=== PATIENT | female | born 1945 | race Caucasian/White ===

== ENCOUNTER → 2023-05-06 | Outpatient (CLI) | payer MEDICARE, OTHER, SELFPAY ==
--- NOTE | 2023-05-06 16:07 | MRI_ITS ---
STUDY: MRI BRAIN WITH AND WITHOUT CONTRAST REASON FOR EXAM: Female, 77 years old. HEARING LOSS, LT SIDE WORSE, IAC TECHNIQUE: Standardized multiplanar fat and water weighted pulse sequences were obtained. IV 13ML CLARISCAN was administered for the contrast portion of the examination. COMPARISON: None. FINDINGS: Normal size of the ventricles and extra-axial spaces for the patient''s age. Periventricular white matter ischemic changes without mass effect or restricted diffusion.. Normal bilateral basal ganglia. Normal thalami. There is no extra-axial fluid accumulation. Normal flow voids within the major intracranial circulation suggesting patency by spin echo criteria. Normal venous enhancement. There is no enhancing intra-axial or extra-axial abnormality. Partial empty sella deformity of uncertain significance. Normal, infundibular stalk, optic chiasm and hypothalamus. Normal tectal plate and pineal gland. Normal midbrain, richard and medulla. Normal cerebellum. Normal basal cisterns. Normal bilateral temporal bones. Normal bilateral internal auditory canals. No demonstrated orbital abnormality, within the constraints of a routine brain study. Normal visualized paranasal sinuses. Normal calvarium and skull base. Normal visualized soft tissue structures. Normal visualized upper cervical spine. MRI/Brain W/WO Contrast IMPRESSION: Mild periventricular white matter ischemic change without evidence for acute infarct.. No evidence for acoustic or vestibular schwannoma Electronically Signed: Christopher Teixeira MD at 18:16 EST ,
[2023-05-06 16:20] LABS: CREATININE FINGERSTICK < 1.0 mg/dL (0.55-1.02); EGFR FINGERSTICK > 60.0000 mL/min (>60)
== END | disposition home or self-care (01) ==
PROVIDERS: PCP Family Medicine; Referring Provider Otolaryngology; Visit Provider Otolaryngology
DX: H90.3 Sensorineural hearing loss, bilateral (principal)
CPT/HCPCS: 70553; A9575

== ENCOUNTER → 2023-05-20 | Outpatient (CLI) | payer MEDICARE, OTHER, SELFPAY ==
--- OUTSIDE RECORDS SUMMARY | 2023-05-20 13:36 | XMS RPT_ITS | CCD ---
Author Name Unknown Address [address] [place] [address] Organization [facility] Care Team Providers Care Biotechnician Name Role Phone LIZA, LORETTA Primary Care Unavailable ALKA PRUETT Admitting Unavailable ALKA PRUETT Attending Unavailable STANFORD LINO Unavailable MILES IRAHETA Unavailable SAMIRA PORTER Referring Unavailabl e LIZA, LORETTA Primary Care Unavailable ALKA PRUETT Referring Unavailable LIZA, LORETTA Primary Care Unavailable PRATT, TAMAR M Referring Unavailable LIZA, LORETTA Primary Care Unavailable PRATT, ATMAR M Referring Unavailable LIZA, LORETTA Primary Care Unavailable LULY YOUSSEF Attending Unavailab le LIZA, LORETTA Primary Care Unavailable PRATT, TAMAR M Attending Unavailable LIZA, LORETTA Primary Care Unavailable PRATT, TAMAR M Referring Unavailable LIZA, LORETTA Primary Care Unavailable PRATT, TAMAR M Referring Unavailable LIZA, LORETTA Primary Care Unavailable LULY YOUSSEF Attending Unavailab le LIZA, LORETTA Primary Care Unavailable LULY YOUSSEF Referring Unavailab le LIZA, LORETTA Primary Care Unavailable PATCHA, HIMALAYA Attending Unavailable LIZA, LORETTA Primary Care Unavailable PATCHA, HIMALAYA Referring Unavailable PATCHA, HIMALAYA Attending Unavailable LIZA, LORETTA Primary Care Unavailable PATCHA, HIMALAYA Referring Unavailable LIZA, LORETTA Primary Care Unavailable YI MOLINA Attending Unavailable LIZA, LORETTA Attending Unavailable SELF, REFERRAL Referring Unavailable LIZA, LORETTA Primary Care Unavailable PATCHA, HIMALAYA Attending Unavailable PATCHA, HIMALAYA Referring Unavailable LIZA, LORETTA Primary Care Unavailable LIZA, LORETTA Primary Care Unavailable ROBERTA COBOS Admitting Unavailable ROMULO GUEVARA Attending Unavailable PATCHA, HIMALAYA Attending Unavailable LIZA, LORETTA Primary Care Unavailable PATCHA, HIMALAYA Referring Unavailable PATCHA, HIMALAYA Attending Unavailable LIZA, LORETTA Primary Care Unavailable LIZA, LORETTA Attending Unavailable SELF, REFERRAL Referring Unavailable LIZA, LORETTA Primary Care Unavailable LIZA, LORETTA Attending Unavailable LIZA, LORETTA Primary Care Unavailable LIZA, LORETTA Primary Care Unavailable LIZA, LORETTA Attending Unavailable LIZA, LORETTA Referring Unavailable LIZA, LORETTA Primary Care Unavailable Problems Active Problems Problem Classification Problem Date Documented Date Episodic/Chronic Complications of surgical procedures or medical care (1 source) Postprocedural hypothyroidism; Translations: [Postprocedural hypothyroidism] Onset: 04-18-2022 Chronic Diabetes mellitus without complication (1 source) Type 2 diabetes mellitus without complications; Translations: [Type 2 diabetes mellitus without complications ([facility])] Onset: 02-09-2023 Chronic Disorders of lipid metabolism (2 sources) Hyperlipidemia, unspecified; Translations: [Other hyperlipidemia] Onset: 10-15-2021 Chronic E Codes: Fall (2 sources) Unspecified fall, sequela; Translations: [Unspecified fall, initial encounter] Onset: 11-04-2022 Episodic E Codes: Fall (1 source) Fall Onset: 11-03-2022 Essential hypertension (1 source) Essential (primary) hypertension; Translations: [Essential (primary) hypertension] Onset: 11-04-2022 Chronic Other aftercare (1 source) Encounter for follow-up examination after completed treatment for conditions other than malignant neoplasm; Translations: [Encounter for follow-up examination after completed treatment for conditions other than malignant neoplasm] Onset: 03-04-2023 Episodic Other aftercare (1 source) [facility] (current) use of insulin; Translations: [[facility] (current) use of insulin ([facility])] Onset: 02-09-2023 Episodic Other nervous system disorders (1 source) Other chronic pain; Translations: [Other chronic pain] Onset: 02-06-2023 Chronic Residual codes; unclassified (1 source) Altered mental status Onset: 02-06-2023 Episodic Residual codes; unclassified (1 source) Altered mental status, unspecified; Translations: [Altered mental status, unspecified] Onset: 02-06-2023 Episodic Superficial injury; contusion (1 source) Contusion of unspecified hip, initial encounter; Translations: [Contusion of unspecified hip, initial encounter] Onset: 01-10-2023 Episodic Thyroid disorders (2 sources) Hypothyroidism, unspecified; Translations: [Other specified hypothyroidism] Onset: 10-15-2021 Chronic Urinary tract infections (2 sources) Urinary tract infection, site not specified; Translations: [Acute cystitis without hematuria] Onset: 02-06-2023 Episodic Past or Other Problems Problem Classification Problem Date Documented Date Episodic/Chronic Deficiency and other anemia (1 source) Anemia, unspecified; Translations: [Anemia, unspecified] Onset: 11-13-2022 Episodic Fracture of neck of femur (hip) (3 sources) Displaced intertrochanteric fracture of left femur, initial encounter for closed fracture; Translations: [Fracture of unspecified part of neck of left femur, initial encounter for closed fracture] Onset: 11-03-2022 Episodic Fracture of neck of femur (hip) (2 sources) Fracture of unspecified part of neck of right femur, initial encounter for closed fracture; Translations: [Displaced intertrochanteric fracture of right femur, initial encounter for closed fracture] Onset: 11-03-2022 Episodic Results Test Name Value Interpretation Reference Range Facil ity Encounters Encounter Date Encounter Type Care Provider Facility Start: 03-25-2023 ambulatory [facility] Start: 03-04-2023 End: 03-04-2023 ambulatory [facility] Start: 02-20-2023 End: 02-20-2023 [facility] Start: 02-19-2023 ambulatory [facility] Start: 02-12-2023 ambulatory [facility] Start: 02-06-2023 End: 02-10-2023 Evaluation and management of inpatient [facility] Start: 02-05-2023 [facility] Start: 01-13-2023 End: 01-13-2023 ambulatory [facility] Start: 01-10-2023 End: 01-10-[facility] Start: 12-31-2022 End: 01-01-2023 ambulatory [facility] Start: 11-19-2022 End: 11-20-2022 ambulatory [facility] Start: 11-13-2022 ambulatory [facility] Start: 11-09-2022 ambulatory [facility] Start: 11-04-2022 End: 11-05-2022 Evaluation and management of inpatient ALKA Hinton [facility] Start: 11-03-2022 End: 11-06-2022 Evaluation and management of inpatient [facility] Start: 11-03-2022 Emergency department patient visit [facility] Start: 04-18-2022 End: 04-18-2022 ambulatory [facility] Start: 04-08-2022 End: 04-08-2022 ambulatory [facility] Start: 04-08-2022 Encounter for other specified special examinations [facility] Procedures Date Procedure Procedure Detail Performing Clinician Start: 11-03-2022 Antibody screen LORETTA Hinton COREY Payers Date Payer Category Payer Medicare [id number] Unknown [id number] Summary Purpose Family History No Family History Records FoundNo Family History Records FoundNo Family History Records Found Advance Directives No Advanced Directives Records FoundNo Advanced Directives Records FoundNo Advanced Directives Records Found Additional Source Comments INFORMATION SOURCE (unrecogn ized section and content) DATE CREATED AUTHOR AUTHOR'S ORGANIZ ATION 03/14/2023 [facility] W DATE CREATED AUTHOR AUTHOR'S ORGANIZ ATION 03/27/2023 [facility] FOR RECORDS PERTAINING TO PATIENTS WHO ARE OR HAVE BEEN ENROLLED IN A CHEMICAL DEPENDENCY/SUBSTANCEABUSE PROGRAM, SOME INFORMATION MAY BE OMITTED. This clinical summary was aggregated from multiple sources. Caution should be exercised in using it in the provision of clinical care. This summary normalizes information from multiple sources, and as a consequence, information in this document may materially change the coding, format and clinical context of patient data. In addition, data may be omitted in some cases. CLINICAL DECISIONS SHOULD BE BASED ON THE PRIMARY CLINICAL RECORDS. [facility] [employer] [facility]. provides no warranty or guarantee of the accuracy or completeness of information in this document.
[2023-05-20 15:07] LABS: Absolute Lymphocyte Count 2.26 X10^3/uL (0.83-4.51); Absolute Neutrophil Count 4.2 X10^3/uL (2.0-7.7); Basophil# 0.05 X10^3/uL; Basophil% 0.7 % (0-1); Eosinophil# 0.11 X10^3/uL; Eosinophils% 1.5 % (0-5); Hematocrit 43.4 % (37-47); Hemoglobin 13.4 g/dL (12.0-15.0); Lymphocyte # 2.26 X10^3/ul (0.83-4.51); Lymphocyte % 31.5 % (19-41); Mean Corp Hgb Conc 30.9 g/dL (32-36); Mean Corpuscular Hgb 29.3 pg (27.0-32.0); Mean Corpuscular Volume 94.8 fL (81-99); Mean Platelet Vol. 10.7 fl (6.2-12.0); Monocyte# 0.52 X10^3/uL; Monocyte% 7.3 % (0-10); NRBC Flagged by Analyzer 0 % (0-5); Neutrophil # 4.22 X10^3/uL (2.7-7.7); Neutrophil % 58.9 % (47-70); Platelet Count 236 K/mm3 (150-450); RBC Distribution Width CV 12.4 % (11.6-14.6); RBC Distribution Width SD 42.7 fl (35.1-43.9); Red Blood Count 4.58 M/mm3 (4.2-5.4); White Blood Count 7.2 K/mm3 (4.4-11.0)
[2023-05-20 15:57] LABS: Vitamin B12 348 pg/mL (211-911)
[2023-05-20 16:15] LABS: ALB/GLOB Ratio 0.9 RATIO (0.9-2.4); AST(SGOT) 10 U/L (15-37); Alanine Aminotransfer ALT/SGPT 17 U/L (13-56); Albumin, Serum 3.5 g/dL (3.2-5.0); Alkaline Phosphatase 90 U/L (45-117); Anion Gap 3 (5-15); BUN 15 mg/dL (7-18); BUN/Creat Ratio 21.8 RATIO (10-20); Calcium,Total 9.6 mg/dL (8.5-10.1); Chloride 108 mmol/L (98-107); Cholesterol 133 mg/dL (200); Creatinine, Serum 0.69 mg/dL (0.55-1.02); EST Glomerular Filtration Rate 88 mL/min (>60); Est Glom Filt Rate - Afr Amer 107 mL/min (>60); Ferritin 158 ng/mL (8-252); Globulin 4.1 g/dL (2.2-4.2); Glucose 129 mg/dL (74-106); High Density Lipoprotein 48 mg/dL; Iron 93 ug/dL (50-170); Iron Binding Capacity,Total 255 ug/dL (250-450); PERCENT IRON SATURATION 36.5 % (15.0-55.0); Protein, Total 7.6 g/dL (6.4-8.2); Sodium Level 139 mmol/L (136-145); Thyroid Stim Hormone (TSH) 0.01 uIU/mL (0.358-3.74); Triglycerides 98 mg/dL; Very Low Density Lipoprotein 20 mg/dL (5-40)
== END | disposition home or self-care (01) ==
LOC: BFHLAB 13:12
PROVIDERS: PCP Family Medicine; Visit Provider Family Medicine
DX: I10 Essential (primary) hypertension (principal); E11.9 Type 2 diabetes mellitus without complications; E03.9 Hypothyroidism, unspecified
CPT/HCPCS: 36415; 80053; 80061; 82607; 82728; 82746; 83540; 83550; 84443; 85025

== ENCOUNTER → 2023-07-03 | Outpatient (CLI) | payer MEDICARE, OTHER, SELFPAY ==
--- NOTE | 2023-07-03 15:19 | BI_ITS ---
MAMMOGRAPHY - UNILATERAL SCREENING: RIGHT BREAST REASON FOR EXAM: Female, 78 years old. Routine annual screening examination (unilateral). PERTINENT HISTORY: Personal history of breast cancer. Prior left mastectomy with chemotherapy. TECHNIQUE: Digital unilateral breast benson (3D mammographic acquisition) in the CC and MLO projections. 2-D mediolateral oblique (MLO) and craniocaudad (CC) views of both breasts were obtained. CAD: Full Field Digital Mammography with Computer Added Detection was performed. COMPARISON: Comparison is made with prior outside examination dated September 29, 2018. FINDINGS: Breast Composition: The breasts are heterogeneously dense, which may obscure small masses. There are no dominant masses or suspicious calcifications. No other significant abnormalities are identified. There has been no significant change since the prior study. BI/SCREEN MAMM (CAD) W/BENSON UNI R IMPRESSION: Stable unilateral screening mammogram. Yearly follow-up mammogram recommended. (A) ASSESSMENT CATEGORY: BIRADS Category 1: Negative. A letter regarding these results will be sent to the patient by the facility within 30 days. Approximately 10% of breast cancers are not detected by mammography. A normal mammogram should not delay biopsy of a clinically suspicious abnormality. [id number] Electronically Signed: Seng Bowen MD at 9:10 EDT ,
--- NOTE | 2023-07-03 15:19 | BD_ITS ---
STUDY: DUAL ENERGY X-RAY ABSORPTIOMETRY / DXA REASON FOR EXAM: Female, 78 years old. S72.009A TECHNIQUE: Bone Mineral Density (BMD) measurements of lumbar spine and left forearm were obtained. COMPARISON: None. FINDINGS: Lumbar Spine (L1-L4): g/cm2 (0.914) / T-score (-0.6) / Z-score (1.8) Findings are suggestive of normal bone density with a low fracture risk. Left Forearm: g/cm2 (0.473) / T-score (-2.0) / Z-score (0.7) BD/Dexa Bone Density Study IMPRESSION: The patient is considered osteopenic as outlined below according to World Rome Organization (WHO) criteria with a moderate fracture risk. Reference Information: The T-score is the number of standard deviations above or below the standard which is normal for young adults at their peak bone mineral density. The World Health Organization (WHO) interprets the T-scores as follows: Above -1 Normal bone density Between -1 and -2.5 Osteopenia Equal to / or below -2.5 Osteoporosis As a practical clinical guideline, osteopenia may be graded as follows: Mild -1 through -1.5 Moderate -1.6 through -2.0 Severe -2.1 through -2.4 The Z-score is the number of standard deviations above or below age-matched controls. A Z-score of less than -1.5 would be considered abnormal. References: 1. NIH Osteoporosis and Related Bone Diseases www osteo.org 2. International Society for Clinical Densitometry www iscd.org 3. National Osteoporosis Foundation www nof.org Electronically Signed: Seng Bowen MD at 11:14 EDT ,
--- OUTSIDE RECORDS SUMMARY | 2023-07-03 21:51 | XMS RPT_ITS | CCD ---
Author Name Unknown Address [address] [place] [address] Organization [facility] Care Team Providers Care Validation Intern Name Role Phone LIZA, LORETTA Primary Care [...] Translations: [Type 2 diabetes mellitus without complications ([facility])] Onset: 02-09-2023 Chronic Disorders of lipid metabolism [...] Onset: 03-04-2023 Episodic Other aftercare (1 source) remote computer terminal operator (current) use of insulin; Translations: [remote computer terminal operator (current) use of insulin ([facility])] Onset: 02-09-2023 Episodic Other nervous system disorders [...] Type Care Provider Facility Start: 03-25-2023 ambulatory [facility] Start: 03-04-2023 End: 03-04-2023 ambulatory [facility] Start: 02-20-2023 End: 02-20-2023 [facility] Start: 02-19-2023 ambulatory [facility] Start: 02-12-2023 ambulatory [facility] Start: 02-06-2023 End: 02-10-2023 Evaluation and management of inpatient [facility] Start: 02-05-2023 [facility] Start: 01-13-2023 End: 01-13-2023 ambulatory [facility] Start: 01-10-2023 End: 01-10-[facility]23 [facility] Start: 12-31-[facility]22 End: 01-01-2023 ambulatory [facility] Start: 11-19-2022 End: 11-20-2022 ambulatory [facility] Start: 11-13-2022 ambulatory [facility] Start: 11-09-2022 ambulatory [facility] Start: 11-04-2022 End: 11-05-2022 Evaluation and management of inpatient ALKA Hinton [facility] W Start: 11-03-2022 End: 11-06-2022 Evaluation and management of inpatient [facility] Start: 11-03-2022 Emergency department patient visit [facility] Start: 04-18-2022 End: 04-18-2022 ambulatory [facility] Start: 04-08-2022 End: 04-08-2022 ambulatory [facility] Start: 04-08-2022 Encounter for other specified special examinations [facility] Procedures Date Procedure Procedure Detail Performing Clinician Start: 11-03-2022 Antibody screen LORETTA Hinton CORE[facility] Payers Date Payer Category Payer Medicare [id number] Unknown [id number] Summary Purpose Family History No Family History Records FoundNo Family History Records FoundNo Family History Records Found Advance Directives No Advanced Directives Records FoundNo Advanced Directives Records FoundNo Advanced Directives Records Found Additional Source Comments INFORMATION SOURCE (unrecogn ized section and content) DATE CREATED AUTHOR AUTHOR'S ORGANIZ ATION 03/14/2023 [facility] W DATE CREATED AUTHOR AUTHOR'S ORGANIZ ATION 03/27/2023 [facility] FOR RECORDS PERTAINING TO PATIENTS WHO [...] BE BASED ON THE PRIMARY CLINICAL RECORDS. [facility] [email or web address] [facility]. provides no warranty or guarantee of the accuracy or completeness of information in this document.
== END | disposition home or self-care (01) ==
LOC: OPBD 15:18
PROVIDERS: PCP Family Medicine; Referring Provider Family Medicine; Visit Provider Family Medicine
DX: S72.001A Fracture of unspecified part of neck of right femur, initial encounter for closed fracture (principal); S72.002A Fracture of unspecified part of neck of left femur, initial encounter for closed fracture; X58.XXXA Exposure to other specified factors, initial encounter; Z78.0 Asymptomatic menopausal state; Z12.31 Encounter for screening mammogram for malignant neoplasm of breast; Z90.12 Acquired absence of left breast and nipple; Z85.3 Personal history of malignant neoplasm of breast
CPT/HCPCS: 77063; 77067; 77080

== ENCOUNTER → 2023-07-08 | Outpatient (CLI) | payer MEDICARE, OTHER, SELFPAY ==
[2023-07-08 16:17] LABS: Vitamin B12 563 pg/mL (211-911)
[2023-07-08 16:29] LABS: Thyroid Stim Hormone (TSH) 1.54 uIU/mL (0.358-3.74)
== END | disposition home or self-care (01) ==
LOC: MTLAB 14:14
PROVIDERS: PCP Family Medicine; Referring Provider Family Medicine; Visit Provider Family Medicine
DX: E53.8 Deficiency of other specified B group vitamins (principal); E03.9 Hypothyroidism, unspecified
CPT/HCPCS: 36415; 82607; 84443

== ENCOUNTER → 2023-08-21 | Outpatient (CLI) | payer MEDICARE, OTHER, SELFPAY ==
--- NOTE | 2023-08-21 16:37 | US_ITS ---
HISTORY: UTI. TECHNIQUE: Ball scale and color doppler images were obtained of the kidneys. 96 images. COMPARISON: None. FINDINGS: RIGHT KIDNEY: 10.1 cm in length with a cortical thickness of 1.5 cm. Contour and echogenicity unremarkable. No hydronephrosis. No gross renal mass demonstrated. LEFT KIDNEY: 10.4 cm in length with a cortical thickness of 1.6 cm. Echogenicity unremarkable. No hydronephrosis. Multiple echogenic foci measuring up to 9 mm. URINARY BLADDER: Unremarkable at 88 cc with a 3 mm wall thickness. 49 cc post void residual. US/Kidney and Bladder IMPRESSION: Nonobstructing left renal calcifications. Mild postvoid residual in the bladder. Electronically Signed: Brittany Arcos MD at 8:42 EDT ,
== END | disposition home or self-care (01) ==
LOC: US 16:35
PROVIDERS: PCP Family Medicine; Referring Provider Urology; Visit Provider Urology
DX: N39.0 Urinary tract infection, site not specified (principal)
CPT/HCPCS: 76770

== ENCOUNTER → 2023-09-05 | Outpatient (CLI) | payer MEDICARE, OTHER, SELFPAY ==
--- NOTE | 2023-09-05 13:41 | CT_ITS ---
STUDY: CT ABDOMEN AND PELVIS WITHOUT CONTRAST REASON FOR EXAM: Female, 78 years old. Calculus of kidney. Hematuria. Renal infection. RADIATION DOSAGE (If Supplied By Facility): CTDIvol = ( 6.92 ) mGy, DLP = ( 344.17 ) mGycm TECHNIQUE: Transaxial images were obtained from the dome of the diaphragm to the symphysis pubis without oral contrast, and without intravenous contrast. Sagittal and coronal images were reconstructed. Individualized dose optimization techniques were used for this CT. COMPARISON: Comparison is made with prior sonogram of the kidneys dated August 21, 2023. FINDINGS: The visualized lung bases are unremarkable. A left breast prosthesis is seen. Coronary artery calcification. Normal liver. There are multiple gallstones. A gallstone is seen in the neck of the gallbladder. Normal spleen. There is diffuse atrophy of the pancreas. Normal bilateral adrenal glands. There are small nonobstructive bilateral intrarenal calculi. There is a 2.5 mm calculus in the midportion of the right ureter. Normal visualized stomach. A duodenal diverticulum is seen along the second portion of the duodenum. Normal small intestine. There are multiple colonic diverticula consistent with diverticulosis. There is non-visualization of the appendix. There is diffuse atherosclerotic calcification of the abdominal aorta, without a demonstrated aneurysm. Normal inferior vena cava. Normal retroperitoneum. Normal urinary bladder. There is absence of the uterus consistent with a prior hysterectomy. Normal abdominal wall. There are diffuse degenerative changes of the visualized lumbar spine. There is loss of the normal lumbar lordosis. There is a 50% loss of height of the superior endplate of the L4 vertebrae. Prior right hip pinning. CT/Abdomen/Pelvis without Cont IMPRESSION: Multiple gallstones. A stone is seen in the neck of the gallbladder. Nonobstructed bilateral intrarenal calculi. 2.5 mm calculus in the midportion of the right ureter. Pancreatic atrophy. Electronically Signed: Seng Bowen MD at 14:39 EDT ,
== END | disposition home or self-care (01) ==
LOC: CT 13:36
PROVIDERS: PCP Family Medicine; Referring Provider Urology; Visit Provider Urology
DX: N20.0 Calculus of kidney (principal)
CPT/HCPCS: 74176

== ENCOUNTER → 2024-06-04 | Outpatient (CLI) | payer MEDICARE, SELFPAY ==
[2024-06-04 12:39] LABS: Absolute Lymphocyte Count 2.11 X10^3/uL (0.83-4.51); Absolute Neutrophil Count 4.4 X10^3/uL (2.0-7.7); Basophil# 0.07 X10^3/uL; Basophil% 0.9 % (0-1); Eosinophil# 0.17 X10^3/uL; Eosinophils% 2.3 % (0-5); Hematocrit 42.8 % (37-47); Lymphocyte # 2.11 X10^3/ul (0.83-4.51); Lymphocyte % 28.6 % (19-41); Mean Corp Hgb Conc 32.7 g/dL (32-36); Mean Corpuscular Hgb 30.6 pg (27.0-32.0); Mean Corpuscular Volume 93.4 fL (81-99); Monocyte# 0.57 X10^3/uL; Monocyte% 7.7 % (0-10); NRBC Flagged by Analyzer 0 % (0-5); Neutrophil # 4.44 X10^3/uL (2.7-7.7); Neutrophil % 60.2 % (47-70); Platelet Count 198 K/mm3 (150-450); RBC Distribution Width CV 12.5 % (11.6-14.6); RBC Distribution Width SD 42.7 fl (35.1-43.9); Red Blood Count 4.58 M/mm3 (4.2-5.4); White Blood Count 7.4 K/mm3 (4.4-11.0)
[2024-06-04 13:17] LABS: Vitamin B12 1109 pg/mL (211-911)
[2024-06-04 13:31] LABS: ALB/GLOB Ratio 0.9 RATIO (0.9-2.4); AST(SGOT) 16 U/L (15-37); Alanine Aminotransfer ALT/SGPT 18 U/L (13-56); Albumin, Serum 3.4 g/dL (3.2-5.0); Alkaline Phosphatase 71 U/L (45-117); Anion Gap 6 (5-15); BUN 15 mg/dL (7-18); BUN/Creat Ratio 20.1 RATIO (10-20); Calcium,Total 9.5 mg/dL (8.5-10.1); Chloride 107 mmol/L (98-107); Cholesterol 108 mg/dL (200); Creatinine, Serum 0.75 mg/dL (0.55-1.02); EST Glomerular Filtration Rate 80 mL/min (>60); Est Glom Filt Rate - Afr Amer 96 mL/min (>60); Globulin 3.8 g/dL (2.2-4.2); Glucose 132 mg/dL (74-106); High Density Lipoprotein 42 mg/dL; Protein, Total 7.2 g/dL (6.4-8.2); Sodium Level 143 mmol/L (136-145); Thyroid Stim Hormone (TSH) 0.043 uIU/mL (0.358-3.740); Triglycerides 98 mg/dL; Very Low Density Lipoprotein 20 mg/dL (5-40)
== END | disposition home or self-care (01) ==
LOC: BFHLAB 09:16
PROVIDERS: PCP Family Medicine; Referring Provider Family Medicine; Visit Provider Family Medicine
DX: E11.9 Type 2 diabetes mellitus without complications (principal); I10 Essential (primary) hypertension; E03.9 Hypothyroidism, unspecified
CPT/HCPCS: 36415; 80053; 80061; 82607; 84443; 85025

== ENCOUNTER → 2024-07-05 | Outpatient (CLI) | payer MEDICARE, OTHER, SELFPAY ==
--- NOTE | 2024-07-05 09:19 | BI_ITS ---
PROCEDURE: SCREEN MAMM (CAD) W/BENSON UNI R REASON FOR EXAM: F, Age 79 y/o , SCREENING. History of personal breast cancer with remote left mastectomy. COMPARISON: Prior exam(s) dating back to . TECHNIQUE: Unilateral diagnostic digital breast tomosynthesis with 2D and 3D images. Computer aided detection. FINDINGS: There are scattered areas of fibroglandular density. Stable examination. No suspicious mass or cluster of microcalcifications seen. Mild degree of secretory calcification. BI/SCREEN MAMM (CAD) W/BENSON UNI R IMPRESSION: Stable examination. No acute abnormality is seen. BI-RADS 2: BENIGN RECOMMEND ANNUAL MAMMOGRAPHIC SCREENING. Reading Location: [place] [id number]
== END | disposition home or self-care (01) ==
PROVIDERS: PCP Family Medicine; Referring Provider Family Medicine; Visit Provider Family Medicine
DX: Z12.31 Encounter for screening mammogram for malignant neoplasm of breast (principal)
CPT/HCPCS: 77063; 77067

== ENCOUNTER → 2024-11-12 | Outpatient (CLI) | payer MEDICARE, OTHER, SELFPAY | END | disposition home or self-care (01) | LOC: BFHLAB 10:58 | PROVIDERS: PCP Family Medicine; Visit Provider Family Medicine | DX: E03.9 Hypothyroidism, unspecified (principal) | CPT/HCPCS: 36415; 84439; 84443 ==

== ENCOUNTER 2025-01-21 19:44 | Inpatient (IN) | payer MEDICARE, OTHER, SELFPAY ==
[2025-01-21 19:45] VITALS: BP 150/80; PULSE 113; RESP 18; TEMP 36.4; O2SAT 98
--- NOTE | 2025-01-21 20:10 | RAD_ITS ---
PROCEDURE: WRIST MIN 3 VIEWS 01/21/2025 REASON FOR EXAM: PAIN TECHNIQUE: Procedure Code: RADWR Modality: DX Procedure: WRIST MIN 3 VIEWS Laterality: Left COMPARISON: None FINDINGS: The bones are diffusely demineralized. No acute fracture or suspicious osseous lesion. However, wrist fractures in patients of this age can be subtle, if there is strong clinical suspicion of a fracture, recommend further evaluation with CT Degenerative narrowing at all visualized joint spaces most notably at the base of the thumb. No subchondral changes. Chondrocalcinosis noted in the TFCC RAD/Wrist min 3 Views IMPRESSION: Diffuse osteopenia without a fracture or suspicious osseous lesion. Please see discussion above Degenerative arthrosis, most pronounced at the base of the thumb Chondrocalcinosis Reading Location: [id number]
--- NOTE | 2025-01-21 20:10 | RAD_ITS ---
PROCEDURE: HIP, UNI W/ PELVIS 2-3 VIEWS 01/21/2025 REASON FOR EXAM: PAIN TECHNIQUE: Procedure Code: [facility] Modality: DX Procedure: HIP, UNI W/ PELVIS 2-3 VIEWS Laterality: Left COMPARISON: None FINDINGS: Bones: The bones are diffusely demineralized. There has been previous open reduction internal fixation to both femurs. The hardware is intact and free of complication. No plain film evidence of acute fracture to either femur. Joints: Age consistent hip and SI joint arthrosis, no subchondral changes. Soft tissues: Hyperdensities over the right sacrum I suspect represent ingested medication. Retained stool noted throughout the colon Other: RAD/HIP, UNI W/ Pelvis 2-3 Views IMPRESSION: Diffuse osteopenia with age consistent hip and SI joint arthrosis. Surgical brown rdware in both femurs free of complication. No acute abnormalities. However, hip and pelvic fractures in patients of this age can be subtle, if there is strong clinical suspicion of a fracture, recommend further evaluation with CT Reading Location: [id number]
[2025-01-21 21:44] VITALS: BP 145/72; PULSE 76; RESP 15; O2SAT 100
--- OUTSIDE RECORDS SUMMARY | 2025-01-21 21:55 | XMS RPT_ITS | CCD ---
Author Organization [facility] CliniSyil Care Team Providers Care Media Services Coordinator Name Role Phone LIZA, LORETTA Primary Care Unavailable PRUETT ALKA M Admitting Unavailable PRUETT, ALKA Mary Jane Attending Unavailable STANFORD LINO Consulting Unavailable MILES IRAHETA Consulting Unavailable SAMIRA PORTER Referring Unavailabl e LIZA, LORETTA Primary Care Unavailable PRUETT ALKA M Referring Unavailable LIZA, LORETTA Primary Care [...] Unavailab le LIZA, LORETTA Primary Care Unavailable LIZA, LORETTA Attending Unavailable LIZA, LORETTA Primary Care Unavailable Dr. Joann Maya MD Primary Care Provider [phone] Dr. Joann Maya MD Attending Provider [phone] Dr. Joann Maya MD Referring Provider Dr. Joann Maya MD Primary Care Provider [phone] Dr. Veronika Hodges MD Attending Provider Dr. Joann Maya MD Attending Provider [phone] Joann Maya Attending Unavailable Joann Maya Primary Care Unavailable Joann Maya Primary Care Unavailable Joann Maya Referring Unavailable Joann Maya Attending Unavailable Joann Maya Primary Care Unavailable Joann Maya Referring Unavailable Joann Maya Attending Unavailable Problems Active Problems Problem Classification Problem Date Documented Da te Episodic/Chronic Diabetes mellitus without complication (1 source) Type 2 diabetes mellitus without complications; Translations: [Type 2 diabetes mellitus without complications] Onset: 06-17-2024 Chronic E Codes: Fall (1 source) Fall Onset: 11-03-2022 Thyroid disorders (1 source) Hypothyroidism, unspecified; Translations: [Hypothyroidism, unspecified] Onset: 11-17-2024 Chronic Past or Other Problems Problem Classification Problem Date Documented Date Episodic/Chronic Fracture of neck of femur (hip) (3 [...] encounter for closed fracture] Onset: 11-03-2022 Episodic Other screening for suspected conditions (not mental disorders or infectious disease) (1 source) Encounter for screening mammogram for malignant neoplasm of breast; Translations: [Encounter for screening mammogram for malignant neoplasm of breast] Onset: 07-14-2024 Episodic Urinary tract infections (1 source) Urinary tract infection, site not specified; Translations: [Urinary tract infection, site not specified] Onset: 03-25-2023 Episodic Results Test Name Value Interpretation Reference Range Facility T4 Free Directon 11-12-2024 T4 FREE DIRECT 1.70 ng/dL High 0.76-1.46 [facility] Comment on above: Performed By: #### L 501.9520, L506.0400 #### [facility] Laboratory [address] [place], [address] T4 freeOrdered By: Joann sheldon on 11-12-2024 Free T4 [Mass/Vol] 1.70 ng/dL High 0.76-1.46 [facility] TSH DL <= 0.005 mIU/L QnOrde red By: Joann Maya on 11-12-2024 TSH Qn 0.046 uIU/mL Low 0.300-4.200 [facility] Thyroid Stim Hormone (TSH)on 11-12-2024 TSH 0.046 uIU/mL Low 0.300-4.200 [facility] Comment on above: Performed By: #### L 501.9520, L506.0400 #### [facility] [address] [facility] [place], [place], [address] Breast imaging reportOrdered By: Seng Bowen on 07-05-2024 Study report [facility] Imaging Services [address] [place], [place] [address] SCREEN MAMM (CAD) W/BENSON UNI R MR#: [id number] Acct: [id number] Name: BARBARA WALTER Rep #: [id number] : 1945 F 79 From: Mo Bowen MD PCP: Dr. Joann Maya MD Status: REG CLI Study:SCREEN MAMM (CAD) W/BENSON UNI R Date of Exam: 07/05/24 Exam# [id number] Ordering Dr: Yanira Maya MD PROCEDURE: SCREEN MAMM (CAD) W/BENSON UNI R REASON FOR EXAM: F, Age 79 y/o , SCREENING. History of personal breast cancer with remote left mastectomy. COMPARISON: Prior exam(s) dating back to . TECHNIQUE: Unilateral diagnostic digital breast tomosynthesis with 2D and 3D images. Computer aided detection. FINDINGS: There are scattered areas of fibroglandular density. Stable examination. No suspicious mass or cluster of microcalcifications seen. Mild degree of secretory calcification. BI/SCREEN MAMM (CAD) W/BENSON UNI R IMPRESSION: Stable examination. No acute abnormality is seen. BI-RADS 2: BENIGN RECOMMEND ANNUAL MAMMOGRAPHIC SCREENING. Reading Location: [place] [address] CC: Dr. Joann Maya MD ~ Distribution Center Manager: Signed [facility] SCREEN MAMM (CAD) W/BENSON UNI Mejia 07-05-2024 SCREEN MAMM (CAD) W/BENSON UNI R [facility] Imaging Services [address] [place] [address] SCREEN MAMM (CAD) W/BENSON UNI R MR#: [id number] Acct: [id number] Name: BARBARA WALTER Rep #: [id number] : 1945 F 79 From: Seng duron MD PCP: Dr. Joann Maya MD Status: REG CLI Study: SCREEN MAMM (CAD) W/BENSON UNI R Date of Exam: 0 07/05/24 Exam# [id number] Ordering Dr: Joann Maya MD PROCEDURE: SCREEN MAMM (CAD) W/BENSON UNI R REASON FOR EXAM: F, Age 79 y/o , SCREENING. History of personal breast cancer with remote left mastectomy. COMPARISON: Prior exam(s) dating back to . TECHNIQUE: Unilateral diagnostic digital breast tomosynthesis with 2D and 3D images. Computer aided detection. FINDINGS: There are scattered areas of fibroglandular density. Stable examination. No suspicious mass or cluster of microcalcifications seen. Mild degree of secretory calcification. BI/SCREEN MAMM (CAD) W/BENSON UNI R IMPRESSION: Stable examination. No acute abnormality is seen. BI-RADS 2: BENIGN RECOMMEND ANNUAL MAMMOGRAPHIC SCREENING. Reading Location: [place] [address] CC: Dr. Joann Maya MD Distribution Center Manager: Signed Normal [facility] Absolute neutrophil countOrd ered By: Joann Maya on 06-04-2024 Neutrophils (Bld) [#/Vol] 4.4 10*3/uL 2.0-7.7 [facility] Albumin to globulin ratioOrd ered By: Joann Maya on 06-04-2024 Albumin/Globulin [Mass ratio] 0.9 {ratio} 0.9-2.4 [facility] Basophil percentageOrdered B y: Joann Maya on 06-04-2024 Basophils/100 WBC (Bld) 0.9 % 0-1 [facility] Bilirubin, totalOrdered By: Joann Maya on 06-04-2024 Bilirubin [Mass/Vol] 0.40 mg/dL 0.20-1.00 [facility] Comment on above: For patients on eltr ombopag therapy, use of Dimension [place] TBIL is not recommended. Blood urea nitrogen (BUN)/cr eatinine ratioOrdered By: Joann Maya on 06-04-2024 Urea nitrogen/Creatinine [Mass ratio] 20.1 mg/mg High 10-20 [facility] CBC W/Diff, Automatedon 05-22 Absolute Lymph 2.11 X10 3/uL Normal 0.83-4.51 [facility] Comment on above: Performed By: #### L 100.0100, L503.0105, L500.4050, L500.4100, L501.9520 #### [facility] [address] [place], [address] Absolute Neut 4.4 X10 3/uL Normal 2.0-7.7 [facility] Comment on above: Performed By: #### L 100.0100, L503.0105, L500.4050, L500.4100, L501.9520 #### [facility] [address] [place], [address] Basophils/100 WBC (Bld) 0.9 % Normal 0-1 [facility] Comment on above: Performed By: #### L 100.0100, L503.0105, L500.4050, L500.4100, L501.9520 #### [facility] [address] [place], [address] Eosinophils/100 WBC (Bld) 2.3 % Normal 0-5 [facility] Comment on above: Performed By: #### L 100.0100, L503.0105, L500.4050, L500.4100, L501.9520 #### [facility] [address] [place], [address] Erythrocyte distribution width (RBC) [Ratio] 12.5 % Normal 11.6-14.6 [facility] Comment on above: Performed By: #### L 100.0100, L503.0105, L500.4050, L500.4100, L501.9520 #### [facility] [address] [place], [address] Hematocrit (Bld) [Volume fraction] 42.8 % Normal 37-47 [facility] Comment on above: Performed By: #### L 100.0100, L503.0105, L500.4050, L500.4100, L501.9520 #### [facility] [address] [place], [address] Hemoglobin (Bld) [Mass/Vol] 14.0 g/dL Normal 12.0-15.0 [facility] Comment on above: Performed By: #### L 100.0100, L503.0105, L500.4050, L500.4100, L501.9520 #### [facility] [address] [place], [address] IG% 0.300 Normal 0.0-0.9 [facility] Comment on above: Result Comment: IG% - Immature Granulocytes (promyelocytes, myelocytes and metamyelocytes) > 1% indicates that a LEFT SHIFT is Present. Performed By: #### L 100.0100, L503.0105, L500.4050, L500.4100, L501.9520 #### [facility] [address] [place], [address] Lymphocytes/100 WBC (Bld) 28.6 % Normal 19-41 [facility] Comment on above: Performed By: #### L 100.0100, L503.0105, L500.4050, L500.4100, L501.9520 #### [facility] [address] [place], [address] MCH (RBC) [Entitic mass] 30.6 pg Normal 27.0-32.0 [facility] Comment on above: Performed By: #### L 100.0100, L503.0105, L500.4050, L500.4100, L501.9520 #### [facility] [address] [place], [address] MCHC (RBC) [Mass/Vol] 32.7 g/dL Normal 32-36 [facility] Comment on above: Performed By: #### L 100.0100, L503.0105, L500.4050, L500.4100, L501.9520 #### [facility] [address] [place], [address] MCV (RBC) [Entitic vol] 93.4 fL Normal 81-99 [facility] Comment on above: Performed By: #### L 100.0100, L503.0105, L500.4050, L500.4100, L501.9520 #### [facility] [address] [place], [address] Monocytes/100 WBC (Bld) 7.7 % Normal 0-10 [facility] Comment on above: Performed By: #### L 100.0100, L503.0105, L500.4050, L500.4100, L501.9520 #### [facility] [address] [place], [address] Neutrophils/100 WBC (Bld) 60.2 % Normal 47-70 [facility] Comment on above: Performed By: #### L 100.0100, L503.0105, L500.4050, L500.4100, L501.9520 #### [facility] [address] [place], [address] Nucleated RBC (Bld) [#/Vol] 0 10*3/uL Normal 0-5 [facility] Comment on above: Performed By: #### L 100.0100, L503.0105, L500.4050, L500.4100, L501.9520 #### [facility] [address] [place], [address] Platelet mean volume (Bld) [Entitic vol] 11.0 fL Normal 6.2-12.0 [facility] Comment on above: Performed By: #### L 100.0100, L503.0105, L500.4050, L500.4100, L501.9520 #### [facility] [address] [place], [address] Platelets (Bld) [#/Vol] 198 10*3/uL Normal 150-450 [facility] Comment on above: Performed By: #### L 100.0100, L503.0105, L500.4050, L500.4100, L501.9520 #### [facility] [address] [place], [address] RBC (Bld) [#/Vol] 4.58 10*6/uL Normal 4.2-5.4 [facility] Comment on above: Performed By: #### L 100.0100, L503.0105, L500.4050, L500.4100, L501.9520 #### [facility] [address] [place], [address] RDW SD 42.7 fl Normal 35.1-43.9 [facility] Comment on above: Performed By: #### L 100.0100, L503.0105, L500.4050, L500.4100, L501.9520 #### [facility] [address] [place], [address] WBC (Bld) [#/Vol] 7.4 10*3/uL Normal 4.4-11.0 [facility] Comment on above: Performed By: #### L 100.0100, L503.0105, L500.4050, L500.4100, L501.9520 #### [facility] [address] [place], [address] Carbon dioxide measurementOr dered By: Joann Maya on 06-04-2024 CO2 [Moles/Vol] 30.0 mmol/L 21.0-32.0 [facility] Chloride measurementOrdered By: Joann Maya on 06-04-2024 Chloride [Moles/Vol] 107 mmol/L 98-107 [facility] Comprehensive Metabolic Prof ilon 06-04-2024 Albumin [Mass/Vol] 3.4 g/dL Normal 3.2-5.0 [facility] Comment on above: Performed By: #### L 100.0100, L503.0105, L500.4050, L500.4100, L501.9520 #### [facility] [address] [place], [address] Albumin/Globulin [Mass ratio] 0.9 {ratio} Normal 0.9-2.4 [facility] Comment on above: Performed By: #### L 100.0100, L503.0105, L500.4050, L500.4100, L501.9520 #### [facility] [address] [place], [address] ALK P 71 U/L Normal 45-117 [facility] Comment on above: Performed By: #### L 100.0100, L503.0105, L500.4050, L500.4100, L501.9520 #### [facility] [address] [place], [address] ALT [Catalytic activity/Vol] 18 U/L Normal 13-56 [facility] Comment on above: Performed By: #### L 100.0100, L503.0105, L500.4050, L500.4100, L501.9520 #### [facility] [address] [place], [address] AST [Catalytic activity/Vol] 16 U/L Normal 15-37 [facility] Comment on above: Performed By: #### L 100.0100, L503.0105, L500.4050, L500.4100, L501.9520 #### [facility] [address] [place], [address] Bilirubin [Mass/Vol] 0.40 mg/dL Normal 0.20-1.00 [facility] Comment on above: Result Comment: For patients on eltrombopag therapy, use of Dimension [place] TBIL is not recommended. Performed By: #### L 100.0100, L503.0105, L500.4050, L500.4100, L501.9520 #### [facility] [address] [place], [address] BUN/CRE 20.1 RATIO High 10-20 [facility] Comment on above: Performed By: #### L 100.0100, L503.0105, L500.4050, L500.4100, L501.9520 #### [facility] [address] [place], [address] CA,Total 9.5 mg/dL Normal 8.5-10.1 [facility] Comment on above: Performed By: #### L 100.0100, L503.0105, L500.4050, L500.4100, L501.9520 #### [facility] [address] [place], [address] Chloride [Moles/Vol] 107 mmol/L Normal 98-107 [facility] Comment on above: Performed By: #### L 100.0100, L503.0105, L500.4050, L500.4100, L501.9520 #### [facility] [address] [place], [address] CO2 [Moles/Vol] 30.0 mmol/L Normal 21.0-32.0 [facility] Comment on above: Performed By: #### L 100.0100, L503.0105, L500.4050, L500.4100, L501.9520 #### [facility] [address] [place], [address] Creatinine [Mass/Vol] 0.75 mg/dL Normal 0.55-1.02 [facility] Comment on above: Result Comment: The validity of the calculated GFR GFRAA in patients over 70 years has not been determined. Clinical correlation is essential. Performed By: #### L 100.0100, L503.0105, L500.4050, L500.4100, L501.9520 #### [facility] [address] [place], [address] EST GFR - AA 96 mL/min Normal >60 [facility] Comment on above: Result Comment: Afri can Czech GFR Calc Performed By: #### L 100.0100, L503.0105, L500.4050, L500.4100, L501.9520 #### [facility] [address] [place], [address] GAP 6 Normal 5-15 [facility] Comment on above: Performed By: #### L 100.0100, L503.0105, L500.4050, L500.4100, L501.9520 #### [facility] [address] [place], [address] GFR/1.73 sq M.predicted among non-blacks MDRD (S/P/Bld) [Vol rate/Area] 80 mL/min/{1.73_m2} Normal >60 [facility] Comment on above: Result Comment: Non- GFR Calc Performed By: #### L 100.0100, L503.0105, L500.4050, L500.4100, L501.9520 #### [facility] [address] [place], [address] Globulin (S) [Mass/Vol] 3.8 g/dL Normal 2.2-4.2 [facility] Comment on above: Performed By: #### L 100.0100, L503.0105, L500.4050, L500.4100, L501.9520 #### [facility] [address] [place], [address] Glucose [Mass/Vol] 132 mg/dL High 74-106 [facility] Comment on above: Result Comment: Fast ing Glucose result greater than or equal to 126 mg/dL suggests DIABETES MELLITUS per A.D.A. criteria. Performed By: #### L 100.0100, L503.0105, L500.4050, L500.4100, L501.9520 #### [facility] [address] [place], [address] Potassium [Moles/Vol] 4.0 mmol/L Normal 3.5-5.1 [facility] Comment on above: Performed By: #### L 100.0100, L503.0105, L500.4050, L500.4100, L501.9520 #### [facility] [address] [place], [address] Sodium [Moles/Vol] 143 mmol/L Normal 136-145 [facility] Comment on above: Performed By: #### L 100.0100, L503.0105, L500.4050, L500.4100, L501.9520 #### [facility] [address] [place], [address] T PROT 7.2 g/dL Normal 6.4-8.2 [facility] Comment on above: Performed By: #### L 100.0100, L503.0105, L500.4050, L500.4100, L501.9520 #### [facility] [address] [place], [address] Urea nitrogen [Mass/Vol] 15 mg/dL Normal 7-18 [facility] Comment on above: Performed By: #### L 100.0100, L503.0105, L500.4050, L500.4100, L501.9520 #### [facility] [address] [place], [address] Eosinophil percentageOrdered By: Joann Maya on 06-04-2024 Eosinophils/100 WBC (Bld) 2.3 % 0-5 [facility] Erythrocyte distribution wid th ratioOrdered By: Joann Maya on 06-04-2024 Erythrocyte distribution width (RBC) [Ratio] 12.5 % 11.6-14.6 [facility] Erythrocyte distribution wid th standard deviationOrdered By: Joann Maya on 06-04-2024 Erythrocyte distribution width (RBC) [Entitic vol] 42.7 fL 35.1-43.9 [facility] Estimated glomerular filtrat ion rate (GFR) AmericanOrdered By: Joann Maya on 06-04-2024 Estimated GFR (MDRD) Amer 96 mL/min >60 [facility] Comment on above: GFR Calc Glomerular filtration rate ( GFR) estimationOrdered By: Joann Maya on 06-04-2024 Estimated GFR (MDRD) Non-Af Amer 80 mL/min >60 [facility] Comment on above: Non- GFR Calc Glucose measurementOrdered B y: Joann Maya on 06-04-2024 Glucose [Mass/Vol] 132 mg/dL High 74-106 [facility] Comment on above: Fasting Glucose resu lt greater than or equal to 126 mg/dL suggests DIABETES MELLITUS per A.D.A. criteria. Hematocrit Auto (Bld) [Volum e fraction]Ordered By: Joann Maya on 06-04-2024 Hematocrit (Bld) [Volume fraction] 42.8 % 37-47 [facility] Hemoglobin measurementOrdere d By: Joann Maya on 06-04-2024 Hemoglobin (Bld) [Mass/Vol] 14.0 g/dL 12.0-15.0 [facility] High density lipoprotein (HD L) measurementOrdered By: Joann Maya on 06-04-2024 Cholesterol in HDL [Mass/Vol] 42 mg/dL >40 [facility] Comment on above: The drugs N-Acetylcy steine and Metamizole may falsely depress this assay. Reference Range HDL <40 mg/dL Low HDL Cholesterol HDL >or= 60 mg/dL High HDL Cholesterol Immature granulocytes/100 WB C Auto (Bld)Ordered By: Joann Maya on 06-04-2024 Immature granulocytes/100 WBC (Bld) 0.300 % 0.0-0.9 [facility] Comment on above: IG% - Immature Granu locytes (promyelocytes, myelocytes and metamyelocytes) > 1% indicates that a LEFT SHIFT is Present. Laboratory - Chemistry and C hemistry - challengeOrdered By: Joann Maya on 06-04-2024 AST [Catalytic activity/Vol] 16 U/L 15-37 [facility] Lipid Profileon 06-04-2024 Cholesterol [Mass/Vol] 108 mg/dL Normal 200 [facility] Comment on above: Result Comment: <200 mg/dL Desirable 200-240 mg/dL Borderline >240 mg/dL High Risk Performed By: #### L 100.0100, L503.0105, L500.4050, L500.4100, L501.9520 #### [facility] [address] [place], [address] Cholesterol in HDL [Mass/Vol] 42 mg/dL Normal [facility] Comment on above: Result Comment: The drugs N-Acetylcysteine and Metamizole may falsely depress this assay. Reference Range HDL <40 mg/dL Low HDL Cholesterol HDL >or= 60 mg/dL High HDL Cholesterol Performed By: #### L 100.0100, L503.0105, L500.4050, L500.4100, L501.9520 #### [facility] [address] [place], [address] Cholesterol in LDL [Mass/Vol] 46 mg/dL Normal 0-130 [facility] Comment on above: Performed By: #### L 100.0100, L503.0105, L500.4050, L500.4100, L501.9520 #### [facility] [address] [place], [address] Cholesterol in VLDL [Mass/Vol] 20 mg/dL Normal 5-40 [facility] Comment on above: Performed By: #### L 100.0100, L503.0105, L500.4050, L500.4100, L501.9520 #### [facility] [address] [place], [address] Triglyceride [Mass/Vol] 98 mg/dL Normal [facility] Comment on above: Result Comment: The drugs N-Acetylcysteine and Metamizole may falsely depress this assay. Serum Triglycerides Reference Interval Normal <150 mg/dL Borderline high 150 - 199 mg/dL High 200 - 499 mg/dL Very High > or = 500 mg/dL Performed By: #### L 100.0100, L503.0105, L500.4050, L500.4100, L501.9520 #### [facility] [address] [place], [address] Low density lipoprotein (LDL ) cholesterol measurementOrdered By: Joann Maya on 06-04-2024 Cholesterol in LDL [Mass/Vol] 46 mg/dL 0-130 [facility] Lymphocytes Auto (Unsp spec) [#/Vol]Ordered By: Joann Maya on 06-04-2024 Lymphocytes (Bld) [#/Vol] 2.11 10*3/uL 0.83-4.51 [facility] Lymphocytes/100 WBC Auto (Un sp spec)Ordered By: Joann Maya on 06-04-2024 Lymphocytes/100 WBC (Bld) 28.6 % 19-41 [facility] MCV (mean corpuscular volume ) determinationOrdered By: Joann Maya on 06-04-2024 MCV (RBC) [Entitic vol] 93.4 fL 81-99 [facility] Mean corpuscular hemoglobin (MCH) determinationOrdered By: Joann Maya on 06-04-2024 MCH (RBC) [Entitic mass] 30.6 pg 27.0-32.0 [facility] Mean corpuscular hemoglobin concentration (MCHC) determinationOrdered By: Joann Maya on 06-04-2024 MCHC (RBC) [Mass/Vol] 32.7 g/dL 32-36 [facility] Mean platelet volume determi nationOrdered By: Joann Maya on 06-04-2024 Platelet mean volume (Bld) [Entitic vol] 11.0 fL 6.2-12.0 [facility] Monocyte percentageOrdered B y: Joann Maya on 06-04-2024 Monocytes/100 WBC (Bld) 7.7 % 0-10 [facility] Neutrophil percentageOrdered By: Joann Maya on 06-04-2024 Neutrophils/100 WBC (Bld) 60.2 % 47-70 [facility] Nucleated red blood cell per centageOrdered By: Joann Maya on 06-04-2024 Nucleated RBC/100 WBC (Bld) [Ratio] 0 % 0-5 [facility] Platelet countOrdered By: Brad Maya on 06-04-2024 Platelets (Bld) [#/Vol] 198 10*3/uL 150-450 [facility] Potassium measurementOrdered By: Joann Maya on 06-04-2024 Potassium [Moles/Vol] 4.0 mmol/L 3.5-5.1 [facility] RBC Auto (Bld) [#/Vol]Ordere d By: Joann Maya on 06-04-2024 RBC (Bld) [#/Vol] 4.58 10*6/uL 4.2-5.4 [facility] Serum anion gap measurementO rdered By: Joann Maya on 06-04-2024 Anion gap [Moles/Vol] 6 mmol/L 5-15 [facility] Serum globulin measurementOr dered By: Joann Maya on 06-04-2024 Globulin (S) [Mass/Vol] 3.8 g/dL 2.2-4.2 [facility] Serum or plasma alanine hightower otransferase (ALT) measurementOrdered By: Joann Maya on 06-04-2024 ALT [Catalytic activity/Vol] 18 U/L 13-56 [facility] Serum or plasma albumin luis urement (mass/volume)Ordered By: Joann Maya on 06-04-2024 Albumin [Mass/Vol] 3.4 g/dL 3.2-5.0 [facility] Serum or plasma alkaline peña sphatase measurementOrdered By: Joann Maya on 06-04-2024 ALP [Catalytic activity/Vol] 71 U/L 45-117 [facility] Serum or plasma calcium luis urement (mass/volume)Ordered By: Joann Maya on 06-04-2024 Calcium [Mass/Vol] 9.5 mg/dL 8.5-10.1 [facility] Serum or plasma cholesterol measurement (mass/volume)Ordered By: Joann Maya on 06-04-2024 Cholesterol [Mass/Vol] 108 mg/dL <200 [facility] Comment on above: <200 mg/dL Desirable 200-240 mg/dL Borderline >240 mg/dL High Risk Serum or plasma creatinine m easurement (mass/volume)Ordered By: Joann Maya on 06-04-2024 Creatinine [Mass/Vol] 0.75 mg/dL 0.55-1.02 [facility] Comment on above: The validity of the calculated GFR & GFRAA in patients over 70 years has not been determined. Clinical correlation is essential. Serum or plasma urea nitroge n measurement (mass/volume)Ordered By: Joann aMya on 06-04-2024 Urea nitrogen [Mass/Vol] 15 mg/dL 7-18 [facility] Sodium levelOrdered By: Terry Maya on 06-04-2024 Sodium [Moles/Vol] 143 mmol/L 136-145 [facility] TSH QnOrdered By: Joann moran on 06-04-2024 Thyroid Stimulating Hormone (TSH) 0.043 uIU/mL Low 0.358-3.740 [facility] Thyroid Stim Hormone (TSH)on 06-04-2024 TSH 0.043 uIU/mL Low 0.358-3.740 [facility] Comment on above: Performed By: #### L 100.0100, L503.0105, L500.4050, L500.4100, L501.9520 #### [facility] [address] [place], [place], [id number] Total proteinOrdered By: Adis Maya on 06-04-2024 Protein [Mass/Vol] 7.2 g/dL 6.4-8.2 [facility] Triglycerides measurementOrd ered By: Joann Maya on 06-04-2024 Triglyceride [Mass/Vol] 98 mg/dL <199 [facility] Comment on above: The drugs N-Acetylcy steine and Metamizole may falsely depress this assay.Serum Triglycerides Reference Interval Normal <150 mg/dL Borderline high 150 - 199 mg/dL High 200 - 499 mg/dL Very High > or = 500 mg/dL Very low density lipoprotein (VLDL) cholesterol measurementOrdered By: Joann Maya on 06-04-2024 VLDL Cholesterol 20 mg/dL 5-40 [facility] Vitamin B12on 06-04-2024 Cobalamin (Vitamin B12) [Mass/Vol] 1109 pg/mL High 211-911 [facility] Comment on above: Performed By: #### L 100.0100, L503.0105, L500.4050, L500.4100, L501.9520 #### [facility] [address] [place], [place], [id number] Vitamin B12 measurementOrder ed By: Joann Maya on 06-04-2024 Cobalamin (Vitamin B12) [Mass/Vol] 1109 pg/mL High 211-911 [facility] White blood cell (WBC) count Ordered By: Joann Maya on 06-04-2024 WBC (Bld) [#/Vol] 7.4 10*3/uL 4.4-11.0 [facility] - Chemistry and C hemistry - challengeOrdered By: Joann Maya on 07-08-2023 Cobalamin (Vitamin B12) [Mass/Vol] 563 pg/mL 211-911 [facility] Serum or plasma thyroid stim ulating hormone (TSH) measurement (units/volume)Ordered By: Joannyanira Maya on 07-08-2023 TSH Qn 1.54 uIU/mL 0.358-3.74 [facility] Absolute lymphocyte countOrd ered By: Joann Maya on 05-20-2023 Lymphocytes Auto (Unsp spec) [#/Vol] 2.26 10*3/uL 0.83-4.51 [facility] Automated lymphocyte count a s percentage of total leukocytesOrdered By: Joann Maay on 05-20-2023 Lymphocytes/100 WBC Auto (Unsp spec) 31.5 % 19-41 [facility] Basophil percentageOrdered B y: Joann Maya on 05-20-2023 Basophils/100 WBC (Bld) 0.7 % 0-1 [facility] Bilirubin [Mass/Vol] 0.40 mg/dL 0.20-1.00 [facility] Comment on above: For patients on eltr ombopag therapy, use of Dimension [place] TBIL is not recommended. Chloride [Moles/Vol] 108 mmol/L 98-107 [facility] Cholesterol [Mass/Vol] 133 mg/dL <200 [facility] Comment on above: <200 mg/dL Desirable 200-240 mg/dL Borderline >240 mg/dL High Risk Eosinophils/100 WBC (Bld) 1.5 % 0-5 [facility] Glucose [Mass/Vol] 129 mg/dL 74-106 [facility] Comment on above: Fasting Glucose resu lt greater than or equal to 126 mg/dL suggests DIABETES MELLITUS per A.D.A. criteria. Hemoglobin (Bld) [Mass/Vol] 13.4 g/dL 12.0-15.0 [facility] Monocytes/100 WBC (Bld) 7.3 % 0-10 [facility] Neutrophils (Bld) [#/Vol] 4.2 10*3/uL 2.0-7.7 [facility] Neutrophils/100 WBC (Bld) 58.9 % 47-70 [facility] Potassium [Moles/Vol] 4.0 mmol/L 3.5-5.1 [facility] Protein [Mass/Vol] 7.6 g/dL 6.4-8.2 [facility] Sodium [Moles/Vol] 139 mmol/L 136-145 [facility] Triglyceride [Mass/Vol] 98 mg/dL <199 [facility] Comment on above: The drugs N-Acetylcy steine and Metamizole may falsely depress this assay.Serum Triglycerides Reference Interval Normal <150 mg/dL Borderline high 150 - 199 mg/dL High 200 - 499 mg/dL Very High > or = 500 mg/dL WBC (Bld) [#/Vol] 7.2 10*3/uL 4.4-11.0 [facility] Determination of erythrocyte mean corpuscular volume (MCV)Ordered By: Joann Maya on 05-20-2023 MCV (RBC) [Entitic vol] 94.8 fL 81-99 [facility] Erythrocyte distribution wid th ratioOrdered By: Joann Maya on 05-20-2023 Erythrocyte distribution width (RBC) [Ratio] 12.4 % 11.6-14.6 [facility] Erythrocyte distribution wid th standard deviationOrdered By: Joann Maya on 05-20-2023 Erythrocyte distribution width (RBC) [Entitic vol] 42.7 fL 35.1-43.9 [facility] Hematocrit Auto (Bld) [Volum e fraction]Ordered By: Joann Maya on 05-20-2023 Hematocrit (Bld) [Volume fraction] 43.4 % 37-47 [facility] High density lipoprotein (HD L) measurementOrdered By: Joann Maya on 05-20-2023 Cholesterol in HDL (Body fld) [Mass/Vol] 48 mg/dL >40 [facility] Comment on above: The drugs N-Acetylcy steine and Metamizole may falsely depress this assay. Reference Range HDL <40 mg/dL Low HDL Cholesterol HDL >or= 60 mg/dL High HDL Cholesterol Immature granulocytes/100 WB C Auto (Bld)Ordered By: Joann Maya on 05-20-2023 Immature granulocytes/100 WBC (Bld) 0.100 % 0.0-0.9 [facility] Comment on above: IG% - Immature Granu locytes (promyelocytes, myelocytes and metamyelocytes) > 1% indicates that a LEFT SHIFT is Present. Iron measurement (mass/mass) Ordered By: Joann Maya on 05-20-2023 Iron (Unsp spec) [Mass/Mass] 93 ug/dL 50-170 [facility] Laboratory - Chemistry and C hemistry - challengeOrdered By: Joann Maya on 05-20-2023 Albumin/Globulin [Mass ratio] 0.9 {ratio} 0.9-2.4 [facility] ALP [Catalytic activity/Vol] 90 U/L 45-117 [facility] ALT [Catalytic activity/Vol] 17 U/L 13-56 [facility] CO2 [Moles/Vol] 28.0 mmol/L 21.0-32.0 [facility] Cobalamin (Vitamin B12) [Mass/Vol] 348 pg/mL 211-911 [facility] Ferritin [Mass/Vol] 158 ng/mL 8-252 [facility] Globulin (S) [Mass/Vol] 4.1 g/dL 2.2-4.2 [facility] Urea nitrogen/Creatinine [Mass ratio] 21.8 mg/mg 10-20 [facility] Laboratory - Hematology and Cell countsOrdered By: Joann Maya on 05-20-2023 MCH (RBC) [Entitic mass] 29.3 pg 27.0-32.0 [facility] MCHC (RBC) [Mass/Vol] 30.9 g/dL 32-36 [facility] Nucleated RBC/100 WBC (Bld) [Ratio] 0 % 0-5 [facility] Platelets (Bld) [#/Vol] 236 10*3/uL 150-450 [facility] Low density lipoprotein (LDL ) cholesterol measurementOrdered By: Joann Maya on 05-20-2023 Cholesterol in LDL (Body fld) [Moles/Vol] 65 mg/dL 0-130 [facility] No Panel InformationOrdered By: Joann Maya on 05-20-2023 Estimated GFR (MDRD) Amer 107 mL/min >60 [facility] Comment on above: GFR Calc Estimated GFR (MDRD) Non-Af Amer 88 mL/min >60 [facility] Comment on above: Non- GFR Calc Folate 17.30 ng/mL 3.1-55.4 [facility] Total Iron Binding Capacity 255 ug/dL 250-450 [facility] Platelet mean volume Kumar-Ec ker (Bld) [Entitic vol]Ordered By: Joann Maya on 05-20-2023 Platelet mean volume (Bld) [Entitic vol] 10.7 fL 6.2-12.0 [facility] RBC Auto (Bld) [#/Vol]Ordere d By: Joann Maya on 05-20-2023 RBC (Bld) [#/Vol] 4.58 10*6/uL 4.2-5.4 [facility] Serum or plasma calcium luis urement (mass/volume)Ordered By: Joann Maya on 05-20-2023 Calcium [Mass/Vol] 9.6 mg/dL 8.5-10.1 [facility] Serum or plasma creatinine m easurement (mass/volume)Ordered By: Joann Maya on 05-20-2023 Creatinine [Mass/Vol] 0.69 mg/dL 0.55-1.02 [facility] Comment on above: The validity of the calculated GFR & GFRAA in patients over 70 years has not been determined. Clinical correlation is essential. Serum or plasma iron saturat ion measurement (mass fraction)Ordered By: Joann Maya on 05-20-2023 Iron saturation [Mass fraction] 36.5 % 15.0-55.0 [facility] Serum or plasma thyroid stim ulating hormone (TSH) measurement (units/volume)Ordered By: Joann Maya on 05-20-2023 TSH Qn 0.01 uIU/mL 0.358-3.74 [facility] Serum or plasma urea nitroge n measurement (mass/volume)Ordered By: Joann Maya on 05-20-2023 Urea nitrogen [Mass/Vol] 15 mg/dL 7-18 [facility] Thin prep Papanicolaou smear with manual screeningOrdered By: Joann Maya on 05-20-2023 Thin prep Papanicolaou smear with manual screening 3.5 g/dL 3.2-5.0 [facility] Thin prep Papanicolaou smear with manual screening 10 U/L 15-37 [facility] Thin prep Papanicolaou smear with manual screening 3 5-15 [facility] Very low density lipoprotein (VLDL) cholesterol measurementOrdered By: Joann Maya on 05-20-2023 Cholesterol in VLDL Calc [Moles/Vol] 20 mg/dL 5-40 [facility] Basophil percentageOrdered B y: Alfonso Ramírezur on 05-06-2023 Basophil percentage < 1.0 mg/dL 0.55-1.02 [facility] No Panel InformationOrdered By: Alfonso Ramírezur on 05-06-2023 Bedside Estimated GFR (eGFR) > 60.0000 mL/min >60 [facility] POC BLOOD GLUCOSE (RESULTS)o n 11-06-2022 Glucose [Mass/Vol] 168 mg/dL High 74-106 [facility] Comment on above: Performed By: #### L [id number] #### [facility] [address] [place] [address] [place] Narrative [address] [place] [address], [place] [address] Abnormal [facility] Comment on above: Performed By: #### L [id number] #### [facility] [address] [place] [address] [place] Glucose [Mass/Vol] 105 mg/dL Normal 74-106 [facility] Comment on above: Performed By: #### L [id number] #### [facility] [address] [place] [address] [place] Narrative [address] [place] [address], [place] [address] Normal [facility] Comment on above: Performed By: #### L [id number] #### [facility] [address] [place] [address] [place] BASIC METABOLIC PANELon 10-19 Anion gap [Moles/Vol] 9 mmol/L Normal 5-19 [facility] Comment on above: Performed By: #### L [id number] #### [facility] [address] [place] [address] [place] Calcium [Mass/Vol] 8.2 mg/dL Low 8.4-10.2 [facility] Comment on above: Performed By: #### L [id number] #### [facility] [address] [place] [address] [place] Chloride [Moles/Vol] 101 mmol/L Normal 98-107 [facility] Comment on above: Performed By: #### L [id number] #### [facility] [address] [place] [address] [place] CO2 [Moles/Vol] 25 mmol/L Normal 22-30 [facility] Comment on above: Performed By: #### L [id number] #### [facility] [address] [place] [address] [place] Creatinine [Mass/Vol] 0.71 mg/dL Normal 0.52-1.00 [facility] Comment on above: Performed By: #### L [id number] #### [facility] [address] [place] [address] [place] GFR/1.73 sq M.predicted MDRD (S/P/Bld) [Vol rate/Area] mL/min/{1.73_m2} Normal >60 [facility] Comment on above: Performed By: #### L [id number] #### [facility] [address] [place] [address] [place] Glucose [Mass/Vol] 184 mg/dL High 74-106 [facility] Comment on above: Performed By: #### L [id number] #### [facility] [address] [place] [address] [place] Narrative Estimated Glomerular Filtration Rate (eGFR) is calculated using the CKD-EPI (2020) equation, intended for patients 18 years of age and older. If gender is not documented or unknown, there will be no eGFR calculation. Abnormal [facility] Comment on above: Performed By: #### L [id number] #### [facility] [address] [place] [address] [place] Potassium [Moles/Vol] 4.4 mmol/L Normal 3.5-5.1 [facility] Comment on above: Performed By: #### L [id number] #### [facility] [address] [place] [address] [place] Sodium [Moles/Vol] 135 mmol/L Low 137-145 [facility] Comment on above: Performed By: #### L [id number] #### [facility] [address] [place] [address] [place] Urea nitrogen [Mass/Vol] 17 mg/dL Normal 7-17 [facility] Comment on above: Performed By: #### L [id number] #### [facility] [address] [place] [address] [place] Urea nitrogen/Creatinine [Mass ratio] 24 mg/mg High 6-20 [facility] Comment on above: Performed By: #### L [id number] #### [facility] [address] [place] [address] [place] CBC WITH DIFFon 11-05-2022 BASOPHIL # 0.00 x10???3/uL Normal 0.00-0.20 [facility] Comment on above: Performed By: #### L [id number] #### [facility] [address] [place] [address] [place] Basophils/100 WBC (Bld) 0 % Normal 0-2 [facility] Comment on above: Performed By: #### L [id number] #### [facility] [address] [place] [address] [place] EOSINOPHIL # 0.00 x10???3/uL Normal 0.00-0.60 [facility] Comment on above: Performed By: #### L [id number] #### [facility] [address] [place] [address] [place] Eosinophils/100 WBC (Bld) 0 % Normal 0-5 [facility] Comment on above: Performed By: #### L [id number] #### [facility] [address] [place] [address] [place] Erythrocyte distribution width (RBC) [Ratio] 14.2 % High 11.5-14.0 [facility] Comment on above: Performed By: #### L [id number] #### [facility] [address] [place] [address] [place] Hematocrit (Bld) [Volume fraction] 28.0 % Low 36.0-48.0 [facility] Comment on above: Performed By: #### L [id number] #### [facility] [address] [place] [address] [place] Hemoglobin (Bld) [Mass/Vol] 9.3 g/dL Low 11.6-14.8 [facility] Comment on above: Performed By: #### L [id number] #### [facility] [address] [place] [address] [place] LYMPHOCYTE # 1.70 x10???3/uL Normal 1.10-3.80 [facility] Comment on above: Performed By: #### L [id number] #### [facility] [address] [place] [address] [place] Lymphocytes/100 WBC (Bld) 15 % Low 19-46 [facility] Comment on above: Performed By: #### L [id number] #### [facility] [address] [place] [address] [place] MCH (RBC) [Entitic mass] 33.8 pg Normal 24.4-34.0 [facility] Comment on above: Performed By: #### L [id number] #### [facility] [address] [place] [address] [place] MCHC (RBC) [Mass/Vol] 33.2 g/dL Normal 30.0-37.0 [facility] Comment on above: Performed By: #### L [id number] #### [facility] [address] [place] [address] [place] MCV (RBC) [Entitic vol] 101.7 fL High 79.0-88.0 [facility] Comment on above: Performed By: #### L [id number] #### [facility] [address] [place] [address] [place] MONOCYTE # 1.40 x10???3/uL High 0.10-0.80 [facility] Comment on above: Performed By: #### L [id number] #### [facility] [address] [place] [address] [place] Monocytes/100 WBC (Bld) 12 % Normal 4-12 [facility] Comment on above: Performed By: #### L [id number] #### [facility] [address] [place] [address] [place] NEUTROPHIL # 8.30 x10???3/uL High 1.80-7.50 [facility] Comment on above: Performed By: #### L [id number] #### [facility] [address] [place] [address] [place] Neutrophils/100 WBC (Bld) 72 % High 41-69 [facility] Comment on above: Performed By: #### L [id number] #### [facility] [address] [place] [address] [place] Platelet mean volume (Bld) [Entitic vol] 7.6 fL Normal 7.5-11.5 [facility] Comment on above: Performed By: #### L [id number] #### [facility] [address] [place] [address] [place] PLATELETS AUTOMATED 173 x10???3/uL Normal 130-400 [facility] Comment on above: Performed By: #### L [id number] #### [facility] [address] [place] [address] [place] RBC AUTOMATED 2.76 x10???6/uL Low 3.50-5.50 [facility] Comment on above: Performed By: #### L [id number] #### [facility] [address] [place] [address] [place] WBC AUTOMATED CORRECTED 11.5 x10???3/uL Normal 4.5-11. 5 [facility] Comment on above: Performed By: #### L [id number] #### [facility] [address] [place] [address] [place] POC BLOOD GLUCOSE (RESULTS)o n 11-05-2022 Glucose [Mass/Vol] 131 mg/dL High 74-106 [facility] Comment on above: Performed By: #### L [id number] #### [facility] [address] [facility] [place] [address] [place] Narrative [address], [place] [address] [facility] Comment on above: Performed By: #### L [id number] #### [facility] [address] [place] [address] [place] Glucose [Mass/Vol] 130 mg/dL High 74-106 [facility] Comment on above: Performed By: #### L [id number] #### [facility] [address] [place] [address] [place] Narrative [address] [place] [address] [facility] Comment on above: Performed By: #### L [id number] #### [facility] [address] [place] [address] [place] Glucose [Mass/Vol] 149 mg/dL High 74-106 [facility] Comment on above: Performed By: #### L [id number] #### [facility] [address] [place] [address] [place] Narrative [address], [place] [address] [facility] Comment on above: Performed By: #### L [id number] #### [facility] [address] [place] [address] [place] Glucose [Mass/Vol] 172 mg/dL High 74-106 [facility] Comment on above: Performed By: #### L [id number] #### [facility] [address] [place] [address] [place] Narrative [address] [place] [address] Abnormal [facility] Comment on above: Performed By: #### L [id number] #### [facility] [address] [place] [address] [place] CBCon 11-04-2022 Erythrocyte distribution width (RBC) [Ratio] 14.3 % High 11.5-14.0 [facility] Comment on above: Performed By: #### L [id number] #### [facility] [address] [place] [address] [place] Hematocrit (Bld) [Volume fraction] 34.1 % Low 36.0-48.0 [facility] Comment on above: Performed By: #### L [id number] #### [facility] [address] [place] [address] [place] Hemoglobin (Bld) [Mass/Vol] 11.2 g/dL Low 11.6-14.8 [facility] Comment on above: Performed By: #### L [id number] #### [facility] [address] [place] [address] US MCH (RBC) [Entitic mass] 33.7 pg Normal 24.4-34.0 [facility] Comment on above: Performed By: #### L [id number] #### [facility] [address] [place] [address] [place] MCHC (RBC) [Mass/Vol] 32.9 g/dL Normal 30.0-37.0 [facility] Comment on above: Performed By: #### L [id number] #### [facility] [address] [place] [address] [place] MCV (RBC) [Entitic vol] 102.4 fL High 79.0-88.0 [facility] Comment on above: Performed By: #### L [id number] #### [facility] [address] [place] [address] [place] Platelet mean volume (Bld) [Entitic vol] 8.2 fL Normal 7.5-11.5 [facility] Comment on above: Performed By: #### L [id number] #### [facility] [address] [place] [address] [place] PLATELETS AUTOMATED 146 x10???3/uL Normal 130-400 [facility] Children Comment on above: Performed By: #### L [id number] #### [facility] [address] [place] [address] [place] RBC AUTOMATED 3.33 x10???6/uL Low 3.50-5.50 [facility] Comment on above: Performed By: #### L [id number] #### [facility] [address] [place] [address] US WBC AUTOMATED CORRECTED 20.3 x10???3/uL High 4.5-11. 5 [facility] Comment on above: Performed By: #### L [id number] #### [facility] [address] [place] [address] US FOLATEon 11-04-2022 FOLATE 10.1 ng/mL Normal >2.8 [facility] Comment on above: Performed By: #### L [id number] #### [facility] [address] [place] [address] US POC BLOOD GLUCOSE (RESULTS)o n 11-04-2022 Glucose [Mass/Vol] 223 mg/dL High 74-106 [facility] Comment on above: Performed By: #### L [id number] #### [facility] [address] [place] [address] [place] Narrative [address] [place] [address] [facility] Comment on above: Performed By: #### L [id number] #### [facility] [address] [place] [address] [place] Glucose [Mass/Vol] 197 mg/dL High 74-106 [facility] Comment on above: Performed By: #### P [id number] #### [facility] [address] [place] [address] [place] Narrative [address] [place] [address] Abnormal [facility] Comment on above: Performed By: #### P [id number] #### [facility] [address] [facility] [address] US URINALYSIS, MACRO/MICROon Amorphous sediment LM Ql (Urine sed) Many Abnormal None, Few, Mod [facility] Comment on above: Performed By: #### L [id number] #### [facility] [address] [place] [address] [place] Appearance (U) Turbid Abnormal Clear, Hazy, Cloudy, Slightly Cloudy [facility] Comment on above: Performed By: #### L [id number] #### [facility] [place] [address] [place] BACTERIA URINE Few Normal None, Few [facility] Comment on above: Performed By: #### L [id number] #### [facility] [address] [place] [address] US BILIRUBIN URINE Negative Normal Negative [facility] Comment on above: Performed By: #### L [id number] #### [facility] [address] [place] [address] US Color (U) Yellow Normal [facility] Comment on above: Performed By: #### L [id number] #### [facility] [address] [place] [address] US Glucose Ql (U) Negative Normal 30 , Negative [facility] Comment on above: Performed By: #### L [id number] #### [facility] [address] [place] [address] US HEMOGLOBIN URINE Trace Normal Negative, Trace [facility] Comment on above: Performed By: #### L [id number] #### [facility] [address] [place] [address] US Ketones Ql (U) 10 mg/dL Abnormal Negative [facility] Comment on above: Performed By: #### L [id number] #### [facility] [address] [place] [address] [place] Leukocyte esterase Test strip Ql (U) Small Abnormal Negative [facility] Comment on above: Performed By: #### L [id number] #### [facility] [address] [place] [address] US MUCOUS URINE Rare Normal None, Rare, Occasional, Few, Mod [facility] Comment on above: Performed By: #### L [id number] #### [facility] [address] [place] [address] US NITRITE URINE Negative Normal Negative [facility] Comment on above: Performed By: #### L [id number] #### [facility] [address] [place] [address] US pH (U) 6.5 [pH] Normal 5.0-9.0 [facility] Comment on above: Performed By: #### L [id number] #### [facility] [address] [place] [address] [place] Protein (U) [Mass/Vol] 30 mg/dL Abnormal Negat janelle, 10 , 20 [facility] Comment on above: Performed By: #### L [id number] #### [facility] [address] [place] [address] US RBC URINE 11-20 Abnormal 0-2, None [facility] Comment on above: Performed By: #### L [id number] #### [facility] [address] [place] [address] US SPECIFIC GRAVITY URINE 1.023 Normal 1.003-1.035 [facility] Comment on above: Performed By: #### L [id number] #### [facility] [address] [place] [address] US SQUAMOUS EPITHELIAL CELLS URINE Few Normal None, Few [facility] Comment on above: Performed By: #### L [id number] #### [facility] [address] [place] [address] US UROBILINOGEN URINE 3.0 mg/dL Abnormal < 2.0, 1. 0, 0.2 [facility] Comment on above: Performed By: #### L [id number] #### [facility] [address] [place] [address] US WBC URINE 51-80 Abnormal 0-4 [facility] Comment on above: Performed By: #### L [id number] #### [facility] [address] [place] [address] US VITAMIN B12on 11-04-2022 Cobalamin (Vitamin B12) [Mass/Vol] 594 pg/mL Normal 239-931 [facility] Comment on above: Performed By: #### L [id number] #### [facility] [address] [place] [address] US CBC WITH DIFFon 11-03-2022 BASOPHIL # 0.10 x10???3/uL Normal 0.00-0.20 [facility] Comment on above: Performed By: #### L [id number] #### [facility] [address] [place] [address] US Basophils/100 WBC (Bld) 1 % Normal 0-2 [facility] Comment on above: Performed By: #### L [id number] #### [facility] [address] [place] [address] US EOSINOPHIL # 0.10 x10???3/uL Normal 0.00-0.60 [facility] Comment on above: Performed By: #### L [id number] #### [facility] [address] [place] [address] US Eosinophils/100 WBC (Bld) 1 % Normal 0-5 [facility] Comment on above: Performed By: #### L [id number] #### [facility] [address] [place] [address] [place] Erythrocyte distribution width (RBC) [Ratio] 14.4 % High 11.5-14.0 [facility] Comment on above: Performed By: #### L [id number] #### [facility] [address] [place] [address] [place] Hematocrit (Bld) [Volume fraction] 40.5 % Normal 36.0-48.0 [facility] Comment on above: Performed By: #### L [id number] #### [facility] [address] [place] [address] US Hemoglobin (Bld) [Mass/Vol] 13.5 g/dL Normal 11.6-14.8 [facility] Comment on above: Performed By: #### L [id number] #### [facility] [address] [place] [address] [place] LYMPHOCYTE # 1.90 x10???3/uL Normal 1.10-3.80 [facility] Comment on above: Performed By: #### L [id number] #### [facility] [address] [place] [address] [place] Lymphocytes/100 WBC (Bld) 24 % Normal 19-46 [facility] Comment on above: Performed By: #### L [id number] #### [facility] [address] [place] [address] US MCH (RBC) [Entitic mass] 33.6 pg Normal 24.4-34.0 [facility] Comment on above: Performed By: #### L [id number] #### [facility] [address] [place] [address] US MCHC (RBC) [Mass/Vol] 33.4 g/dL Normal 30.0-37.0 [facility] Comment on above: Performed By: #### L [id number] #### [facility] [address] [place] [address] US MCV (RBC) [Entitic vol] 100.4 fL High 79.0-88.0 [facility] Comment on above: Performed By: #### L [id number] #### [facility] [address] [place] [address] US MONOCYTE # 0.50 x10???3/uL Normal 0.10-0.80 [facility] Comment on above: Performed By: #### L [id number] #### [facility] [address] [facility] [address] US Monocytes/100 WBC (Bld) 6 % Normal 4-12 [facility] Comment on above: Performed By: #### L [id number] #### [facility] [address] [place] [address] US NEUTROPHIL # 5.40 x10???3/uL Normal 1.80-7.50 [facility] Comment on above: Performed By: #### L [id number] #### [facility] [address] [place] [address] US Neutrophils/100 WBC (Bld) 68 % Normal 41-69 [facility] Comment on above: Performed By: #### L [id number] #### [facility] [address] [place] [address] US Platelet mean volume (Bld) [Entitic vol] 7.6 fL Normal 7.5-11.5 [facility] Comment on above: Performed By: #### L [id number] #### [facility] [address] [place] [address] [place] PLATELETS AUTOMATED 229 x10???3/uL Normal 130-400 [facility] Comment on above: Performed By: #### L [id number] #### [facility] [address] [place] [address] US RBC AUTOMATED 4.03 x10???6/uL Normal 3.50-5.50 [facility] Comment on above: Performed By: #### L [id number] #### [facility] [address] [place] [address] [place] WBC AUTOMATED CORRECTED 8.0 x10???3/uL Normal 4.5-11.5 [facility] Comment on above: Performed By: #### L [id number] #### [facility] [address] [place] [address] US COMPREHENSIVE METABOLIC PANE L, NON-FASTINGon 11-03-2022 Albumin [Mass/Vol] 4.0 g/dL Normal 3.5-5.0 [facility] Comment on above: Performed By: #### L [id number] #### [facility] [address] [place] [address] US Albumin/Globulin [Mass ratio] 1.3 {ratio} Low 1.5-2.5 [facility] Comment on above: Performed By: #### L [id number] #### [facility] [address] [place] [address] US ALP [Catalytic activity/Vol] 100 U/L Normal 38-126 [facility] Comment on above: Performed By: #### L [id number] #### [facility] [address] [place] [address] US ALT [Catalytic activity/Vol] 22 U/L Normal <35 [facility] Comment on above: Performed By: #### L [id number] #### [facility] [address] [place] [address] US Anion gap [Moles/Vol] 11 mmol/L Normal 5-19 [facility] Comment on above: Performed By: #### L [id number] #### [facility] [address] [place] [address] US AST [Catalytic activity/Vol] 27 U/L Normal 14-36 [facility] Comment on above: Performed By: #### L [id number] #### [facility] [address] [place] [address] US Bilirubin [Mass/Vol] 0.5 mg/dL Normal 0.2-1.3 [facility] Comment on above: Performed By: #### L [id number] #### [facility] [address] [place] [address] US Calcium [Mass/Vol] 9.3 mg/dL Normal 8.4-10.2 [facility] Comment on above: Performed By: #### L [id number] #### [facility] [address] [place] [address] US Chloride [Moles/Vol] 100 mmol/L Normal 98-107 [facility] Comment on above: Performed By: #### L [id number] #### [facility] [address] [place] [address] US CO2 [Moles/Vol] 26 mmol/L Normal 22-30 [facility] Comment on above: Performed By: #### L [id number] #### [facility] [address] [place] [address] US Creatinine [Mass/Vol] 0.68 mg/dL Normal 0.52-1.00 [facility] Comment on above: Performed By: #### L [id number] #### [facility] [address] [place] [address] US GFR/1.73 sq M.predicted MDRD (S/P/Bld) [Vol rate/Area] mL/min/{1.73_m2} Normal >60 [facility] Comment on above: Performed By: #### L [id number] #### [facility] [address] [place] [address] US Glucose [Mass/Vol] 214 mg/dL High 74-106 [facility] Comment on above: Performed By: #### L [id number] #### [facility] [address] [place] [address] US Narrative Estimated Glomerular Filtration Rate (eGFR) is calculated using the CKD-EPI (2020) equation, intended for patients 18 years of age and older. If gender is not documented or unknown, there will be no eGFR calculation. Abnormal [facility] Comment on above: Performed By: #### L [id number] #### [facility] [address] [place] [address] US Potassium [Moles/Vol] 4.0 mmol/L Normal 3.5-5.1 [facility] Comment on above: Performed By: #### L [id number] #### [facility] [address] [place] [address] US Protein [Mass/Vol] 7.1 g/dL Normal 6.3-8.2 [facility] Comment on above: Performed By: #### L [id number] #### [facility] [address] [place] [address] US Sodium [Moles/Vol] 137 mmol/L Normal 137-145 [facility] Comment on above: Performed By: #### L [id number] #### [facility] [address] [place] [address] US Urea nitrogen [Mass/Vol] 24 mg/dL [facility] 11-04 [facility] Comment on above: Performed By: #### L [id number] #### [facility] [address] [place] [address] US Urea nitrogen/Creatinine [Mass ratio] 35 mg/mg [facility] 10-08 [facility] Comment on above: Performed By: #### L [id number] #### [facility] [address] [place] [address] US PT/INRon 11-03-2022 INR Coag (PPP) [Relative time] 1.05 {INR} Normal 0.87-1.10 [facility] Comment on above: Performed By: #### L [id number] #### [facility] [address] [place] [address] US PT Coag (PPP) [Time] 10.8 s Normal 9.0-12.0 [facility] Comment on above: Performed By: #### L [id number] #### [facility] [address] [place] [address] US PTT (PARTIAL THROMBOPLASTIN TIME)on 11-03-2022 aPTT Coag (Bld) [Time] 24.8 s Normal 22.0-32.0 [facility] Comment on above: Performed By: #### L [id number] #### [facility] [address] [place] [address] US TYPE AND SCREENon 11-03-2022 ABO/RH(D) Positive Normal [facility] Comment on above: Performed By: #### L [id number] #### [facility] [address] [place] [address] US FT4 THYROXINE FREEon 021 Free T4 [Mass/Vol] 1.09 ng/dL Normal 0.78-2.19 [facility] Comment on above: Performed By: #### F T4 #### [facility] [address] [place], [place] [address] BRENDA Fenton MD TSH WITH REFLEX FT4on 2020 TSH W/ REFLEX FT4 5.270 uIU/mL High 0.470-4.680 [facility] Comment on above: Performed By: #### T SHR #### [facility] [address] [place] [address] BRENDA Fenton MD CBC PLT DIFFon 01-05-2020 BASO # 0.10 10 3/uL Normal 0.00-0.10 [facility] Comment on above: Performed By: #### C BC #### [facility] [address] [place] [address] BRENDA Fenton MD Basophils/100 WBC (Bld) 1.3 % High 0.2-1.[address] [facility] Comment on above: Performed By: #### C BC #### [facility] [address] [place] [address] BRENDA Fenton MD EOS# 0.28 10 3/uL High 0.00-0.20 [facility] Comment on above: Performed By: #### C BC #### [facility] [address] [place] [address] BRENDA Fenton MD Eosinophils/100 WBC (Bld) 3.7 % High 0.9-2.9 [facility] Comment on above: Performed By: #### C BC #### [facility] [address] [place], [place] [address] BRENDA Fenton MD Erythrocyte distribution width (RBC) [Ratio] 11.8 % Normal 11.5-15.5 [facility] Comment on above: Performed By: #### C BC #### [facility] [address] [place] [address] BRENDA Fenton MD Hematocrit (Bld) [Volume fraction] 42.8 % Normal 37.0-47.0 [facility] Comment on above: Performed By: #### C BC #### [facility] [address] [place] [address] BRENDA Fenton MD Hemoglobin (Bld) [Mass/Vol] 14.1 g/dL Normal 12.0-16.0 [facility] Comment on above: Performed By: #### C BC #### [facility] [address] [place] [address] BRENDA Fenton MD IG# 0.01 10 3/uL Normal [facility] Comment on above: Performed By: #### C BC #### [facility] [address] [place] [address] BRENDA Fenton MD IG% 0.1 % Normal [facility] Comment on above: Performed By: #### C BC #### [facility] [address] [place] [address] BRENDA Fenton MD LYMPH# 2.56 10 3/uL Normal 1.30-2.90 [facility] Comment on above: Performed By: #### C BC #### [facility] [address] [place] [address] BRENDA Fenton MD Lymphocytes/100 WBC (Bld) 34.2 % Normal 20.5-45.5 [facility] Comment on above: Performed By: #### C BC #### [facility] [address] [place], [place] [address] BRENDA Fenton MD MCH (RBC) [Entitic mass] 31.3 pg High 27.0-31.0 [facility] Comment on above: Performed By: #### C BC #### [facility] [address] [place], [place] [address] BRENDA Fenton MD MCHC (RBC) [Mass/Vol] 32.9 g/dL Normal 32.0-36.0 [facility] Comment on above: Performed By: #### C BC #### [facility] [address] [place], [place] [address] BRENDA Fenton MD MCV (RBC) [Entitic vol] 94.9 fL Normal 81.0-99.0 [facility] Comment on above: Performed By: #### C BC #### [facility] [address] [place] [address] BRENDA Fenton MD MONO# 0.51 10 3/uL Normal 0.30-0.80 [facility] Comment on above: Performed By: #### C BC #### [facility] [address] [place] [address] BRENDA Fenton MD Monocytes/100 WBC (Bld) 6.8 % Normal 5.5-11.7 [facility] Comment on above: Performed By: #### C BC #### [facility] [address] [place] [address] BRENDA Fenton MD Morphology Florian (Bld) [Interp] Normal [facility] Comment on above: Performed By: #### C BC #### [facility] [address] [place] [address] BRENDA Fenton MD NEUT# 4.03 10 3/uL Normal 2.20-4.80 [facility] Comment on above: Performed By: #### C BC #### [facility] [address] [place] [address] BRENDA Fenton MD Neutrophils/100 WBC (Bld) 53.9 % Normal 43.0-65.0 [facility] Comment on above: Performed By: #### C BC #### [facility] [address] [place], [place] [address] BRENDA Fenton MD NRBC# 0.00 10 3/uL [facility] Comment on above: Performed By: #### C BC #### [facility] [address] [place], [place] [address] BRENDA Fenton MD Nucleated RBC/100 WBC (Bld) [Ratio] 0.0 % Normal [facility] Comment on above: Performed By: #### C BC #### [facility] [address] [place], [place] [address] BRENDA Fenton MD Platelet mean volume (Bld) [Entitic vol] 9.5 fL Normal 7.4-10.4 [facility] Comment on above: Performed By: #### C BC #### [facility] [address] [place], [place] [address] BRENDA Fenton MD PLT 228 10 3/uL Normal 130-400 [facility] Comment on above: Performed By: #### C BC #### [facility] [address] [place], [place] [address] BRENDA Fenton MD RBC 4.51 10 6/uL Normal 4.20-5.40 [facility] Comment on above: Performed By: #### C BC #### [facility] [address] [place], [place] [address] BRENDA Fenton MD WBC 7.49 10 3/uL Normal 4.70-10.80 [facility] Comment on above: Performed By: #### C BC #### [facility] [address] [place], [place] [address] BRENDA Fenton MD CMPon 01-05-2020 Albumin [Mass/Vol] 4.4 g/dL Normal 3.5-5.0 [facility] Comment on above: Performed By: #### C MP #### [facility] [address] [place], [place] [address] BRENDA Fenton MD ALP [Catalytic activity/Vol] 47 U/L Normal 38-126 [facility] Comment on above: Performed By: #### C MP #### [facility] [address] [place], [place] [address] BERNDA Fenton MD ALT [Catalytic activity/Vol] 14 U/L Normal 9-52 [facility] Comment on above: Performed By: #### C MP #### [facility] [address] [place], [place] [address] BRENDA Fenton MD AST [Catalytic activity/Vol] 27 U/L Normal 14-36 [facility] Comment on above: Performed By: #### C MP #### [facility] [address] [place], [place] [address] BRENDA Fenton MD Bilirubin [Mass/Vol] 0.7 mg/dL Normal 0.2-1.3 [facility] Comment on above: Performed By: #### C MP #### [facility] [address] [place] [address] BRENDA Fenton MD Calcium [Mass/Vol] 10.2 mg/dL Normal 8.4-10.2 [facility] Comment on above: Performed By: #### C MP #### [facility] [address] [place] [address] BRENDA Fenton MD Chloride [Moles/Vol] 106 mmol/L Normal 98-107 [facility] Comment on above: Performed By: #### C MP #### [facility] [address] [place] [address] BRENDA Fenton MD Creatinine [Mass/Vol] 0.7 mg/dL Normal 0.5-1.0 [facility] Comment on above: Performed By: #### C MP #### [facility] [address] [place] [address] BRENDA Fenton MD ECO2 24 mmol/L Normal 22-30 [facility] Comment on above: Performed By: #### C MP #### [facility] [address] [place] [address] BREDNA Fenton MD EGFR-AF FILIPINO 99 mL/min/1.73m 2 Normal >=[address] [facility] Comment on above: Performed By: #### C MP #### [facility] [address] [place], [place] [address] BRENDA Fenton MD EGFR-NON AF FILIPINO 82 mL/min/1.73 m 2 Normal >=60 [facility] Comment on above: Performed By: #### C MP #### [facility] [address] [place] [address] BRENDA Fenton MD Glucose [Mass/Vol] 159 mg/dL High 70-99 [facility] Comment on above: Performed By: #### C MP #### [facility] [address] [place], [place] [address] BRENDA Fenton MD Potassium [Moles/Vol] 4.7 mmol/L Normal 3.5-5.0 [facility] Comment on above: Performed By: #### C MP #### [facility] [address] [place], [place] [address] BRENDA Fenton MD Protein [Mass/Vol] 7.4 g/dL Normal 6.3-8.2 [facility] Comment on above: Performed By: #### C MP #### [facility] [address] [place] [address] BRENDA Fenton MD Sodium [Moles/Vol] 140 mmol/L Normal 137-145 [facility] Comment on above: Performed By: #### C MP #### [facility] [address] [place] [address] BRENDA Fenton MD Urea nitrogen [Mass/Vol] 9 mg/dL Normal 7-17 [facility] Comment on above: Performed By: #### C MP #### [facility] [address] [place], [place] [id number] BRENDA Fenton MD LIPID PROFILE - FASTINGon Cholesterol [Mass/Vol] 136 mg/dL Normal <=200 [facility] Comment on above: Performed By: #### L IPID #### [facility] [address] [place], [place] [id number] BRENDA Fenton MD Cholesterol in HDL [Mass/Vol] 45 mg/dL Normal 40-60 [facility] Comment on above: Performed By: #### L IPID #### [facility] [address] [place] [address] BRENDA Fenton MD Cholesterol in LDL [Mass/Vol] 58 mg/dL Normal 0-130 [facility] Comment on above: Performed By: #### L IPID #### [facility] [address] [place], [place] [id number] BRENDA Fenton MD COMMENT Recommended (Desirable) < 130mg/dL Moderate Risk 130-159 mg/dL High Risk: >/= 130 mg/dL Normal [facility] Comment on above: Performed By: #### L IPID #### [facility] [address] [place] [address] BRENDA Fenton MD Triglyceride [Mass/Vol] 162 mg/dL High <=[address] [facility] Comment on above: Performed By: #### L IPID #### [facility] [address] [address] BRENDA Fenton MD Encounters Encounter Date Encounter Type Care Provider Facility Start: 11-12-2024 End: 11-12-[address] Joann Maya MD Work Phone: -Laboratory [facility] Start: 11-12-2024 End: 11-12-[address] Joann Maya MD -Laboratory [facility] Start: 11-12-2024 End: 11-12-2024 ambulatory Joann Maya Facility:[facility] Start: 10-19-2024 Non-patient / Non-visit Dr. Veronika Hodges MD -[facility] Work Phone: Start: 07-05-2024 End: 07-05-[address] Joann Maya MD Work Phone: [facility] Work Phone: Start: 07-05-2024 End: 07-05-[address] Joann Maya MD -Outpatient Breast Imaging Work Phone: Start: 07-05-2024 End: 07-05-2024 ambulatory Joann Maya Facility:[facility] Start: 06-04-2024 End: 06-04-[address] Joann Maya MD -Laboratory, [facility] Start: 06-04-2024 End: 06-04-2024 ambulatory Joann Zulma Facility:[facility] Start: 08-21-2023 End: 08-21-2023 ambulatory [facility] Work Phone: Start: 08-21-2023 End: 08-21-2023 Patient encounter procedure [facility]-Ultrasound, [facility] Work Phone: Start: 07-08-2023 End: 07-08-2023 ambulatory [facility] Work Phone: Start: 07-08-2023 End: 07-08-2023 Patient encounter procedure [facility]-Laboratory, [place] Work Phone: Start: 07-03-2023 End: 07-03-2023 ambulatory [facility] Work Phone: Start: 07-03-2023 End: 07-03-2023 Patient encounter procedure [facility]-Outpatient Bone Densitometry Work Phone: Start: 05-20-2023 End: 05-20-2023 ambulatory [facility] Work Phone: Start: 05-20-2023 End: 05-20-2023 Patient encounter procedure [facility] Start: 05-06-2023 End: 05-06-2023 ambulatory [facility] Work Phone: Start: 05-06-2023 End: 05-06-2023 Patient encounter procedure [facility]-MRI - [facility] Work Phone: Start: 03-25-2023 ambulatory [facility] Start: 02-20-2023 End: 02-21-2023 ambulatory [facility] Start: 12-31-2022 End: 01-01-2023 ambulatory [facility] Start: 11-19-2022 End: 11-20-2022 ambulatory [facility] Start: 11-04-2022 End: 11-05-2022 Evaluation and management of inpatient [facility] Start: 11-03-2022 End: 11-06-2022 Evaluation and management of inpatient [facility] Start: 11-03-2022 Emergency department patient visit [facility] Procedures Date Procedure Procedure Detail Performing Clinician Start: 07-05-2024 Screening mammograph y of right breast Dr. Joann Maya MD Work Phone: Start: 08-21-2023 US urinary tract Start: 07-03-2023 Dual energy X-ray absorptiometry Start: 07-03-2023 Screening mammograph y of right breast Start: 05-06-2023 MRI of brain with contrast Start: 11-03-2022 Antibody screen [facility] Comment on above: Performed By: #### L [id number] #### [facility] [address] [place] [address] [place] Payers Date Payer Category Payer Unknown [id number] 2024 Self-pay 2011 Medicare [id number] Unknown [id number] Unknown Unknown [id number] Unknown [id number] Unknown [id number] Social History Date Type Detail Facility [facility] Work Phone: Start: 1945 Sex Assigned At Female [facility] Work Phone: Start: 07-14-2024 Sex Female (finding) [facility] Evaluation note Note Date & Type Note Facility Evaluation note No assessment information availa ble [facility] Work Phone: Reason for referral (narrative) Note Date & Type Note Facility Reason for referral (narrative) No reason for referral information available [facility] Work Phone: Summary Purpose Family History No Family History Records FoundNo Family History Records FoundNo Family History Records FoundNo Family History Records Found Advance Directives No Advanced Directives Records FoundNo Advanced Directives Records FoundNo Advanced Directives Records FoundNo Advanced Directives Records Found Chief Complaint and Reason for Visit Chief Complaint ATTN IACS Chief Complaint ATTN IACS L BREAST CANCER AND MASTECTOMY, B HIP FRACTURE Chief Complaint ATTN IACS L BREAST CANCER AND MASTECTOMY, B HIP FRACTURE UTI Chief Complaint Admit Date SCREENING July 05, 2024 9:1 4am Additional Source Comments INFORMATION SOURCE (unrecogn ized section and content) DATE CREATED AUTHOR 08/10/2020 [facility] DATE CREATED AUTHOR AUTHOR'S ORGANIZ ATION 08/10/2023 [facility] DATE CREATED AUTHOR AUTHOR'S ORGANIZ ATION 03/22/2024 [facility] DATE CREATED AUTHOR AUTHOR'S ORGANIZ ATION 11/19/2024 [facility] Care Teams (unrecognized sec tion and content) Team Status: Active Member Role Status Dates Dr. Joann Maya MD Primary Care Provider Active Team Status: Inactive Member Role Status Dates Dr. Alfonso Leonard MD Attending Provider, Referring Pr ovider Active Dr. Joann Maya MD Primary Care Provider Active Team Status: Inactive Member Role Status Dates Dr. Joann Maya MD Primary Care Provider, Attendin g Provider Active Team Status: Inactive Member Role Status Dates Dr. Joann Maya MD Primary Care Prov ider, Attending Provider, Referring Provider Active Team Status: Active Member Role Status Dates Dr. Joann Maya MD Primary Care Prov ider, Attending Provider, Referring Provider Active Team Status: Inactive Member Role Status Dates Dr. Joann Maya MD Primary Care Provider Active Dr. Veronika Hodges MD Attending Provider, Referring P elaina Active Team Status: Inactive Member Role Status Dates Dr. Joann Maya MD Primary Care Provider Active Start: June 04, 2024 End: June 04, 2024 Dr. Joann Maya MD Attending Provider Active Start: June 04, 2024 End: June 04, 2024 Dr. Joann Maya MD Referring Provider Active Start: June 04, 2024 End: June 04, 2024 Team Status: Inactive Member Role Status Dates Dr. Joann Maya MD Primary Care Provider Active Start: July 05, 2024 End: July 05, 2024 Dr. Joann Maya MD Attending Provider Active Start: July 05, 2024 End: July 05, 2024 Dr. Joann Maya MD Referring Provider Active Start: July 05, 2024 End: July 05, 2024 Team Status: Active Member Role/Relationship Status Dates Dr. Joann Maya MD Primary Care Provider Active Team Status: Inactive Member Role/Relationship Status Dates Dr. Joann Maya MD Primary Care Provider Active Start: October 19, 2024 Dr. Veronika Hodges MD Attending Provider Active Start: October 19, 2024 Team Status: Inactive Member Role/Relationship Status Dates Dr. Joann Maya MD Primary Care Provider Active Start: November 12, 2024 End: November 12, 2024 Dr. Joann Maya MD Attending Provider Active Start: November 12, 2024 End: November 12, 2024 Goals (unrecognized section and content) Goals may be documented in a n alternate sectionGoals may be documented in an alternate sectionGoals may be documented in an alternate sectionGoals may be documented in an alternate sectionGoals may be documented in an alternate sectionGoals may be documented in an alternate sectionGoals may be documented in an alternate section FOR RECORDS PERTAINING TO PATIENTS WHO ARE [...] BE BASED ON THE PRIMARY CLINICAL RECORDS. [employer] provides no warranty or guarantee of the accuracy or completeness of information in this document.
[2025-01-21 21:58] VITALS: BMI 20.2
--- NOTE | 2025-01-21 22:17 | CT_ITS ---
PROCEDURE: EXTREMITY LOWER WITHOUT CONTRA 01/22/2025 REASON FOR EXAM: INJURY, UNABLE TO WB, NEG XR TECHNIQUE: Procedure Code: CTELWO Modality: CT Procedure: EXTREMITY LOWER WITHOUT CONTRA Coronal and Sagittal reconstruction series were provided. One or more dose reduction techniques were used (e.g., Automated exposure control, adjustment of the mA and/or kV according to patient size, use of iterative reconstruction technique). RADIATION DOSE SUMMARY: CTDlvol: 15.38 mGy DLP: 524.39 mGycm COMPARISON: 21-Jan-2025 CR FINDINGS: Internal fixation of left femoral intertrochanteric old malunited fracture by dynamic hip screw with no hardware failure. Surrounding femoral intertrochanteric cortical irregularities, patchy sclerosis and new bone formation. Acute non displaced fractures of the left superior and inferior pubic rami. Surrounding soft tissue edema noted. Reduced bone density. Mild hip osteoarthritic changes evident by small marginal osteophytic lipping of its opposing articular surfaces with subcortical pseudocystic changes of the acetabulum and associated narrowed left joint space. No evidence of femoral head fractures of structural collapse. No significant hip joints effusion. Femoral greater trochanter as well as ischial and iliac ensethopathy noted. Vascular atheromatous calcifications. Urinary bladder is unremarkable. CT/Extremity Lower without Contra IMPRESSION: Left proximal femoral fixation as detailed. Acute non displaced fractures of the left superior and inferior pubic rami. Jason rounding soft tissue edema noted. Mild hip osteoarthritic changes. Reduced bone density. Reading Location[facility]
--- NOTE | 2025-01-21 22:19 | ED.VIS.FALL ---
HPI HPI - Fall History of Present Illness Chief Complaint: Fall Informant: patient and family Narrative Narrative: Patient is a 79-year-old female with a history of DM, HTN, and HLD presenting with left hip pain following a fall. - Reports falling today while walking towards a door, losing balance and landing on a hard floor. - Denies tripping, knee giving out, or feeling like she was going to pass out. - Has a history of previous falls, but describes this as the hardest due to the hard floor. - Currently unable to ambulate independently, even with a cane, since this injury. - Reports severe pain in the left hip and thigh/groin, exacerbated by movement and weight-bearing. - Also reports pain and bruising in the wrist from trying to catch herself during the fall; able to move the wrist but experiences some pain. - Denies back pain. - Reports hitting her head during the fall, but denies current head pain. - Has a history of bilateral hip surgery; denies being on anticoagulants or aspirin. - Manages DM with metformin; denies insulin use. [facility] Medical History History of kidney stones History of breast cancer GERD (gastroesophageal reflux disease) CKD (chronic kidney disease), stage II Hypothyroidism Hyperlipemia Diabetes type 2 Hypertension Home Medications ?Medication ?Instructions ?Recorded ?Last Taken ?Type Lactobacillus acidophilus and 1 cap PO DAILY 01/21/25 Unknown History rhamnosus 15 billion cell capsule (Flor[employer] Women) levothyroxine 100 mcg tablet 100 mcg PO DAILY 01/21/25 Unknown History (Euthyrox) lisinopril 20 mg tablet 20 mg PO DAILY 01/21/25 Unknown History metformin 500 mg tablet 500 mg PO BID 01/21/25 Unknown History omeprazole 20 mg capsule,delayed 20 mg PO DAILY 01/21/25 Unknown History release oxybutynin chloride 5 mg tablet 10 mg PO DAILY 01/21/25 Unknown History phenazopyridine 95 mg tablet (Azo 95 mg PO DAILY 01/21/25 Unknown History Urinary Pain Relief) pravastatin 40 mg tablet 40 mg PO DAILY 01/21/25 Unknown History psyllium husk 3.4 gram/5.4 gram 2 tsp PO DAILY 01/21/25 Unknown History oral powder (Metamucil) Allergy/AdvReac Type Severity Reaction Status Date / Time No Known Allergies Allergy Verified 01/21/25 19:48 Family History Mother Cancer Father Cancer Surgical History H/O lithotripsy S/P cataract extraction History of hip surgery S/P total abdominal hysterectomy and bilateral salpingo-oophorectomy H/O left mastectomy Social History household members: children Smoking Status: Never smoker alcohol intake: never substance use type: does not use ROS ROS ED Constitutional Constitutional ED: Denies chills or fever(s) Eyes Eyes: Denies change in vision or diplopia ENT ENT ED: Denies rhinorrhea or sore throat Cardiovascular Cardiovascular: Denies chest pain or palpitations Respiratory/Chest Respiratory/Chest: Denies cough or dyspnea Gastrointestinal Gastrointestinal: Denies abdominal pain, diarrhea, nausea or vomiting Genitourinary Genitourinary ED: Denies dysuria or hematuria Musculoskeletal Musculoskeletal: Reports as per HPI, extremity pain and other Details: left hip and wrist pain ; Denies back pain or neck pain Integumentary Denies abscess or rash Neurologic Neurologic: Denies headache(s), paresthesias or weakness Psychiatric Psychiatric: Denies anxiety or suicidal thoughts EXAM Physical Exam Const Vital Signs: 01/21/25 19:45 01/21/25 21:44 01/21/25 21:51 Temperature 97.6 F L Temperature Source Oral Pulse Rate 113 H 76 Respiratory Rate 18 15 Respiratory Effort Normal Respiratory Depth Normal Respiratory Pattern Normal Blood Pressure 150/80 H 145/72 H Blood Pressure Mean 103 96 Pulse Ox 98 100 Oxygen Delivery Method Room Air Room Air Room Air 01/21/25 23:00 01/22/25 00:13 Temperature 99.7 F H Temperature Source Pulse Rate 98 78 Respiratory Rate 19 H 17 Respiratory Effort Respiratory Depth Respiratory Pattern Blood Pressure 150/77 H 140/65 H Blood Pressure Mean 101 90 Pulse Ox 100 100 Oxygen Delivery Method Room Air Positive well nourished and well developed General Appearance ED: well developed and NAD HEENT Reports moist mucous membranes HEENT Narrative: Abrasion left yazidi. No tenderness. No hematoma. No crepitus or depression. No Acevedo sign, no raccoon eyes, no CSF otorhinorrhea, no hemotympanum. normocephalic and trauma; Negative for contusion, hematoma or tenderness Eyes PERRL and EOMs intact bilaterally Neck full ROM and supple Resp normal respiratory effort and clear to auscultation bilaterally Cardio regular rate, regular rhythm and no murmurs GI non-tender and non-distended Auscultation: normoactive bowel sounds Palpation: soft Back/Spine no CVA tenderness General Back: other FROM Extremity normal to inspection Extremity Narrative: Tender left greater trochanter. No deformities. She is able to flex the knee/thigh with assistance but has pain both lateral left hip and in the groin. Once she does this, internal/external rotation do not elicit significant discomfort. The pelvis is stable to AP compression, there is no tenderness or opening with compression at the pubic bone. The compartments of the femur are soft and nondistended and there is no tenderness there or at the knee or ankle. The right lower extremity moves fully without limitation or pain as do the upper extremities but she has some ecchymosis at the ulnar and radial aspects of the volar wrist 2 separate areas of ecchymosis, she can supinate and pronate without pain or limitation, and dorsally there is no tenderness at the carpus, distal radius, or distal ulna. General Extremety ED: Yes tenderness; Negative for edema or pulses abnormal General Extremity: Negative for edema or pulses abnormal Neuro oriented x3, CN's II-XII intact bilaterally and no sensory deficits noted Sensorium / Orientation: awake and alert Motor Exam: strength 5/5 throughout Skin no rashes or lesions noted and no wounds MDM MDM MDM Narrative Medical decision making narrative: Assessment: The patient is a 79-year-old female with PMH of type 2 diabetes mellitus, hypertension, and hyperlipidemia presenting for left hip and pelvic pain after an accidental ground-level fall. Initial pelvic and wrist radiographs showed no obvious fracture; however, CT pelvis subsequently demonstrated non-displaced fractures of the left superior and inferior pubic rami with intact hip joint hardware and no femoral fracture. Given the CT findings and preserved hardware alignment, these are ufgikl-nlybdyr-kr-tolerated fractures that do not require operative fixation; pain and inability to ambulate safely necessitate inpatient management. Plan: - Administered IV analgesia for acute pain. - Applied wrist splint for contusion/sprain with good range of motion. - Admission to hospital medicine service for pain control, physical therapy, occupational therapy, and disposition planning to short-term rehabilitation due to inability to ambulate. - Provided fall mechanism and injury explanation; patient and daughter agree with admission plan. Diagnostics: - Pelvic and wrist radiographs: no acute fracture identified; bilateral hip prosthetic hardware intact. - CT pelvis: non-displaced fractures of left superior and inferior pubic rami; hip joint and femoral components intact; no acetabular involvement. Reevaluations: - After analgesia and CT review, patient reports partial pain relief but remains unable to bear weight; CT results and admission plan discussed, patient agreeable. Lab Data Attestation: I reviewed the patient's lab results. Labs: Laboratory Results - last 24 hr 01/21/25 22:54 WBC 16.8 H RBC 4.55 Hgb 13.7 Hct 41.8 MCV 91.9 MCH 30.1 MCHC 32.8 RDW Std Deviation 42.8 RDW Coeff of Ramon 12.8 Plt Count 192 MPV 10.5 Immature Gran % (Auto) 0.700 Neut % (Auto) 78.8 H Lymph % (Auto) 12.8 L Island % (Auto) 6.5 Eos % (Auto) 0.8 Baso % (Auto) 0.4 Absolute Neuts (auto) 13.2 H Absolute Lymphs (auto) 2.16 Nucleated RBC % 0 Sodium 141 Potassium 3.4 Chloride 103 Carbon Dioxide 23.6 Anion Gap 15 BUN 12 Creatinine 0.74 Estim Creat Clear Calc 51.14 Est GFR (MDRD) Non-Af 83 BUN/Creatinine Ratio 16.7 Glucose 191 H Calcium 10.0 Radiography Diagnostic Testing: Clinical Impression(s) from Imaging Studies Hip/Pelvis X-Ray 01/21/25 20:10 IMPRESSION: Diffuse osteopenia with age consistent hip and SI joint arthrosis. Surgical hardware in both femurs free of complication. No acute abnormalities. However, hip and pelvic fractures in patients of this age can be subtle, if there is strong clinical suspicion of a fracture, recommend further evaluation with CT Reading Location: [facility] Wrist X-Ray 01/21/25 20:10 IMPRESSION: Diffuse osteopenia without a fracture or suspicious osseous lesion. Please see discussion above Degenerative arthrosis, most pronounced at the base of the thumb Chondrocalcinosis Reading Location: [id number] Lower Extremity CT 01/21/25 22:17 IMPRESSION: Left proximal femoral fixation as detailed. Acute non displaced fractures of the left superior and inferior pubic rami. Surrounding soft tissue edema noted. Mild hip osteoarthritic changes. Reduced bone density. Reading [facility] Fem[facility] 01/21/25 23:06 IMPRESSION: No evidence for acute abnormality. Reading Location[facility] Imaging, as interpreted by myself: - CT Pelvis: Two fractures involving the left pubic rami near the hip joint, with no involvement of the joint (weight-bearing as tolerated injuries). - X-ray left hip/pelvis, 3 views: No acute fracture identified, possible nondisplaced superior pubic ramus fracture; hardware intact. - X-ray Left Wrist, 3 views: No acute fracture identified. - X-ray left femur, 3 views: No acute fractures, hardware intact Management Discussion w/another healthcare provider: Hospitalist Discharge Plan Dx/Rx/DC Orders Clinical Impression: Fracture of left inferior pubic ramus, Fracture of superior ramus of left pubis, Inability to ambulate due to left hip, Left wrist sprain, Accidental fall Disposition Disposition: Acute Care Hospital [facility] Discharge Date/Time: 01/22/25 01:08
[2025-01-21 23:00] VITALS: BP 150/77; PULSE 98; RESP 19; O2SAT 100
[2025-01-21 23:05] LABS: Hematocrit 41.8 % (37-47); Hemoglobin 13.7 g/dL (12.0-15.0); Immature Granulocytes Count 0.120 X10^3/uL (0.0-0.0); Mean Corp Hgb Conc 32.8 g/dL (32-36); Mean Corpuscular Volume 91.9 fL (81-99); Mean Platelet Vol. 10.5 fl (6.2-12.0); NRBC Flagged by Analyzer 0 % (0-5); Platelet Count 192 K/mm3 (150-450); RBC Distribution Width CV 12.8 % (11.6-14.6); RBC Distribution Width SD 42.8 fl (35.1-43.9); Red Blood Count 4.55 M/mm3 (4.2-5.4); White Blood Count 16.8 K/mm3 (4.4-11.0)
--- NOTE | 2025-01-21 23:06 | RAD_ITS ---
PROCEDURE: FEMUR MIN 2 VIEWS 01/21/2025 REASON FOR EXAM: HIP PAIN/INJURY TECHNIQUE: Procedure Code: RADFEM Modality: DX Procedure: FEMUR MIN 2 VIEWS Laterality: COMPARISON: None. FINDINGS: Open reduction internal fixation of left intertrochanteric fracture in good alignment. Unremarkable metallic hardware. Mild osteopenia of the visualized bones. Degenerative joint disease. No fracture or dislocation is seen. No lytic or blastic bone lesion is noted. RAD/Femur Min 2 Views IMPRESSION: No evidence for acute abnormality. Reading Location[facility]
[2025-01-21 23:39] LABS: Anion Gap 15 (5-15); BUN 12 mg/dL (4-19); BUN/Creat Ratio 16.7 RATIO (10-20); Calcium,Total 10.0 mg/dL (7.6-11.0); Carbon Dioxide 23.6 mmol/L (21.0-32.0); Chloride 103 mmol/L (98-108); Estimated Creatinine Clearance 51.14 ml/min (50-250); Glucose 191 mg/dL (70-99); Potassium 3.4 mmol/L (3.3-5.1)
[2025-01-22] VITALS (9 sets, daily range): BP systolic 87–140; BP diastolic 45–65; PULSE 71–95; RESP 16–18; TEMP 36.4–37.6; O2SAT 94–100; BMI 19.1; BMI 19.2
--- NOTE | 2025-01-22 00:12 | PCM.HP.STD ---
HPI - General General Date of Admission: 01/22/25 Date of Service: 01/22/25 Chief Complaint: Fall, L hip and wrist pain. HPI Narrative The patient is a 79 y/o F w/ PMHx: Hx breast CA, CKD stage II per GFR trending, HTN, HLD, Hypothyroidism, Diabetes mellitus type II, GERD who presents to the [facility] ED on 02/12 with history of mechanical fall on evening prior to day of presentation while leaving [facility] after having just eaten with no loss of consciousness not on any antiplatelet or anticoagulant therapy but persistent ongoing left hip as well as left wrist pain secondary to mechanism prompting ED evaluation to be cautious. Patient reports that her left hip and her left wrist hurt significantly and are more sharp type pain rated 7-8 out of 10 in severity but at rest currently she notes pain is workup in the ED included T97.6, heart 113, BP 150/80, respiratory rate 18, 98% on room air with most recent repeat vitals heart rate 98, BP 150/77, respiratory rate 19, 100% on room air, CBC with WBC 16.8, hemoglobin 13.7, platelet 192 with left shift, BMP with BUN/creatinine 12/0.74, GFR 83, glucose 119, plain film of the left hip and pelvis with diffuse osteopenia with age consistent hip and SI joint arthrosis, surgical hardware in both femurs free of complication with no obvious evidence of acute abnormality, plain film of the left wrist with diffuse osteopenia without fracture or suspicious osseous lesion, degenerative arthrosis most pronounced at the base of the thumb, chondrocalcinosis, CT of the left lower extremity with left proximal femoral fixation in place, an acute nondisplaced fracture of the left superior and inferior pubic rami with surrounding soft tissue edema, mild hip osteoarthritic change, reduced bone density, plain film of the femur pending upon request evaluation of patient. In the ED patient ministered morphine 4 mg IV x 1 as well as Zofran 4 mg IV x 1. [facility] Medical History History of kidney stones History of breast cancer GERD (gastroesophageal reflux disease) CKD (chronic kidney disease), stage II Hypothyroidism Hyperlipemia Diabetes type 2 Hypertension Home Medications ?Medication ?Instructions ?Recorded ?Last Taken ?Type Lactobacillus acidophilus and 1 cap PO DAILY 01/21/25 Unknown History rhamnosus 15 billion cell capsule ([employer]) levothyroxine 100 mcg tablet 100 mcg PO DAILY 01/21/25 Unknown History (Euthyrox) lisinopril 20 mg tablet 20 mg PO DAILY 01/21/25 Unknown History metformin 500 mg tablet 500 mg PO BID 01/21/25 Unknown History omeprazole 20 mg capsule,delayed 20 mg PO DAILY 01/21/25 Unknown History release oxybutynin chloride 5 mg tablet 10 mg PO DAILY 01/21/25 Unknown History phenazopyridine 95 mg tablet (Azo 95 mg PO DAILY 01/21/25 Unknown History Urinary Pain Relief) pravastatin 40 mg tablet 40 mg PO DAILY 01/21/25 Unknown History psyllium husk 3.4 gram/5.4 gram 2 tsp PO DAILY 01/21/25 Unknown History oral powder (Metamucil) Allergy/AdvReac Type Severity Reaction Status Date / Time No Known Allergies Allergy Verified 01/21/25 19:48 Family History Mother Cancer Father Cancer Surgical History H/O lithotripsy S/P cataract extraction History of hip surgery S/P total abdominal hysterectomy and bilateral salpingo-oophorectomy H/O left mastectomy Social History household members: children Smoking Status: Never smoker alcohol intake: never substance use type: does not use ROS ROS Narrative Admission Review of Systems: CONSTITUTIONAL: No weight loss, fever, chills, + weakness or fatigue. HEENT: Eyes: No visual loss, blurred vision, double vision or yellow sclerae. Ears, Nose, Throat: No hearing loss, sneezing, congestion, runny nose or sore throat. SKIN: No rash or itching, lesions, wounds except + occasional ecchymoses, abrasion CARDIOVASCULAR: No chest pain, chest pressure or chest discomfort, palpitations, edema, orthopnea, syncopal events. RESPIRATORY: No shortness of breath, cough or sputum, wheezing, hemoptysis. GASTROINTESTINAL: + Chronic constipation. No anorexia, nausea, vomiting or diarrhea, abdominal pain, melena, BRBPR. GENITOURINARY: No dysuria, frequency, urgency or retention. NEUROLOGICAL: No headache, dizziness, syncope, paralysis, ataxia, numbness or tingling in the extremities, focal weakness, change in bowel or bladder control, seizure. MUSCULOSKELETAL: + muscle, back pain, joint pain or stiffness. HEMATOLOGIC: No anemia, + easy bleeding/bruising. LYMPHATICS: No enlarged nodes. No history of splenectomy. PSYCHIATRIC: No history of depression or anxiety. ENDOCRINOLOGIC: No reports of sweating, cold or heat intolerance. No polyuria or polydipsia. ALLERGIES: No history of asthma, hives, eczema or rhinitis. Vital Signs Vital Signs Vital Signs: 01/21/25 19:45 01/21/25 21:44 01/21/25 21:51 Temperature 97.6 F L Temperature Source Oral Pulse Rate 113 H 76 Respiratory Rate 18 15 Respiratory Effort Normal Respiratory Depth Normal Respiratory Pattern Normal Blood Pressure 150/80 H 145/72 H Blood Pressure Mean 103 96 Pulse Ox 98 100 Oxygen Delivery Method Room Air Room Air Room Air 01/21/25 23:00 Temperature Temperature Source Pulse Rate 98 Respiratory Rate 19 H Respiratory Effort Respiratory Depth Respiratory Pattern Blood Pressure 150/77 H Blood Pressure Mean 101 Pulse Ox 100 Oxygen Delivery Method Room Air Weight Weight: 123 lb 3.814 oz Body Mass Index (BMI) 20.2 Physical Exam Narrative Physical Examination: General: Awake, alert, oriented x 3 and cooperative, seated upright in ED bed, fatigued, patient reports pain currently better, 3-4 out of 10 in severity to the left wrist and left hip but she is not moving. Skin: Normal color, normal turgor, no icterus, no cyanosis except occasional stage ecchymoses, abrasion. HEENT: AT/NC, EOMI, PERRLA, dry MM, no carotid bruits or JVD noted. Lungs: CTA bilaterally, moderate effort, mild decrease BL bases, no rales, ronchi or wheezing. Heart: Regular rate and rhythm; no gallop, rub audible. Abdomen: Soft, NTTP, ND, mildly overactive BS, no appreciated HSM. Extremities: No cyanosis, no clubbing, no significant distal pitting edema, peripheral pulses intact, left wrist with discomfort with palpation and ecchymotic change expected, able to make fist. Neurological: Patient awake, alert, oriented as noted, cognitive function intact; pupils equally reactive to light and accommodation, cranial nerves grossly normal, moving all 4 extremities although limited left lower extremity and left wrist secondary to recent fall with injury as noted, no focal deficits, strength accordingly severely globally decreased Psychiatric: Affect appears fatigued, mildly uncomfortable, no acute evidence of depressive or anxiety feelings. Results Lab / Micro Data 01/21/25 22:54 01/21/25 22:54 Labs: Laboratory Results - last 24 hr 01/21/25 22:54: WBC 16.8 H, RBC 4.55, Hgb 13.7, Hct 41.8, MCV 91.9, MCH 30.1, MCHC 32.8, RDW Std Deviation 42.8, RDW Coeff of Ramon 12.8, Plt Count 192, MPV 10.5, Immature Gran % (Auto) 0.700, Neut % (Auto) 78.8 H, Lymph % (Auto) 12.8 L, [place] % (Auto) 6.5, Eos % (Auto) 0.8, Baso % (Auto) 0.4, Absolute Neuts (auto) 13.2 H, Absolute Lymphs (auto) 2.16, Nucleated RBC % 0, Sodium 141, Potassium 3.4, Chloride 103, Carbon Dioxide 23.6, Anion Gap 15, BUN 12, Creatinine 0.74, Estim Creat Clear Calc 51.14, Est GFR (MDRD) Non-Af 83, BUN/Creatinine Ratio 16.7, Glucose 191 H, Calcium 10.0 Imaging Radiology Impression Hip/Pelvis X-Ray 01/21/25 20:10 IMPRESSION: Diffuse osteopenia with age consistent hip and SI joint arthrosis. Surgical hardware in both femurs free of complication. No acute abnormalities. However, hip and pelvic fractures in patients of this age can be subtle, if there is strong clinical suspicion of a fracture, recommend further evaluation with CT Reading Location: [facility] Wrist X-Ray 01/21/25 20:10 IMPRESSION: Diffuse osteopenia without a fracture or suspicious osseous lesion. Please see discussion above Degenerative arthrosis, most pronounced at the base of the thumb Chondrocalcinosis Reading Location: [id number] Lower Extremity CT 01/21/25 22:17 IMPRESSION: Left proximal femoral fixation as detailed. Acute non displaced fractures of the left superior and inferior pubic rami. Surrounding soft tissue edema noted. Mild hip osteoarthritic changes. Reduced bone density. Reading Location: [place] [id number] Assessment & Plan Assessment/Plan (1) Left wrist sprain: (2) Accidental fall: (3) Fracture of left inferior pubic ramus: (4) Fracture of superior ramus of left pubis: PLAN: Plan The patient is a 79 y/o F w/ PMHx: Hx Breast CA, CKD stage II per GFR trending, HTN, HLD, Hypothyroidism, Diabetes mellitus type II, GERD who presents to the [facility] ED on 02/12 with history of mechanical fall on evening prior to day of presentation with no loss of consciousness not on any antiplatelet or anticoagulant therapy but persistent ongoing left hip as well as left wrist pain secondary to mechanism prompting ED evaluation to be cautious. #1. Mechanical fall with persistent pain secondary to acute nondisplaced fractures of the left superior and inferior pubic rami with surrounding soft tissue edema and possibly left wrist sprain with no acute osseous injury noted: Will admit to medical surgical floor, encourage offloading/positional changes, will judiciously hydrate, monitor I/Os, maintain on fall precautions, will have as needed pain regimen antiemetic regimen. Discussed with ED and they are ordered wrist brace. Patient may be weightbearing as tolerated given nonoperative. PT/OT following operative intervention. CM consulted for discharge planning. #2. Leukocytosis of unclear etiology: Admission CBC with WBC 16.8 with left shift, afebrile upon presentation, possibly reactive, procalcitonin requested, continue judicious hydration and repeat CMP in AM. #3. Chronic Kidney Disease Stage II per GFR trending: Admission BUN/Cr 12/0.74, GFR 83, baseline renal function primarily 0.6-0.7, repeat BMP in AM. #4. Diabetes mellitus type II: Hold oral home regimen, ADA diet, accu checks w/ ISS. #5. Hypertension: Continue home regimen including lisinopril with hold parameters as needed, PRN hydralazine. #6. Hyperlipidemia: Will continue patient on statin therapy. #7. Hypothyroidism: Continue patient home levothyroxine regimen. #8. GERD: Will continue patient home PPI. #9. History of breast cancer: Unclear specific location or type however patient is status post left mastectomy in 1999 treated reportedly with chemotherapy as well as tamoxifen, in remission, encourage continued follow-up outpatient as previously arranged. #10. DVT prophylaxis: Lovenox. #11. CODE status: Patient HCPBRENT is her daughter who is present and living will is currently in place. Discussed CODE status at length including difference between FULL code, DNR-CCA and DNR-CC status. Following discussions about the differences in these status, requested Full Code status. Advanced Care Planning Face to Face Time: 16 minutes. Charges/Coding Visit Charges Inpatient E&M: 83174 Init Hosp L2 Procedures Hospitalists Procedures: 26414 Advncd Care Plan 30 Min
--- OUTSIDE RECORDS SUMMARY | 2025-01-22 00:48 | XMS RPT_ITS | CCD ---
Author Organization [facility] CliniSyny Care Team Providers Care Cotton Baler Name Role Phone LIZA, LORETTA Primary Care [...] [phone] Dr. Joann Maya MD Referring Provider [phone] Dr. Joann Maya MD Primary Care Provider [...] T4 FREE DIRECT 1.70 ng/dL High 0.76-1.46 [facility] Comment on above: Performed By: #### L 501.9520, L506.0400 #### [facility] [address] [place], [address] T4 freeOrdered By: Joann sheldon on 11-12-2024 Free T4 [Mass/Vol] 1.70 ng/dL High 0.76-1.46 [facility] TSH DL <= 0.005 mIU/L QnOrde red By: Joann Maya on 11-12-2024 TSH Qn 0.046 uIU/mL Low 0.300-4.200 [facility] Thyroid Stim Hormone (TSH)on 11-12-2024 TSH 0.046 uIU/mL Low 0.300-4.200 [facility] Comment on above: Performed By: #### L 501.9520, L506.0400 #### [facility] [address] [facility] [place], [place], [address] Breast imaging reportOrdered By: Seng Bowen on 07-05-2024 Study report [facility] Imaging Services [address] [place], [place] [address] SCREEN MAMM (CAD) W/BENSON UNI R MR#: [id number] Acct: [id number] Name: BARBARA WALTER Rep #: [id number] : 1945 F 79 From: Mo Bowen MD PCP: Dr. Joann Maya MD Status: REG CLI Study:SCREEN MAMM (CAD) W/BENSON UNI R Date of Exam: 07/05/24 Exam# [id number] Ordering Dr: Yanira Maya MD PROCEDURE: SCREEN [...] BENIGN RECOMMEND ANNUAL MAMMOGRAPHIC SCREENING. Reading Location: [place] [address] CC: Dr. Joann Maya MD ~ Tube Machine Operator Helper: Signed [facility] SCREEN MAMM (CAD) W/BENSON UNI Mejia 07-05-2024 SCREEN MAMM (CAD) W/BENSON UNI R [facility] Imaging Services [address] [facility] [facility] [place] [address] SCREEN MAMM (CAD) W/BENSON UNI R MR#: [id number] Acct: [id number] Name: BARBARA WALTER Rep #: [id number] : 1945 F 79 From: Seng duron MD PCP: Dr. Joann Maya MD Status: REG CLI Study: SCREEN MAMM (CAD) W/BENSON UNI R Date of Exam: 0 07/05/24 Exam# [id number] Ordering Dr: Joann Maya MD PROCEDURE: SCREEN [...] BENIGN RECOMMEND ANNUAL MAMMOGRAPHIC SCREENING. Reading Location: [place] [address] CC: Dr. Joann Maya MD Tube Machine Operator Helper: Signed Normal [facility] Absolute neutrophil countOrd ered By: Joann Maya on 06-04-2024 Neutrophils (Bld) [#/Vol] 4.4 10*3/uL 2.0-7.7 [facility] Albumin to globulin ratioOrd ered By: Joann Maya on 06-04-2024 Albumin/Globulin [Mass ratio] 0.9 {ratio} 0.9-2.4 [facility] Basophil percentageOrdered B y: Joann Maya on 06-04-2024 Basophils/100 WBC (Bld) 0.9 % 0-1 [facility] Bilirubin, totalOrdered By: Joann Maya on 06-04-2024 Bilirubin [Mass/Vol] 0.40 mg/dL 0.20-1.00 [facility] Comment on above: For patients on eltr ombopag therapy, use of Dimension [place] TBIL is not recommended. Blood urea nitrogen (BUN)/cr eatinine ratioOrdered By: Joann Maya on 06-04-2024 Urea nitrogen/Creatinine [Mass ratio] 20.1 mg/mg High 10-20 [facility] CBC W/Diff, Automatedon 05-22 Absolute Lymph 2.11 X10 3/uL Normal 0.83-4.51 [facility] Comment on above: Performed By: #### L 100.0100, L503.0105, L500.4050, L500.4100, L501.9520 #### [facility] [address] [place], [address] Absolute Neut 4.4 X10 3/uL Normal 2.0-7.7 [facility] Comment on above: Performed By: #### L 100.0100, L503.0105, L500.4050, L500.4100, L501.9520 #### [facility] [address] [place], [address] Basophils/100 WBC (Bld) 0.9 % Normal 0-1 [facility] Comment on above: Performed By: #### L 100.0100, L503.0105, L500.4050, L500.4100, L501.9520 #### [facility] [address] [place], [address] Eosinophils/100 WBC (Bld) 2.3 % Normal 0-5 [facility] Comment on above: Performed By: #### L 100.0100, L503.0105, L500.4050, L500.4100, L501.9520 #### [facility] [address] [place], [address] Erythrocyte distribution width (RBC) [Ratio] 12.5 % Normal 11.6-14.6 [facility] Comment on above: Performed By: #### L 100.0100, L503.0105, L500.4050, L500.4100, L501.9520 #### [facility] [address] [place], [address] Hematocrit (Bld) [Volume fraction] 42.8 % Normal 37-47 [facility] Comment on above: Performed By: #### L 100.0100, L503.0105, L500.4050, L500.4100, L501.9520 #### [facility] [address] [place], [address] Hemoglobin (Bld) [Mass/Vol] 14.0 g/dL Normal 12.0-15.0 [facility] Comment on above: Performed By: #### L 100.0100, L503.0105, L500.4050, L500.4100, L501.9520 #### [facility] [address] [place], [address] IG% 0.300 Normal 0.0-0.9 [facility] Comment on above: Result Comment: IG% - Immature Granulocytes (promyelocytes, myelocytes and metamyelocytes) > 1% indicates that a LEFT SHIFT is Present. Performed By: #### L 100.0100, L503.0105, L500.4050, L500.4100, L501.9520 #### [facility] [address] [place], [address] Lymphocytes/100 WBC (Bld) 28.6 % Normal 19-41 [facility] Comment on above: Performed By: #### L 100.0100, L503.0105, L500.4050, L500.4100, L501.9520 #### [facility] [address] [place], [address] MCH (RBC) [Entitic mass] 30.6 pg Normal 27.0-32.0 [facility] Comment on above: Performed By: #### L 100.0100, L503.0105, L500.4050, L500.4100, L501.9520 #### [facility] [address] [place], [address] MCHC (RBC) [Mass/Vol] 32.7 g/dL Normal 32-36 [facility] Comment on above: Performed By: #### L 100.0100, L503.0105, L500.4050, L500.4100, L501.9520 #### [facility] [address] [place], [address] MCV (RBC) [Entitic vol] 93.4 fL Normal 81-99 [facility] Comment on above: Performed By: #### L 100.0100, L503.0105, L500.4050, L500.4100, L501.9520 #### [facility] [address] [place], [address] Monocytes/100 WBC (Bld) 7.7 % Normal 0-10 [facility] Comment on above: Performed By: #### L 100.0100, L503.0105, L500.4050, L500.4100, L501.9520 #### [facility] [address] [place], [address] Neutrophils/100 WBC (Bld) 60.2 % Normal 47-70 [facility] Comment on above: Performed By: #### L 100.0100, L503.0105, L500.4050, L500.4100, L501.9520 #### [facility] [address] [place], [address] Nucleated RBC (Bld) [#/Vol] 0 10*3/uL Normal 0-5 [facility] Comment on above: Performed By: #### L 100.0100, L503.0105, L500.4050, L500.4100, L501.9520 #### [facility] [address] [place], [address] Platelet mean volume (Bld) [Entitic vol] 11.0 fL Normal 6.2-12.0 [facility] Comment on above: Performed By: #### L 100.0100, L503.0105, L500.4050, L500.4100, L501.9520 #### [facility] [address] [place], [address] Platelets (Bld) [#/Vol] 198 10*3/uL Normal 150-450 [facility] Comment on above: Performed By: #### L 100.0100, L503.0105, L500.4050, L500.4100, L501.9520 #### [facility] [address] [place], [address] RBC (Bld) [#/Vol] 4.58 10*6/uL Normal 4.2-5.4 [facility] Comment on above: Performed By: #### L 100.0100, L503.0105, L500.4050, L500.4100, L501.9520 #### [facility] [address] [place], [address] RDW SD 42.7 fl Normal 35.1-43.9 [facility] Comment on above: Performed By: #### L 100.0100, L503.0105, L500.4050, L500.4100, L501.9520 #### [facility] [address] [place], [address] WBC (Bld) [#/Vol] 7.4 10*3/uL Normal 4.4-11.0 [facility] Comment on above: Performed By: #### L 100.0100, L503.0105, L500.4050, L500.4100, L501.9520 #### [facility] [address] [place], [address] Carbon dioxide measurementOr dered By: Joann Maya on 06-04-2024 CO2 [Moles/Vol] 30.0 mmol/L 21.0-32.0 [facility] Chloride measurementOrdered By: Joann Maya on 06-04-2024 Chloride [Moles/Vol] 107 mmol/L 98-107 [facility] Comprehensive Metabolic Prof ilon 06-04-2024 Albumin [Mass/Vol] 3.4 g/dL Normal 3.2-5.0 [facility] Comment on above: Performed By: #### L 100.0100, L503.0105, L500.4050, L500.4100, L501.9520 #### [facility] [address] [place], [address] Albumin/Globulin [Mass ratio] 0.9 {ratio} Normal 0.9-2.4 [facility] Comment on above: Performed By: #### L 100.0100, L503.0105, L500.4050, L500.4100, L501.9520 #### [facility] [address] [place], [address] ALK P 71 U/L Normal 45-117 [facility] Comment on above: Performed By: #### L 100.0100, L503.0105, L500.4050, L500.4100, L501.9520 #### [facility] [address] [place], [address] ALT [Catalytic activity/Vol] 18 U/L Normal 13-56 [facility] Comment on above: Performed By: #### L 100.0100, L503.0105, L500.4050, L500.4100, L501.9520 #### [facility] [address] [place], [address] AST [Catalytic activity/Vol] 16 U/L Normal 15-37 [facility] Comment on above: Performed By: #### L 100.0100, L503.0105, L500.4050, L500.4100, L501.9520 #### [facility] [address] [place], [address] Bilirubin [Mass/Vol] 0.40 mg/dL Normal 0.20-1.00 [facility] Comment on above: Result Comment: For patients on eltrombopag therapy, use of Dimension [place] TBIL is not recommended. Performed By: #### L 100.0100, L503.0105, L500.4050, L500.4100, L501.9520 #### [facility] [address] [place], [address] BUN/CRE 20.1 RATIO High 10-20 [facility] Comment on above: Performed By: #### L 100.0100, L503.0105, L500.4050, L500.4100, L501.9520 #### [facility] [address] [place], [address] CA,Total 9.5 mg/dL Normal 8.5-10.1 [facility] Comment on above: Performed By: #### L 100.0100, L503.0105, L500.4050, L500.4100, L501.9520 #### [facility] [address] [place], [address] Chloride [Moles/Vol] 107 mmol/L Normal 98-107 [facility] Comment on above: Performed By: #### L 100.0100, L503.0105, L500.4050, L500.4100, L501.9520 #### [facility] [address] [place], [address] CO2 [Moles/Vol] 30.0 mmol/L Normal 21.0-32.0 [facility] Comment on above: Performed By: #### L 100.0100, L503.0105, L500.4050, L500.4100, L501.9520 #### [facility] [address] [place], [address] Creatinine [Mass/Vol] 0.75 mg/dL Normal 0.55-1.02 [facility] Comment on above: Result Comment: The validity of the calculated GFR GFRAA in patients over 70 years has not been determined. Clinical correlation is essential. Performed By: #### L 100.0100, L503.0105, L500.4050, L500.4100, L501.9520 #### [facility] [address] [place], [address] EST GFR - AA 96 mL/min Normal >60 [facility] Comment on above: Result Comment: Afri can [place] GFR Calc Performed By: #### L 100.0100, L503.0105, L500.4050, L500.4100, L501.9520 #### [facility] [address] [place], [address] GAP 6 Normal 5-15 [facility] Comment on above: Performed By: #### L 100.0100, L503.0105, L500.4050, L500.4100, L501.9520 #### [facility] [address] [place], [address] GFR/1.73 sq M.predicted among non-blacks MDRD (S/P/Bld) [Vol rate/Area] 80 mL/min/{1.73_m2} Normal >60 [facility] Comment on above: Result Comment: Non- GFR Calc Performed By: #### L 100.0100, L503.0105, L500.4050, L500.4100, L501.9520 #### [facility] [address] [place], [address] Globulin (S) [Mass/Vol] 3.8 g/dL Normal 2.2-4.2 [facility] Comment on above: Performed By: #### L 100.0100, L503.0105, L500.4050, L500.4100, L501.9520 #### [facility] [address] [place], [address] Glucose [Mass/Vol] 132 mg/dL High 74-106 [facility] Comment on above: Result Comment: Fast ing Glucose result greater than or equal to 126 mg/dL suggests DIABETES MELLITUS per A.D.A. criteria. Performed By: #### L 100.0100, L503.0105, L500.4050, L500.4100, L501.9520 #### [facility] [address] [place], [address] Potassium [Moles/Vol] 4.0 mmol/L Normal 3.5-5.1 [facility] Comment on above: Performed By: #### L 100.0100, L503.0105, L500.4050, L500.4100, L501.9520 #### [facility] [address] [place], [address] Sodium [Moles/Vol] 143 mmol/L Normal 136-145 [facility] Comment on above: Performed By: #### L 100.0100, L503.0105, L500.4050, L500.4100, L501.9520 #### [facility] [address] [place], [address] T PROT 7.2 g/dL Normal 6.4-8.2 [facility] Comment on above: Performed By: #### L 100.0100, L503.0105, L500.4050, L500.4100, L501.9520 #### [facility] [address] [place], [address] Urea nitrogen [Mass/Vol] 15 mg/dL Normal 7-18 [facility] Comment on above: Performed By: #### L 100.0100, L503.0105, L500.4050, L500.4100, L501.9520 #### [facility] [address] [place], [address] Eosinophil percentageOrdered By: Joann Maya on 06-04-2024 Eosinophils/100 WBC (Bld) 2.3 % 0-5 [facility] Erythrocyte distribution wid th ratioOrdered By: Joann Maya on 06-04-2024 Erythrocyte distribution width (RBC) [Ratio] 12.5 % 11.6-14.6 [facility] Erythrocyte distribution wid th standard deviationOrdered By: Joann Maya on 06-04-2024 Erythrocyte distribution width (RBC) [Entitic vol] 42.7 fL 35.1-43.9 [facility] Estimated glomerular filtrat ion rate (GFR) AmericanOrdered By: Joann Maya on 06-04-2024 Estimated GFR (MDRD) Amer 96 mL/min >60 [facility] Comment on above: GFR Calc Glomerular filtration rate ( GFR) estimationOrdered By: Joann Maya on 06-04-2024 Estimated GFR (MDRD) Non-Af Amer 80 mL/min >60 [facility] Comment on above: Non- GFR Calc Glucose measurementOrdered B y: Joann Maya on 06-04-2024 Glucose [Mass/Vol] 132 mg/dL High 74-106 [facility] Comment on above: Fasting Glucose resu lt greater than or equal to 126 mg/dL suggests DIABETES MELLITUS per A.D.A. criteria. Hematocrit Auto (Bld) [Volum e fraction]Ordered By: Joann Maya on 06-04-2024 Hematocrit (Bld) [Volume fraction] 42.8 % 37-47 [facility] Hemoglobin measurementOrdere d By: Joann Maya on 06-04-2024 Hemoglobin (Bld) [Mass/Vol] 14.0 g/dL 12.0-15.0 [facility] High density lipoprotein (HD L) measurementOrdered By: Jaonn Maya on 06-04-2024 Cholesterol in HDL [Mass/Vol] 42 mg/dL >40 [facility] Comment on above: The drugs N-Acetylcy steine and Metamizole may falsely depress this assay. Reference Range HDL <40 mg/dL Low HDL Cholesterol HDL >or= 60 mg/dL High HDL Cholesterol Immature granulocytes/100 WB C Auto (Bld)Ordered By: Joann Maya on 06-04-2024 Immature granulocytes/100 WBC (Bld) 0.300 % 0.0-0.9 [facility] Comment on above: IG% - Immature Granu locytes (promyelocytes, myelocytes and metamyelocytes) > 1% indicates that a LEFT SHIFT is Present. Laboratory - Chemistry and C hemistry - challengeOrdered By: Joann Maya on 06-04-2024 AST [Catalytic activity/Vol] 16 U/L 15-37 [facility] Lipid Profileon 06-04-2024 Cholesterol [Mass/Vol] 108 mg/dL Normal 200 [facility] Comment on above: Result Comment: <200 mg/dL Desirable 200-240 mg/dL Borderline >240 mg/dL High Risk Performed By: #### L 100.0100, L503.0105, L500.4050, L500.4100, L501.9520 #### [facility] [address] [place], [address] Cholesterol in HDL [Mass/Vol] 42 mg/dL Normal [facility] Comment on above: Result Comment: The drugs N-Acetylcysteine and Metamizole may falsely depress this assay. Reference Range HDL <40 mg/dL Low HDL Cholesterol HDL >or= 60 mg/dL High HDL Cholesterol Performed By: #### L 100.0100, L503.0105, L500.4050, L500.4100, L501.9520 #### [facility] [address] [place], [address] Cholesterol in LDL [Mass/Vol] 46 mg/dL Normal 0-130 [facility] Comment on above: Performed By: #### L 100.0100, L503.0105, L500.4050, L500.4100, L501.9520 #### [facility] [address] [place], [address] Cholesterol in VLDL [Mass/Vol] 20 mg/dL Normal 5-40 [facility] Comment on above: Performed By: #### L 100.0100, L503.0105, L500.4050, L500.4100, L501.9520 #### [facility] [address] [place], [address] Triglyceride [Mass/Vol] 98 mg/dL Normal [facility] Comment on above: Result Comment: The drugs N-Acetylcysteine and Metamizole may falsely depress this assay. Serum Triglycerides Reference Interval Normal <150 mg/dL Borderline high 150 - 199 mg/dL High 200 - 499 mg/dL Very High > or = 500 mg/dL Performed By: #### L 100.0100, L503.0105, L500.4050, L500.4100, L501.9520 #### [facility] [address] [place], [address] Low density lipoprotein (LDL ) cholesterol measurementOrdered By: Joann Maya on 06-04-2024 Cholesterol in LDL [Mass/Vol] 46 mg/dL 0-130 [facility] Lymphocytes Auto (Unsp spec) [#/Vol]Ordered By: Joann Maya on 06-04-2024 Lymphocytes (Bld) [#/Vol] 2.11 10*3/uL 0.83-4.51 [facility] Lymphocytes/100 WBC Auto (Un sp spec)Ordered By: Joann Maya on 06-04-2024 Lymphocytes/100 WBC (Bld) 28.6 % 19-41 [facility] MCV (mean corpuscular volume ) determinationOrdered By: Joann Maya on 06-04-2024 MCV (RBC) [Entitic vol] 93.4 fL 81-99 [facility] Mean corpuscular hemoglobin (MCH) determinationOrdered By: Joann Maya on 06-04-2024 MCH (RBC) [Entitic mass] 30.6 pg 27.0-32.0 [facility] Mean corpuscular hemoglobin concentration (MCHC) determinationOrdered By: Joann Maya on 06-04-2024 MCHC (RBC) [Mass/Vol] 32.7 g/dL 32-36 [facility] Mean platelet volume determi nationOrdered By: Joann Maya on 06-04-2024 Platelet mean volume (Bld) [Entitic vol] 11.0 fL 6.2-12.0 [facility] Monocyte percentageOrdered B y: Joann Maya on 06-04-2024 Monocytes/100 WBC (Bld) 7.7 % 0-10 [facility] Neutrophil percentageOrdered By: Joann Maya on 06-04-2024 Neutrophils/100 WBC (Bld) 60.2 % 47-70 [facility] Nucleated red blood cell per centageOrdered By: Joann Maya on 06-04-2024 Nucleated RBC/100 WBC (Bld) [Ratio] 0 % 0-5 [facility] Platelet countOrdered By: Brad Maya on 06-04-2024 Platelets (Bld) [#/Vol] 198 10*3/uL 150-450 [facility] Potassium measurementOrdered By: Joann Maya on 06-04-2024 Potassium [Moles/Vol] 4.0 mmol/L 3.5-5.1 [facility] RBC Auto (Bld) [#/Vol]Ordere d By: Joann Maya on 06-04-2024 RBC (Bld) [#/Vol] 4.58 10*6/uL 4.2-5.4 [facility] Serum anion gap measurementO rdered By: Joann Maya on 06-04-2024 Anion gap [Moles/Vol] 6 mmol/L 5-15 [facility] Serum globulin measurementOr dered By: Joann Maya on 06-04-2024 Globulin (S) [Mass/Vol] 3.8 g/dL 2.2-4.2 [facility] Serum or plasma alanine hightower otransferase (ALT) measurementOrdered By: Joann Maya on 06-04-2024 ALT [Catalytic activity/Vol] 18 U/L 13-56 [facility] Serum or plasma albumin luis urement (mass/volume)Ordered By: Joann Maya on 06-04-2024 Albumin [Mass/Vol] 3.4 g/dL 3.2-5.0 [facility] Serum or plasma alkaline peña sphatase measurementOrdered By: Joann Maya on 06-04-2024 ALP [Catalytic activity/Vol] 71 U/L 45-117 [facility] Serum or plasma calcium luis urement (mass/volume)Ordered By: Joann Maya on 06-04-2024 Calcium [Mass/Vol] 9.5 mg/dL 8.5-10.1 [facility] Serum or plasma cholesterol measurement (mass/volume)Ordered By: Joann Maya on 06-04-2024 Cholesterol [Mass/Vol] 108 mg/dL <200 [facility] Comment on above: <200 mg/dL Desirable 200-240 mg/dL Borderline >240 mg/dL High Risk Serum or plasma creatinine m easurement (mass/volume)Ordered By: Joann Maya on 06-04-2024 Creatinine [Mass/Vol] 0.75 mg/dL 0.55-1.02 [facility] Comment on above: The validity of the calculated GFR & GFRAA in patients over 70 years has not been determined. Clinical correlation is essential. Serum or plasma urea nitroge n measurement (mass/volume)Ordered By: Joann Maya on 06-04-2024 Urea nitrogen [Mass/Vol] 15 mg/dL 7-18 [facility] Sodium levelOrdered By: Terry Maya on 06-04-2024 Sodium [Moles/Vol] 143 mmol/L 136-145 [facility] TSH QnOrdered By: Joann moran on 06-04-2024 Thyroid Stimulating Hormone (TSH) 0.043 uIU/mL Low 0.358-3.740 [facility] Thyroid Stim Hormone (TSH)on 06-04-2024 TSH 0.043 uIU/mL Low 0.358-3.740 [facility] Comment on above: Performed By: #### L 100.0100, L503.0105, L500.4050, L500.4100, L501.9520 #### [facility] [address] [place], [place], [id number] Total proteinOrdered By: Adis Maya on 06-04-2024 Protein [Mass/Vol] 7.2 g/dL 6.4-8.2 [facility] Triglycerides measurementOrd ered By: Joann Maya on 06-04-2024 Triglyceride [Mass/Vol] 98 mg/dL <199 [facility] Comment on above: The drugs N-Acetylcy steine and Metamizole may falsely depress this assay.Serum Triglycerides Reference Interval Normal <150 mg/dL Borderline high 150 - 199 mg/dL High 200 - 499 mg/dL Very High > or = 500 mg/dL Very low density lipoprotein (VLDL) cholesterol measurementOrdered By: Joann Maya on 06-04-2024 VLDL Cholesterol 20 mg/dL 5-40 [facility] Vitamin B12on 06-04-2024 Cobalamin (Vitamin B12) [Mass/Vol] 1109 pg/mL High 211-911 [facility] Comment on above: Performed By: #### L 100.0100, L503.0105, L500.4050, L500.4100, L501.9520 #### [facility] [address] [place], [place], [id number] Vitamin B12 measurementOrder ed By: Joann Maya on 06-04-2024 Cobalamin (Vitamin B12) [Mass/Vol] 1109 pg/mL High 211-911 [facility] White blood cell (WBC) count Ordered By: Joann Maya on 06-04-2024 WBC (Bld) [#/Vol] 7.4 10*3/uL 4.4-11.0 [facility] - Chemistry and C hemistry - challengeOrdered By: Joann Maya on 07-08-2023 Cobalamin (Vitamin B12) [Mass/Vol] 563 pg/mL 211-911 [facility] Serum or plasma thyroid stim ulating hormone (TSH) measurement (units/volume)Ordered By: Joannyanira Maya on 07-08-2023 TSH Qn 1.54 uIU/mL 0.358-3.74 [facility] Absolute lymphocyte countOrd ered By: Joann Maya on 05-20-2023 Lymphocytes Auto (Unsp spec) [#/Vol] 2.26 10*3/uL 0.83-4.51 [facility] Automated lymphocyte count a s percentage of total leukocytesOrdered By: Joann Maya on 05-20-2023 Lymphocytes/100 WBC Auto (Unsp spec) 31.5 % 19-41 [facility] Basophil percentageOrdered B y: Joann Maya on 05-20-2023 Basophils/100 WBC (Bld) 0.7 % 0-1 [facility] Bilirubin [Mass/Vol] 0.40 mg/dL 0.20-1.00 [facility] Comment on above: For patients on eltr ombopag therapy, use of Dimension [place] TBIL is not recommended. Chloride [Moles/Vol] 108 mmol/L 98-107 [facility] Cholesterol [Mass/Vol] 133 mg/dL <200 [facility] Comment on above: <200 mg/dL Desirable 200-240 mg/dL Borderline >240 mg/dL High Risk Eosinophils/100 WBC (Bld) 1.5 % 0-5 [facility] Glucose [Mass/Vol] 129 mg/dL 74-106 [facility] Comment on above: Fasting Glucose resu lt greater than or equal to 126 mg/dL suggests DIABETES MELLITUS per A.D.A. criteria. Hemoglobin (Bld) [Mass/Vol] 13.4 g/dL 12.0-15.0 [facility] Monocytes/100 WBC (Bld) 7.3 % 0-10 [facility] Neutrophils (Bld) [#/Vol] 4.2 10*3/uL 2.0-7.7 [facility] Neutrophils/100 WBC (Bld) 58.9 % 47-70 [facility] Potassium [Moles/Vol] 4.0 mmol/L 3.5-5.1 [facility] Protein [Mass/Vol] 7.6 g/dL 6.4-8.2 [facility] Sodium [Moles/Vol] 139 mmol/L 136-145 [facility] Triglyceride [Mass/Vol] 98 mg/dL <199 [facility] Comment on above: The drugs N-Acetylcy steine and Metamizole may falsely depress this assay.Serum Triglycerides Reference Interval Normal <150 mg/dL Borderline high 150 - 199 mg/dL High 200 - 499 mg/dL Very High > or = 500 mg/dL WBC (Bld) [#/Vol] 7.2 10*3/uL 4.4-11.0 [facility] Determination of erythrocyte mean corpuscular volume (MCV)Ordered By: Joann Maya on 05-20-2023 MCV (RBC) [Entitic vol] 94.8 fL 81-99 [facility] Erythrocyte distribution wid th ratioOrdered By: Joann Maya on 05-20-2023 Erythrocyte distribution width (RBC) [Ratio] 12.4 % 11.6-14.6 [facility] Erythrocyte distribution wid th standard deviationOrdered By: Joann Maya on 05-20-2023 Erythrocyte distribution width (RBC) [Entitic vol] 42.7 fL 35.1-43.9 [facility] Hematocrit Auto (Bld) [Volum e fraction]Ordered By: Joann Maya on 05-20-2023 Hematocrit (Bld) [Volume fraction] 43.4 % 37-47 [facility] High density lipoprotein (HD L) measurementOrdered By: Joann Maya on 05-20-2023 Cholesterol in HDL (Body fld) [Mass/Vol] 48 mg/dL >40 [facility] Comment on above: The drugs N-Acetylcy steine and Metamizole may falsely depress this assay. Reference Range HDL <40 mg/dL Low HDL Cholesterol HDL >or= 60 mg/dL High HDL Cholesterol Immature granulocytes/100 WB C Auto (Bld)Ordered By: Joann Maya on 05-20-2023 Immature granulocytes/100 WBC (Bld) 0.100 % 0.0-0.9 [facility] Comment on above: IG% - Immature Granu locytes (promyelocytes, myelocytes and metamyelocytes) > 1% indicates that a LEFT SHIFT is Present. Iron measurement (mass/mass) Ordered By: Joann Maya on 05-20-2023 Iron (Unsp spec) [Mass/Mass] 93 ug/dL 50-170 [facility] - Chemistry and C hemistry - challengeOrdered By: Joann Maya on 05-20-2023 Albumin/Globulin [Mass ratio] 0.9 {ratio} 0.9-2.4 [facility] ALP [Catalytic activity/Vol] 90 U/L 45-117 [facility] ALT [Catalytic activity/Vol] 17 U/L 13-56 [facility] CO2 [Moles/Vol] 28.0 mmol/L 21.0-32.0 [facility] Cobalamin (Vitamin B12) [Mass/Vol] 348 pg/mL 211-911 [facility] Ferritin [Mass/Vol] 158 ng/mL 8-252 [facility] Globulin (S) [Mass/Vol] 4.1 g/dL 2.2-4.2 [facility] Urea nitrogen/Creatinine [Mass ratio] 21.8 mg/mg 10-20 [facility] - Hematology and Cell countsOrdered By: Joann Maya on 05-20-2023 MCH (RBC) [Entitic mass] 29.3 pg 27.0-32.0 [facility] MCHC (RBC) [Mass/Vol] 30.9 g/dL 32-36 [facility] Nucleated RBC/100 WBC (Bld) [Ratio] 0 % 0-5 [facility] Platelets (Bld) [#/Vol] 236 10*3/uL 150-450 [facility] Low density lipoprotein (LDL ) cholesterol measurementOrdered By: Joann Maya on 05-20-2023 Cholesterol in LDL (Body fld) [Moles/Vol] 65 mg/dL 0-130 [facility] No Panel InformationOrdered By: Joann Maya on 05-20-2023 Estimated GFR (MDRD) Amer 107 mL/min >60 [facility] Comment on above: GFR Calc Estimated GFR (MDRD) Non-Af Amer 88 mL/min >60 [facility] Comment on above: Non- GFR Calc Folate 17.30 ng/mL 3.1-55.4 [facility] Total Iron Binding Capacity 255 ug/dL 250-450 [facility] Platelet mean volume Kumar-Ec ker (Bld) [Entitic vol]Ordered By: Joann Maya on 05-20-2023 Platelet mean volume (Bld) [Entitic vol] 10.7 fL 6.2-12.0 [facility] RBC Auto (Bld) [#/Vol]Ordere d By: Joann Maya on 05-20-2023 RBC (Bld) [#/Vol] 4.58 10*6/uL 4.2-5.4 [facility] Serum or plasma calcium luis urement (mass/volume)Ordered By: Joann aMya on 05-20-2023 Calcium [Mass/Vol] 9.6 mg/dL 8.5-10.1 [facility] Serum or plasma creatinine m easurement (mass/volume)Ordered By: Joann Maya on 05-20-2023 Creatinine [Mass/Vol] 0.69 mg/dL 0.55-1.02 [facility] Comment on above: The validity of the calculated GFR & GFRAA in patients over 70 years has not been determined. Clinical correlation is essential. Serum or plasma iron saturat ion measurement (mass fraction)Ordered By: Joann Maya on 05-20-2023 Iron saturation [Mass fraction] 36.5 % 15.0-55.0 [facility] Serum or plasma thyroid stim ulating hormone (TSH) measurement (units/volume)Ordered By: Joann Maya on 05-20-2023 TSH Qn 0.01 uIU/mL 0.358-3.74 [facility] Serum or plasma urea nitroge n measurement (mass/volume)Ordered By: Joann Maya on 05-20-2023 Urea nitrogen [Mass/Vol] 15 mg/dL 7-18 [facility] Thin prep Papanicolaou smear with manual screeningOrdered By: Joann Maya on 05-20-2023 Thin prep Papanicolaou smear with manual screening 3.5 g/dL 3.2-5.0 [facility] Thin prep Papanicolaou smear with manual screening 10 U/L 15-37 [facility] Thin prep Papanicolaou smear with manual screening 3 5-15 [facility] Very low density lipoprotein (VLDL) cholesterol measurementOrdered By: Joann Maya on 05-20-2023 Cholesterol in VLDL Calc [Moles/Vol] 20 mg/dL 5-40 [facility] Basophil percentageOrdered B y: Alfonso Ramírezur on 05-06-2023 Basophil percentage < 1.0 mg/dL 0.55-1.02 [facility] No Panel InformationOrdered By: Alfonso Ramírezur on 05-06-2023 Bedside Estimated GFR (eGFR) > 60.0000 mL/min >60 [facility] POC BLOOD GLUCOSE (RESULTS)o n 11-06-2022 Glucose [Mass/Vol] 168 mg/dL High 74-106 [facility] Comment on above: Performed By: #### L [id number] #### [facility] [address] [place] [address] [place] Narrative [address] [place] [address], [place] [address] Abnormal [facility] Comment on above: Performed By: #### L [id number] #### [facility] [address] [place] [address] [place] Glucose [Mass/Vol] 105 mg/dL Normal 74-106 [facility] Comment on above: Performed By: #### L [id number] #### [facility] [address] [place] [address] [place] Narrative [address] [place] [address], [place] [address] Normal [facility] Comment on above: Performed By: #### L [id number] #### [facility] [address] [place] [address] [place] BASIC METABOLIC PANELon 10-19 Anion gap [Moles/Vol] 9 mmol/L Normal 5-19 [facility] Comment on above: Performed By: #### L [id number] #### [facility] [address] [place] [address] [place] Calcium [Mass/Vol] 8.2 mg/dL Low 8.4-10.2 [facility] Comment on above: Performed By: #### L [id number] #### [facility] [address] [place] [address] [place] Chloride [Moles/Vol] 101 mmol/L Normal 98-107 [facility] Comment on above: Performed By: #### L [id number] #### [facility] [address] [place] [address] [place] CO2 [Moles/Vol] 25 mmol/L Normal 22-30 [facility] Comment on above: Performed By: #### L [id number] #### [facility] [address] [place] [address] [place] Creatinine [Mass/Vol] 0.71 mg/dL Normal 0.52-1.00 [facility] Comment on above: Performed By: #### L [id number] #### [facility] [address] [place] [address] [place] GFR/1.73 sq M.predicted MDRD (S/P/Bld) [Vol rate/Area] mL/min/{1.73_m2} Normal >60 [facility] Comment on above: Performed By: #### L [id number] #### [facility] [address] [place] [address] [place] Glucose [Mass/Vol] 184 mg/dL High 74-106 [facility] Comment on above: Performed By: #### L [id number] #### [facility] [address] [place] [address] [place] Narrative Estimated Glomerular Filtration Rate (eGFR) is calculated using the CKD-EPI (2020) equation, intended for patients 18 years of age and older. If gender is not documented or unknown, there will be no eGFR calculation. Abnormal [facility] Comment on above: Performed By: #### L [id number] #### [facility] [address] [place] [address] [place] Potassium [Moles/Vol] 4.4 mmol/L Normal 3.5-5.1 [facility] Comment on above: Performed By: #### L [id number] #### [facility] [address] [place] [address] [place] Sodium [Moles/Vol] 135 mmol/L Low 137-145 [facility] Comment on above: Performed By: #### L [id number] #### [facility] [address] [place] [address] [place] Urea nitrogen [Mass/Vol] 17 mg/dL Normal 7-17 [facility] Comment on above: Performed By: #### L [id number] #### [facility] [place] [address] [place] Urea nitrogen/Creatinine [Mass ratio] 24 mg/mg High 6-20 [facility] Comment on above: Performed By: #### L [id number] #### [facility] [address] [place] [address] [place] CBC WITH DIFFon 11-05-2022 BASOPHIL # 0.00 x10???3/uL Normal 0.00-0.20 [facility] Comment on above: Performed By: #### L [id number] #### [facility] [address] [place] [address] [place] Basophils/100 WBC (Bld) 0 % Normal 0-2 [facility] Comment on above: Performed By: #### L [id number] #### [facility] [address] [place] [address] [place] EOSINOPHIL # 0.00 x10???3/uL Normal 0.00-0.60 [facility] Comment on above: Performed By: #### L [id number] #### [facility] [address] [place] [address] [place] Eosinophils/100 WBC (Bld) 0 % Normal 0-5 [facility] Comment on above: Performed By: #### L [id number] #### [facility] [address] [place] [address] [place] Erythrocyte distribution width (RBC) [Ratio] 14.2 % High 11.5-14.0 [facility] Comment on above: Performed By: #### L [id number] #### [facility] [address] [place] [address] [place] Hematocrit (Bld) [Volume fraction] 28.0 % Low 36.0-48.0 [facility] Comment on above: Performed By: #### L [id number] #### [facility] [address] [place] [address] [place] Hemoglobin (Bld) [Mass/Vol] 9.3 g/dL Low 11.6-14.8 [facility] Comment on above: Performed By: #### L [id number] #### [facility] [address] [place] [address] [place] LYMPHOCYTE # 1.70 x10???3/uL Normal 1.10-3.80 [facility] Comment on above: Performed By: #### L [id number] #### [facility] [address] [place] [address] [place] Lymphocytes/100 WBC (Bld) 15 % Low 19-46 [facility] Comment on above: Performed By: #### L [id number] #### [facility] [address] [place] [address] US MCH (RBC) [Entitic mass] 33.8 pg Normal 24.4-34.0 [facility] Comment on above: Performed By: #### L [id number] #### [facility] [address] [place] [address] US MCHC (RBC) [Mass/Vol] 33.2 g/dL Normal 30.0-37.0 [facility] Comment on above: Performed By: #### L [id number] #### [facility] [address] [place] [address] US MCV (RBC) [Entitic vol] 101.7 fL High 79.0-88.0 [facility] Comment on above: Performed By: #### L [id number] #### [facility] [address] [place] [address] [place] MONOCYTE # 1.40 x10???3/uL High 0.10-0.80 [facility] Comment on above: Performed By: #### L [id number] #### [facility] [address] [facility] [place] [address] [place] Monocytes/100 WBC (Bld) 12 % Normal 4-12 [facility] Comment on above: Performed By: #### L [id number] #### [facility] [address] [place] [address] US NEUTROPHIL # 8.30 x10???3/uL High 1.80-7.50 [facility] Comment on above: Performed By: #### L [id number] #### [facility] [address] [place] [address] [place] Neutrophils/100 WBC (Bld) 72 % High 41-69 [facility] Comment on above: Performed By: #### L [id number] #### [facility] [address] [facility] [place] [address] [place] Platelet mean volume (Bld) [Entitic vol] 7.6 fL Normal 7.5-11.5 [facility] Comment on above: Performed By: #### L [id number] #### [facility] [address] [facility] [place] [address] [place] PLATELETS AUTOMATED 173 x10???3/uL Normal 130-400 [facility] Comment on above: Performed By: #### L [id number] #### [facility] [address] [facility] [place] [address] [place] RBC AUTOMATED 2.76 x10???6/uL Low 3.50-5.50 [facility] Comment on above: Performed By: #### L [id number] #### [facility] [address] [place] [address] US WBC AUTOMATED CORRECTED 11.5 x10???3/uL Normal 4.5-11. 5 [facility] Comment on above: Performed By: #### L [id number] #### [facility] [address] [facility] [place] [address] [place] POC BLOOD GLUCOSE (RESULTS)o n 11-05-2022 Glucose [Mass/Vol] 131 mg/dL High 74-106 [facility] Comment on above: Performed By: #### L [id number] #### [facility] 1 [facility] [place] [facility] [address] [place] Narrative [address], [place] [address] [facility] Comment on above: Performed By: #### L [id number] #### [facility] [address] [facility] [place] [address] [place] Glucose [Mass/Vol] 130 mg/dL High 74-106 [facility] Comment on above: Performed By: #### L [id number] #### [facility] [address] [facility] [place] [address] [place] Narrative [address] [place] [address] [facility] Comment on above: Performed By: #### L [id number] #### [facility] [address] [facility] [place] [address] [place] Glucose [Mass/Vol] 149 mg/dL High 74-106 [facility] Comment on above: Performed By: #### L [id number] #### [facility] 1 [facility] [place] [address] [place] Narrative [address], [place] [address] [facility] Comment on above: Performed By: #### L [id number] #### [facility] [address] [facility] [place] [address] [place] Glucose [Mass/Vol] 172 mg/dL High 74-106 [facility] Comment on above: Performed By: #### L [id number] #### [facility] [address] [facility] [place] [address] [place] Narrative [address] [place] [address] Abnormal [facility] Comment on above: Performed By: #### L [id number] #### [facility] [address] [place] [address] [place] CBCon 11-04-2022 Erythrocyte distribution width (RBC) [Ratio] 14.3 % High 11.5-14.0 [facility] Comment on above: Performed By: #### L [id number] #### [facility] [address] [place] [address] [place] Hematocrit (Bld) [Volume fraction] 34.1 % Low 36.0-48.0 [facility] Comment on above: Performed By: #### L [id number] #### [facility] [place] [address] [place] Hemoglobin (Bld) [Mass/Vol] 11.2 g/dL Low 11.6-14.8 [facility] Comment on above: Performed By: #### L [id number] #### [facility] [address] [place] [address] US MCH (RBC) [Entitic mass] 33.7 pg Normal 24.4-34.0 [facility] Comment on above: Performed By: #### L [id number] #### [facility] [address] [place] [address] US MCHC (RBC) [Mass/Vol] 32.9 g/dL Normal 30.0-37.0 [facility] Comment on above: Performed By: #### L [id number] #### [facility] [address] [place] [address] US MCV (RBC) [Entitic vol] 102.4 fL High 79.0-88.0 [facility] Comment on above: Performed By: #### L [id number] #### [facility] [address] [place] [address] [place] Platelet mean volume (Bld) [Entitic vol] 8.2 fL Normal 7.5-11.5 [facility] Comment on above: Performed By: #### L [id number] #### [facility] [address] [place] [address] US PLATELETS AUTOMATED 146 x10???3/uL Normal 130-400 [facility] Comment on above: Performed By: #### L [id number] #### [facility] [address] [place] [address] US RBC AUTOMATED 3.33 x10???6/uL Low 3.50-5.50 [facility] Comment on above: Performed By: #### L [id number] #### [facility] [address] [place] [address] US WBC AUTOMATED CORRECTED 20.3 x10???3/uL High 4.5-11. 5 [facility] Comment on above: Performed By: #### L [id number] #### [facility] [address] [place] [address] [place] FOLATEon 11-04-2022 FOLATE 10.1 ng/mL Normal >2.8 [facility] Comment on above: Performed By: #### L [id number] #### [facility] [address] [place] [address] US POC BLOOD GLUCOSE (RESULTS)o n 11-04-2022 Glucose [Mass/Vol] 223 mg/dL High 74-106 [facility] Comment on above: Performed By: #### L [id number] #### [facility] [address] [place] [address] [place] Narrative [address] [place] [address] [facility] Comment on above: Performed By: #### L [id number] #### [facility] [address] [place] [address] [place] Glucose [Mass/Vol] 197 mg/dL High 74-106 [facility] Comment on above: Performed By: #### P [id number] #### [facility] [address] [place] [address] [place] Narrative [address] [place] [address] Abnormal [facility] Comment on above: Performed By: #### P [id number] #### [facility] 1 [facility] [place] [address] [place] URINALYSIS, MACRO/MICROon Amorphous sediment LM Ql (Urine sed) Many Abnormal None, Few, Mod [facility] Comment on above: Performed By: #### L [id number] #### [facility] [place] [address] [place] Appearance (U) Turbid Abnormal Clear, Hazy, Cloudy, Slightly Cloudy [facility] Comment on above: Performed By: #### L [id number] #### [facility] [place] [address] [place] BACTERIA URINE Few Normal None, Few [facility] Comment on above: Performed By: #### L [id number] #### [facility] [place] [address] US BILIRUBIN URINE Negative Normal Negative [facility] Comment on above: Performed By: #### L [id number] #### [facility] [address] [place] Color (U) Yellow Normal [facility] Comment on above: Performed By: #### L [id number] #### [facility] [place] [address] [place] Glucose Ql (U) Negative Normal 30 , Negative [facility] Comment on above: Performed By: #### L [id number] #### [facility] [place] [address] [place] HEMOGLOBIN URINE Trace Normal Negative, Trace [facility] Comment on above: Performed By: #### L [id number] #### [facility] [place] [address] US Ketones Ql (U) 10 mg/dL Abnormal Negative [facility] Comment on above: Performed By: #### L [id number] #### [facility] [address] [facility] [place] [address] [place] Leukocyte esterase Test strip Ql (U) Small Abnormal Negative [facility] Comment on above: Performed By: #### L [id number] #### [facility] [address] [place] MUCOUS URINE Rare Normal None, Rare, Occasional, Few, Mod [facility] Comment on above: Performed By: #### L [id number] #### [facility] [address] [place] [address] US NITRITE URINE Negative Normal Negative [facility] Comment on above: Performed By: #### L [id number] #### [facility] [address] [place] [address] [place] pH (U) 6.5 [pH] Normal 5.0-9.0 [facility] Comment on above: Performed By: #### L [id number] #### [facility] [address] [place] [address] [place] Protein (U) [Mass/Vol] 30 mg/dL Abnormal Negat janelle, 10 , 20 [facility] Comment on above: Performed By: #### L [id number] #### [facility] [address] [place] [address] US RBC URINE 11-20 Abnormal 0-2, None [facility] Comment on above: Performed By: #### L [id number] #### [facility] [place] [address] US SPECIFIC GRAVITY URINE 1.023 Normal 1.003-1.035 [facility] Comment on above: Performed By: #### L [id number] #### [facility] [place] [address] [place] SQUAMOUS EPITHELIAL CELLS URINE Few Normal None, Few [facility] Comment on above: Performed By: #### L [id number] #### [facility] [address] [place] [address] US UROBILINOGEN URINE 3.0 mg/dL Abnormal < 2.0, 1. 0, 0.2 [facility] Comment on above: Performed By: #### L [id number] #### [facility] [address] [place] [address] US WBC URINE 51-80 Abnormal 0-4 [facility] Comment on above: Performed By: #### L [id number] #### [facility] [address] [place] [address] US VITAMIN B12on 11-04-2022 Cobalamin (Vitamin B12) [Mass/Vol] 594 pg/mL Normal 239-931 [facility] Comment on above: Performed By: #### L [id number] #### [facility] [address] [place] [address] US CBC WITH DIFFon 11-03-2022 BASOPHIL # 0.10 x10???3/uL Normal 0.00-0.20 [facility] Comment on above: Performed By: #### L [id number] #### [facility] [address] [place] [address] US Basophils/100 WBC (Bld) 1 % Normal 0-2 [facility] Comment on above: Performed By: #### L [id number] #### [facility] [address] [place] [address] US EOSINOPHIL # 0.10 x10???3/uL Normal 0.00-0.60 [facility] Comment on above: Performed By: #### L [id number] #### [facility] [address] [place] [address] US Eosinophils/100 WBC (Bld) 1 % Normal 0-5 [facility] Comment on above: Performed By: #### L [id number] #### [facility] [address] [place] [address] US Erythrocyte distribution width (RBC) [Ratio] 14.4 % High 11.5-14.0 [facility] Comment on above: Performed By: #### L [id number] #### [facility] [address] [place] [address] US Hematocrit (Bld) [Volume fraction] 40.5 % Normal 36.0-48.0 [facility] Comment on above: Performed By: #### L [id number] #### [facility] [address] [place] [address] US Hemoglobin (Bld) [Mass/Vol] 13.5 g/dL Normal 11.6-14.8 [facility] Comment on above: Performed By: #### L [id number] #### [facility] [address] [place] [address] US LYMPHOCYTE # 1.90 x10???3/uL Normal 1.10-3.80 [facility] Comment on above: Performed By: #### L [id number] #### [facility] [address] [place] [address] US Lymphocytes/100 WBC (Bld) 24 % Normal 19-46 [facility] Comment on above: Performed By: #### L [id number] #### [facility] [address] [place] [address] US MCH (RBC) [Entitic mass] 33.6 pg Normal 24.4-34.0 [facility] Comment on above: Performed By: #### L [id number] #### [facility] [address] [place] [address] US MCHC (RBC) [Mass/Vol] 33.4 g/dL Normal 30.0-37.0 [facility] Comment on above: Performed By: #### L [id number] #### [facility] [address] [place] [address] US MCV (RBC) [Entitic vol] 100.4 fL High 79.0-88.0 [facility] Comment on above: Performed By: #### L [id number] #### [facility] [address] [place] [address] US MONOCYTE # 0.50 x10???3/uL Normal 0.10-0.80 [facility] Comment on above: Performed By: #### L [id number] #### [facility] [place] [address] US Monocytes/100 WBC (Bld) 6 % Normal 4-12 [facility] Comment on above: Performed By: #### L [id number] #### [facility] [address] [facility] [address] US NEUTROPHIL # 5.40 x10???3/uL Normal 1.80-7.50 [facility] Comment on above: Performed By: #### L [id number] #### [facility] [place] [address] [place] Neutrophils/100 WBC (Bld) 68 % Normal 41-69 [facility] Comment on above: Performed By: #### L [id number] #### [facility] 1 [facility] [place] [address] [place] Platelet mean volume (Bld) [Entitic vol] 7.6 fL Normal 7.5-11.5 [facility] Comment on above: Performed By: #### L [id number] #### [facility] [place] [place] [address] [place] PLATELETS AUTOMATED 229 x10???3/uL Normal 130-400 [facility] Comment on above: Performed By: #### L [id number] #### [facility] [place] [address] [place] RBC AUTOMATED 4.03 x10???6/uL Normal 3.50-5.50 [facility] Comment on above: Performed By: #### L [id number] #### [facility] [place] [address] [place] WBC AUTOMATED CORRECTED 8.0 x10???3/uL Normal 4.5-11.5 [facility] Comment on above: Performed By: #### L [id number] #### [facility] [place] [address] [place] COMPREHENSIVE METABOLIC PANE L, NON-FASTINGon 11-03-2022 Albumin [Mass/Vol] 4.0 g/dL Normal 3.5-5.0 [facility] Comment on above: Performed By: #### L [id number] #### [facility] 1 [place] [address] [place] Albumin/Globulin [Mass ratio] 1.3 {ratio} Low 1.5-2.5 [facility] Comment on above: Performed By: #### L [id number] #### [facility] 1 [place] [address] [place] ALP [Catalytic activity/Vol] 100 U/L Normal 38-126 [facility] Comment on above: Performed By: #### L [id number] #### [facility] [address] [place] [address] US ALT [Catalytic activity/Vol] 22 U/L Normal <35 [facility] Comment on above: Performed By: #### L [id number] #### [facility] [address] [place] [address] [place] Anion gap [Moles/Vol] 11 mmol/L Normal 5-19 [facility] Comment on above: Performed By: #### L [id number] #### [facility] [place] [address] US AST [Catalytic activity/Vol] 27 U/L Normal 14-36 [facility] Comment on above: Performed By: #### L [id number] #### [facility] 1 [place] [address] US Bilirubin [Mass/Vol] 0.5 mg/dL Normal 0.2-1.3 [facility] Comment on above: Performed By: #### L [id number] #### [facility] [address] [place] [address] US Calcium [Mass/Vol] 9.3 mg/dL Normal 8.4-10.2 [facility] Comment on above: Performed By: #### L [id number] #### [facility] [place] [address] US Chloride [Moles/Vol] 100 mmol/L Normal 98-107 [facility] Comment on above: Performed By: #### L [id number] #### [facility] [address] [place] [address] US CO2 [Moles/Vol] 26 mmol/L Normal 22-30 [facility] Comment on above: Performed By: #### L [id number] #### [facility] [address] [place] [address] US Creatinine [Mass/Vol] 0.68 mg/dL Normal 0.52-1.00 [facility] Comment on above: Performed By: #### L [id number] #### [facility] [address] [place] [address] US GFR/1.73 sq M.predicted MDRD (S/P/Bld) [Vol rate/Area] mL/min/{1.73_m2} Normal >60 [facility] Comment on above: Performed By: #### L [id number] #### [facility] [address] [place] [address] US Glucose [Mass/Vol] 214 mg/dL High 74-106 [facility] Comment on above: Performed By: #### L [id number] #### [facility] [address] [place] [address] US Narrative Estimated Glomerular Filtration Rate (eGFR) is calculated using the CKD-EPI (2020) equation, intended for patients 18 years of age and older. If gender is not documented or unknown, there will be no eGFR calculation. Abnormal [facility] Comment on above: Performed By: #### L [id number] #### [facility] [address] [place] [address] US Potassium [Moles/Vol] 4.0 mmol/L Normal 3.5-5.1 [facility] Comment on above: Performed By: #### L [id number] #### [facility] [address] [place] [address] US Protein [Mass/Vol] 7.1 g/dL Normal 6.3-8.2 [facility] Comment on above: Performed By: #### L [id number] #### [facility] [address] [place] [address] US Sodium [Moles/Vol] 137 mmol/L Normal 137-145 [facility] Comment on above: Performed By: #### L [id number] #### [facility] [address] [place] [address] US Urea nitrogen [Mass/Vol] 24 mg/dL [facility] 11-04 [facility] Comment on above: Performed By: #### L [id number] #### [facility] [address] [place] [address] US Urea nitrogen/Creatinine [Mass ratio] 35 mg/mg [facility] 10-08 [facility] Comment on above: Performed By: #### L [id number] #### [facility] [address] [place] [address] US PT/INRon 11-03-2022 INR Coag (PPP) [Relative time] 1.05 {INR} Normal 0.87-1.10 [facility] Comment on above: Performed By: #### L [id number] #### [facility] [address] [place] [address] US PT Coag (PPP) [Time] 10.8 s Normal 9.0-12.0 [facility] Comment on above: Performed By: #### L [id number] #### [facility] [address] [place] [address] US PTT (PARTIAL THROMBOPLASTIN TIME)on 11-03-2022 aPTT Coag (Bld) [Time] 24.8 s Normal 22.0-32.0 [facility] Comment on above: Performed By: #### L [id number] #### [facility] [address] [place] [address] US TYPE AND SCREENon 11-03-2022 ABO/RH(D) Positive Normal [facility] Comment on above: Performed By: #### L [id number] #### [facility] [place] [address] [place] FT4 THYROXINE FREEon 021 Free T4 [Mass/Vol] 1.09 ng/dL Normal 0.78-2.19 [facility] Comment on above: Performed By: #### F T4 #### [facility] [address] [place], [place] [id number] BRENDA Fenton MD TSH WITH REFLEX FT4on 2020 TSH W/ REFLEX FT4 5.270 uIU/mL High 0.470-4.680 [facility] Comment on above: Performed By: #### T SHR #### [facility] [address] [place] [address] BRENDA Fenton MD CBC PLT DIFFon 01-05-2020 BASO # 0.10 10 3/uL Normal 0.00-0.10 [facility] Comment on above: Performed By: #### C BC #### [facility] [address] [place] [address] BRENDA Fenton MD Basophils/100 WBC (Bld) 1.3 % High 0.2-1.0 [facility] Comment on above: Performed By: #### C BC #### [facility] [address] [place] [address] BRENDA Fenton MD EOS# 0.28 10 3/uL High 0.00-0.20 [facility] Comment on above: Performed By: #### C BC #### [facility] [address] [place] [address] BRENDA Fenton MD Eosinophils/100 WBC (Bld) 3.7 % High 0.9-2.9 [facility] Comment on above: Performed By: #### C BC #### [facility] [address] [place], [place] [id number] BRENDA Fenton MD Erythrocyte distribution width (RBC) [Ratio] 11.8 % Normal 11.5-15.5 [facility] Comment on above: Performed By: #### C BC #### [facility] [address] [place] [address] BRENDA Fenton MD Hematocrit (Bld) [Volume fraction] 42.8 % Normal 37.0-47.0 [facility] Comment on above: Performed By: #### C BC #### [facility] [address] [place] [address] BRENDA Fenton MD Hemoglobin (Bld) [Mass/Vol] 14.1 g/dL Normal 12.0-16.0 [facility] Comment on above: Performed By: #### C BC #### [facility] [address] [place] [address] BRENDA Fenton MD IG# 0.01 10 3/uL Normal [facility] Comment on above: Performed By: #### C BC #### [facility] [address] [place] [address] BRENDA Fenton MD IG% 0.1 % Normal [facility] Comment on above: Performed By: #### C BC #### [facility] [address] [place] [address] BRENDA Fenton MD LYMPH# 2.56 10 3/uL Normal 1.30-2.90 [facility] Comment on above: Performed By: #### C BC #### [facility] [address] [place] [address] BRENDA Fenton MD Lymphocytes/100 WBC (Bld) 34.2 % Normal 20.5-45.5 [facility] Comment on above: Performed By: #### C BC #### [facility] [address] [place], [place] [id number] BRENDA Fenton MD MCH (RBC) [Entitic mass] 31.3 pg High 27.0-31.0 [facility] Comment on above: Performed By: #### C BC #### [facility] [address] [place], [place] [id number] BRENDA Fenton MD MCHC (RBC) [Mass/Vol] 32.9 g/dL Normal 32.0-36.[address] [facility] Comment on above: Performed By: #### C BC #### [facility] [address] [place], [place] [id number] BRENDA Fenton MD MCV (RBC) [Entitic vol] 94.9 fL Normal 81.0-99.0 [facility] Comment on above: Performed By: #### C BC #### [facility] [address] [place] [address] BRENDA Fenton MD MONO# 0.51 10 3/uL Normal 0.30-0.80 [facility] Comment on above: Performed By: #### C BC #### [facility] [address] [place] [address] BRENDA Fenton MD Monocytes/100 WBC (Bld) 6.8 % Normal 5.5-11.7 [facility] Comment on above: Performed By: #### C BC #### [facility] [address] [place] [address] BRENDA Fenton MD Morphology Florian (Bld) [Interp] Normal [facility] Comment on above: Performed By: #### C BC #### [facility] [address] [place] [address] BRENDA Fenton MD NEUT# 4.03 10 3/uL Normal 2.20-4.80 [facility] Comment on above: Performed By: #### C BC #### [facility] [address] [place] [address] BRENDA Fenton MD Neutrophils/100 WBC (Bld) 53.9 % Normal 43.0-65.0 [facility] Comment on above: Performed By: #### C BC #### [facility] [address] [place], [place] [id number] BRENDA Fenton MD NRBC# 0.00 10 3/uL [facility] Comment on above: Performed By: #### C BC #### [facility] [address] [place], [place] [id number] BRENDA Fenton MD Nucleated RBC/100 WBC (Bld) [Ratio] 0.0 % Normal [facility] Comment on above: Performed By: #### C BC #### [facility] [address] [place], [place] [id number] BRENDA Fenton MD Platelet mean volume (Bld) [Entitic vol] 9.5 fL Normal 7.4-10.4 [facility] Comment on above: Performed By: #### C BC #### [facility] [address] [place], [place] [address] BRENDA Fenton MD PLT 228 10 3/uL Normal 130-400 [facility] Comment on above: Performed By: #### C BC #### [facility] [address] [place], [place] [address] BRENDA Fenton MD RBC 4.51 10 6/uL Normal 4.20-5.40 [facility] Comment on above: Performed By: #### C BC #### [facility] [address] [place], [place] [address] BRENDA Fenton MD WBC 7.49 10 3/uL Normal 4.70-10.80 [facility] Comment on above: Performed By: #### C BC #### [facility] [address] [place], [place] [address] BRENDA Fenton MD CMPon 01-05-2020 Albumin [Mass/Vol] 4.4 g/dL Normal 3.5-5.0 [facility] Comment on above: Performed By: #### C MP #### [facility] [address] [place], [place] [address] BRENDA Fenton MD ALP [Catalytic activity/Vol] 47 U/L Normal 38-126 [facility] Comment on above: Performed By: #### C MP #### [facility] [address] [place], [place] [address] BRENDA Fenton MD ALT [Catalytic activity/Vol] 14 U/L Normal 9-52 [facility] Comment on above: Performed By: #### C MP #### [facility] [address] [place], [place] [address] BRENDA Fenton MD AST [Catalytic activity/Vol] 27 U/L Normal 14-36 [facility] Comment on above: Performed By: #### C MP #### [facility] [address] [place], [place] [address] BRENDA Fenton MD Bilirubin [Mass/Vol] 0.7 mg/dL Normal 0.2-1.3 [facility] Comment on above: Performed By: #### C MP #### [facility] [address] [place] [address] BRENDA Fenton MD Calcium [Mass/Vol] 10.2 mg/dL Normal 8.4-10.2 [facility] Comment on above: Performed By: #### C MP #### [facility] [address] [place] [address] BRENDA Fenton MD Chloride [Moles/Vol] 106 mmol/L Normal 98-107 [facility] Comment on above: Performed By: #### C MP #### [facility] [address] [place] [address] BRENDA Fenton MD Creatinine [Mass/Vol] 0.7 mg/dL Normal 0.5-1.[address] [facility] Comment on above: Performed By: #### C MP #### [facility] [address] [place] [address] BRENDA Fenton MD ECO2 24 mmol/L Normal 22-30 [facility] Comment on above: Performed By: #### C MP #### [facility] [address] [place] [address] BRENDA Fenton MD EGFR-AF JAMAICAN 99 mL/min/1.73m 2 Normal >=60 [facility] Comment on above: Performed By: #### C MP #### [facility] [address] [place], [place] [address] BRENDA Fenton MD EGFR-NON AF JAMAICAN 82 mL/min/1.73 m 2 Normal >=60 [facility] Comment on above: Performed By: #### C MP #### [facility] [address] [place] [address] BRENDA Fenton MD Glucose [Mass/Vol] 159 mg/dL High 70-99 [facility] Comment on above: Performed By: #### C MP #### [facility] [address] [place], [place] [address] BRENDA Fenton MD Potassium [Moles/Vol] 4.7 mmol/L Normal 3.5-5.[address] [facility] Comment on above: Performed By: #### C MP #### [facility] [address] [place], [place] [address] BRENDA Fenton MD Protein [Mass/Vol] 7.4 g/dL Normal 6.3-8.2 [facility] Comment on above: Performed By: #### C MP #### [facility] [address] [place] [address] BRENDA Fenton MD Sodium [Moles/Vol] 140 mmol/L Normal 137-145 [facility] Comment on above: Performed By: #### C MP #### [facility] [address] [place] [address] BRENDA Fenton MD Urea nitrogen [Mass/Vol] 9 mg/dL Normal 7-17 [facility] Comment on above: Performed By: #### C MP #### [facility] [address] [place], [place] [address] BRENDA Fenton MD LIPID PROFILE - FASTINGon Cholesterol [Mass/Vol] 136 mg/dL Normal <=200 [facility] Comment on above: Performed By: #### L IPID #### [facility] [address] [place], [place] [address] BRENDA Fenton MD Cholesterol in HDL [Mass/Vol] 45 mg/dL Normal 40-60 [facility] Comment on above: Performed By: #### L IPID #### [facility] [address] [place] [address] BRENDA Fenton MD Cholesterol in LDL [Mass/Vol] 58 mg/dL Normal 0-130 [facility] Comment on above: Performed By: #### L IPID #### [facility] [address] [place], [place] [address] BRENDA Fenton MD COMMENT Recommended (Desirable) < 130mg/dL Moderate Risk 130-159 mg/dL High Risk: >/= 130 mg/dL Normal [facility] Comment on above: Performed By: #### L IPID #### [facility] [address] [place] [address] BRENDA Fenton MD Triglyceride [Mass/Vol] 162 mg/dL High <=150 [facility] Comment on above: Performed By: #### L IPID #### [facility] [address] [place] [address] BRENDA Fenton MD Encounters Encounter Date Encounter Type Care Provider Facility Start: 11-12-2024 End: 11-12-[address] Joann Maya MD Work Phone: -Laboratory [facility] Start: 11-12-2024 End: 11-12-[address] Joann Maya MD -Laboratory [facility] Start: 11-12-2024 End: 11-12-2024 ambulatory Joann Maya Facility:[facility] Start: 10-19-2024 Non-patient / Non-visit Dr. Veronika Hodges MD -[facility] Work Phone: Start: 07-05-2024 End: 07-05-[address] Joann Maya MD Work Phone: [facility] Work Phone: Start: 07-05-2024 End: 07-05-[address] Joann Maya MD -Outpatient Breast Imaging Work Phone: Start: 07-05-2024 End: 07-05-2024 ambulatory Joann Maya Facility:[facility] Start: 06-04-2024 End: 06-04-[address] Joann Maya MD -Laboratory, [facility] Start: 06-04-2024 End: 06-04-2024 ambulatory Joann Zulma Facility:[facility] Start: 08-21-2023 End: 08-21-2023 ambulatory [facility] Work Phone: Start: 08-21-2023 End: 08-21-2023 Patient encounter procedure [facility]-Ultrasound, [facility] Work Phone: Start: 07-08-2023 End: 07-08-2023 ambulatory [facility] Work Phone: Start: 07-08-2023 End: 07-08-2023 Patient encounter procedure [facility]-Laboratory, [place] Work Phone: Start: 07-03-2023 End: 07-03-2023 ambulatory [facility] Work Phone: Start: 07-03-2023 End: 07-03-2023 Patient encounter procedure [facility]-Outpatient Bone Densitometry Work Phone: Start: 05-20-2023 End: 05-20-2023 ambulatory [facility] Work Phone: Start: 05-20-2023 End: 05-20-2023 Patient encounter procedure [facility] Start: 05-06-2023 End: 05-06-2023 ambulatory [facility] Work Phone: Start: 05-06-2023 End: 05-06-2023 Patient encounter procedure [facility]-MRI - [facility] Work Phone: Start: 03-25-2023 ambulatory [facility] Start: 02-20-2023 End: 02-21-2023 ambulatory [facility] Start: 12-31-2022 End: 01-01-2023 ambulatory [facility] Start: 11-19-2022 End: 11-20-2022 ambulatory [facility] Start: 11-04-2022 End: 11-05-2022 Evaluation and management of inpatient [facility] Start: 11-03-2022 End: 11-06-2022 Evaluation and management of inpatient [facility] Start: 11-03-2022 Emergency department patient visit [facility] Procedures Date Procedure Procedure Detail [...] By: #### L [id number] #### [facility] [address] [place] [address] [place] Payers Date Payer Category Payer Unknown [id number] 2024 Self-pay 2011 Medicare [id number] Unknown [id number] Unknown Unknown [id number] Unknown [id number] Unknown [id number] Social History Date Type Detail [facility] Work Phone: Start: 1945 Sex Assigned At Female W [facility] if ever smoked [facility] Work Phone: Start: 07-14-2024 Sex Female (finding) [facility] Evaluation note Note Date & Type Note Facility Evaluation note No assessment information availa ble [facility] Work Phone: Reason for referral (narrative) Note Date & Type Note Facility Reason for referral (narrative) No reason for referral information available [facility] Work Phone: Summary Purpose Family History [...] section and content) DATE CREATED AUTHOR 08/10/2020 [facility] DATE CREATED AUTHOR AUTHOR'S ORGANIZ ATION 08/10/2023 [facility] DATE CREATED AUTHOR AUTHOR'S ORGANIZ ATION 03/22/2024 [facility] DATE CREATED AUTHOR AUTHOR'S ORGANIZ ATION 11/19/[address] [facility] Care Teams (unrecognized sec tion and content) [...] BE BASED ON THE PRIMARY CLINICAL RECORDS. [email or web address] provides no warranty or guarantee of the accuracy or completeness of information in this document.
[2025-01-22] MEDS: 0.9% Saline Lock 10 ML Syringe IV (01:40)
[2025-01-22] MEDS: 0.9% Normal Saline (1000mL) 1,000 ML 75 ML IV (01:40)
--- NOTE | 2025-01-22 07:30 | PN.HOSP_ITS ---
Reason for Visit Chief Complaint: Fall, L hip and wrist pain. Subjective Subjective Patient is a 79-year-old lady who presented to the emergency department following a fall imaging studies demonstrated acute nondisplaced fracture of the left superior and inferior pubic rami with surrounding soft tissue edema. Admitted to regular nursing floor for subsequent management Objective Data Objective Data Vital Signs: Vital Signs Temp Pulse Resp BP Pulse Ox O2 Del Method 98.4 F 95 16 104/49 L 96 Room Air 01/22/25 06:00 01/22/25 06:00 01/22/25 06:00 01/22/25 06:00 01/22/25 06:00 01/22/25 06:00 Oxygen Delivery Method Room Air Weight: 52.98 kg Body Mass Index (BMI) 19.2 Lab / Micro Data 01/22/25 07:38 01/21/25 22:54 Labs: Laboratory Results - last 24 hr 01/21/25 22:54: WBC 16.8 H, RBC 4.55, Hgb 13.7, Hct 41.8, MCV 91.9, MCH 30.1, MCHC 32.8, RDW Std Deviation 42.8, RDW Coeff of Ramon 12.8, Plt Count 192, MPV 10.5, Immature Gran % (Auto) 0.700, Neut % (Auto) 78.8 H, Lymph % (Auto) 12.8 L, [place] % (Auto) 6.5, Eos % (Auto) 0.8, Baso % (Auto) 0.4, Absolute Neuts (auto) 13.2 H, Absolute Lymphs (auto) 2.16, Nucleated RBC % 0, Sodium 141, Potassium 3.4, Chloride 103, Carbon Dioxide 23.6, Anion Gap 15, BUN 12, Creatinine 0.74, Estim Creat Clear Calc 51.14, Est GFR (MDRD) Non-Af 83, BUN/Creatinine Ratio 16.7, Glucose 191 H, Calcium 10.0 01/22/25 06:03: POC Glucose 170 H Radiography Diagnostic Testing: Radiology Impression Hip/Pelvis X-Ray 01/21/25 20:10 IMPRESSION: Diffuse osteopenia with age consistent hip and SI joint arthrosis. Surgical hardware in both femurs free of complication. No acute abnormalities. However, hip and pelvic fractures in patients of this age can be subtle, if there is strong clinical suspicion of a fracture, recommend further evaluation with CT Reading Location: [facility] Wrist X-Ray 01/21/25 20:10 IMPRESSION: Diffuse osteopenia without a fracture or suspicious osseous lesion. Please see discussion above Degenerative arthrosis, most pronounced at the base of the thumb Chondrocalcinosis Reading Location: [facility] Lower Extremity CT 01/21/25 22:17 IMPRESSION: Left proximal femoral fixation as detailed. Acute non displaced fractures of the left superior and inferior pubic rami. Surrounding soft tissue edema noted. Mild hip osteoarthritic changes. Reduced bone density. [facility] Femur X-Ray 01/21/25 23:06 IMPRESSION: No evidence for acute abnormality. Reading Location: [place] [id number] Physical Exam Narrative GENERAL: cooperative HEENT: Atraumatic; normocephalic EYES; Anicteric, Normal Conjunctiva NECK; supple, normal thyroid, RESPIRATORY: Diminished to auscultation CARDIOVASCULAR: Regular S1 S2, GI: soft, normoactive bowel sounds, : No Renal angle tenderness; EXTREMITIES: No edema, no clubbing, MUSCULOSKELETAL: Left wrist immobilized NEURO: Awake; no lateralizing signs. SKIN: No Rash PSYCH; Flat affect Assessment & Plan Assessment/Plan (1) Left wrist sprain: (2) Accidental fall: (3) Fracture of left inferior pubic ramus: (4) Fracture of superior ramus of left pubis: PLAN: Plan Patient is a 79-year-old lady who presented to the emergency department following a fall imaging studies demonstrated acute nondisplaced fracture of the left superior and inferior pubic rami with surrounding soft tissue edema. Admitted to regular nursing floor for subsequent management 1. Fall with pelvic fracture ? Imaging studies did show Acute non displaced fractures of the left superior and inferior pubic rami. Surrounding soft tissue edema noted. Patient placed on pain meds, Requested for PT OT eval and social work specialist to assist with discharge planning 2. Diabetes mellitus type 2 ? Held oral agent placed on Accu-Cheks AC and at bedtime with sliding scale coverage 3. Hypertension ? Blood pressure controlled, home medications continued with dose adjustment as needed 4. Dyslipidemia ?Patient is on statin therapy, continued at home dose 5. Hypothyroidism ? Patient is on levothyroxine home dose continued 6. GERD ? On PPI 7. History of breast cancer ? Status post left mastectomy with subsequent chemotherapy patient has since remained in remission 8. DVT prophylaxis ? On enoxaparin Time spent in the patient's overall evaluation,decision-making process, review of diagnostic data, adjustment of management, discussion with other providers, nursing nursing and ancillary staff involved in patient's care documentation, 35 Minutes Charges/Coding Visit Charges Inpatient E&M: 08579 PROLNG IP/OBS E/M EA 15 MIN Multi Select Codes Visit Charges Visit Charges: 74846 PROLNG IP/OBS E/M EA 15 MIN
[2025-01-22 08:05] LABS: Hematocrit 34.7 % (37-47); Hemoglobin 11.4 g/dL (12.0-15.0); Immature Granulocytes Count 0.030 X10^3/uL (0.0-0.0); Mean Corp Hgb Conc 32.9 g/dL (32-36); Mean Corpuscular Volume 92.3 fL (81-99); Mean Platelet Vol. 10.1 fl (6.2-12.0); NRBC Flagged by Analyzer 0 % (0-5); Platelet Count 154 K/mm3 (150-450); RBC Distribution Width CV 12.9 % (11.6-14.6); RBC Distribution Width SD 43.6 fl (35.1-43.9); Red Blood Count 3.76 M/mm3 (4.2-5.4); White Blood Count 8.9 K/mm3 (4.4-11.0)
[2025-01-22] MEDS: Lactobacillis Acidophilus 1 CAP PO (09:35)
[2025-01-22] MEDS: Psyllium 1 PACKET PO (09:35)
[2025-01-22 09:36] LABS: AST(SGOT) 16 U/L (<=31); Alanine Aminotransfer ALT/SGPT 11 U/L (<=34); Albumin, Serum 3.4 g/dL (3.4-4.8); Alkaline Phosphatase 64 U/L (35-104); Anion Gap 10 (5-15); BUN 13 mg/dL (4-19); BUN/Creat Ratio 20.5 RATIO (10-20); Calcium,Total 8.7 mg/dL (7.6-11.0); Carbon Dioxide 23.4 mmol/L (21.0-32.0); Chloride 107 mmol/L (98-108); Estimated Creatinine Clearance 48.47 ml/min (50-250); Globulin 2.4 g/dL (2.2-4.2); Glucose 169 mg/dL (70-99); Potassium 3.8 mmol/L (3.3-5.1)
[2025-01-22] MEDS: Glucerna Shake 120 ML LIQUID PO ×4 (09:42→21:24)
[2025-01-22] MEDS: NYSTATIN 500,000 UNIT/5 ML UDC 500000 UNIT PO ×3 (09:47→21:25)
--- NOTE | 2025-01-22 12:50 | CASEMGMT ---
EMERSON HO in to discuss MARTELL form with patient. EMERSON HO explained MARTELL form, patient voiced understanding. Pt signed form and filed in chart. Pt provided with a copy of signed MARTELL form. Patient had no further questions or concerns at this time. Spoke with therapy regarding pt evals. Pt appropriate for inpatient rehab. EMERSON HO into pt room, pt sitting up in chair in no distress. Pt states she would like to go to [facility]. Discussed her observation status and that this will not be covered. Pt would like options that are covered. Discussed rehab units. Pt asks for EMERSON HO to call her dtr Lizzy. Called Lizzy while in room, discussed options of rehab units verbally. Offered to print list and Lizzy just wanted list verbally. Provided [facility], [facility] and [facility]. Lizzy chose [facility] as first choice. Email sent to admissions. Pt agreeable to this and for Lizzy to make decision. RN/SW to follow for acceptance.
[2025-01-23 02:39] VITALS: BP 139/81; PULSE 88; RESP 16; TEMP 36.6; O2SAT 96
[2025-01-23 05:23] VITALS: BMI 20.5
[2025-01-23] MEDS: Senna/Docusate Sodium 1 Tablet 2 TABLET PO (06:01)
[2025-01-23 07:14] LABS: Hematocrit 35.1 % (37-47); Hemoglobin 11.3 g/dL (12.0-15.0); Immature Granulocytes Count 0.040 X10^3/uL (0.0-0.0); Mean Corp Hgb Conc 32.2 g/dL (32-36); Mean Corpuscular Volume 93.1 fL (81-99); Mean Platelet Vol. 10.3 fl (6.2-12.0); NRBC Flagged by Analyzer 0 % (0-5); Platelet Count 143 K/mm3 (150-450); RBC Distribution Width CV 12.8 % (11.6-14.6); RBC Distribution Width SD 43.8 fl (35.1-43.9); Red Blood Count 3.77 M/mm3 (4.2-5.4); White Blood Count 10.8 K/mm3 (4.4-11.0)
[2025-01-23 07:24] VITALS: O2SAT 94
--- NOTE | 2025-01-23 07:44 | PN.HOSP_ITS ---
Reason for Visit Chief Complaint: Fall, L hip and wrist pain. Subjective Subjective Patient seen pain remains well-controlled. Awaiting insurance precertification prior to transfer to [facility] facility. Patient blood pressure is however on the low side held her a.m. antihypertensives Objective Data Objective Data Vital Signs: Vital Signs Temp Pulse Resp BP Pulse Ox O2 Del Method 97.8 F 88 16 139/81 H 94 Room Air 01/23/25 02:39 01/23/25 02:39 01/23/25 02:39 01/23/25 02:39 01/23/25 07:24 01/23/25 07:24 Oxygen Delivery Method Room Air Weight: 56.5 kg Body Mass Index (BMI) 20.5 Intake & Output: Intake and Output for Last 24 Hours 01/21/25 01/22/25 01/23/25 23:59 23:59 23:59 Intake Total 1273.75 / 1273.75 Output Total 550 / 550 201 / 201 Balance 723.75 / 723.75 -201 / -201 Medical Nutrition Assessment Dietitian: Malnutrition Criteria Met Start: 01/22/25 12:36 Freq: Status: Active Protocol: Document 01/22/25 12:36 SLA (Rec: 01/22/25 12:36 SLA [id number]) Nutrition Malnutrition Evidence of Yes Malnutrition Exists Malnutrition (severe Acute Illness/Injury ): Evidenced By Suboptimal Energy Intake (Severe),Weight Loss (Severe), Physical Changes (Moderate) Clinical Problem Acute Disease or Injury Related Malnutrition Etiology related to inadequate energy intake Signs/Symptoms as evidenced by 10.3% unplanned wt loss and po intake meeting <75% of est nutritional needs x < 3 months. Noted obvious fat/muscle wasting throughout body. Status Active Problem Recommendation Dietitian Continue 1800 tiffanie Consistent CHO diet as ordered - Recommendations/ consider Cardiac restriction once po intake Changes consistently improved Continue 120 ml glucerna shake 4x/day w/ medpass Will continue to follow and monitor for changes in pt nutritional status and make additional rec as indicated . Lab / Micro Data 01/23/25 06:34 01/23/25 06:34 Labs: Laboratory Results - last 24 hr 01/22/25 07:38: WBC 8.9, RBC 3.76 L, Hgb 11.4 L, Hct 34.7 L, MCV 92.3, MCH 30.3, MCHC 32.9, RDW Std Deviation 43.6, RDW Coeff of Ramon 12.9, Plt Count 154, MPV 10.1, Immature Gran % (Auto) 0.300, Neut % (Auto) 69.7, Lymph % (Auto) 18.6 L, [place] % (Auto) 9.0, Eos % (Auto) 2.1, Baso % (Auto) 0.3, Absolute Neuts (auto) 6.2, Absolute Lymphs (auto) 1.65, Nucleated RBC % 0, Sodium 140, Potassium 3.8, Chloride 107, Carbon Dioxide 23.4, Anion Gap 10, BUN 13, Creatinine 0.62 L, E stim Creat Clear Calc 48.47 L, Est GFR (MDRD) Non-Af 91, BUN/Creatinine Ratio 20.5 H, Glucose 169 H, Calcium 8.7, Total Bilirubin 0.40, AST 16, ALT 11, Alkaline Phosphatase 64, Total Protein 5.8 L, Albumin 3.4, Globulin 2.4, Albumin/Globulin Ratio 1.4 01/22/25 11:14: POC Glucose 182 H 01/22/25 16:00: POC Glucose 237 H 01/22/25 21:18: POC Glucose 227 H 01/23/25 05:58: POC Glucose 186 H 01/23/25 06:34: WBC 10.8, RBC 3.77 L, Hgb 11.3 L, Hct 35.1 L, MCV 93.1, MCH 30.0, MCHC 32.2, RDW Std Deviation 43.8, RDW Coeff of Ramon 12.8, Plt Count 143 L, MPV 10.3, Immature Gran % (Auto) 0.400, Neut % (Auto) 69.4, Lymph % (Auto) 19.6, [place] % (Auto) 8.4, Eos % (Auto) 1.8, Baso % (Auto) 0.4, Absolute Neuts (auto) 7.5, Absolute Lymphs (auto) 2.12, Nucleated RBC % 0 Physical Exam Narrative GENERAL: cooperative HEENT: Atraumatic; normocephalic EYES; Anicteric, Normal Conjunctiva NECK; supple, normal thyroid, RESPIRATORY: Diminished to auscultation CARDIOVASCULAR: Regular S1 S2, GI: soft, normoactive bowel sounds, : No Renal angle tenderness; EXTREMITIES: No edema, no clubbing, MUSCULOSKELETAL: Left in a splint NEURO: Awake; no lateralizing signs. SKIN: No Rash PSYCH; Flat affect Assessment & Plan Assessment/Plan (1) Left wrist sprain: (2) Accidental fall: (3) Fracture of left inferior pubic ramus: (4) Fracture of superior ramus of left pubis: PLAN: Plan Patient is a 79-year-old lady who presented to the emergency department following a fall imaging studies demonstrated acute nondisplaced fracture of the left superior and inferior pubic rami with surrounding soft tissue edema. Admitted to regular nursing floor for subsequent management 1. Fall with pelvic fracture ? Imaging studies did show Acute non displaced fractures of the left superior and inferior pubic rami. Surrounding soft tissue edema noted. Patient placed on pain meds, Requested for PT OT eval and director of social work to assist with discharge planning ? 01/23/2025; plan is for patient to be discharged to the inpatient rehab unit following insurance approval 2. Diabetes mellitus type 2 ? Held oral agent placed on Accu-Cheks AC and at bedtime with sliding scale coverage 3. Hypertension ? Blood pressure controlled, home medications continued with dose adjustment as needed ? 01/23/2025; held a.m. antihypertensives and subsequently adjusted patient antihypertensive doses given her relatively low blood pressure 4. Dyslipidemia ?Patient is on statin therapy, continued at home dose 5. Hypothyroidism ? Patient is on levothyroxine home dose continued 6. GERD ? On PPI 7. History of breast cancer ? Status post left mastectomy with subsequent chemotherapy patient has since remained in remission 8. DVT prophylaxis ? On enoxaparin Time spent in the patient's overall evaluation,decision-making process, review of diagnostic data, adjustment of management, discussion with other providers, nursing nursing and ancillary staff involved in patient's care documentation, 35 Minutes Charges/Coding Visit Charges Inpatient E&M: 00594 Subs Hosp L2
[2025-01-23 08:03] LABS: Anion Gap 11 (5-15); BUN 15 mg/dL (4-19); BUN/Creat Ratio 25.9 RATIO (10-20); Calcium,Total 8.8 mg/dL (7.6-11.0); Carbon Dioxide 23.6 mmol/L (21.0-32.0); Chloride 103 mmol/L (98-108); Estimated Creatinine Clearance 51.69 ml/min (50-250); Glucose 158 mg/dL (70-99); Magnesium 1.5 mg/dL (1.5-2.2); Potassium 3.9 mmol/L (3.3-5.1)
[2025-01-23 08:27] VITALS: BP 94/43; PULSE 83; RESP 16; TEMP 37.2; O2SAT 96
[2025-01-23] MEDS: NYSTATIN 500,000 UNIT/5 ML UDC 500000 UNIT PO ×4 (08:29→21:18)
[2025-01-23] MEDS: Lactobacillis Acidophilus 1 CAP PO (08:30)
[2025-01-23] MEDS: Psyllium 1 PACKET PO (08:30)
[2025-01-23] MEDS: Glucerna Shake 120 ML LIQUID PO ×4 (11:37→21:17)
[2025-01-23 15:09] VITALS: BP 102/47; PULSE 97; RESP 18; TEMP 37.2; O2SAT 97
[2025-01-23 20:30] VITALS: BP 98/56; PULSE 85; RESP 16; TEMP 36.9; O2SAT 97
[2025-01-24 05:43] VITALS: BMI 20.5
[2025-01-24 05:48] LABS: Hematocrit 34.5 % (37-47); Hemoglobin 11.2 g/dL (12.0-15.0); Immature Granulocytes Count 0.040 X10^3/uL (0.0-0.0); Mean Corp Hgb Conc 32.5 g/dL (32-36); Mean Corpuscular Volume 93.2 fL (81-99); Mean Platelet Vol. 10.1 fl (6.2-12.0); NRBC Flagged by Analyzer 0 % (0-5); Platelet Count 138 K/mm3 (150-450); RBC Distribution Width CV 12.8 % (11.6-14.6); RBC Distribution Width SD 44.2 fl (35.1-43.9); Red Blood Count 3.70 M/mm3 (4.2-5.4); White Blood Count 10.2 K/mm3 (4.4-11.0)
[2025-01-24 06:16] LABS: Anion Gap 10 (5-15); BUN 14 mg/dL (4-19); BUN/Creat Ratio 21.7 RATIO (10-20); Calcium,Total 8.7 mg/dL (7.6-11.0); Carbon Dioxide 23.3 mmol/L (21.0-32.0); Chloride 103 mmol/L (98-108); Estimated Creatinine Clearance 51.60 ml/min (50-250); Glucose 155 mg/dL (70-99); Potassium 3.9 mmol/L (3.3-5.1)
[2025-01-24 07:11] VITALS: O2SAT 96
--- NOTE | 2025-01-24 07:42 | PCM.PN.HOSP ---
Reason for Visit Chief Complaint: Fall, L hip and wrist pain. Objective Data Objective Data Vital Signs: Vital Signs Temp Pulse Resp BP Pulse Ox O2 Del Method 98.5 F 85 16 98/56 L 97 Room Air 01/23/25 20:30 01/23/25 20:30 01/23/25 20:30 01/23/25 20:30 01/23/25 20:30 01/23/25 20:30 Oxygen Delivery Method Room Air Weight: 56.4 kg Body Mass Index (BMI) 20.5 Intake & Output: Intake and Output for Last 24 Hours 01/22/25 01/23/25 01/24/25 23:59 23:59 23:59 Intake Total 1273.75 / 1273.75 600 / 600 Output Total 550 / 550 201 / 201 Balance 723.75 / 723.75 399 / 399 Medical Nutrition Assessment Dietitian: Malnutrition Criteria Met Start: 01/22/25 12:36 Freq: Status: Active Protocol: Document 01/22/25 12:36 SLA (Rec: 01/22/25 12:36 [facility] [id number]) Nutrition Malnutrition Evidence of Yes Malnutrition Exists Malnutrition (severe Acute Illness/Injury ): Evidenced By Suboptimal Energy Intake (Severe),Weight Loss (Severe), Physical Changes (Moderate) Clinical Problem Acute Disease or Injury Related Malnutrition Etiology related to inadequate energy intake Signs/Symptoms as evidenced by 10.3% unplanned wt loss and po intake meeting <75% of est nutritional needs x < 3 months. Noted obvious fat/muscle wasting throughout body. Status Active Problem Recommendation Dietitian Continue 1800 tiffanie Consistent CHO diet as ordered - Recommendations/ consider Cardiac restriction once po intake Changes consistently improved Continue 120 ml glucerna shake 4x/day w/ medpass Will continue to follow and monitor for changes in pt nutritional status and make additional rec as indicated . Lab / Micro Data 01/24/25 05:29 01/24/25 05:29 Labs: Laboratory Results - last 24 hr 01/23/25 06:34: Sodium 138, Potassium 3.9, Chloride 103, Carbon Dioxide 23.6, Anion Gap 11, BUN 15, Creatinine 0.59 L, Estim Creat Clear Calc 51.69, Est GFR (MDRD) Non-Af 92, BUN/Creatinine Ratio 25.9 H, Glucose 158 H, Calcium 8.8, Phosphorus 2.5 L, Magnesium 1.5 01/23/25 11:36: POC Glucose 227 H 01/23/25 16:43: POC Glucose 225 H 01/23/25 21:16: POC Glucose 196 H 01/24/25 05:29: WBC 10.2, RBC 3.70 L, Hgb 11.2 L, Hct 34.5 L, MCV 93.2, MCH 30.3, MCHC 32.5, RDW Std Deviation 44.2 H, RDW Coeff of Ramon 12.8, Plt Count 138 L, MPV 10.1, Immature Gran % (Auto) 0.400, Neut % (Auto) 70.0, Lymph % (Auto) 17.7 L, [place] % (Auto) 8.6, Eos % (Auto) 2.9, Baso % (Auto) 0.4, Absolute Neuts (auto) 7.2, Absolute Lymphs (auto) 1.81, Nucleated RBC % 0, Sodium 137, Potassium 3.9, Chloride 103, Carbon Dioxide 23.3, Anion Gap 10, BUN 14, Creatinine 0.62 L, Estim Creat Clear Calc 51.60, Est GFR (MDRD) Non-Af 91, BUN/Creatinine Ratio 21.7 H, Glucose 155 H, Calcium 8.7 01/24/25 06:07: POC Glucose 157 H
[2025-01-24 09:00] VITALS: BP 120/56; PULSE 77; RESP 18; TEMP 36.8; O2SAT 98
[2025-01-24] MEDS: Lactobacillis Acidophilus 1 CAP PO (09:30)
[2025-01-24] MEDS: NYSTATIN 500,000 UNIT/5 ML UDC 500000 UNIT PO (09:32)
[2025-01-24] MEDS: Psyllium 1 PACKET PO (09:32)
[2025-01-24] MEDS: Glucerna Shake 120 ML LIQUID PO (09:34)
--- NOTE | 2025-01-24 10:21 | PCM.DC.SUM ---
Providers Date of Admission: 01/22/25 Date of Discharge: 01/24/25 Primary Care Physician: Dr. Joann Maya MD Reason For Visit: FALL. L WRIST SPRAIN, L SUPERIOR/INFERIOR PUBIC Diagnosis Discharge Diagnosis (1) Left wrist sprain: Status: Acute Code(s): S63.502A - Unspecified sprain of left wrist, initial encounter (2) Accidental fall: Status: Acute Code(s): W19.XXXA - Unspecified fall, initial encounter (3) Fracture of left inferior pubic ramus: Status: Acute Code(s): S32.592A - Other specified fracture of left pubis, initial encounter for closed fracture (4) Fracture of superior ramus of left pubis: Status: Acute Code(s): S32.512A - Fracture of superior rim of left pubis, initial encounter for closed fracture Medications at Discharge Home Medications Lactobacillus acidophilus and rhamnosus 15 billion cell capsule (Florajen Women) 1 cap PO DAILY 01/21/25 levothyroxine 100 mcg tablet (Euthyrox) 100 mcg PO DAILY 01/21/25 lisinopril 20 mg tablet 20 mg PO DAILY 01/21/25 metformin 500 mg tablet 500 mg PO BID 01/21/25 omeprazole 20 mg capsule,delayed release 20 mg PO DAILY 01/21/25 oxybutynin chloride 5 mg tablet 10 mg PO DAILY 01/21/25 phenazopyridine 95 mg tablet (Azo Urinary Pain Relief) 95 mg PO DAILY 01/21/25 pravastatin 40 mg tablet 40 mg PO DAILY 01/21/25 psyllium husk 3.4 gram/5.4 gram oral powder (Metamucil) 2 tsp PO DAILY 01/21/25 acetaminophen 325 mg tablet 1,000 mg (3.0769 x 325 mg) PO Q8 #0 tabs 01/24/25 enoxaparin 40 mg/0.4 mL subcutaneous syringe 40 mg (0.4 mL) subcut DAILY #0 mL 01/24/25 melatonin 3 mg tablet 3 mg PO QHS PRN PRN Insomnia #0 tabs 01/24/25 menthol 0.44 %-zinc oxide 20.6 % topical ointment (Calmoseptine) 1 applic topical 4X/DAY #0 grams 01/24/25 nutrition tx glu intol,lac-free,soy-fiber 0.06 gram-1.2 kcal/mL liquid (Glucerna 1.2 Tiffanie) 120 ml PO 4X/DAY #0 mL 01/24/25 nystatin 100,000 unit/mL oral suspension 500,000 unit (5 mL) PO 4X/DAY #0 mL 01/24/25 oxycodone 5 mg tablet 5 mg PO Q4H PRN PRN Pain Score 4-10 #0 tabs 01/24/25 sennosides 8.6 mg-docusate sodium 50 mg tablet (Stimulant Laxative Plus) 2 tab PO BID #0 tabs 01/24/25 Hospital Course Operations None Procedures - (Hip and pelvic x-ray/left wrist x-ray/left femur x-ray/left lower extremity CT) Summary of Care Provided Minutes Spent on Discharge: 28 Hospital Course: Mrs. Melissa is a 79-year-old white female who presented to emergency department [facility] on 01/22/2025 after suffering a mechanical fall on the evening prior to presentation while leaving [facility]. She stated she had just eaten and had no loss of consciousness but after the fall had persistent ongoing left hip pain as well as wrist pain which resulted in her seeking evaluation emergency department. Vital signs on presentation showed temperature of 97.6, heart rate 113, blood pressure 150/80, respiratory rate is 18 and well pulse ox was 98% on room air. Her CBC showed mild leukocytosis white count of 16.8 but was otherwise unremarkable. Chemistry panel was overtly unremarkable. Plain film of the left hip and pelvis showed osteopenia but no fracture and plain film of the left wrist showed diffuse osteopenia without fracture or suspicious osseous lesion. 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 CT was ordered due to inability ambulate and showed a left proximal femoral fixation in place with an acute nondisplaced fracture of the left superior and inferior pubic rami with surrounding soft tissue edema. Femoral x-ray was unremarkable for any true femur fracture. She was given morphine and Zofran in the emergency department and given her inability ambulate was admitted to the hospital. Vitamin D level at 25 and 125 are pending at the time of discharge. I do anticipate she may be vitamin D deficient and will need supplementation but awaiting these lab values to make decisions on adding ergocalciferol. If her vitamin D level is less than 30, would add calcium and ergocalciferol 50,000 units weekly x 7 weeks with a repeat lab value performed. She was seen by physical Occupational Therapy and a wrist splint was placed. Pubic ramus fractures are nonsurgical and she is weightbearing as tolerated. She was placed on oral pain medication in the form of narcotics as well as scheduled Tylenol. She is also on a scheduled bowel regimen. She was seen by physical Occupational Therapy and they recommended ongoing therapy services. The case was reviewed by acute rehab here at [facility] and she was accepted for rehab here. Labs remained stable throughout her hospital course as did vitals. Plan is for discharge to rehab unit here at [facility] today on 01/24/2025. Patient was discharged in stable condition. Discharge diagnoses: Left wrist sprain--> if patient with ongoing pain may need repeat imaging and referral to orthopedic surgery Left superior and inferior pubic ramus fracture-acute Osteopenia Thrush Severe malnutrition-continue supplements Acute generalized weakness and debility due to acute fractures Possible vitamin D deficiency-> labs are currently pending Leukocytosis-resolved CKD stage II DM-2 Essential hypertension Per lipidemia Hypothyroidism GERD History of breast cancer Physical Exam Const alert, oriented x3, no apparent distress and no limitations; Negative for average body habitus, healthy appearing or well nourished Constitutional Narrative: Thin, elderly, white female, sitting with chair at the bedside, currently appears comfortable, nontoxic, watching television General Appearance: cooperative, comfortable, well kempt and well developed Exam Limitations: no limitations Nutritional Appearance: thin HEENT normocephalic, head/scalp atraumatic and moist oral mucous membranes HEENT Narrative: Dentition is poor, Mallampati is 2, mild resolving thrush noted Resp normal respiratory effort, no retractions, no use of accessory muscles and clear to auscultation bilaterally Auscultation: Negative for rales, rhonchi or wheezes Cardio regular rate, regular rhythm, S1 normal heart sound, S2 normal heart sound, no murmurs, no rub, no gallops and no clicks GI normal to inspection, nondistended, normoactive bowel sounds, soft to palpation and non-tender Extremity no clubbing, cyanosis or edema Skin no rashes or lesions noted, no wounds and no jaundice Neuro moves all extremities and no focal motor deficits Speech: speech normal Psych affect normal Psych Narrative: Very pleasant, eye contact is good and patient interacts appropriately Medical Records Data Medical Nutrition Assessment Dietitian: Malnutrition Criteria Met Start: 01/22/25 12:36 Freq: Status: Active Protocol: Document 01/22/25 12:36 [facility] (Rec: 01/22/25 12:36 [facility] [id number]) Nutrition Malnutrition Evidence of Yes Malnutrition Exists Malnutrition (severe Acute Illness/Injury ): Evidenced By Suboptimal Energy Intake (Severe),Weight Loss (Severe), Physical Changes (Moderate) Clinical Problem Acute Disease or Injury Related Malnutrition Etiology related to inadequate energy intake Signs/Symptoms as evidenced by 10.3% unplanned wt loss and po intake meeting <75% of est nutritional needs x < 3 months. Noted obvious fat/muscle wasting throughout body. Status Active Problem Recommendation Dietitian Continue 1800 tiffanie Consistent CHO diet as ordered - Recommendations/ consider Cardiac restriction once po intake Changes consistently improved Continue 120 ml glucerna shake 4x/day w/ medpass Will continue to follow and monitor for changes in pt nutritional status and make additional rec as indicated . Weight / BMI Weight Weight: 56.4 kg Body Mass Index (BMI) 20.5 ABG / Lab / Microbiology Data 01/24/25 05:29 01/24/25 05:29 Laboratory: Laboratory Results - last 24 hr 01/23/25 11:36: POC Glucose 227 H 01/23/25 16:43: POC Glucose 225 H 01/23/25 21:16: POC Glucose 196 H 01/24/25 05:29: WBC 10.2, RBC 3.70 L, Hgb 11.2 L, Hct 34.5 L, MCV 93.2, MCH 30.3, MCHC 32.5, RDW Std Deviation 44.2 H, RDW Coeff of Ramon 12.8, Plt Count 138 L, MPV 10.1, Immature Gran % (Auto) 0.400, Neut % (Auto) 70.0, Lymph % (Auto) 17.7 L, Hawkins % (Auto) 8.6, Eos % (Auto) 2.9, Baso % (Auto) 0.4, Absolute Neuts (auto) 7.2, Absolute Lymphs (auto) 1.81, Nucleated RBC % 0, Sodium 137, Potassium 3.9, Chloride 103, Carbon Dioxide 23.3, Anion Gap 10, BUN 14, Creatinine 0.62 L, Estim Creat Clear Calc 51.60, Est GFR (MDRD) Non-Af 91, BUN/Creatinine Ratio 21.7 H, Glucose 155 H, Calcium 8.7 01/24/25 06:07: POC Glucose 157 H D/C Instructions Discharge Activity: Return to Normal Activity DC O2, CPAP, BIPAP Needs Home O2 Discharge instructions: No Meaningful Use Info Meaningful Use Meaningful Use Diagnoses (Choose all that apply): None applicable Discharge Plan Admission Admit Date/Time: 01/22/25 16:00 Primary Reason for Your Visit: Left wrist pain/left hip pain Attending Provider: Jennifer Patel Primary Care Provider: Joann Maya Consulting Providers: Shanna Rosenbaum; Robson Mathew Instructions Additional Instructions / Restrictions: 1. Weightbearing status is weightbearing as tolerated Discharge Orders/Prescriptions Prescriptions: New acetaminophen 325 mg Tablet 1,000 mg PO Q8 Qty: 0 0RF enoxaparin 40 mg/0.4 mL Syringe 40 mg subcut DAILY Qty: 0 0RF nystatin 100,000 unit/mL Suspension 500,000 unit PO 4X/DAY Qty: 0 0RF sennosides-docusate sodium [Stimulant Laxative Plus] 8.6-50 mg Tablet 2 tab PO BID Qty: 0 0RF melatonin 3 mg Tablet 3 mg PO QHS PRN PRN (Reason: Insomnia) Qty: 0 0RF oxycodone 5 mg Tablet 5 mg PO Q4H PRN PRN (Reason: Pain Score 4-10) Qty: 0 0RF Glucerna 1.2 Tiffanie 0.06-1.2 gram-kcal/mL Liquid 120 ml PO 4X/DAY Qty: 0 0RF menthol-zinc oxide [Calmoseptine] 0.44-20.6 % Ointment 1 applic topical 4X/DAY Qty: 0 0RF Protocol: *Topical Application Instructions APPLICATION INSTRUCTIONS: apply to affected region Continued oxybutynin chloride 5 mg tablet 10 mg PO DAILY pravastatin 40 mg tablet 40 mg PO DAILY metformin 500 mg tablet 500 mg PO BID lisinopril 20 mg tablet 20 mg PO DAILY levothyroxine [Euthyrox] 100 mcg tablet 100 mcg PO DAILY omeprazole 20 mg capsule,delayed release(DR/EC) 20 mg PO DAILY phenazopyridine [Azo Urinary Pain Relief] 95 mg tablet 95 mg PO DAILY Metamucil 3.4 gram/5.4 gram powder 2 tsp PO DAILY Florajen Women 15 billion cell capsule 1 cap PO DAILY Referrals / Follow Up: Joann Maya MD [Primary Care Provider, Family Practice] - In 1 Week Referral Note: After discharge from rehab Disposition Disposition (needs filled in before D/C Order can be placed): Inpatient Rehab Unit/Facility Charges/Coding Visit Charges Inpatient E&M: 54392 Disch Hosp
--- NOTE | 2025-01-24 10:43 | PHA.DC.MR.R ---
Pharmacy [place] Med Reconciliation Pharmacy Service has performed discharge medication reconciliation for this patient. The patient's discharge medication list was reviewed for discrepancies and discrepancies were resolved. Medications at Discharge Home Medications Lactobacillus acidophilus and rhamnosus 15 billion cell capsule (Florajen Women) 1 cap PO DAILY 01/21/25 levothyroxine 100 mcg tablet (Euthyrox) 100 mcg PO DAILY 01/21/25 lisinopril 20 mg tablet 20 mg PO DAILY 01/21/25 metformin 500 mg tablet 500 mg PO BID 01/21/25 omeprazole 20 mg capsule,delayed release 20 mg PO DAILY 01/21/25 oxybutynin chloride 5 mg tablet 10 mg PO DAILY 01/21/25 phenazopyridine 95 mg tablet (Azo Urinary Pain Relief) 95 mg PO DAILY 01/21/25 pravastatin 40 mg tablet 40 mg PO DAILY 01/21/25 psyllium husk 3.4 gram/5.4 gram oral powder (Metamucil) 2 tsp PO DAILY 01/21/25 acetaminophen 325 mg tablet 1,000 mg (3.0769 x 325 mg) PO Q8 #0 tabs 01/24/25 enoxaparin 40 mg/0.4 mL subcutaneous syringe 40 mg (0.4 mL) subcut DAILY #0 mL 01/24/25 melatonin 3 mg tablet 3 mg PO QHS PRN PRN Insomnia #0 tabs 01/24/25 menthol 0.44 %-zinc oxide 20.6 % topical ointment (Calmoseptine) 1 applic topical 4X/DAY #0 grams 01/24/25 nutrition tx glu intol,lac-free,soy-fiber 0.06 gram-1.2 kcal/mL liquid (Glucerna 1.2 Prem) 120 ml PO 4X/DAY #0 mL 01/24/25 nystatin 100,000 unit/mL oral suspension 500,000 unit (5 mL) PO 4X/DAY #0 mL 01/24/25 oxycodone 5 mg tablet 5 mg PO Q4H PRN PRN Pain Score 4-10 #0 tabs 01/24/25 sennosides 8.6 mg-docusate sodium 50 mg tablet (Stimulant Laxative Plus) 2 tab PO BID #0 tabs 01/24/25
--- NOTE | 2025-01-24 11:08 | CASEMGMT ---
Pt accepted to [facility] Rehab unit per admissions. RN CM into pt room, pt sitting up in chair. Pt is aware that she was accepted at the [facility] Rehab unit today and will be transported over. Pt states she has already notified her dtr of this. She denies any need for any other person to be notified. Pt denies any further needs at this time. Pt nurse aware she may call report. DC to [facility] Rehab unit
[2025-01-24 11:37] LABS: Vitamin D,25 Hydroxy 25.4 ng/mL (30-100)
[2025-01-24 12:26] VITALS: BP 117/64; PULSE 89; RESP 18; TEMP 36.8
[2025-01-25 14:08] LABS: Vitamin D 1,25-Dihydroxy 29.3 pg/mL (24.8-81.5)
== END 2025-01-24 13:10 | DRG 535 ==
LOC: ED 01-22 00:10 → MS3 01-22 00:45
PROVIDERS: Internal Medicine; Admitting Provider Family Medicine; Emergency Provider Emergency Medicine; PCP Family Medicine; Visit Provider Internal Medicine
DX: S32.82XA Multiple fractures of pelvis without disruption of pelvic ring, initial encounter for closed fracture (principal); E43 Unspecified severe protein-calorie malnutrition; E11.22 Type 2 diabetes mellitus with diabetic chronic kidney disease; E03.9 Hypothyroidism, unspecified; D72.829 Elevated white blood cell count, unspecified; B37.9 Candidiasis, unspecified; I12.9 Hypertensive chronic kidney disease with stage 1 through stage 4 chronic kidney disease, or unspecified chronic kidney disease; K21.9 Gastro-esophageal reflux disease without esophagitis; S63.92XA Sprain of unspecified part of left wrist and hand, initial encounter; E78.5 Hyperlipidemia, unspecified; N18.2 Chronic kidney disease, stage 2 (mild); E55.9 Vitamin D deficiency, unspecified; W19.XXXA Unspecified fall, initial encounter; Z92.21 Personal history of antineoplastic chemotherapy; M85.80 Other specified disorders of bone density and structure, unspecified site; Z79.899 Other long term (current) drug therapy; Z79.84 Long term (current) use of oral hypoglycemic drugs; Z68.20 Body mass index [BMI] 20.0-20.9, adult
CPT/HCPCS: 36415; 73110; 73502; 73552; 73700; 80048; 80053; 82306; 82652; 82962; 83735; 84100; 85025; 94668; 97116; 97162; 97165; 97530; 97535; 97802; 99285; A4216; J2405

== ENCOUNTER 2025-01-24 13:20 | Inpatient (IN) | payer MEDICARE, OTHER, SELFPAY ==
[2025-01-24 13:34] VITALS: BP 139/83; PULSE 100; RESP 17; TEMP 36.5; O2SAT 96; BMI 20.6
[2025-01-24 14:35] VITALS: PULSE 100
[2025-01-24 15:05] VITALS: O2SAT 99
--- OUTSIDE RECORDS SUMMARY | 2025-01-24 16:39 | XMS RPT_ITS | CCD ---
Author Organization [facility] CliniSyfl Care Team Providers Care Sludge Filtration Attendant Name Role Phone LIZA, LORETTA Primary Care [...] Primary Care Provider [phone] Dr. Joann Myaa MD Attending Provider [phone] Dr. Joann Maya MD Referring Provider Dr. Joann Maya MD Primary Care Provider [phone] Dr[address] Veronika Hodges MD Attending Provider Dr. Joann Maya MD Attending Provider [phone] Joann Maya Attending Unavailable Joann Maya Primary Care Unavailable Joann Maya Primary Care Unavailable Joann Maya Referring Unavailable Joann Maya Attending Unavailable Joann Maya Primary Care Unavailable Joann Maya Referring Unavailable Joann Maya Attending Unavailable Zulma BELLA, Dr. David Primary Care Physician Carroll BELLA, Dr. Banda Attending Physician Zulma BELLA, Dr. David Attending Physician Yamil BELLA, Dr. Mullen Emergency Department Phys ician Robi BELLA, Dr. Shanna Gardner Attending Physician Robi BELLA, Dr. Shanna Gardner Admitting Physician [phone] Medications Current Medications Medication Drug Class(es) Dates Sig (Normalized) Sig (Original) L. Acidophilus-L. Rhamnosus (Florajen Women) 15 billion cell capsule (1 source) Start: 01-21-2025 L. Acidophilus-L. Rhamnosus (Mavizonjen Women) 15 billion cell capsule Active 1 NMA PO DAILY January 21, 2025 12:00am Complies with drug therapy levothyroxine sodium 0.1 mg oral tablet (1 source) l-Thyroxine Start: 01-21-2025 take 1 tablet by mouth once daily Levothyroxine (Euthyrox) 100 mcg tablet Active 100 ug PO DAILY January 21, 2025 12:00am Complies with drug therapy lisinopril 20 mg oral tablet (1 source) Angiotensin Converting Enzyme Inhibitor Start: 01-21-2025 take 1 tablet by mouth once daily Lisinopril 20 mg tablet Active 20 mg PO DAILY January 21, 2025 12:00am Complies with drug therapy metFORMIN hydrochloride 500 mg oral tablet (1 source) Biguanide Start: 01-21-2025 take 1 tablet by mouth twice daily Metformin 500 mg tablet Active 500 mg PO TWICE A DAY January 21, 2025 12:00am Complies with drug therapy omeprazole 20 mg delayed release oral capsule (1 source) Proton Pump Inhibitor Start: 01-21-2025 take 1 capsule by mouth once daily Omeprazole 20 mg capsule,delayed release(DR/EC) Active 20 mg PO DAILY January 21, 2025 12:00am Complies with drug therapy oxybutynin chloride 5 mg oral tablet (1 source) Cholinergic Muscarinic Antagonist Start: 01-21-2025 take 2 tablets by mouth once daily Oxybutynin Chloride 5 mg tablet Active 10 mg PO DAILY January 21, 2025 12:00am Complies with drug therapy phenazopyridine hydrochloride 95 mg oral tablet (1 source) Start: 01-21-2025 take 1 tablet by mouth once daily Phenazopyridine (Azo Urinary Pain Relief) 95 mg tablet Active 95 mg PO DAILY January 21, 2025 12:00am Complies with drug therapy pravastatin sodium 40 mg oral tablet (1 source) HMG-CoA Reductase Inhibitor Start: 01-21-2025 take 1 tablet by mouth once daily Pravastatin 40 mg tablet Active 40 mg PO DAILY January 21, 2025 12:00am Complies with drug therapy psyllium 3400 mg powder for oral suspension (1 source) Start: 01-21-2025 Psyllium Husk (Metamucil) 3.4 gram/5.4 gram powder Active 2 tsp PO DAILY January 21, 2025 12:00am Complies with drug therapy Problems Active Problems Problem Classification Problem Date Documented Da te Episodic/Chronic Diabetes mellitus without complication (1 source) Type 2 diabetes mellitus without complications; Translations: [Type 2 diabetes mellitus without complications] Onset: 06-17-2024 Chronic E Codes: Fall (2 sources) Accidental fall ; Translations: [Unspecified fall, initial encounter] 01-22-2025 Episodic E Codes: Fall (1 source) Fall Onset: 11-03-2022 Other fractures (2 sources) Fracture of inferior pubic ramus; Translations: [Other specified fracture of left pubis, initial encounter for closed fracture] 01-22-2025 Episodic Other fractures (2 sources) Fracture of superior pubic ramus; Translations: [Fracture of superior rim of left pubis, initial encounter for closed fracture] 01-22-2025 Episodic Other nervous system disorders (2 sources) Unable to walk; Translations: [Difficulty in walking, not elsewhere classified] 01-22-2025 Chronic Sprains and strains (2 sources) Sprain of left wrist; Translations: [Unspecified sprain of left wrist, initial encounter] 01-22-2025 Episodic Thyroid disorders (1 source) Hypothyroidism, unspecified; Translations: [...] Test Name Value Interpretation Reference Range Facility Absolute lymphocyte countOrd ered By: Sebas Lobo on 01-21-2025 Lymphocytes Auto (Unsp spec) [#/Vol] 2.16 10*3/uL 0.83-4.51 [facility] Absolute neutrophil countOrd ered By: Sebas Lobo on 01-21-2025 Neutrophils (Bld) [#/Vol] 13.2 10*3/uL High 2.0-7.7 [facility] Anion gap in Serum or Plasma Ordered By: Sebas Lobo on 01-21-2025 Anion gap [Moles/Vol] 15 mmol/L 5-15 [facility] Automated lymphocyte count a s percentage of total leukocytesOrdered By: Sebas Lobo on 01-21-2025 Lymphocytes/100 WBC Auto (Unsp spec) 12.8 % Low 19-41 [facility] BUN/creatinine ratioOrdered By: Sebas Lobo on 01-21-2025 Urea nitrogen/Creatinine [Mass ratio] 16.7 mg/mg 10-20 [facility] Basophil percentageOrdered B y: Sebas Lobo on 01-21-2025 Basophils/100 WBC (Bld) 0.4 % 0-1 [facility] Carbon dioxide, total [Moles /volume] in Central venous bloodOrdered By: Sebas Lobo on 01-21-2025 CO2 [Moles/Vol] 23.6 mmol/L 21.0-32.0 [facility] Chloride assayOrdered By: Amari Lobo on 01-21-2025 Chloride [Moles/Vol] 103 mmol/L 98-108 [facility] Eosinophil percentageOrdered By: Sebas Lobo on 01-21-2025 Eosinophils/100 WBC (Bld) 0.8 % 0-5 [facility] Erythrocyte distribution wid th ratioOrdered By: Sebas Lobo on 01-21-2025 Erythrocyte distribution width (RBC) [Ratio] 12.8 % 11.6-14.6 [facility] Erythrocyte distribution wid th standard deviationOrdered By: Seabs Lobo on 01-21-2025 Erythrocyte distribution width (RBC) [Ratio] 42.8 fl 35.1-43.9 [facility] Glomerular filtration rate ( GFR) estimation/1.73 sq m using serum, plasma, or whole bOrdered By: Sebas Lobo on 01-21-2025 GFR/1.73 sq M.predicted among non-blacks MDRD (S/P/Bld) [Vol rate/Area] 83 mL/min/{1.73_m2} >60 [facility] Comment on above: mL/min/1.73m2 CKD-EP I Creatinine Equation (2020) Hematocrit Auto (Bld) [Volum e fraction]Ordered By: Sebas Lobo on 01-21-2025 Hematocrit (Bld) [Volume fraction] 41.8 % 37-47 [facility] Hemoglobin measurementOrdere d By: Sebas Lobo on 01-21-2025 Hemoglobin (Bld) [Mass/Vol] 13.7 g/dL 12.0-15.0 [facility] Immature granulocytes/100 WB C Auto (Bld)Ordered By: Sebas Lobo on 01-21-2025 Immature granulocytes/100 WBC (Bld) 0.700 % 0.0-0.9 [facility] Comment on above: IG% - Immature Granu locytes (promyelocytes, myelocytes and metamyelocytes) > 1% indicates that a LEFT SHIFT is Present. MCV (mean corpuscular volume ) determinationOrdered By: Sebas Lobo on 01-21-2025 MCV (RBC) [Entitic vol] 91.9 fL 81-99 [facility] Mean corpuscular hemoglobin (MCH) determinationOrdered By: Sebas Lobo on 01-21-2025 MCH (RBC) [Entitic mass] 30.1 pg 27.0-32.0 [facility] Mean corpuscular hemoglobin concentration (MCHC) determinationOrdered By: Sebas Lobo on 01-21-2025 MCHC (RBC) [Mass/Vol] 32.8 g/dL 32-36 [facility] Mean platelet volume determi nationOrdered By: Sebas Lobo on 01-21-2025 Platelet mean volume (Bld) [Entitic vol] 10.5 fL 6.2-12.0 [facility] Monocyte percentageOrdered B y: Sebas Lobo on 01-21-2025 Monocytes/100 WBC (Bld) 6.5 % 0-10 [facility] Neutrophil percentageOrdered By: Sebas Lobo on 01-21-2025 Neutrophils/100 WBC (Bld) 78.8 % High 47-70 [facility] Nucleated red blood cell per centageOrdered By: Sebas Lobo on 01-21-2025 Nucleated RBC/100 WBC (Bld) [Ratio] 0 % 0-5 [facility] Platelet countOrdered By: Amari Lobo on 01-21-2025 Platelets (Bld) [#/Vol] 192 10*3/uL 150-450 [facility] Potassium measurement (mass/ volume)Ordered By: Sebas Lobo on 01-21-2025 Potassium (Unsp spec) [Mass/Vol] 3.4 mmol/L 3.3-5.1 [facility] RBC Auto (Bld) [#/Vol]Ordere d By: Sebas Lobo on 01-21-2025 RBC (Bld) [#/Vol] 4.55 10*6/uL 4.2-5.4 [facility] Serum creatinine measurement (mass/volume)Ordered By: Sebas Lobo on 01-21-2025 Creatinine [Mass/Vol] 0.74 mg/dL 0.70-1.20 [facility] Serum glucose measurement (m ass/volume)Ordered By: Sebas Lobo on 01-21-2025 Glucose [Mass/Vol] 191 mg/dL High 70-99 [facility] Serum or plasma calcium luis urement (mass/volume)Ordered By: Sebas Lobo on 01-21-2025 Calcium [Mass/Vol] 10.0 mg/dL 7.6-11.0 [facility] Serum or plasma urea nitroge n measurement (mass/volume)Ordered By: Sebas Lobo on 01-21-2025 Urea nitrogen [Mass/Vol] 12 mg/dL 4-19 [facility] Sodium levelOrdered By: Ishaan Lobo on 01-21-2025 Sodium [Moles/Vol] 141 mmol/L 133-145 [facility] White blood cell (WBC) count Ordered By: Sebas Lobo on 01-21-2025 WBC (Bld) [#/Vol] 16.8 10*3/uL High 4.4-11.0 [facility] T4 Free Directon 11-12-2024 T4 FREE DIRECT 1.70 ng/dL High 0.76-1.46 [facility] Comment on above: Performed By: #### L 501.9520, L506.0400 #### [facility] [address] [facility] [place], [place], [id number] T4 freeOrdered By: Joann sheldon on 11-12-2024 Free T4 [Mass/Vol] 1.70 ng/dL High 0.76-1.46 [facility] TSH DL <= 0.005 mIU/L QnOrde red By: Joann Maya on 11-12-2024 TSH Qn 0.046 uIU/mL Low 0.300-4.200 [facility] Thyroid Stim Hormone (TSH)on 11-12-2024 TSH 0.046 uIU/mL Low 0.300-4.200 [facility] Comment on above: Performed By: #### L 501.9520, L506.0400 #### [facility] Laboratory [address] [place], [place], [id number] Breast imaging reportOrdered By: Seng Bowen on 03-17-2025 Study report [facility] Imaging Services [address] [place], [place] [address] SCREEN MAMM (CAD) W/BENSON UNI R MR#: [id number] Acct: [id number] Name: BARBARA WALTER Rep #: [id number] : 1945 F 79 From: Mo Bowen MD PCP: Dr. Joann Maya MD Status: REG CLI Study:SCREEN MAMM (CAD) W/BENSON UNI R Date of Exam: 07/05/24 Exam# [id number] Ordering Dr: Rosamaria Maya MD PROCEDURE: SCREEN MAMM (CAD) W/BENSON [...] BENIGN RECOMMEND ANNUAL MAMMOGRAPHIC SCREENING. Reading Location: [place] [address] CC: Dr. Joann Maya MD ~ Cardiac Cath Lab Manager: Signed [facility] SCREEN MAMM (CAD) W/BENSON UNI Mejia 07-05-2024 SCREEN MAMM (CAD) W/BENSON UNI R [facility] Imaging Services [address] [place] [address] SCREEN MAMM (CAD) W/BENSON UNI R MR#: [id number] Acct: [id number] Name: BARBARA WALTER Rep #: [id number] : 1945 F 79 From: Seng duron MD PCP: Dr. Joann Maya MD Status: [facility] CLI Study: SCREEN MAMM (CAD) W/BENSON UNI R Date of Exam: 0 07/05/24 Exam# [id number] Ordering Dr: Joann Maya MD PROCEDURE: SCREEN [...] BENIGN RECOMMEND ANNUAL MAMMOGRAPHIC SCREENING. Reading Location: [place] [address] CC: Dr. Joann Maya MD Cardiac Cath Lab Manager: Signed Normal [facility] Absolute neutrophil countOrd ered By: Joann Maya on 06-04-2024 Neutrophils (Bld) [#/Vol] 4.4 10*3/uL 2.0-7.7 [facility] Albumin to globulin ratioOrd ered By: Joann Maya on 06-04-2024 Albumin/Globulin [Mass ratio] 0.9 {ratio} 0.9-2.4 [facility] Basophil percentageOrdered B y: Joann Maya on 06-04-2024 Basophils/100 WBC (Bld) 0.9 % 0-1 [facility] Bilirubin, totalOrdered By: Joann Maya on 06-04-2024 Bilirubin [Mass/Vol] 0.40 mg/dL 0.20-1.00 [facility] Comment on above: For patients on eltr ombopag therapy, use of Dimension [place] TBIL is not recommended. Blood urea nitrogen (BUN)/cr eatinine ratioOrdered By: Joann Maya on 06-04-2024 Urea nitrogen/Creatinine [Mass ratio] 20.1 mg/mg High 10-20 [facility] CBC W/Diff, Automatedon 05-22 Absolute Lymph 2.11 X10 3/uL Normal 0.83-4.51 [facility] Comment on above: Performed By: #### L 100.0100, L503.0105, L500.4050, L500.4100, L501.9520 #### [facility] Laboratory [address] [place], [address] Absolute Neut 4.4 X10 3/uL Normal 2.0-7.7 [facility] Comment on above: Performed By: #### L 100.0100, L503.0105, L500.4050, L500.4100, L501.9520 #### [facility] [address] [place], [address] Basophils/100 WBC (Bld) 0.9 % Normal 0-1 [facility] Comment on above: Performed By: #### L 100.0100, L503.0105, L500.4050, L500.4100, L501.9520 #### [facility] [address] [place], [address] Eosinophils/100 WBC (Bld) 2.3 % Normal 0-5 [facility] Comment on above: Performed By: #### L 100.0100, L503.0105, L500.4050, L500.4100, L501.9520 #### [facility] [address] [place], [address] Erythrocyte distribution width (RBC) [Ratio] 12.5 % Normal 11.6-14.6 [facility] Comment on above: Performed By: #### L 100.0100, L503.0105, L500.4050, L500.4100, L501.9520 #### [facility] [address] [place], [address] Hematocrit (Bld) [Volume fraction] 42.8 % Normal 37-47 [facility] Comment on above: Performed By: #### L 100.0100, L503.0105, L500.4050, L500.4100, L501.9520 #### [facility] [address] [place], [address] Hemoglobin (Bld) [Mass/Vol] 14.0 g/dL Normal 12.0-15.0 [facility] Comment on above: Performed By: #### L 100.0100, L503.0105, L500.4050, L500.4100, L501.9520 #### [facility] [address] [place], [address] IG% 0.300 Normal 0.0-0.9 [facility] Comment on above: Result Comment: IG% - Immature Granulocytes (promyelocytes, myelocytes and metamyelocytes) > 1% indicates that a LEFT SHIFT is Present. Performed By: #### L 100.0100, L503.0105, L500.4050, L500.4100, L501.9520 #### [facility] [address] [place], [address] Lymphocytes/100 WBC (Bld) 28.6 % Normal 19-41 [facility] Comment on above: Performed By: #### L 100.0100, L503.0105, L500.4050, L500.4100, L501.9520 #### [facility] [address] [place], [address] MCH (RBC) [Entitic mass] 30.6 pg Normal 27.0-32.0 [facility] Comment on above: Performed By: #### L 100.0100, L503.0105, L500.4050, L500.4100, L501.9520 #### [facility] [address] [place], [address] MCHC (RBC) [Mass/Vol] 32.7 g/dL Normal 32-36 [facility] Comment on above: Performed By: #### L 100.0100, L503.0105, L500.4050, L500.4100, L501.9520 #### [facility] [address] [place], [address] MCV (RBC) [Entitic vol] 93.4 fL Normal 81-99 [facility] Comment on above: Performed By: #### L 100.0100, L503.0105, L500.4050, L500.4100, L501.9520 #### [facility] [address] [place], [address] Monocytes/100 WBC (Bld) 7.7 % Normal 0-10 [facility] Comment on above: Performed By: #### L 100.0100, L503.0105, L500.4050, L500.4100, L501.9520 #### [facility] [address] [place], [address] Neutrophils/100 WBC (Bld) 60.2 % Normal 47-70 [facility] Comment on above: Performed By: #### L 100.0100, L503.0105, L500.4050, L500.4100, L501.9520 #### [facility] [address] [place], [address] Nucleated RBC (Bld) [#/Vol] 0 10*3/uL Normal 0-5 [facility] Comment on above: Performed By: #### L 100.0100, L503.0105, L500.4050, L500.4100, L501.9520 #### [facility] [address] [place], [address] Platelet mean volume (Bld) [Entitic vol] 11.0 fL Normal 6.2-12.0 [facility] Comment on above: Performed By: #### L 100.0100, L503.0105, L500.4050, L500.4100, L501.9520 #### [facility] [address] [place], [address] Platelets (Bld) [#/Vol] 198 10*3/uL Normal 150-450 [facility] Comment on above: Performed By: #### L 100.0100, L503.0105, L500.4050, L500.4100, L501.9520 #### [facility] [address] [place], [address] RBC (Bld) [#/Vol] 4.58 10*6/uL Normal 4.2-5.4 [facility] Comment on above: Performed By: #### L 100.0100, L503.0105, L500.4050, L500.4100, L501.9520 #### [facility] [address] [place], [address] RDW SD 42.7 fl Normal 35.1-43.9 [facility] Comment on above: Performed By: #### L 100.0100, L503.0105, L500.4050, L500.4100, L501.9520 #### [facility] [address] [place], [address] WBC (Bld) [#/Vol] 7.4 10*3/uL Normal 4.4-11.0 [facility] Comment on above: Performed By: #### L 100.0100, L503.0105, L500.4050, L500.4100, L501.9520 #### [facility] [address] [place], [address] Carbon dioxide measurementOr dered By: Joann Maya on 06-04-2024 CO2 [Moles/Vol] 30.0 mmol/L 21.0-32.0 [facility] Chloride measurementOrdered By: Joann Maya on 06-04-2024 Chloride [Moles/Vol] 107 mmol/L 98-107 [facility] Comprehensive Metabolic Prof ilon 06-04-2024 Albumin [Mass/Vol] 3.4 g/dL Normal 3.2-5.0 [facility] Comment on above: Performed By: #### L 100.0100, L503.0105, L500.4050, L500.4100, L501.9520 #### [facility] [address] [place], [address] Albumin/Globulin [Mass ratio] 0.9 {ratio} Normal 0.9-2.4 [facility] Comment on above: Performed By: #### L 100.0100, L503.0105, L500.4050, L500.4100, L501.9520 #### [facility] [address] [place], [address] ALK P 71 U/L Normal 45-117 [facility] Comment on above: Performed By: #### L 100.0100, L503.0105, L500.4050, L500.4100, L501.9520 #### [facility] [address] [place], [address] ALT [Catalytic activity/Vol] 18 U/L Normal 13-56 [facility] Comment on above: Performed By: #### L 100.0100, L503.0105, L500.4050, L500.4100, L501.9520 #### [facility] [address] [place], [address] AST [Catalytic activity/Vol] 16 U/L Normal 15-37 [facility] Comment on above: Performed By: #### L 100.0100, L503.0105, L500.4050, L500.4100, L501.9520 #### [facility] [address] [place], [address] Bilirubin [Mass/Vol] 0.40 mg/dL Normal 0.20-1.00 [facility] Comment on above: Result Comment: For patients on eltrombopag therapy, use of Dimension [place] TBIL is not recommended. Performed By: #### L 100.0100, L503.0105, L500.4050, L500.4100, L501.9520 #### [facility] [address] [place], [address] BUN/CRE 20.1 RATIO High 10-20 [facility] Comment on above: Performed By: #### L 100.0100, L503.0105, L500.4050, L500.4100, L501.9520 #### [facility] [address] [place], [address] CA,Total 9.5 mg/dL Normal 8.5-10.1 [facility] Comment on above: Performed By: #### L 100.0100, L503.0105, L500.4050, L500.4100, L501.9520 #### [facility] [address] [place], [address] Chloride [Moles/Vol] 107 mmol/L Normal 98-107 [facility] Comment on above: Performed By: #### L 100.0100, L503.0105, L500.4050, L500.4100, L501.9520 #### [facility] [address] [place], [address] CO2 [Moles/Vol] 30.0 mmol/L Normal 21.0-32.0 [facility] Comment on above: Performed By: #### L 100.0100, L503.0105, L500.4050, L500.4100, L501.9520 #### [facility] [address] [place], [address] Creatinine [Mass/Vol] 0.75 mg/dL Normal 0.55-1.02 [facility] Comment on above: Result Comment: The validity of the calculated GFR GFRAA in patients over 70 years has not been determined. Clinical correlation is essential. Performed By: #### L 100.0100, L503.0105, L500.4050, L500.4100, L501.9520 #### [facility] [address] [place], [address] EST GFR - AA 96 mL/min Normal >60 [facility] Comment on above: Result Comment: Afri can [place] GFR Calc Performed By: #### L 100.0100, L503.0105, L500.4050, L500.4100, L501.9520 #### [facility] [address] [place], [address] GAP 6 Normal 5-15 [facility] Comment on above: Performed By: #### L 100.0100, L503.0105, L500.4050, L500.4100, L501.9520 #### [facility] [address] [place], [address] GFR/1.73 sq M.predicted among non-blacks MDRD (S/P/Bld) [Vol rate/Area] 80 mL/min/{1.73_m2} Normal >60 [facility] Comment on above: Result Comment: Non- GFR Calc Performed By: #### L 100.0100, L503.0105, L500.4050, L500.4100, L501.9520 #### [facility] [address] [place], [address] Globulin (S) [Mass/Vol] 3.8 g/dL Normal 2.2-4.2 [facility] Comment on above: Performed By: #### L 100.0100, L503.0105, L500.4050, L500.4100, L501.9520 #### [facility] [address] [place], [address] Glucose [Mass/Vol] 132 mg/dL High 74-106 [facility] Comment on above: Result Comment: Fast ing Glucose result greater than or equal to 126 mg/dL suggests DIABETES MELLITUS per A.D.A. criteria. Performed By: #### L 100.0100, L503.0105, L500.4050, L500.4100, L501.9520 #### [facility] [address] [place], [address] Potassium [Moles/Vol] 4.0 mmol/L Normal 3.5-5.1 [facility] Comment on above: Performed By: #### L 100.0100, L503.0105, L500.4050, L500.4100, L501.9520 #### [facility] [address] [place], [address] Sodium [Moles/Vol] 143 mmol/L Normal 136-145 [facility] Comment on above: Performed By: #### L 100.0100, L503.0105, L500.4050, L500.4100, L501.9520 #### [facility] [address] [place], [address] T PROT 7.2 g/dL Normal 6.4-8.2 [facility] Comment on above: Performed By: #### L 100.0100, L503.0105, L500.4050, L500.4100, L501.9520 #### [facility] [address] [place], [address] Urea nitrogen [Mass/Vol] 15 mg/dL Normal 7-18 [facility] Comment on above: Performed By: #### L 100.0100, L503.0105, L500.4050, L500.4100, L501.9520 #### [facility] [address] [place], [address] Eosinophil percentageOrdered By: Joann Maya on 06-04-2024 Eosinophils/100 WBC (Bld) 2.3 % 0-5 [facility] Erythrocyte distribution wid th ratioOrdered By: Joann Maya on 06-04-2024 Erythrocyte distribution width (RBC) [Ratio] 12.5 % 11.6-14.6 [facility] Erythrocyte distribution wid th standard deviationOrdered By: Joann Maya on 06-04-2024 Erythrocyte distribution width (RBC) [Entitic vol] 42.7 fL 35.1-43.9 [facility] Estimated glomerular filtrat ion rate (GFR) AmericanOrdered By: Joann Maya on 06-04-2024 Estimated GFR (MDRD) Amer 96 mL/min >60 [facility] Comment on above: GFR Calc Glomerular filtration rate ( GFR) estimationOrdered By: Joann Maya on 06-04-2024 Estimated GFR (MDRD) Non-Af Amer 80 mL/min >60 [facility] Comment on above: Non- GFR Calc Glucose measurementOrdered B y: Joann Maya on 06-04-2024 Glucose [Mass/Vol] 132 mg/dL High 74-106 [facility] Comment on above: Fasting Glucose resu lt greater than or equal to 126 mg/dL suggests DIABETES MELLITUS per A.D.A. criteria. Hematocrit Auto (Bld) [Volum e fraction]Ordered By: Joann Maya on 06-04-2024 Hematocrit (Bld) [Volume fraction] 42.8 % 37-47 [facility] Hemoglobin measurementOrdere d By: Joann Maya on 06-04-2024 Hemoglobin (Bld) [Mass/Vol] 14.0 g/dL 12.0-15.0 [facility] High density lipoprotein (HD L) measurementOrdered By: Joann Maya on 06-04-2024 Cholesterol in HDL [Mass/Vol] 42 mg/dL >40 [facility] Comment on above: The drugs N-Acetylcy steine and Metamizole may falsely depress this assay. Reference Range HDL <40 mg/dL Low HDL Cholesterol HDL >or= 60 mg/dL High HDL Cholesterol Immature granulocytes/100 WB C Auto (Bld)Ordered By: Joann Maya on 06-04-2024 Immature granulocytes/100 WBC (Bld) 0.300 % 0.0-0.9 [facility] Comment on above: IG% - Immature Granu locytes (promyelocytes, myelocytes and metamyelocytes) > 1% indicates that a LEFT SHIFT is Present. Laboratory - Chemistry and C hemistry - challengeOrdered By: Joann Maya on 06-04-2024 AST [Catalytic activity/Vol] 16 U/L 15-37 [facility] Lipid Profileon 06-04-2024 Cholesterol [Mass/Vol] 108 mg/dL Normal 200 [facility] Comment on above: Result Comment: <200 mg/dL Desirable 200-240 mg/dL Borderline >240 mg/dL High Risk Performed By: #### L 100.0100, L503.0105, L500.4050, L500.4100, L501.9520 #### [facility] [address] [place], [address] Cholesterol in HDL [Mass/Vol] 42 mg/dL Normal [facility] Comment on above: Result Comment: The drugs N-Acetylcysteine and Metamizole may falsely depress this assay. Reference Range HDL <40 mg/dL Low HDL Cholesterol HDL >or= 60 mg/dL High HDL Cholesterol Performed By: #### L 100.0100, L503.0105, L500.4050, L500.4100, L501.9520 #### [facility] [address] [place], [address] Cholesterol in LDL [Mass/Vol] 46 mg/dL Normal 0-130 [facility] Comment on above: Performed By: #### L 100.0100, L503.0105, L500.4050, L500.4100, L501.9520 #### [facility] [address] [place], [address] Cholesterol in VLDL [Mass/Vol] 20 mg/dL Normal 5-40 [facility] Comment on above: Performed By: #### L 100.0100, L503.0105, L500.4050, L500.4100, L501.9520 #### [facility] [address] [place], [address] Triglyceride [Mass/Vol] 98 mg/dL Normal [facility] Comment on above: Result Comment: The drugs N-Acetylcysteine and Metamizole may falsely depress this assay. Serum Triglycerides Reference Interval Normal <150 mg/dL Borderline high 150 - 199 mg/dL High 200 - 499 mg/dL Very High > or = 500 mg/dL Performed By: #### L 100.0100, L503.0105, L500.4050, L500.4100, L501.9520 #### [facility] [address] [place], [address] Low density lipoprotein (LDL ) cholesterol measurementOrdered By: Joann Maya on 06-04-2024 Cholesterol in LDL [Mass/Vol] 46 mg/dL 0-130 [facility] Lymphocytes Auto (Unsp spec) [#/Vol]Ordered By: Joann Maya on 06-04-2024 Lymphocytes (Bld) [#/Vol] 2.11 10*3/uL 0.83-4.51 [facility] Lymphocytes/100 WBC Auto (Un sp spec)Ordered By: Joann Maya on 06-04-2024 Lymphocytes/100 WBC (Bld) 28.6 % 19-41 [facility] MCV (mean corpuscular volume ) determinationOrdered By: Joann Maya on 06-04-2024 MCV (RBC) [Entitic vol] 93.4 fL 81-99 [facility] Mean corpuscular hemoglobin (MCH) determinationOrdered By: Joann Maya on 06-04-2024 MCH (RBC) [Entitic mass] 30.6 pg 27.0-32.0 [facility] Mean corpuscular hemoglobin concentration (MCHC) determinationOrdered By: Joann Maya on 06-04-2024 MCHC (RBC) [Mass/Vol] 32.7 g/dL 32-36 [facility] Mean platelet volume determi nationOrdered By: Joann Maya on 06-04-2024 Platelet mean volume (Bld) [Entitic vol] 11.0 fL 6.2-12.0 [facility] Monocyte percentageOrdered B y: Joann Maya on 06-04-2024 Monocytes/100 WBC (Bld) 7.7 % 0-10 [facility] Neutrophil percentageOrdered By: Joann Maya on 06-04-2024 Neutrophils/100 WBC (Bld) 60.2 % 47-70 [facility] Nucleated red blood cell per centageOrdered By: Joann Maya on 06-04-2024 Nucleated RBC/100 WBC (Bld) [Ratio] 0 % 0-5 [facility] Platelet countOrdered By: Brad Maya on 06-04-2024 Platelets (Bld) [#/Vol] 198 10*3/uL 150-450 [facility] Potassium measurementOrdered By: Joann Maya on 06-04-2024 Potassium [Moles/Vol] 4.0 mmol/L 3.5-5.1 [facility] RBC Auto (Bld) [#/Vol]Ordere d By: Joann Maya on 06-04-2024 RBC (Bld) [#/Vol] 4.58 10*6/uL 4.2-5.4 [facility] Serum anion gap measurementO rdered By: Joann Maya on 06-04-2024 Anion gap [Moles/Vol] 6 mmol/L 5-15 [facility] Serum globulin measurementOr dered By: Joann Maya on 06-04-2024 Globulin (S) [Mass/Vol] 3.8 g/dL 2.2-4.2 [facility] Serum or plasma alanine hightower otransferase (ALT) measurementOrdered By: Joann Maya on 06-04-2024 ALT [Catalytic activity/Vol] 18 U/L 13-56 [facility] Serum or plasma albumin luis urement (mass/volume)Ordered By: Joann Maya on 06-04-2024 Albumin [Mass/Vol] 3.4 g/dL 3.2-5.0 [facility] Serum or plasma alkaline peña sphatase measurementOrdered By: Joann Maya on 06-04-2024 ALP [Catalytic activity/Vol] 71 U/L 45-117 [facility] Serum or plasma calcium luis urement (mass/volume)Ordered By: Joann Maya on 06-04-2024 Calcium [Mass/Vol] 9.5 mg/dL 8.5-10.1 [facility] Serum or plasma cholesterol measurement (mass/volume)Ordered By: Joann Maya on 06-04-2024 Cholesterol [Mass/Vol] 108 mg/dL <200 [facility] Comment on above: <200 mg/dL Desirable 200-240 mg/dL Borderline >240 mg/dL High Risk Serum or plasma creatinine m easurement (mass/volume)Ordered By: Joann Maya on 06-04-2024 Creatinine [Mass/Vol] 0.75 mg/dL 0.55-1.02 [facility] Comment on above: The validity of the calculated GFR & GFRAA in patients over 70 years has not been determined. Clinical correlation is essential. Serum or plasma urea nitroge n measurement (mass/volume)Ordered By: Joann Maya on 06-04-2024 Urea nitrogen [Mass/Vol] 15 mg/dL 7-18 [facility] Sodium levelOrdered By: Terry Maya on 06-04-2024 Sodium [Moles/Vol] 143 mmol/L 136-145 [facility] TSH QnOrdered By: Joann moran on 06-04-2024 Thyroid Stimulating Hormone (TSH) 0.043 uIU/mL Low 0.358-3.740 [facility] Thyroid Stim Hormone (TSH)on 06-04-2024 TSH 0.043 uIU/mL Low 0.358-3.740 [facility] Comment on above: Performed By: #### L 100.0100, L503.0105, L500.4050, L500.4100, L501.9520 #### [facility] [address] [place], [address] Total proteinOrdered By: Adis Maya on 06-04-2024 Protein [Mass/Vol] 7.2 g/dL 6.4-8.2 [facility] Triglycerides measurementOrd ered By: Joann Maya on 06-04-2024 Triglyceride [Mass/Vol] 98 mg/dL <199 [facility] Comment on above: The drugs N-Acetylcy steine and Metamizole may falsely depress this assay.Serum Triglycerides Reference Interval Normal <150 mg/dL Borderline high 150 - 199 mg/dL High 200 - 499 mg/dL Very High > or = 500 mg/dL Very low density lipoprotein (VLDL) cholesterol measurementOrdered By: Joann Maya on 06-04-2024 VLDL Cholesterol 20 mg/dL 5-40 [facility] Vitamin B12on 06-04-2024 Cobalamin (Vitamin B12) [Mass/Vol] 1109 pg/mL High [facility] Comment on above: Performed By: #### L 100.0100, L503.0105, L500.4050, L500.4100, L501.9520 #### [facility] [place], [address] Vitamin B12 measurementOrder ed By: Joann Maya on 06-04-2024 Cobalamin (Vitamin B12) [Mass/Vol] 1109 pg/mL High [facility] White blood cell (WBC) count Ordered By: Joann Maya on 06-04-2024 WBC (Bld) [#/Vol] 7.4 10*3/uL 4.4-11.0 [facility] Laboratory - Chemistry and C hemistry - challengeOrdered By: Joann Maya on 07-08-2023 Cobalamin (Vitamin B12) [Mass/Vol] 563 pg/mL [facility] Serum or plasma thyroid stim ulating hormone (TSH) measurement (units/volume)Ordered By: Joann Maya on 07-08-2023 TSH Qn 1.54 uIU/mL 0.358-3.74 [facility] Absolute lymphocyte countOrd ered By: Joann Maya on 05-20-2023 Lymphocytes Auto (Unsp spec) [#/Vol] 2.26 10*3/uL 0.83-4.51 [facility] Automated lymphocyte count a s percentage of total leukocytesOrdered By: Joann Maya on 05-20-2023 Lymphocytes/100 WBC Auto (Unsp spec) 31.5 % 19-41 [facility] Basophil percentageOrdered B y: Joann Maya on 05-20-2023 Basophils/100 WBC (Bld) 0.7 % 0-1 [facility] Bilirubin [Mass/Vol] 0.40 mg/dL 0.20-1.00 [facility] Comment on above: For patients on eltr ombopag therapy, use of Dimension [place] TBIL is not recommended. Chloride [Moles/Vol] 108 mmol/L 98-107 [facility] Cholesterol [Mass/Vol] 133 mg/dL <200 [facility] Comment on above: <200 mg/dL Desirable 200-240 mg/dL Borderline >240 mg/dL High Risk Eosinophils/100 WBC (Bld) 1.5 % 0-5 [facility] Glucose [Mass/Vol] 129 mg/dL 74-106 [facility] Comment on above: Fasting Glucose resu lt greater than or equal to 126 mg/dL suggests DIABETES MELLITUS per A.D.A. criteria. Hemoglobin (Bld) [Mass/Vol] 13.4 g/dL 12.0-15.0 [facility] Monocytes/100 WBC (Bld) 7.3 % 0-10 [facility] Neutrophils (Bld) [#/Vol] 4.2 10*3/uL 2.0-7.7 [facility] Neutrophils/100 WBC (Bld) 58.9 % 47-70 [facility] Potassium [Moles/Vol] 4.0 mmol/L 3.5-5.1 [facility] Protein [Mass/Vol] 7.6 g/dL 6.4-8.2 [facility] Sodium [Moles/Vol] 139 mmol/L 136-145 [facility] Triglyceride [Mass/Vol] 98 mg/dL <199 [facility] Comment on above: The drugs N-Acetylcy steine and Metamizole may falsely depress this assay.Serum Triglycerides Reference Interval Normal <150 mg/dL Borderline high 150 - 199 mg/dL High 200 - 499 mg/dL Very High > or = 500 mg/dL WBC (Bld) [#/Vol] 7.2 10*3/uL 4.4-11.0 [facility] Determination of erythrocyte mean corpuscular volume (MCV)Ordered By: Joann Maya on 05-20-2023 MCV (RBC) [Entitic vol] 94.8 fL 81-99 [facility] Erythrocyte distribution wid th ratioOrdered By: Joann Maya on 05-20-2023 Erythrocyte distribution width (RBC) [Ratio] 12.4 % 11.6-14.6 [facility] Erythrocyte distribution wid th standard deviationOrdered By: Joann Maya on 05-20-2023 Erythrocyte distribution width (RBC) [Entitic vol] 42.7 fL 35.1-43.9 [facility] Hematocrit Auto (Bld) [Volum e fraction]Ordered By: Joann Maya on 05-20-2023 Hematocrit (Bld) [Volume fraction] 43.4 % 37-47 [facility] High density lipoprotein (HD L) measurementOrdered By: Joann Maya on 05-20-2023 Cholesterol in HDL (Body fld) [Mass/Vol] 48 mg/dL >40 [facility] Comment on above: The drugs N-Acetylcy steine and Metamizole may falsely depress this assay. Reference Range HDL <40 mg/dL Low HDL Cholesterol HDL >or= 60 mg/dL High HDL Cholesterol Immature granulocytes/100 WB C Auto (Bld)Ordered By: Joann Maya on 05-20-2023 Immature granulocytes/100 WBC (Bld) 0.100 % 0.0-0.9 [facility] Comment on above: IG% - Immature Granu locytes (promyelocytes, myelocytes and metamyelocytes) > 1% indicates that a LEFT SHIFT is Present. Iron measurement (mass/mass) Ordered By: Joann Maya on 05-20-2023 Iron (Unsp spec) [Mass/Mass] 93 ug/dL 50-170 [facility] - Chemistry and C hemistry - challengeOrdered By: Joann Maya on 05-20-2023 Albumin/Globulin [Mass ratio] 0.9 {ratio} 0.9-2.4 [facility] ALP [Catalytic activity/Vol] 90 U/L 45-117 [facility] ALT [Catalytic activity/Vol] 17 U/L 13-56 [facility] CO2 [Moles/Vol] 28.0 mmol/L 21.0-32.0 [facility] Cobalamin (Vitamin B12) [Mass/Vol] 348 pg/mL 211-911 [facility] Ferritin [Mass/Vol] 158 ng/mL 8-252 [facility] Globulin (S) [Mass/Vol] 4.1 g/dL 2.2-4.2 [facility] Urea nitrogen/Creatinine [Mass ratio] 21.8 mg/mg 10-20 [facility] - Hematology and Cell countsOrdered By: Joann Maya on 05-20-2023 MCH (RBC) [Entitic mass] 29.3 pg 27.0-32.0 [facility] MCHC (RBC) [Mass/Vol] 30.9 g/dL 32-36 [facility] Nucleated RBC/100 WBC (Bld) [Ratio] 0 % 0-5 [facility] Platelets (Bld) [#/Vol] 236 10*3/uL 150-450 [facility] Low density lipoprotein (LDL ) cholesterol measurementOrdered By: Joann Maya on 05-20-2023 Cholesterol in LDL (Body fld) [Moles/Vol] 65 mg/dL 0-130 [facility] No Panel InformationOrdered By: Joann Maya on 05-20-2023 Estimated GFR (MDRD) Amer 107 mL/min >60 [facility] Comment on above: GFR Calc Estimated GFR (MDRD) Non-Af Amer 88 mL/min >60 [facility] Comment on above: Non- GFR Calc Folate 17.30 ng/mL 3.1-55.4 [facility] Total Iron Binding Capacity 255 ug/dL 250-450 [facility] Platelet mean volume Kumar-Ec ker (Bld) [Entitic vol]Ordered By: Joann Maya on 05-20-2023 Platelet mean volume (Bld) [Entitic vol] 10.7 fL 6.2-12.0 [facility] RBC Auto (Bld) [#/Vol]Ordere d By: Joann Maya on 05-20-2023 RBC (Bld) [#/Vol] 4.58 10*6/uL 4.2-5.4 [facility] Serum or plasma calcium luis urement (mass/volume)Ordered By: Joann Maya on 05-20-2023 Calcium [Mass/Vol] 9.6 mg/dL 8.5-10.1 [facility] Serum or plasma creatinine m easurement (mass/volume)Ordered By: Joann Maya on 05-20-2023 Creatinine [Mass/Vol] 0.69 mg/dL 0.55-1.02 [facility] Comment on above: The validity of the calculated GFR & GFRAA in patients over 70 years has not been determined. Clinical correlation is essential. Serum or plasma iron saturat ion measurement (mass fraction)Ordered By: Joann Maya on 05-20-2023 Iron saturation [Mass fraction] 36.5 % 15.0-55.0 [facility] Serum or plasma thyroid stim ulating hormone (TSH) measurement (units/volume)Ordered By: Joann Maya on 05-20-2023 TSH Qn 0.01 uIU/mL 0.358-3.74 [facility] Serum or plasma urea nitroge n measurement (mass/volume)Ordered By: Joann Maya on 05-20-2023 Urea nitrogen [Mass/Vol] 15 mg/dL 7-18 [facility] Thin prep Papanicolaou smear with manual screeningOrdered By: Joann Maya on 05-20-2023 Thin prep Papanicolaou smear with manual screening 3.5 g/dL 3.2-5.0 [facility] Thin prep Papanicolaou smear with manual screening 10 U/L 15-37 [facility] Thin prep Papanicolaou smear with manual screening 3 5-15 [facility] Very low density lipoprotein (VLDL) cholesterol measurementOrdered By: Joann Maya on 05-20-2023 Cholesterol in VLDL Calc [Moles/Vol] 20 mg/dL 5-40 [facility] Basophil percentageOrdered B y: Alfonso Leonrad on 05-06-2023 Basophil percentage < 1.0 mg/dL 0.55-1.02 [facility] No Panel InformationOrdered By: Alfonso Leonard on 05-06-2023 Bedside Estimated GFR (eGFR) > 60.0000 mL/min >60 [facility] POC BLOOD GLUCOSE (RESULTS)o n 11-06-2022 Glucose [Mass/Vol] 168 mg/dL High 74-106 [facility] Comment on above: Performed By: #### L [id number] #### [facility] [address] [facility] [address] [place] Narrative 1 [facility] [address] [facility] [place] [address] Abnormal [facility] Comment on above: Performed By: #### L [id number] #### [facility] [address] [place] [address] [place] Glucose [Mass/Vol] 105 mg/dL Normal 74-106 [facility] Comment on above: Performed By: #### L [id number] #### [facility] [address] [place] [address] [place] Narrative [address] [place] [address] [facility] Comment on above: Performed By: #### L [id number] #### [facility] [address] [place] [address] [place] BASIC METABOLIC PANELon 10-19 Anion gap [Moles/Vol] 9 mmol/L Normal 5-19 [facility] Comment on above: Performed By: #### L [id number] #### [facility] [address] [place] [address] [place] Calcium [Mass/Vol] 8.2 mg/dL Low 8.4-10.2 [facility] Comment on above: Performed By: #### L [id number] #### [facility] [address] [place] [address] [place] Chloride [Moles/Vol] 101 mmol/L Normal 98-107 [facility] Comment on above: Performed By: #### L [id number] #### [facility] [address] [place] [address] [place] CO2 [Moles/Vol] 25 mmol/L Normal 22-30 [facility] Comment on above: Performed By: #### L [id number] #### [facility] [address] [place] [address] [place] Creatinine [Mass/Vol] 0.71 mg/dL Normal 0.52-1.00 [facility] Comment on above: Performed By: #### L [id number] #### [facility] [address] [place] [address] [place] GFR/1.73 sq M.predicted MDRD (S/P/Bld) [Vol rate/Area] mL/min/{1.73_m2} Normal >60 [facility] Comment on above: Performed By: #### L [id number] #### [facility] [address] [place] [address] [place] Glucose [Mass/Vol] 184 mg/dL High 74-106 [facility] Comment on above: Performed By: #### L [id number] #### [facility] [address] [place] [address] [place] Narrative Estimated Glomerular Filtration Rate (eGFR) is calculated using the CKD-EPI (2020) equation, intended for patients 18 years of age and older. If gender is not documented or unknown, there will be no eGFR calculation. Abnormal [facility] Comment on above: Performed By: #### L [id number] #### [facility] [address] [place] [address] [place] Potassium [Moles/Vol] 4.4 mmol/L Normal 3.5-5.1 [facility] Comment on above: Performed By: #### L [id number] #### [facility] [address] [place] [address] [place] Sodium [Moles/Vol] 135 mmol/L Low 137-145 [facility] Comment on above: Performed By: #### L [id number] #### [facility] [address] [place] [address] [place] Urea nitrogen [Mass/Vol] 17 mg/dL Normal 7-17 [facility] Comment on above: Performed By: #### L [id number] #### [facility] [address] [place] [address] [place] Urea nitrogen/Creatinine [Mass ratio] 24 mg/mg High 6-20 [facility] Comment on above: Performed By: #### L [id number] #### [facility] [address] [place] [address] [place] CBC WITH DIFFon 11-05-2022 BASOPHIL # 0.00 x10???3/uL Normal 0.00-0.20 [facility] Comment on above: Performed By: #### L [id number] #### [facility] [address] [place] [address] [place] Basophils/100 WBC (Bld) 0 % Normal 0-2 [facility] Comment on above: Performed By: #### L [id number] #### [facility] [address] [place] [address] [place] EOSINOPHIL # 0.00 x10???3/uL Normal 0.00-0.60 [facility] Comment on above: Performed By: #### L [id number] #### [facility] [address] [place] [address] [place] Eosinophils/100 WBC (Bld) 0 % Normal 0-5 [facility] Comment on above: Performed By: #### L [id number] #### [facility] [address] [place] [address] [place] Erythrocyte distribution width (RBC) [Ratio] 14.2 % High 11.5-14.0 [facility] Comment on above: Performed By: #### L [id number] #### [facility] [address] [place] [address] [place] Hematocrit (Bld) [Volume fraction] 28.0 % Low 36.0-48.0 [facility] Comment on above: Performed By: #### L [id number] #### [facility] [address] [place] [address] [place] Hemoglobin (Bld) [Mass/Vol] 9.3 g/dL Low 11.6-14.8 [facility] [facility] Comment [facility] above: Performed By: #### L [id number] #### [facility] [address] [place] [address] [place] LYMPHOCYTE # 1.70 x10???3/uL Normal 1.10-3.80 [facility] Comment on above: Performed By: #### L [id number] #### [facility] [address] [place] [address] [place] Lymphocytes/100 WBC (Bld) 15 % Low 19-46 [facility] Comment on above: Performed By: #### L [id number] #### [facility] 1 [place] [address] US MCH (RBC) [Entitic mass] 33.8 pg Normal 24.4-34.0 [facility] Comment on above: Performed By: #### L [id number] #### [facility] [address] [place] [address] [place] MCHC (RBC) [Mass/Vol] 33.2 g/dL Normal 30.0-37.0 [facility] Comment on above: Performed By: #### L [id number] #### [facility] [address] [place] [address] US MCV (RBC) [Entitic vol] 101.7 fL High 79.0-88.0 [facility] Comment on above: Performed By: #### L [id number] #### [facility] [address] [place] [address] US MONOCYTE # 1.40 x10???3/uL High 0.10-0.80 [facility] Comment on above: Performed By: #### L [id number] #### [facility] [address] [place] [address] [place] Monocytes/100 WBC (Bld) 12 % Normal 4-12 [facility] Comment on above: Performed By: #### L [id number] #### [facility] [address] [place] [address] US NEUTROPHIL # 8.30 x10???3/uL High 1.80-7.50 [facility] Comment on above: Performed By: #### L [id number] #### [facility] 1 [facility] [address] [place] Neutrophils/100 WBC (Bld) 72 % High 41-69 [facility] Comment on above: Performed By: #### L [id number] #### [facility] 1 [place] [address] [place] Platelet mean volume (Bld) [Entitic vol] 7.6 fL Normal 7.5-11.5 [facility] Comment on above: Performed By: #### L [id number] #### [facility] [address] [place] [address] [place] PLATELETS AUTOMATED 173 x10???3/uL Normal 130-400 [facility] Comment on above: Performed By: #### L [id number] #### [facility] 1 [place] [address] US RBC AUTOMATED 2.76 x10???6/uL Low 3.50-5.50 [facility] Comment on above: Performed By: #### L [id number] #### [facility] 1 [place] [address] US WBC AUTOMATED CORRECTED 11.5 x10???3/uL Normal 4.5-11. 5 [facility] Comment on above: Performed By: #### L [id number] #### [facility] [address] [facility] [place] [address] [place] POC BLOOD GLUCOSE (RESULTS)o n 11-05-2022 Glucose [Mass/Vol] 131 mg/dL High 74-106 [facility] Comment on above: Performed By: #### L [id number] #### [facility] 1 [place] [address] [place] Narrative [address] [place] [address] Abnormal [facility] Comment on above: Performed By: #### L [id number] #### [facility] [address] [facility] [address] [place] Glucose [Mass/Vol] 130 mg/dL High 74-106 [facility] Comment on above: Performed By: #### L [id number] #### [facility] [address] [place] [place] [address] [place] Narrative 1 [facility] 1 [facility] [place] [address] [facility] Comment on above: Performed By: #### L [id number] #### [facility] 1 [place] [address] [place] Glucose [Mass/Vol] 149 mg/dL High 74-106 [facility] Comment on above: Performed By: #### L [id number] #### [facility] 1 [place] [address] [place] Narrative [address] [place] [address] [facility] Comment on above: Performed By: #### L [id number] #### [facility] [address] [place] [address] US Glucose [Mass/Vol] 172 mg/dL High 74-106 [facility] Comment on above: Performed By: #### L [id number] #### [facility] [address] [place] [address] [place] Narrative [address] [place] [address] [facility] Comment on above: Performed By: #### L [id number] #### [facility] [address] [place] [address] US CBCon 11-04-2022 Erythrocyte distribution width (RBC) [Ratio] 14.3 % High 11.5-14.0 [facility] Comment on above: Performed By: #### L [id number] #### [facility] [address] [place] [address] [place] Hematocrit (Bld) [Volume fraction] 34.1 % Low 36.0-48.0 [facility] Comment on above: Performed By: #### L [id number] #### [facility] [address] [place] [address] US Hemoglobin (Bld) [Mass/Vol] 11.2 g/dL Low 11.6-14.8 [facility] Comment on above: Performed By: #### L [id number] #### [facility] 1 [place] [address] US MCH (RBC) [Entitic mass] 33.7 pg Normal 24.4-34.0 [facility] Comment on above: Performed By: #### L [id number] #### [facility] [address] [place] [address] US MCHC (RBC) [Mass/Vol] 32.9 g/dL Normal 30.0-37.0 [facility] Comment on above: Performed By: #### L [id number] #### [facility] [address] [place] [address] US MCV (RBC) [Entitic vol] 102.4 fL High 79.0-88.0 [facility] Comment on above: Performed By: #### L [id number] #### [facility] [address] [place] [address] US Platelet mean volume (Bld) [Entitic vol] 8.2 fL Normal 7.5-11.5 [facility] Comment on above: Performed By: #### L [id number] #### [facility] [address] [place] [address] US PLATELETS AUTOMATED 146 x10???3/uL Normal 130-400 [facility] Comment on above: Performed By: #### L [id number] #### [facility] 1 [place] [address] US RBC AUTOMATED 3.33 x10???6/uL Low 3.50-5.50 [facility] Comment on above: Performed By: #### L [id number] #### [facility] 1 [place] [address] US WBC AUTOMATED CORRECTED 20.3 x10???3/uL High 4.5-11. 5 [facility] Comment on above: Performed By: #### L [id number] #### [facility] 1 [place] [address] US FOLATEon 11-04-2022 FOLATE 10.1 ng/mL Normal >2.8 [facility] Comment on above: Performed By: #### L [id number] #### [facility] [address] [place] [address] US POC BLOOD GLUCOSE (RESULTS)o n 11-04-2022 Glucose [Mass/Vol] 223 mg/dL High [address] [facility] Comment on above: Performed By: #### L [id number] #### [facility] [address] [place] [address] [place] Narrative [address] [place] [address] Abnormal [facility] Comment on above: Performed By: #### L [id number] #### [facility] 1 [place] [address] [place] Glucose [Mass/Vol] 197 mg/dL [place] [address] [facility] Comment on above: Performed By: #### P [id number] #### [facility] 1 [place] [address] [place] Narrative [address] [place] [address] Abnormal [facility] Comment on above: Performed By: #### P [id number] #### [facility] [address] [place] [address] US URINALYSIS, MACRO/MICROon Amorphous sediment LM Ql (Urine sed) Many Abnormal None, Few, Mod [facility] Comment on above: Performed By: #### L [id number] #### [facility] [address] [place] [address] US Appearance (U) Turbid Abnormal Clear, Hazy, Cloudy, Slightly Cloudy [facility] Comment on above: Performed By: #### L [id number] #### [facility] 1 [place] [address] US BACTERIA URINE Few Normal None, Few [facility] Comment on above: Performed By: #### L [id number] #### [facility] 1 [place] [address] US BILIRUBIN URINE Negative Normal Negative [facility] Comment on above: Performed By: #### L [id number] #### [facility] [address] [facility] [address] [place] Color (U) Yellow Normal [facility] Comment on above: Performed By: #### L [id number] #### [facility] [address] [place] [place] [address] [place] Glucose Ql (U) Negative Normal 30 , Negative [facility] Comment on above: Performed By: #### L [id number] #### [facility] 1 [place] [address] [place] HEMOGLOBIN URINE Trace Normal Negative, Trace [facility] Comment on above: Performed By: #### L [id number] #### [facility] [address] [facility] [place] [address] [place] Ketones Ql (U) 10 mg/dL Abnormal Negative [facility] Comment on above: Performed By: #### L [id number] #### [facility] [address] [facility] [place] [address] [place] Leukocyte esterase Test strip Ql (U) Small Abnormal Negative [facility] Comment on above: Performed By: #### L [id number] #### [facility] [address] [facility] [place] [address] [place] MUCOUS URINE Rare Normal None, Rare, Occasional, Few, Mod [facility] Comment on above: Performed By: #### L [id number] #### [facility] [address] [facility] [place] [address] [place] NITRITE URINE Negative Normal Negative [facility] Comment on above: Performed By: #### L [id number] #### [facility] [address] [place] [address] US pH (U) 6.5 [pH] Normal 5.0-9.0 [facility] Comment on above: Performed By: #### L [id number] #### [facility] [address] [place] [address] US Protein (U) [Mass/Vol] 30 mg/dL Abnormal Negat janelle, 10 , 20 [facility] Comment on above: Performed By: #### L [id number] #### [facility] 1 [place] [address] US RBC URINE 11-20 Abnormal 0-2, None [facility] Comment on above: Performed By: #### L [id number] #### [facility] [address] [place] [address] US SPECIFIC GRAVITY URINE 1.023 Normal 1.003-1.035 [facility] Comment on above: Performed By: #### L [id number] #### [facility] 1 [place] [address] US SQUAMOUS EPITHELIAL CELLS URINE Few Normal None, Few [facility] Comment on above: Performed By: #### L [id number] #### [facility] [address] [place] [address] US UROBILINOGEN URINE 3.0 mg/dL Abnormal < 2.0, 1. 0, 0.2 [facility] Comment on above: Performed By: #### L [id number] #### [facility] [address] [place] [address] US WBC URINE 51-80 Abnormal 0-4 [facility] Comment on above: Performed By: #### L [id number] #### [facility] [address] [place] [address] US VITAMIN B12on 11-04-2022 Cobalamin (Vitamin B12) [Mass/Vol] 594 pg/mL Normal 239-931 [facility] Comment on above: Performed By: #### L [id number] #### [facility] [address] [place] [address] US CBC WITH DIFFon 11-03-2022 BASOPHIL # 0.10 x10???3/uL Normal 0.00-0.20 [facility] Comment on above: Performed By: #### L [id number] #### [facility] [address] [place] [address] US Basophils/100 WBC (Bld) 1 % Normal 0-2 [facility] Comment on above: Performed By: #### L [id number] #### [facility] 1 [place] [address] US EOSINOPHIL # 0.10 x10???3/uL Normal 0.00-0.60 [facility] Comment on above: Performed By: #### L [id number] #### [facility] [address] [place] [address] US Eosinophils/100 WBC (Bld) 1 % Normal 0-5 [facility] Comment on above: Performed By: #### L [id number] #### [facility] [address] [place] [address] US Erythrocyte distribution width (RBC) [Ratio] 14.4 % High 11.5-14.0 [facility] Comment on above: Performed By: #### L [id number] #### [facility] [address] [place] [address] US Hematocrit (Bld) [Volume fraction] 40.5 % Normal 36.0-48.0 [facility] Comment on above: Performed By: #### L [id number] #### [facility] [address] [place] [address] US Hemoglobin (Bld) [Mass/Vol] 13.5 g/dL Normal 11.6-14.8 [facility] Comment on above: Performed By: #### L [id number] #### [facility] [address] [place] [address] US LYMPHOCYTE # 1.90 x10???3/uL Normal 1.10-3.80 [facility] Comment on above: Performed By: #### L [id number] #### [facility] 1 [place] [address] US Lymphocytes/100 WBC (Bld) 24 % Normal 19-46 [facility] Comment on above: Performed By: #### L [id number] #### [facility] [address] [place] [address] US MCH (RBC) [Entitic mass] 33.6 pg Normal 24.4-34.0 [facility] Comment on above: Performed By: #### L [id number] #### [facility] [address] [place] [address] US MCHC (RBC) [Mass/Vol] 33.4 g/dL Normal 30.0-37.0 [facility] Comment on above: Performed By: #### L [id number] #### [facility] [address] [place] [address] US MCV (RBC) [Entitic vol] 100.4 fL High 79.0-88.0 [facility] Comment on above: Performed By: #### L [id number] #### [facility] [address] [place] [address] US MONOCYTE # 0.50 x10???3/uL Normal 0.10-0.80 [facility] Comment on above: Performed By: #### L [id number] #### [facility] [address] [place] [address] US Monocytes/100 WBC (Bld) 6 % Normal 4-12 [facility] Comment on above: Performed By: #### L [id number] #### [facility] [address] [place] [address] US NEUTROPHIL # 5.40 x10???3/uL Normal 1.80-7.50 [facility] Comment on above: Performed By: #### L [id number] #### [facility] [address] [place] [address] US Neutrophils/100 WBC (Bld) 68 % Normal 41-69 [facility] Comment on above: Performed By: #### L [id number] #### [facility] [address] [place] [address] US Platelet mean volume (Bld) [Entitic vol] 7.6 fL Normal 7.5-11.5 [facility] Comment on above: Performed By: #### L [id number] #### [facility] [address] [place] [address] US PLATELETS AUTOMATED 229 x10???3/uL Normal 130-400 [facility] Comment on above: Performed By: #### L [id number] #### [facility] [address] [place] [address] US RBC AUTOMATED 4.03 x10???6/uL Normal 3.50-5.50 [facility] Comment on above: Performed By: #### L [id number] #### [facility] [address] [place] [address] US WBC AUTOMATED CORRECTED 8.0 x10???3/uL Normal 4.5-11.5 [facility] Comment on above: Performed By: #### L [id number] #### [facility] [address] [place] [address] US COMPREHENSIVE METABOLIC PANE L, NON-FASTINGon 11-03-2022 Albumin [Mass/Vol] 4.0 g/dL Normal 3.5-5.0 [facility] Comment on above: Performed By: #### L [id number] #### [facility] [address] [place] [address] US Albumin/Globulin [Mass ratio] 1.3 {ratio} Low 1.5-2.5 [facility] Comment on above: Performed By: #### L [id number] #### [facility] 1 [place] [address] US ALP [Catalytic activity/Vol] 100 U/L Normal 38-126 [facility] Comment on above: Performed By: #### L [id number] #### [facility] [address] [place] [address] US ALT [Catalytic activity/Vol] 22 U/L Normal <35 [facility] Comment on above: Performed By: #### L [id number] #### [facility] [address] [place] [address] US Anion gap [Moles/Vol] 11 mmol/L Normal 5-19 [facility] Comment on above: Performed By: #### L [id number] #### [facility] [address] [place] [address] US AST [Catalytic activity/Vol] 27 U/L Normal 14-36 [facility] Comment on above: Performed By: #### L [id number] #### [facility] [address] [place] [address] US Bilirubin [Mass/Vol] 0.5 mg/dL Normal 0.2-1.3 [facility] Comment on above: Performed By: #### L [id number] #### [facility] [address] [place] [address] US Calcium [Mass/Vol] 9.3 mg/dL Normal 8.4-10.2 [facility] Comment on above: Performed By: #### L [id number] #### [facility] [address] [place] [address] US Chloride [Moles/Vol] 100 mmol/L Normal 98-107 [facility] Comment on above: Performed By: #### L [id number] #### [facility] [address] [place] [address] US CO2 [Moles/Vol] 26 mmol/L Normal 22-30 [facility] Comment on above: Performed By: #### L [id number] #### [facility] [address] [place] [address] US Creatinine [Mass/Vol] 0.68 mg/dL Normal 0.52-1.00 [facility] Comment on above: Performed By: #### L [id number] #### [facility] [address] [place] [address] US GFR/1.73 sq M.predicted MDRD (S/P/Bld) [Vol rate/Area] mL/min/{1.73_m2} Normal >60 [facility] Comment on above: Performed By: #### L [id number] #### [facility] [address] [place] [address] US Glucose [Mass/Vol] 214 mg/dL High 74-106 [facility] Comment on above: Performed By: #### L [id number] #### [facility] [address] [place] [address] US Narrative Estimated Glomerular Filtration Rate (eGFR) is calculated using the CKD-EPI (2020) equation, intended for patients 18 years of age and older. If gender is not documented or unknown, there will be no eGFR calculation. Abnormal [facility] Comment on above: Performed By: #### L [id number] #### [facility] 1 [place] [address] US Potassium [Moles/Vol] 4.0 mmol/L Normal 3.5-5.1 [facility] Comment on above: Performed By: #### L [id number] #### [facility] [address] [place] [address] US Protein [Mass/Vol] 7.1 g/dL Normal 6.3-8.2 [facility] Comment on above: Performed By: #### L [id number] #### [facility] [address] [place] [address] US Sodium [Moles/Vol] 137 mmol/L Normal 137-145 [facility] Comment on above: Performed By: #### L [id number] #### [facility] [address] [place] [address] US Urea nitrogen [Mass/Vol] 24 mg/dL High 17 [facility] Comment on above: Performed By: #### L [id number] #### [facility] [address] [place] [address] US Urea nitrogen/Creatinine [Mass ratio] 35 mg/mg High 10-08 [facility] Comment on above: Performed By: #### L [id number] #### [facility] [address] [place] [address] US PT/INRon 11-03-2022 INR Coag (PPP) [Relative time] 1.05 {INR} Normal 0.87-1.10 [facility] Comment on above: Performed By: #### L [id number] #### [facility] [address] [place] [address] US PT Coag (PPP) [Time] 10.8 s Normal 9.0-12.0 [facility] Comment on above: Performed By: #### L [id number] #### [facility] [address] [place] [address] US PTT (PARTIAL THROMBOPLASTIN TIME)on 11-03-2022 aPTT Coag (Bld) [Time] 24.8 s Normal 22.0-32.0 [facility] Comment on above: Performed By: #### L [id number] #### [facility] [address] [place] [address] US TYPE AND SCREENon 11-03-2022 ABO/RH(D) Positive [facility] Comment on above: Performed By: #### L [id number] #### [facility] [address] [place] [address] [place] FT4 THYROXINE FREEon 021 Free T4 [Mass/Vol] 1.09 ng/dL Normal 0.78-2.19 [facility] Comment on above: Performed By: #### F T4 #### [facility] [address] [place] [address] BRENDA Fenton MD TSH WITH REFLEX FT4on 2020 TSH W/ REFLEX FT4 5.270 uIU/mL High 0.470-4.680 [facility] Comment on above: Performed By: #### T SHR #### [facility] [address] [place] [address] BRENDA Fenton MD CBC PLT DIFFon 01-05-2020 BASO # 0.10 10 3/uL Normal 0.00-0.10 [facility] Comment on above: Performed By: #### C BC #### [facility] [address] [place] [address] BRENDA Fenton MD Basophils/100 WBC (Bld) 1.3 % High 0.2-1.0 B [facility] Comment on above: Performed By: #### C BC #### [facility] [address] [place] [address] BRENDA Fenton MD EOS# 0.28 10 3/uL High 0.00-0.20 [facility] Comment on above: Performed By: #### C BC #### [facility] [address] [place] [address] BRENDA Fenton MD Eosinophils/100 WBC (Bld) 3.7 % High 0.9-2.9 [facility] Comment on above: Performed By: #### C BC #### [facility] [address] [place] [address] BRENDA Fenton MD Erythrocyte distribution width (RBC) [Ratio] 11.8 % Normal 11.5-15.5 [facility] Comment on above: Performed By: #### C BC #### [facility] [address] [place], [place] [id number] BRENDA Fenton MD Hematocrit (Bld) [Volume fraction] 42.8 % Normal 37.0-47.0 [facility] Comment on above: Performed By: #### C BC #### [facility] [address] [place], [place] [id number] BRENDA Fenton MD Hemoglobin (Bld) [Mass/Vol] 14.1 g/dL Normal 12.0-16.0 [facility] Comment on above: Performed By: #### C BC #### [facility] [address] [place] [address] BRENDA Fenton MD IG# 0.01 10 3/uL Normal [facility] Comment on above: Performed By: #### C BC #### [facility] [address] [place] [address] BRENDA Fenton MD IG% 0.1 % Normal [facility] Comment on above: Performed By: #### C BC #### [facility] [address] [place] [address] BRENDA Fenton MD LYMPH# 2.56 10 3/uL Normal 1.30-2.90 [facility] Comment on above: Performed By: #### C BC #### [facility] [address] [place] [address] BRENDA Fenton MD Lymphocytes/100 WBC (Bld) 34.2 % Normal 20.5-45.5 [facility] Comment on above: Performed By: #### C BC #### [facility] [address] [place] [address] BRENDA Fenton MD MCH (RBC) [Entitic mass] 31.3 pg High 27.0-31.0 [facility] Comment on above: Performed By: #### C BC #### [facility] [address] [place], [place] [id number] BRENDA Fenton MD MCHC (RBC) [Mass/Vol] 32.9 g/dL Normal 32.0-36.0 [facility] Comment on above: Performed By: #### C BC #### [facility] [address] [place], [place] [address] BRENDA Fenton MD MCV (RBC) [Entitic vol] 94.9 fL Normal 81.0-99.0 [facility] Comment on above: Performed By: #### C BC #### [facility] [address] [place], [place] [id number] BRENDA Fenton MD MONO# 0.51 10 3/uL Normal 0.30-0.80 [facility] Comment on above: Performed By: #### C BC #### [facility] [address] [place], [place] [id number] BRENDA Fenton MD Monocytes/100 WBC (Bld) 6.8 % Normal 5.5-11.7 B [facility] Comment on above: Performed By: #### C BC #### [facility] [address] [place], [place] [id number] BRENDA Fenton MD Morphology Florian (Bld) [Interp] Normal [facility] [facility] Comment on above: Performed By: #### C BC #### [facility] [address] [place], [place] [id number] BRENDA Fenton MD NEUT# 4.03 10 3/uL Normal 2.20-4.80 [facility] Comment on above: Performed By: #### C BC #### [facility] [address] [place], [place] [id number] BRENDA Fenton MD Neutrophils/100 WBC (Bld) 53.9 % Normal 43.0-65.0 [facility] Comment on above: Performed By: #### C BC #### [facility] [address] [place], [place] [address] BRENDA Fenton MD NRBC# 0.00 10 3/uL [facility] Comment on above: Performed By: #### C BC #### [facility] [address] [place], [place] [address] BRENDA Fenton MD Nucleated RBC/100 WBC (Bld) [Ratio] 0.0 % Normal [facility] Comment on above: Performed By: #### C BC #### [facility] [address] [place], [place] [address] BRENDA Fenton MD Platelet mean volume (Bld) [Entitic vol] 9.5 fL Normal 7.4-10.4 [facility] Comment on above: Performed By: #### C BC #### [facility] [address] [place], [place] [address] BRENDA Fenton MD PLT 228 10 3/uL Normal 130-400 [facility] Comment on above: Performed By: #### C BC #### [facility] [address] [place], [place] [address] BRENDA Fenton MD RBC 4.51 10 6/uL Normal 4.20-5.40 [facility] Comment on above: Performed By: #### C BC #### [facility] [address] [place], [place] [address] BRENDA Fenton MD WBC 7.49 10 3/uL Normal 4.70-10.80 [facility] Comment on above: Performed By: #### C BC #### [facility] [address] [place], [place] [address] BRENDA Fenton MD CMPon 01-05-2020 Albumin [Mass/Vol] 4.4 g/dL Normal 3.5-5.0 [facility] Comment on above: Performed By: #### C MP #### [facility] [address] [place], [place] [address] BRENDA Fenton MD ALP [Catalytic activity/Vol] 47 U/L Normal 38-126 [facility] Comment on above: Performed By: #### C MP #### [facility] [address] [place], [place] [address] BRENDA Fenton MD ALT [Catalytic activity/Vol] 14 U/L Normal 9-52 [facility] Comment on above: Performed By: #### C MP #### [facility] [address] [place], [place] [address] BRENDA Fenton MD AST [Catalytic activity/Vol] 27 U/L Normal 14-36 [facility] Comment on above: Performed By: #### C MP #### [facility] [address] [place], [place] [address] BRENDA Fenton MD Bilirubin [Mass/Vol] 0.7 mg/dL Normal 0.2-1.3 [facility] Comment on above: Performed By: #### C MP #### [facility] [address] [place], [place] [address] BRENDA Fenton MD Calcium [Mass/Vol] 10.2 mg/dL Normal 8.4-10.2 [facility] Comment on above: Performed By: #### C MP #### [facility] [address] [place] [address] BRENDA Fenton MD Chloride [Moles/Vol] 106 mmol/L Normal 98-107 [facility] Comment on above: Performed By: #### C MP #### [facility] [address] [place] [address] BRENDA Fenton MD Creatinine [Mass/Vol] 0.7 mg/dL Normal 0.5-1.0 [facility] Comment on above: Performed By: #### C MP #### [facility] [address] [place], [place] [address] BRENDA Fenton MD ECO2 24 mmol/L Normal 22-30 [facility] Comment on above: Performed By: #### C MP #### [facility] [address] [place], [place] [address] BRENDA Fenton MD EGFR-AF EQUATORIAL GUINEAN 99 mL/min/1.73m 2 Normal >=60 [facility] Comment on above: Performed By: #### C MP #### [facility] [address] [place], [place] [address] BRENDA Fenton MD EGFR-NON AF EQUATORIAL GUINEAN 82 mL/min/1.73 m 2 Normal >=60 [facility] Comment on above: Performed By: #### C MP #### [facility] [address] [place] [address] BRENDA Fenton MD Glucose [Mass/Vol] 159 mg/dL High 70-99 [facility] Comment on above: Performed By: #### C MP #### [facility] [address] [place], [place] [address] BRENDA Fenton MD Potassium [Moles/Vol] 4.7 mmol/L Normal 3.5-5.0 [facility] Comment on above: Performed By: #### C MP #### [facility] [address] [place] [address] BRENDA Fenton MD Protein [Mass/Vol] 7.4 g/dL Normal 6.3-8.2 [facility] Comment on above: Performed By: #### C MP #### [facility] [address] [place] [address] BRENDA Fenton MD Sodium [Moles/Vol] 140 mmol/L Normal 137-145 [facility] Comment on above: Performed By: #### C MP #### [facility] [address] [place] [address] BRENDA Fenton MD Urea nitrogen [Mass/Vol] 9 mg/dL Normal 7-17 [facility] Comment on above: Performed By: #### C MP #### [facility] [address] [place] [address] BRENDA Fenton MD LIPID PROFILE - FASTINGon Cholesterol [Mass/Vol] 136 mg/dL Normal <=200 [facility] Comment on above: Performed By: #### L IPID #### [facility] [address] [place] [address] BRENDA Fenton MD Cholesterol in HDL [Mass/Vol] 45 mg/dL Normal 40-60 [facility] Comment on above: Performed By: #### L IPID #### [facility] [address] [place] [address] BRENDA Fenton MD Cholesterol in LDL [Mass/Vol] 58 mg/dL Normal 0-130 [facility] Comment on above: Performed By: #### L IPID #### [facility] [address] [place] [address] BRENDA Fenton MD COMMENT Recommended (Desirable) < 130mg/dL Moderate Risk 130-159 mg/dL High Risk: >/= 130 mg/dL Normal [facility] Comment on above: Performed By: #### L IPID #### [facility] [address] [place] [address] BRENDA Fenton MD Triglyceride [Mass/Vol] 162 mg/dL High <=150 [facility] Comment on above: Performed By: #### L IPID #### [facility] [address] [place], [place] [address] BRENDA Fenton MD Vital Signs Date Time Vital Sign Value Performing Clinician Heavenly linares 01-22-2025 00:13-0400 Body temperature 99.7 [degF] Dr. Joann Maya MD Work Phone: [facility] 01-22-2025 00:13-0400 Diastolic blood pressure 65 mm[Hg] Dr. Joann Maya MD Work Phone: [facility] 01-22-2025 00:13-0400 Heart rate 78 /min Dr. Joann Maya MD Work Phone: [facility] 01-22-2025 00:13-0400 Respiratory rate 17 /min Dr. Joann Maya MD Work Phone: [facility] 01-22-2025 00:13-0400 SaO2% (BldA) [Mass fraction] 100 % Dr. Joann Maya MD Work Phone: [facility] 01-22-2025 00:13-0400 Systolic blood pressure 140 mm[Hg] Dr. Joann Maya MD Work Phone: [facility] 01-21-2025 21:58-0400 Body mass index (BMI) [Ratio] 20.2 kg/m2 Dr. Joann Maya MD Work Phone: [facility] 01-21-2025 21:58-0400 Body weight 55.[address] Joann Maya MD Work Phone: [facility] 01-21-2025 19:45-0400 Body height 166.[address] Joann Maya MD Work Phone: [facility] Encounters Encounter Date Encounter Type Care Provider Facility Start: 01-22-2025 Evaluation and management of inpatient Dr. Shanna Rosenbaum MD -[facility] Work Phone: Start: 01-22-[address] Terry Maya MD Work Phone: -[facility] Start: 01-22-2025 Non-patient / Non-visit Dr. Shanna Rosenbaum MD -[facility] Work Phone: Start: 11-12-2024 End: 11-12-[address] Joann Maya MD Work Phone: -Laboratory [facility] Start: 11-12-2024 End: 11-12-[address] Joann Maya MD -Laboratory [facility] Start: 11-12-2024 End: 11-12-2024 ambulatory Joann Carolina Facility:[facility] Start: 10-19-2024 Non-patient / Non-visit Dr. Veronika Hodges MD -[facility] Work Phone: Start: 07-05-2024 End: 07-05-[address] Joann Maya MD Work Phone: [facility] Work Phone: Start: 07-05-2024 End: 07-05-[address] Joann Maya MD -Outpatient Breast Imaging Work Phone: Start: 07-05-2024 End: 07-05-2024 ambulatory Joann Carolina Facility:[facility] Start: 06-04-2024 End: 06-04-[address] Joann Maya MD -Laboratory, [place] [facility] Start: 06-04-2024 End: 06-04-2024 ambulatory Joann Maya Facility:[facility] Start: 08-21-2023 End: 08-21-2023 ambulatory [facility] Work Phone: Start: 08-21-2023 End: 08-21-2023 Patient encounter procedure [facility]-Ultrasound, [facility] Work Phone: Start: 07-08-2023 End: 07-08-2023 ambulatory [facility] Work Phone: Start: 07-08-2023 End: 07-08-2023 Patient encounter procedure [facility] Work Phone: Start: 07-03-2023 End: 07-03-2023 ambulatory [facility] Work Phone: Start: 07-03-2023 End: 07-03-2023 Patient encounter procedure [facility]-Outpatient Bone Densitometry Work Phone: Start: 05-20-2023 End: 05-20-2023 ambulatory [facility] Work Phone: Start: 05-20-2023 End: 05-20-2023 Patient encounter procedure [facility], [facility] Start: 05-06-2023 End: 05-06-2023 ambulatory [facility] Work Phone: Start: 05-06-2023 End: 05-06-2023 Patient encounter procedure [facility]-MRI - WC Work Phone: Start: 03-25-2023 ambulatory [facility] Start: 02-20-2023 End: 02-21-[address] [facility] Start: 12-31-2022 End: 01-01-2023 ambulatory [facility] Start: 11-19-2022 End: 11-20-2022 ambulatory [facility] Start: 11-04-2022 End: 11-05-2022 Evaluation and management of inpatient [facility] Start: 11-03-2022 End: 11-06-2022 Evaluation and management of inpatient [facility] Start: 11-03-2022 Emergency department patient visit [facility] Procedures Date Procedure Procedure Detail Performing Clinician Start: 01-21-2025 Plain X-ray of femur Dr Delma Maya MD Work Phone: Start: 01-21-[address] Joann Maya MD Work Phone: Start: 01-21-2025 MRI of lower extremity Dr. Joann Maya MD Work Phone: Start: 01-21-2025 Plain x-ray of pelvi s and lower extremity Dr. Joann Maya MD Work Phone: Start: 01-21-2025 Plain x-ray of wrist Dr Delma Maya MD Work Phone: Start: 07-05-2024 Screening mammograph y of right breast Dr. Joann Maya MD Work Phone: Start: 08-21-2023 urinary tract Start: 07-03-2023 Dual energy X-ray absorptiometry Start: 07-03-2023 Screening mammograph y of right breast Start: 05-06-2023 MRI of brain with contrast Start: 11-03-2022 Antibody screen [facility] Comment on above: Performed By: #### L [id number] #### [address] [place] [address] Plan of Treatment Date Care Activity Detail Author Start: 01-22-2025 Hospital admission, emergency, from emergency room, medical nature [facility] Start: 01-22-2025 Admission procedure [facility] Start: 01-21-2025 [facility] Payers Date Payer Category Payer Unknown [id number] 2024 Self-pay 2011 Medicare [id number] Unknown [id number] Unknown Unknown [id number] Unknown [id number] Unknown [id number] Social History Date Type Detail Facility Tobacco smoking stat [facility] Unknown if ever smoked [facility] Work Phone: Start: 1945 Sex Assigned At Female [facility] if ever smoked [facility] Work Phone: Start: 07-14-2024 Sex Female (finding) [facility] Start: 01-22-2025 [facility] Never smoked tobacco (finding) [facility] Sex Female [facility] Goals Date Patient Goal Desired Activity /State Radiology Diagnostic study note 01-22-2025 Note Date & Type Note Facility 01-22-2025 Radiology Diagnostic study note [facility] Services [address] [place], [place] [address] Femur Min 2 Views MR#: [id number] Acct: [id number] Name: BARBARA WALTER Rep #: [id number] : 1945 F 79 From: Christy Brunner MD PCP: Dr. Joann Maya MD Status: REG ER Study:Femur Min 2 Views Date of Exam: Exam# [id number] Ordering Dr: Radha Loob MD PROCEDURE: FEMUR MIN 2 VIEWS 01/21/2025 REASON FOR EXAM: HIP PAIN/INJURY TECHNIQUE: Procedure Code: RADFEM Modality: DX Procedure: FEMUR MIN 2 VIEWS Laterality: COMPARISON: None. FINDINGS: Open reduction internal fixation of left intertrochanteric fracture in good alignment. Unremarkable metallic hardware. Mild osteopenia of the visualized bones. Degenerative joint disease. No fracture or dislocation is seen. No lytic or blastic bone lesion is noted. RAD/Femur Min 2 Views IMPRESSION: No evidence for acute abnormality. [facility] CC: Dr. Sebas Lobo MD; Dr. Joann Maya MD ~ Cardiac Cath Lab Manager: Signed [facility] History and physical note 01-22-2025 Note Date & Type Note Facility 01-22-2025 History and physi tiffanie note [facility] Radiology Diagnostic study note 01-21-2025 Note Date & Type Note Facility 01-21-2025 Radiology Diagnostic study note [facility] Services [address] [place], [place] [address] Extremity Lower without Contra MR#: [id number] Acct: [id number] Name: BARBARA WALTER Rep #: [id number] : 1945 F 79 From: Christy Brunner MD PCP: Dr. Joann Maya MD Status: REG ER Study:Extremity Lower without Contra Date of Exam: 01/21/25 Exam# [id number] Ordering Dr: Radha Lobo MD PROCEDURE: EXTREMITY LOWER WITHOUT CONTRA 01/22/2025 REASON FOR EXAM: INJURY, UNABLE TO WB, NEG XR TECHNIQUE: Procedure Code: CTELWO Modality: CT Procedure: EXTREMITY LOWER WITHOUT CONTRA Coronal and Sagittal reconstruction series were provided. One or more dose reduction techniques were used (e.g., Automated exposure control, adjustment of the mA and/or kV according to patient size, use of iterative reconstruction technique). RADIATION DOSE SUMMARY: CTDlvol: 15.38 mGy DLP: 524.39 mGycm COMPARISON: 21-Jan-2025 CR FINDINGS: Internal fixation of left femoral intertrochanteric old malunited fracture by dynamic hip screw with no hardware failure. Surrounding femoral intertrochanteric cortical irregularities, patchy sclerosis and new bone formation. Acute non displaced fractures of the left superior and inferior pubic rami. Surrounding soft tissue edema noted. Reduced bone density. Mild hip osteoarthritic changes evident by small marginal osteophytic lipping ofits opposing articular surfaces with subcortical pseudocystic changes of the acetabulum and associated narrowed left joint space. No evidence of femoral head fractures of structural collapse. No significant hip joints effusion. Femoral greater trochanter as well as ischial and iliac ensethopathy noted. Vascular atheromatous calcifications. Urinary bladder is unremarkable. CT/Extremity Lower without Contra IMPRESSION: Left proximal femoral fixation as detailed. Acute non displaced fractures of the left superior and inferior pubic rami. Surrounding soft tissue edema noted. Mild hip osteoarthritic changes. Reduced bone density. Reading Location: [place] [address] CC: Dr. Sebas Lobo MD; Dr. Joann Maya MD ~ Cardiac Cath Lab Manager: Signed [facility] Radiology Diagnostic study note 01-21-2025 Note Date & Type Note Facility 01-21-2025 Radiology Diagnostic study note [facility] Imaging Services [address] [place] [address] Wrist min 3 Views MR#: [id number] Acct: [id number] Name: BARBARA WALTER Rep #: [id number] : 1945 F 79 From: Vianey Stratton MD PCP: Dr. Joann Maya MD Status: PRE ER Study:Wrist min 3 Views Date of Exam: Exam# [id number] Ordering Dr: Provider ,Ed P. PROCEDURE: WRIST MIN 3 VIEWS 01/21/2025 REASON FOR EXAM: PAIN TECHNIQUE: Procedure Code: RADWR Modality: DX Procedure: WRIST MIN 3 VIEWS Laterality: Left COMPARISON: None FINDINGS: The bones are diffusely demineralized. No acute fracture or suspicious osseous lesion. However, wrist fractures in patients of this age can be subtle, if there is strong clinical suspicion of a fracture, recommend further evaluation with CT Degenerative narrowing at all visualized joint spaces most notably at the base of the thumb. No subchondral changes. Chondrocalcinosis noted in the CC RAD/Wrist min 3 Views IMPRESSION: Diffuse osteopenia without a fracture or suspicious osseous lesion. Please see discussion above Degenerative arthrosis, most pronounced at the base of the thumb Chondrocalcinosis Reading Location: [facility] CC: Dr. Joann Maya MD; ED PHYSICIAN PROVIDER ~ Cardiac Cath Lab Manager: Signed [facility] Radiology Diagnostic study note 01-21-2025 Note Date & Type Note Facility 01-21-2025 Radiology Diagnostic study note [facility] Services [address] [place] [address] HIP, UNI W/ Pelvis 2-3 Views MR#: [id number] Acct: [id number] Name: BARBARA WALTER Rep #: [id number] : 1945 F 79 From: Vianey Stratton MD PCP: Dr. Joann Maya MD Status: PRE ER Study:HIP, UNI W/ Pelvis 2-3 Views Date of Ex am: 01/21/25 Exam# [id number] Ordering Dr: Provider ,Ed P. PROCEDURE: HIP, UNI W/ PELVIS 2-3 VIEWS 01/21/2025 REASON FOR EXAM: PAIN TECHNIQUE: Procedure Code: RADHP Modality: DX Procedure: HIP, UNI W/ PELVIS 2-3 VIEWS Laterality: Left COMPARISON: None FINDINGS: Bones: The bones are diffusely demineralized. There has been previous open reduction internal fixation to both femurs. The hardware is intact and free of complication. No plain film evidence of acute fracture to either femur. Joints: Age consistent hip and SI joint arthrosis, no subchondral changes. Soft tissues: Hyperdensities over the right sacrum I suspect represent ingested medication. Retained stool noted throughout the colon Other: RAD/HIP, UNI W/ Pelvis 2-3 Views IMPRESSION: Diffuse osteopenia with age consistent hip and SI joint arthrosis. Surgical hardware in both femurs free of complication. No acute abnormalities. However, hip and pelvic fractures in patients of this age can be subtle, if there is strong clinical suspicion of a fracture, recommend further evaluation with CT Reading Location: [id number] CC: Dr. Joann Maya MD; ED PHYSICIAN PROVIDER ~ Cardiac Cath Lab Manager: Signed [facility] Evaluation note Note Date & Type Note Facility Evaluation note No assessment information availa [facility] Work Phone: Evaluation note Note Date & Type Note Facility Evaluation note Diagnosis Onset Date Resolution Accidental fall acute January 222024 12:18am Fracture of left inferior pubic ramus acute January 12:18am Fracture of superior ramus of left pubis acute January 22, 2025 12:18am Inability to ambulate due to left hip acute January 22 12:18am Left wrist sprain acute January 22, 2025 12:18am [facility] Work Phone: History and physical note Note Date & Type Note Facility History and physical note Note Date/Time January 22, 2025 12:35am [facility] Medical Records Department [address] [place] [address] [place] [address] H&P Exam - Hospitalist 01/22/25 0012 MR#: [id number] Acct: [id number] Name: BARBARA WALTER Rep #:[id number] : 1945 79 From: Shanna Rosenbaum MD PCP: Dr. Joann Maya MD Status:REG ER Location: ED HPI - General General Date of Admission: 01/22/25 Date of Service: 01/22/25 Chief Complaint: Fall, L hip and wrist pain. HPI Narrative The patient is a 79 y/o F w/ PMHx: Hx breast CA, CKD stage II per GFR trending, HTN, HLD, Hypothyroidism, Diabetes mellitus type II, GERD who presents to the [facility] ED on 02/12 with history of mechanical fall on evening prior to day of presentation while leaving [facility] after having just eaten with no loss of consciousness not on any antiplatelet or anticoagulant therapy but persistent ongoing left hip as well as left wrist pain secondary to mechanism prompting ED evaluation to be cautious. Patient reports that her lefthip and her left wrist hurt significantly and are more sharp type pain rated 7-8out of 10 in severity but at rest currently she notes pain is workup in the ED included T97.6, heart 113, BP 150/80, respiratory rate 18, 98% on room air with most recent repeat vitals heart rate 98, BP 150/77, respiratory rate 19, 100% onroom air, CBC with WBC 16.8, hemoglobin 13.7, platelet 192 with left shift, BMP with BUN/creatinine 12/0.74, GFR 83, glucose 119, plain film of the left hip andpelvis with diffuse osteopenia with age consistent hip and SI joint arthrosis, surgical hardware in both femurs free of complication with no obvious evidence of acute abnormality, plain film of the left wrist with diffuse osteopenia without fracture or suspicious osseous lesion, degenerative arthrosis most pronounced at the base of the thumb, chondrocalcinosis, CT of the left lower extremity with left proximal femoral fixation in place, an acute nondisplaced fracture of the left superior and inferior pubic rami with surrounding soft tissue edema, mild hip osteoarthritic change, reduced bone density, plain film of the femur pending upon request evaluation of patient. In the ED patient ministered morphine 4 mg IV x 1 as well as Zofran 4 mg IV x 1. [facility] Medical History History of kidney stones History of breast cancer GERD (gastroesophageal reflux disease) CKD (chronic kidney disease), stage II Hypothyroidism Hyperlipemia Diabetes type 2 Hypertension Home Medications ?Medication ?Instructions ?Recorded ?Last Taken ?Type Lactobacillus acidophilus and 1 cap PO DAILY 01/21/25 Unknown History rhamnosus 15 billion cell capsule (Florajen Women) levothyroxine 100 mcg tablet 100 mcg PO DAILY 01/21/25 Unknown History (Euthyrox) lisinopril 20 mg tablet 20 mg PO DAILY 01/21/25 Unkn own History metformin 500 mg tablet 500 mg PO BID 01/21/25 Unkno wn History omeprazole 20 mg capsule,delayed 20 mg PO DAILY Unknown History release oxybutynin chloride 5 mg tablet 10 mg PO DAILY 5 Unknown History phenazopyridine 95 mg tablet (Azo 95 mg PO DAILY 01/21 Unknown History Urinary Pain Relief) pravastatin 40 mg tablet 40 mg PO DAILY 01/21/25 Unkn own History psyllium husk 3.4 gram/5.4 gram 2 tsp PO DAILY 5 Unknown History oral powder (Metamucil) Allergy/AdvReac Type Severity Reaction Status Date / Time No Known Allergies Allergy Verified 01/21/25 19:48 Family History Mother Cancer Father Cancer Surgical History H/O lithotripsy S/P cataract extraction History of hip surgery S/P total abdominal hysterectomy and bilateral salpingo-oophorectomy H/O left mastectomy Social History household members: children Smoking Status: Never smoker alcohol intake: never substance use type: does not use ROS ROS Narrative Admission Review of Systems: CONSTITUTIONAL: No weight loss, fever, chills, + weakness or fatigue. HEENT: Eyes: No visual loss, blurred vision, double vision or yellow sclerae. Ears, Nose, Throat: No hearing loss, sneezing, congestion, runny nose or sore throat. SKIN: No rash or itching, lesions, wounds except + occasional ecchymoses, abrasion CARDIOVASCULAR: No chest pain, chest pressure or chest discomfort, palpitations,edema, orthopnea, syncopal events. RESPIRATORY: No shortness of breath, cough or sputum, wheezing, hemoptysis. GASTROINTESTINAL: + Chronic constipation. No anorexia, nausea, vomiting or diarrhea, abdominal pain, melena, BRBPR. GENITOURINARY: No dysuria, frequency, urgency or retention. NEUROLOGICAL: No headache, dizziness, syncope, paralysis, ataxia, numbness or tingling in the extremities, focal weakness, change in bowel or bladder control,seizure. MUSCULOSKELETAL: + muscle, back pain, joint pain or stiffness. HEMATOLOGIC: No anemia, + easy bleeding/bruising. LYMPHATICS: No enlarged nodes. No history of splenectomy. PSYCHIATRIC: No history of depression or anxiety. ENDOCRINOLOGIC: No reports of sweating, cold or heat intolerance. No polyuria orpolydipsia. ALLERGIES: No history of asthma, hives, eczema or rhinitis. Vital Signs Vital Signs Vital Signs: 01/21/25 19:45 01/21/25 21:44 01/21/25 21:51 Temperature 97.6 F L Temperature Source Oral Pulse Rate 113 H 76 Respiratory Rate 18 15 Respiratory Effort Normal Respiratory Depth Normal Respiratory Pattern Normal Blood Pressure 150/80 H 145/72 H Blood Pressure Mean 103 96 Pulse Ox 98 100 Oxygen Delivery Method Room Air Room Air Room Air 01/21/25 23:00 Temperature Temperature Source Pulse Rate 98 Respiratory Rate 19 H Respiratory Effort Respiratory Depth Respiratory Pattern Blood Pressure 150/77 H Blood Pressure Mean 101 Pulse Ox 100 Oxygen Delivery Method Room Air Weight Weight: 123 lb 3.814 oz Body Mass Index (BMI) 20.2 Physical Exam Narrative Physical Examination: General: Awake, alert, oriented x 3 and cooperative, seated upright in ED bed, fatigued, patient reports pain currently better, 3-4 out of 10 in severity to the left wrist and left hip but she is not moving. Skin: Normal color, normal turgor, no icterus, no cyanosis except occasional stage ecchymoses, abrasion. HEENT: AT/NC, EOMI, PERRLA, dry MM, no carotid bruits or JVD noted. Lungs: CTA bilaterally, moderate effort, mild decrease BL bases, no rales, ronchi or wheezing. Heart: Regular rate and rhythm; no gallop, rub audible. Abdomen: Soft, NTTP, ND, mildly overactive BS, no appreciated HSM. Extremities: No cyanosis, no clubbing, no significant distal pitting edema, peripheral pulses intact, left wrist with discomfort with palpation and ecchymotic change expected, able to make fist. Neurological: Patient awake, alert, oriented as noted, cognitive function intact; pupils equally reactive to light and accommodation, cranial nerves grossly normal, moving all 4 extremities although limited left lower extremity and left wrist secondary to recent fall with injury as noted, no focal deficits,strength accordingly severely globally decreased Psychiatric: Affect appears fatigued, mildly uncomfortable, no acute evidence ofdepressive or anxiety feelings. Results Lab / Micro Data 01/21/25 22:54 01/21/25 22:54 Labs: Laboratory Results - last 24 hr 01/21/25 22:54: WBC 16.8 H, RBC 4.55, Hgb 13.7, Hct 41.8, MCV 91.9, MCH 30.1, MCHC 32.8, RDW Std Deviation 42.8, RDW Coeff of Ramon 12.8, Plt Count 192, MPV 10.5, Immature Gran % (Auto) 0.700, Neut % (Auto) 78.8 H, Lymph % (Auto) 12.8 L,[place] % (Auto) 6.5, Eos % (Auto) 0.8, Baso % (Auto) 0.4, Absolute Neuts (auto) 13.2 H, Absolute Lymphs (auto) 2.16, Nucleated RBC % 0, Sodium 141, Potassium 3.4, Chloride 103, Carbon Dioxide 23.6, Anion Gap 15, BUN 12, Creatinine 0.74, Estim Creat Clear Calc 51.14, Est GFR (MDRD) Non-Af 83, BUN/Creatinine Ratio 16.7, Glucose 191 H, Calcium 10.0 Imaging Radiology Impression Hip/Pelvis X-Ray 01/21/25 20:10 IMPRESSION: Diffuse osteopenia with age consistent hip and SI joint arthrosis. Surgical hardware in both femurs free of complication. No acute abnormalities. However, hip and pelvic fractures in patients of this age can be subtle, if there is strong clinical suspicion of a fracture, recommend further evaluation with CT Reading Location: [facility] Wrist X-Ray 01/21/25 20:10 IMPRESSION: Diffuse osteopenia without a fracture or suspicious osseous lesion. Please see discussion above Degenerative arthrosis, most pronounced at the base of the thumb Chondrocalcinosis Reading Location: [facility] Lower Extremity CT 01/21/25 22:17 IMPRESSION: Left proximal femoral fixation as detailed. Acute non displaced fractures of the left superior and inferior pubic rami. Surrounding soft tissue edema noted. Mild hip osteoarthritic changes. Reduced bone density. Reading Location: [place] [address] Assessment & Plan Assessment/Plan (1) Left wrist sprain: (2) Accidental fall: (3) Fracture of left inferior pubic ramus: (4) Fracture of superior ramus of left pubis: PLAN: Plan The patient is a 79 y/o F w/ PMHx: Hx Breast CA, CKD stage II per GFR trending, HTN, HLD, Hypothyroidism, Diabetes mellitus type II, GERD who presents to the [facility] ED on 02/12 with history of mechanical fall on evening prior to day of presentation with no loss of consciousness not on any antiplatelet or anticoagulant therapy but persistent ongoing left hip as well asleft wrist pain secondary to mechanism prompting ED evaluation to be cautious. #1. Mechanical fall with persistent pain secondary to acute nondisplaced fractures of the left superior and inferior pubic rami with surrounding soft tissue edema and possibly left wrist sprain with no acute osseous injury noted: Will admit to medical surgical floor, encourage offloading/positional changes, will judiciously hydrate, monitor I/Os, maintain on fall precautions, will have as needed pain regimen antiemetic regimen. Discussed with ED and they are ordered wrist brace. Patient may be weightbearing as tolerated given nonoperative. PT/OT following operative intervention. CM consulted for dischargeplanning. #2. Leukocytosis of unclear etiology: Admission CBC with WBC 16.8 with left shift, afebrile upon presentation, possibly reactive, procalcitonin requested, continue judicious hydration and repeat CMP in AM. #3. Chronic Kidney Disease Stage II per GFR trending: Admission BUN/Cr 12/0.74,GFR 83, baseline renal function primarily 0.6-0.7, repeat BMP in AM. #4. Diabetes mellitus type II: Hold oral home regimen, ADA diet, accu checks w/ISS. #5. Hypertension: Continue home regimen including lisinopril with hold parameters as needed, PRN hydralazine. #6. Hyperlipidemia: Will continue patient on statin therapy. #7. Hypothyroidism: Continue patient home levothyroxine regimen. #8. GERD: Will continue patient home PPI. #9. History of breast cancer: Unclear specific location or type however patientis status post left mastectomy in 1999 treated reportedly with chemotherapy as well as tamoxifen, in remission, encourage continued follow-up outpatient as previously arranged. #10. DVT prophylaxis: Lovenox. #11. CODE status: Patient MEERA is her daughter who is present and living will is currently in place. Discussed CODE status at length including difference between FULL code, DNR-CCA and DNR-CC status. Following discussions about the differences in these status, requested Full Code status. Advanced Care Planning Face to Face Time: 16 minutes. Charges/Coding Visit Charges Inpatient E&M: 43808 Init Hosp L2 Procedures Hospitalists Procedures: 05107 Advncd Care Plan 30 Min 01/22/25 0035 <Electronically signed by Shanna Rosenbaum MD> Cosigner Signature (if applicable): CC: Dr. Shanna Rosenbaum MD; Dr. Joann Maya MD~ Signed [facility] Work Phone: Reason for referral (narrative) Note Date & Type Note Facility Reason for referral (narrative) No reason for referral information available [facility] Work Phone: Summary Purpose Family History Relationship Condition Age at Onset Recorded Date/T ilsa mother Malignant neoplasm Unknown father Malignant neoplasm Unknown Advance Directives Advance Directive Response Recorded Date/ Time Do you have a Healthcare Power of [employer]? Yes January 21, 2025 9:51pm Chief Complaint and Reason for Visit Chief Complaint ATTN IACS Chief Complaint ATTN IACS L BREAST CANCER AND MASTECTOMY, B HIP FRACTURE Chief Complaint ATTN IACS L BREAST CANCER AND MASTECTOMY, B HIP FRACTURE UTI Chief Complaint Admit Date SCREENING July 05, 2024 9:1 4am Chief Complaint Admit Date FALL January 22, 2025 12 :12am FALL. L WRIST SPRAIN, L SUPERIOR/INFERIO R PUBIC January 22, 2025 12:18am Reason for Visit Admit Date Accidental fall January 22, 2025 12 :18am Fracture of left inferior pubic ramus Oc tober 2024 12:18am Fracture of superior ramus of left pubis January 22, 2025 12:18am Inability to ambulate due to left hip Oc tober 2024 12:18am Left wrist sprain January 22, 2025 12 :18am Additional Source Comments INFORMATION SOURCE (unrecogn ized section and content) DATE CREATED AUTHOR 08/10/2020 [facility] DATE CREATED AUTHOR AUTHOR'S ORGANIZ ATION 08/10/2023 [facility] DATE CREATED AUTHOR AUTHOR'S ORGANIZ ATION 03/22/2024 [facility] DATE CREATED AUTHOR AUTHOR'S ORGANIZ ATION 11/19/2024 [facility] Care Teams (unrecognized sec tion and [...] Veronika Hodges MD Attending Provider, Referring P rovider Active Team Status: Inactive Member Role Status [...] November 12, 2024 End: November 12, 2024 Team Status: Active Member Role/Relationship Status Dates Dr. Joann Maya MD Primary care physician Active Team Status: Inactive Member Role/Relationship Status Dates Dr. Joann Maya MD Primary care physician Active Start: October 19, 2024 Dr. Veronika Hodges MD Attending physician Active Start: October 19, 2024 Team Status: Inactive Member Role/Relationship Status Dates Dr. Joann Maya MD Primary care physician Active Start: November 12, 2024 End: November 12, 2024 Dr. Joann Maya MD Attending physician Active Start: November 12, 2024 End: November 12, 2024 Team Status: Active Member Role/Relationship Status Dates Dr. Joann Maya MD Primary care physician Active Start: January 22, 2025 Dr. Sebas Lobo MD Emergency Depart ment Physician Active Start: January 22, 2025 Dr. Shanna Rosenbaum MD Attending physician Active Start: January 22, 2025 Team Status: Active Member Role/Relationship Status Dates Dr. Joann Maya MD Primary care physician Active Start: January 22, 2025 Dr. Sebas Lobo MD Emergency Depart ment Physician Active Start: January 22, 2025 Dr. Shanna Rosenbaum MD Admitting physician Active Start: January 22, 2025 Dr. Shanna Rosenbaum MD Attending physician Active Start: January 22, 2025 Goals (unrecognized section and content) Goals may [...] BE BASED ON THE PRIMARY CLINICAL RECORDS. [facility] [facility]. provides no warranty or guarantee of the accuracy or completeness of information in this document.
[2025-01-24] MEDS: Glucerna Shake 120 ML LIQUID PO ×2 (17:21→21:14)
--- NOTE | 2025-01-24 17:27 | HP.PCM_ITS ---
HPI - General General Date of Admission: 01/24/25 Date of Service: 01/24/25 Chief Complaint: Debility due to mechanical ground level fall HPI Narrative BARBARA WALTER, is a 79 YO F with a PMH of hypothyroidism, breast cancer, hypertension, hyperlipidemia, diabetes mellitus type 2, GERD and osteoarthritis who presented to the ED at [facility] on 01/21/25 complaining of left hip pain and left wrist pain. She had a ground-level fall leaving [employer] when her cane went 1 way and she went the other. She did not strike her head and she had no loss of consciousness. Plain film of the left hip and pelvis showed diffuse osteopenia with no evidence of acute fracture. There was hardware present in both femurs due to prior ORIF. There was retained stool throughout the colon. Left wrist x-ray showed diffuse osteopenia without a fracture or suspicious osseous lesion. CT scan of the left hip/femur showed an acute nondisplaced fracture of the left superior and inferior pubic rami with surrounding soft tissue edema. There was reduced bone density. She was admitted to the hospitalist service. She was seen in consultation by the dietitian who felt she had severe protein/calorie malnutrition. Supplements were started. She was seen by PT/OT and they felt she was able to do 3 hours of therapy daily. She was transferred to the acute inpatient rehab unit at [facility] on 01/24/2025 for 3 hours of therapy daily to restore function/independence at or near her level prior to the most recent fall. She lives with her dtr. She tells me that she is independent with all ADL's. She uses a cane. There are steps to get in the house. She tells me that her pain is adequately controlled and slept OK last night Has had 4 falls in the past year. Tells me that she just loses her balance. Sometimes she has dizziness but, when she sits down it goes away. She has had a bone density study in the past in [facility] but, she does not know what it showed. She takes a Vitamin D supplement. TSH and T4 in October were consistent with hyperthyroidism. the TSH and T4 prior to that were also consistent with hyperthyroidism. She can not tell me if her dose hase changed over the past year. [facility] Medical History (Updated 01/25/25 @ 08:[address] Rosalia Banda, DO) Osteopenia History of kidney stones History of breast cancer GERD (gastroesophageal reflux disease) CKD (chronic kidney disease), stage II Hypothyroidism Hyperlipemia Diabetes type 2 Hypertension Home Medications ?Medication ?Instructions ?Recorded ?Last Taken ?Type Lactobacillus acidophilus and 1 cap PO DAILY probiotic 01/21/25 Unknown History rhamnosus 15 billion cell capsule ([employer]) levothyroxine 100 mcg tablet 100 mcg PO DAILY thyroid 01/21/25 Unknown History (Euthyrox) lisinopril 20 mg tablet 20 mg PO DAILY bp 01/21/25 U nknown History metformin 500 mg tablet 500 mg PO BID dm 01/21/25 Un known History omeprazole 20 mg capsule,delayed 20 mg PO DAILY acid r eflux 01/21/25 Unknown History release oxybutynin chloride 5 mg tablet 10 mg PO DAILY bladder 01/21/25 Unknown History phenazopyridine 95 mg tablet (Azo 95 mg PO DAILY urina ry 01/21/25 Unknown History Urinary Pain Relief) pravastatin 40 mg tablet 40 mg PO DAILY cholesterol 1 Unknown History psyllium husk 3.4 gram/5.4 gram 2 tsp PO DAILY fiber 1 Unknown History oral powder (Metamucil) acetaminophen 325 mg tablet 1,000 mg (3.0769 x 325 mg) PO Q8 01/24/25 Unknown Rx pain #0 tabs enoxaparin 40 mg/0.4 mL 40 mg subcut DAILY@0600 dvt 01/24/25 Unknown History subcutaneous syringe melatonin 3 mg tablet 3 mg PO QHS PRN PRN Insomnia #0 01/24/25 Unknown Rx tabs menthol 0.44 %-zinc oxide 20.6 % 1 applic topical TID buttocks 01/24/25 Unknown History topical ointment (Calmoseptine) nutrition tx glu 120 ml PO 4X/DAY supp #0 mL 01/24/25 Unknown Rx intol,lac-free,soy-fiber 0.06 gram-1.2 kcal/mL liquid (Glucerna 1.2 Prem) nystatin 100,000 unit/mL oral 500,000 unit (5 mL) PO 4 X/DAY 01/24/25 Unknown Rx suspension thrush #0 mL oxycodone 5 mg tablet 5 mg PO Q4H PRN PRN Pain Sco re 01/24/25 Unknown Rx 4-10 #0 tabs sennosides 8.6 mg-docusate sodium 2 tab PO BID stool s oftener #0 tabs 01/24/25 Unknown Rx 50 mg tablet (Stimulant Laxative Plus) Allergy/AdvReac Type Severity Reaction Status Date / Time No Known Allergies Allergy Verified 01/21/25 19:48 Family History Mother Cancer Father Cancer Surgical History H/O lithotripsy S/P cataract extraction History of hip surgery S/P total abdominal hysterectomy and bilateral salpingo-oophorectomy H/O left mastectomy Social History (Updated 01/25/25 @ 07:[address] Rosalia Banda DO) household members: children and other details: Lives with her dtr number of children: 4 Smoking Status: Never smoker alcohol intake: never substance use type: does not use ROS Constitutional Constitutional: Reports change in weight, frequent falls, weakness, weight loss and other Details: Has had 4 falls in the past year. ; Denies anorexia, chills, difficulty sleeping, fatigue, fever(s) or night sweats Eyes Eyes: Reports other Details: Uses corrective lenses for reading only. Has had bilateral cataract extraction. ; Denies blurry vision, change in vision, double vision, eye pain or loss of vision ENT HEENT: Reports abnormal hearing, hearing loss, vertigo and other Details: Has bilateral hearing aids. She is complaining of some pain in her mouth. ; Denies dysphagia, headache(s), nasal congestion or sore throat Cardiovascular Cardiovascular: Reports weakness in extremities and other Details: Sometimes her legs buckle. ; Denies chest pain, dyspnea on exertion, edema, lightheadedness, orthopnea, palpitations, paroxysmal nocturnal dyspnea or syncope Respiratory/Chest Respiratory/Chest: Denies cough, dyspnea, shortness of breath at rest, shortness of breath with exertion or wheezing Gastrointestinal Gastrointestinal: Reports constipation and taste impaired; Denies abdominal pain, diarrhea, dyspepsia, dysphagia, hematemesis, hematochezia, nausea or vomiting Genitourinary Genitourinary: Denies dysuria, hematuria, nocturia, urinary frequency, urinary hesitancy, urinary incontinence or urinary urgency Musculoskeletal Musculoskeletal: Reports joint pain and other Details: Complaining of left hip/thigh pain. ; Denies back pain, joint swelling or neck pain Integumentary Integumentary: Reports alopecia and dry skin; Denies jaundice or rash Neurologic Neurologic: Reports disequilibrium, dizziness, vertigo and weakness; Denies confusion, focal weakness, headache(s), paresthesias, seizures or tremor(s) Psychiatric Psychiatric: Denies anxiety, depression, homicidal ideation or suicidal ideation Endocrine Endocrinology: Denies change in body appearance, polydipsia or polyuria Hematologic/Lymphatic Hematologic/Lymphatic: Denies easy bleeding, easy bruising or lymphadenopathy Allergic/Immunologic Allergic/Immunologic: Denies rhinitis, eczemia or asthma Vital Signs Vital Signs Vital Signs: 01/24/25 13:34 01/24/25 14:35 01/24/25 15:05 Temperature 97.7 F L Temperature Source Oral Pulse Rate 100 100 Respiratory Rate 17 Blood Pressure 139/83 H Blood Pressure Mean 101 Blood Pressure Source Monitor Blood Pressure Position Semi-Fowlers Blood Pressure Location Left Arm Pulse Ox 96 99 Oxygen Delivery Method Room Air Room Air Weight Weight: 124 lb Body Mass Index (BMI) 20.6 Physical Exam Const alert and no apparent distress Constitutional Narrative: Sitting in the recliner at the bedside eating her supper. General Appearance: cooperative and frail HEENT HEENT Narrative: Mucous membranes are very dry and the tongue is coated with a brownish adherent coating. She complains of bad taste and some pain in her mouth. Many missing teeth. Pronounced overbite. Head and Scalp: normocephalic and atraumatic Eyes PERRL, EOMs intact bilaterally, conjunctivae normal and no scleral icterus Eyes Narrative: No discharge from the eyes. Eyes are somewhat sunken. General Eye: normal appearance of both eyes; Negative for exophthalmos Neck supple, No nodes and no carotid bruits General: trachea midline Chest Chest: symmetrical chest wall rise Resp normal respiratory effort, normal air movement, no use of accessory muscles and clear to auscultation bilaterally Effort and Inspection: able to speak in complete sentences Cardio regular rhythm, S1 normal heart sound, S2 normal heart sound, no murmurs, no rub and no gallops Cardio Narrative: Resting heart rate is increased at 100 bpm. Occasional ectopic. GI normal to inspection, nondistended, normoactive bowel sounds, soft to palpation and non-tender no CVA tenderness Back/Spine no CVA tenderness Extremity no calf tenderness and no pedal edema Extremity Narrative: Marked muscle wasting of the calves and the biceps. Thin face with some temporal wasting. Intact sensation in the fingers and toes. Results Lab / Micro Data Labs: Laboratory Results - last 24 hr 01/24/25 16:33: POC Glucose 143 H Assessment & Plan Assessment/Plan (1) Physical debility: (2) Accidental fall: QUALIFIERS: Encounter type: subsequent encounter Qualified Code(s): W19.XXXD - Unspecified fall, subsequent encounter (3) Fracture of superior ramus of left pubis: QUALIFIERS: Encounter type: subsequent encounter Fracture type: closed (4) Fracture of left inferior pubic ramus: QUALIFIERS: Encounter type: subsequent encounter Fracture type: closed (5) Left wrist sprain: (6) Severe protein-calorie malnutrition: (7) Thrombocytopenia: (8) Hypothyroidism: QUALIFIERS: Hypothyroidism type: acquired Qualified Code(s): E03.9 - Hypothyroidism, unspecified (9) Iatrogenic hyperthyroidism: (10) Vitamin D deficiency: (11) Diabetes type 2: QUALIFIERS: Diabetes mellitus penitentiary insulin use: without penitentiary use Diabetes mellitus complication status: without complication Qualified Code(s): E11.9 - Type 2 diabetes mellitus without complications (12) Hyperlipemia: QUALIFIERS: Hyperlipidemia type: unspecified Qualified Code(s): E78.5 - Hyperlipidemia, unspecified (13) GERD (gastroesophageal reflux disease): QUALIFIERS: Esophagitis presence: esophagitis presence not specified Qualified Code(s): K21.9 - Gastro-esophageal reflux disease without esophagitis (14) Normochromic normocytic anemia: (15) Osteopenia: QUALIFIERS: Osteopenia location: multiple sites Qualified Code(s): M85.89 - Other specified disorders of bone density and structure, multiple sites PLAN: Plan PLAN PT for gait stability OT for ADL's ST for evaluation -consider for cognition. she is not a good historian. Analgesics as needed Bowel protocol Fall precautions Assess for Anxiety/Depression GI prophylaxis -pantoprazole 20 mg daily DVT prophylaxis with enoxaparin 40 mg subcu daily Follow up with [] following DC from IP Rehab AM lab including CMP, CBC, Mag and Phos Nystatin swish and swallow Hold oxybutynin Stop AZO......I do not know why she is on this continue stool softeners. Give a laxative today. Postvoid residual x 3 Continue Oxy IR for pain control. She has vitamin D deficiency so we will start cholecalciferol. Hemoglobin A1c in the AM. TSH and T4 in the AM. Will need to decrease the dose if the TSH and T4 are still abnormal and consistent with hyperthyroidism. Obtain Dr. Maya's problem list, med list, recent thyroid studies, any bone mineral density studies If she has not had a bone density study within the past 1 to 2 years she will need 1 when she is discharged. She has diffuse osteopenia and this is likely been exacerbated by the iatrogenic hyperthyroidism. Check orthostatics She should have a bone density study within the next few months to assess for osteoporosis. Charges/Coding Visit Charges Inpatient E&M: 41369 Init Hosp L2
[2025-01-24] MEDS: NYSTATIN 500,000 UNIT/5 ML UDC 500000 UNIT PO ×2 (17:46→21:14)
[2025-01-24 18:00] VITALS: BP 151/70; PULSE 100; RESP 17; TEMP 36.5; O2SAT 94
[2025-01-24] MEDS: Senna/Docusate Sodium 1 Tablet 2 TABLET PO (21:14)
[2025-01-24 22:00] VITALS: PULSE 100; RESP 16
[2025-01-25] MEDS: 0.9% Saline Lock 10 ML Syringe IV ×2 (04:00→20:54)
[2025-01-25 05:53] VITALS: BP 107/53; PULSE 86; RESP 16; TEMP 36.8; O2SAT 96
[2025-01-25 05:54] VITALS: BP 107/53; BP 121/65; BP 130/65; PULSE 86; PULSE 98
[2025-01-25] MEDS: Senna/Docusate Sodium 1 Tablet 2 TABLET PO ×2 (07:38→21:01)
[2025-01-25] MEDS: Cholecalciferol (VIT D3) 25 MCG TABLET (1,000 UNITS) PO (07:39)
[2025-01-25] MEDS: Psyllium 1 PACKET PO (07:39)
[2025-01-25] MEDS: NYSTATIN 500,000 UNIT/5 ML UDC 500000 UNIT PO ×4 (07:39→21:00)
[2025-01-25] MEDS: Lactobacillis Acidophilus 1 CAP PO (07:39)
[2025-01-25] MEDS: Glucerna Shake 120 ML LIQUID PO ×4 (07:40→21:02)
--- NOTE | 2025-01-25 07:57 | RAD_ITS ---
PROCEDURE: ABDOMEN SINGLE VIEW 01/25/2025 REASON FOR EXAM: SEVERE CONSTIPATION TECHNIQUE: Procedure Code: RADABD Modality: DX Procedure: Two-view supine abdomen. COMPARISON: Abdomen and pelvis CT of 09/05/2023. RAD/Abdomen Single View IMPRESSION: Prominent generalized osteopenia is seen. Partially visualized surgeries of the bilateral proximal femora again noted. Mild right and at least mild left hip joint degenerative changes are seen. No evidence of femoral head osteonecrosis. Prominent degenerative changes of the visualized spine again noted. Probable cholelithiasis. Multiple pills are seen in the region of the cecum. A moderate stool burden is seen. No small bowel dilation is evident. No mass or mass effect is seen. Reading Location: [facility]
--- NOTE | 2025-01-25 08:07 | PCM.RU.PYE ---
Admission Information Primary Diagnosis:: Debility secondary to fall/pelvic fractures Status Changes from Prescreening?: No changes Identified Actual Problem List:: Falls, Pain, ALteration in Cmfrt, Cognitve Impr/Memory Loss, Bowel, Constipation, Mobility Impaired, Self Care Deficit and Alteration-Leisure Activ. Potential Problem List:: DVT, Bleeding, Infection, UTI, Aspiration, Falls, Skin Integrity and Depression Risk of Complications DVT: LMWH (Lovenox 40 mg subcu daily) and MARY Hose Bleeding: Monitor Lab Values, Nursing to Teach Precautions for anti-coagulation therapy., Wound, if applicable, to be assessed every shift. and Stroke patients assessed for lethargy or change in status. Infection: Clinical Staff to Monitor for S/S of infection: and S/S of infection include fever, redness, warmth, etc. Urinary Tract Infection: Monitor for frequency, burning, discomfort, or incontinence. and Nursing will obtain urine sample for urinalysis and C&S when ordered. Aspiration: Clinical staff will monitor for coughing, drooling, congestion., Speech will evaluate swallowing and dsyphasia. and Nursing will monitor patient swallowing during meals. Falls: Patient will be evaluated for Fall Precautions and Patient will be placed on Fall Precautions as indicated per protocol. Skin Breakdown: Nursing will assess skin daily using assessment tool. and Nursing will place on Skin Breakdown Precautions as indicated. Pain: Clinical staff will assess patient's pain level per protocol., Medications will be given, if needed, and the pain level reassessed. and Other methods: Massage, distraction, decrease stimulus, etc. used PRN. Plan of Care Patient requires physician specializing in physical medicine and rehab oversight to provide close medical supervision of rehab issues including: Pain Management, Sleep Problems, Bowel and Bladder, Medical and co-morbidity Management, DVT prophylaxis, Rehabilitation Leadership and Coordination of treatment team Patient needs Physical Therapy: For a minimum of 1 hour and At least 5 out of 7 days Patient needs Physical Therapy to improve:: Mobility, Strengthening, Transfers, Stretching, ROM, Endurance, Stairs, Gait and Balance Patient needs Occupational Therapy: For a minimum of 1 hour and At least 5 out of 7 days Patient needs Occupational Therapy to improve ADL's incl.: Eating, Grooming, Bathing, Dressing, Toileting, Toilet transfers, Community Reintegration, Higher functioning activities, Household tasks, Adaptive Equipment, Splinting and Other activities as determined Patient requires speech therapy: For a minimum of 1 hour and At least 5 out of 7 days Patient requires speech therapy for: Swallowing, Cognition, Language Skills and Compensatory Strategies Patient requires 24/ Rehabilitation Nursing for: Pain Issues, Identifying and preventing risk factors, Monitoring and reporting current medical conditions, Assisting with ambulation, transfer, and all ADL's, Teaching patients about disease process and medications, Family teaching, Providing safe environment, Bowel and Bladder Issues, Skin integrity and Medication Management Patient needs Rail Car Unloader/ Case Management for: Discharge Planning, Arranging Home Equipment or Services and Family Interventions Patient needs Dietary and Nutrition Services for: Adequate Nutrition, Nutritional Supplements and Nutritional Education Goals Goals Patient will remain: free from falls Patient will perform eating at: MOD I level of assist. Patient will perform bed mobility at: MOD I level of assist. Patient will complete transfers from bed to chair at: MOD I level of assist. Patient will ambulate: - (165 feet with least restrictive device at mod I on various surfaces) Patient will complete upper body dressing at: - (Supervision) Patient will complete lower body dressing at: - (Supervision with adaptive equipment as needed) Patient will complete toilet transfer at: - (Supervision) Patient will complete toileting at: - (Supervision) Patient will perform bathing at: - (Upper body bathing at set up and lower body bathing at supervision with adaptive equipment as needed to facilitate increased independence with self-care) Patient will perform Tub/Shower transfer at: - (Supervision using DME as needed.) Patient will complete grooming at: - (Supervision while standing at the sink) Patient will complete home management skills at: - (Supervision) Patient will achieve: - (4 steps with 1 handrail and least restrictive device at contact-guard assist to allow entrance to her home.) Patient will have pain level of: of 3 or less Patient's skin will: remain intact Patient will receive: adequate nutrition. Discharge Planning Pt Prognosis for Sig. Practical Improv. w/in Reasonable Time: Good Estimated Length of stay (days): 21 Anticipated D/C Destination: Home with Home Health (home with dtr and [facility]) Was Preadmission Assessment Accurate?: Yes
[2025-01-25 08:14] LABS: Hematocrit 35.1 % (37-47); Hemoglobin 11.4 g/dL (12.0-15.0); Mean Corp Hgb Conc 32.5 g/dL (32-36); Mean Corpuscular Volume 92.6 fL (81-99); Mean Platelet Vol. 10.2 fl (6.2-12.0); Platelet Count 158 K/mm3 (150-450); RBC Distribution Width CV 12.8 % (11.6-14.6); RBC Distribution Width SD 44.0 fl (35.1-43.9); Red Blood Count 3.79 M/mm3 (4.2-5.4); White Blood Count 8.8 K/mm3 (4.4-11.0)
[2025-01-25 08:31] LABS: AST(SGOT) 25 U/L (<=31); Alanine Aminotransfer ALT/SGPT 21 U/L (<=34); Albumin, Serum 3.4 g/dL (3.4-4.8); Alkaline Phosphatase 66 U/L (35-104); Anion Gap 10 (5-15); BUN 14 mg/dL (4-19); BUN/Creat Ratio 22.7 RATIO (10-20); Calcium,Total 9.0 mg/dL (7.6-11.0); Carbon Dioxide 24.5 mmol/L (21.0-32.0); Chloride 102 mmol/L (98-108); Estimated Creatinine Clearance 51.46 ml/min (50-250); Globulin 2.8 g/dL (2.2-4.2); Glucose 152 mg/dL (70-99); Magnesium 1.4 mg/dL (1.5-2.2); Potassium 4.5 mmol/L (3.3-5.1)
--- NOTE | 2025-01-25 08:39 | PN_ITS ---
Subjective Subjective Afebrile VSS -blood pressure over the past 24 hours has ranged from 107/53 to 151/70. The heart rate has ranged from 86-100. Maintaining appropriate oxygen saturation on RA Oral intake - FOOD good FLUIDS poor Discussed with nursing - no problems that need addressed Reviewed the THERAPY notes Medication list reviewed. All lab from this morning was personally reviewed. White blood cell count is normal at 8.8. Hemoglobin is stable at 11.4. She has normochromic normocytic indices. Platelets are normal today. Sodium is 136 and the potassium is 4.5. The BUN is stable at 14 and the creatinine is stable at 0.61. GFR is 91. Hemoglobin A1c is 6.5 on metformin. Phosphorus is normal, calcium is normal and the magnesium is low at 1.4. LFTs are normal. TSH is now 0.843 and the free T4 is normal at 1.3. Will continue 100 mcg of levothyroxine daily. The vitamin D level is low at 25.4. Denies lightheadedness. She also denies palpitations, shortness of breath, chest pain, nausea/vomiting/abdominal pain, dysuria and calf tenderness. She did not sleep well last night but generally at home she does sleep well. She attributes this to noise and strange place. She tells me her pain is adequately controlled. She is on Tylenol 1 g p.o. every 8 hours and as needed oxycodone. She had 1 dose of oxycodone late yesterday afternoon and has not had any since then. She thinks her last bowel movement was last Friday. I reviewed the KUB done this morning and she has a moderate amount of stool with no evidence of any obstruction. Objective Data Objective Data Vital Signs: Vital Signs Temp Pulse Resp BP Pulse Ox O2 Del Method 98.2 F 86 16 130/65 H 96 Room Air 01/25/25 05:53 01/25/25 05:54 01/25/25 05:53 01/25/25 05:54 01/25/25 05:53 01/25/25 08:05 Oxygen Delivery Method Room Air Weight: 124 lb Body Mass Index (BMI) 20.6 Intake & Output: Intake and Output for Last 24 Hours 01/23/25 01/24/25 01/25/25 23:59 23:59 23:59 Intake Total 465 / 615 450 / 450 Output Total 1020 / 1220 600 / 600 Balance -555 / -605 -150 / -150 Lab / Micro Data 01/25/25 07:58 01/25/25 07:58 Labs: Laboratory Results - last 24 hr 01/24/25 16:33: POC Glucose 143 H 01/24/25 19:03: TSH 0.843 01/24/25 21:24: POC Glucose 185 H 01/25/25 06:44: POC Glucose 133 H 01/25/25 07:58: WBC 8.8, RBC 3.79 L, Hgb 11.4 L, Hct 35.1 L, MCV 92.6, MCH 30.1, MCHC 32.5, RDW Std Deviation 44.0 H, RDW Coeff of Ramon 12.8, Plt Count 158, MPV 10.2, Sodium 136, Potassium 4.5, Chloride 102, Carbon Dioxide 24.5, Anion Gap 10, BUN 14, Creatinine 0.61 L, Estim Creat Clear Calc 51.46, Est GFR (MDRD) Non- Af 91, BUN/Creatinine Ratio 22.7 H, Glucose 152 H, Calcium 9.0, Magnesium 1.4 L, Total Bilirubin 0.56, AST 25, ALT 21, Alkaline Phosphatase 66, Total Protein 6.2, Albumin 3.4, Globulin 2.8, Albumin/Globulin Ratio 1.2 Radiography Diagnostic Testing: Radiology Impression KUB X-Ray 01/25/25 07:57 IMPRESSION: Prominent generalized osteopenia is seen. Partially visualized surgeries of the bilateral proximal femora again noted. Mild right and at least mild left hip joint degenerative changes are seen. No evidence of femoral head osteonecrosis. Prominent degenerative changes of the visualized spine again noted. Probable cholelithiasis. Multiple pills are seen in the region of the cecum. A moderate stool burden is seen. No small bowel dilation is evident. No mass or mass effect is seen. Reading Location: [place] [id number] Physical Exam Const alert and no apparent distress Constitutional Narrative: Appropriate. Pleasant, making good eye contact with me. Sitting in the recliner at the bedside with her legs elevated. General Appearance: cooperative HEENT Mouth: dry mucous membranes Resp normal respiratory effort and clear to auscultation bilaterally Cardio regular rate, regular rhythm, no murmurs and no gallops Cardio Narrative: Resting heart rate is increased. GI GI Narrative: Low frequency of bowel sounds. The abdomen is soft and she does not guard with palpation. No masses. Extremity no calf tenderness Assessment & Plan Assessment/Plan (1) Physical debility: (2) Accidental fall: QUALIFIERS: Encounter type: subsequent encounter Qualified Code(s): W19.XXXD - Unspecified fall, subsequent encounter (3) Fracture of superior ramus of left pubis: QUALIFIERS: Encounter type: subsequent encounter Fracture type: c losed (4) Fracture of left inferior pubic ramus: QUALIFIERS: Encounter type: subsequent encounter Fracture type: c losed (5) Left wrist sprain: (6) Severe protein-calorie malnutrition: (7) Thrombocytopenia: PLAN: This has resolved. Platelets on 01/25/2025 on 158,000. (8) Hypothyroidism: QUALIFIERS: Hypothyroidism type: acquired Qualified Code(s): E 03.9 - Hypothyroidism, unspecified (9) Iatrogenic hyperthyroidism: PLAN: Suspect Dr. Maya changed the dose of levothyroxine in October. TSH and T4 were consistent with hyperthyroidism but currently her TSH is normal and her T4 is within normal limits. Will continue the current dose of levothyroxine. (10) Vitamin D deficiency: PLAN: Started on cholecalciferol 1000 mcg daily (11) Diabetes type 2: QUALIFIERS: Diabetes mellitus exterminator termite insulin use: without exterminator termite use Diabetes mellitus complication status: without complication Qualified Code(s): E11.9 - Type 2 diabetes mellitus without complications PLAN: Well-controlled on Glucophage 500 mg p.o. twice daily. (12) Hyperlipemia: QUALIFIERS: Hyperlipidemia type: unspecified Qualified Code(s): E 78.5 - Hyperlipidemia, unspecified (13) GERD (gastroesophageal reflux disease): QUALIFIERS: Esophagitis presence: esophagitis presence not specified Qualified Code(s): K21.9 - Gastro-esophageal reflux disease without esophagitis (14) Normochromic normocytic anemia: (15) Osteopenia: QUALIFIERS: Osteopenia location: multiple sites Qualified Code(s): M85.89 - Other specified disorders of bone density and structure, multiple sites (16) Constipation: QUALIFIERS: Constipation type: unspecified constipation type Q ualified Code(s): K59.00 - Constipation, unspecified (17) Hypomagnesemia: (18) Insomnia: QUALIFIERS: Insomnia type: adjustment Qualified Code(s): F51.02 - Adjustment insomnia PLAN: Plan 1. Continue therapy 2. The CT scan of the abdomen at admission showed a lot of fecal retention and she is retaining some urine. Will obtain a KUB today and if it shows a large fecal burden initiate laxatives. Retention is less than 200 so no need at this time to start Flomax. 3. Start a magnesium supplement 4. Started Cholecalciferol 1000 mcg daily. Will need a follow-up vitamin D level in 4 to 6 weeks. 5. Continue 100 mcg of levothyroxine daily. 6. Speech therapy eval today for cognition. 7. Start trazodone 50 mg nightly at 9 PM to assist with sleep. 8. Continue stool softeners and give laxatives today. 9. Needs a bone mineral density postdischarge. I suspect she has significant osteoporosis and would benefit from pharmacologic treatment. For now we will continue vitamin D supplements. Charges/Coding Visit Charges Inpatient E&M: 39[address] [facility] L1
[2025-01-25 08:47] LABS: CPK Total, Creatine Kinase 33 U/L (24-195)
[2025-01-25] MEDS: Magnesium Chloride 64 MG Delay Rel.Tablet 128 MG PO (10:03)
[2025-01-25 17:41] VITALS: BP 102/52; PULSE 85; RESP 16; TEMP 36.6; O2SAT 97
[2025-01-25] MEDS: MELATONIN 3 MG TABLET PO (20:59)
[2025-01-25 21:00] VITALS: PULSE 85; RESP 16; O2SAT 96
[2025-01-26 06:00] VITALS: BP 132/65; PULSE 84; RESP 16; TEMP 36.6; O2SAT 95; BMI 20.5
--- NOTE | 2025-01-26 08:32 | PN.REHAB_ITS ---
Subjective Subjective Patient seen, examined, lying in bed, just finished her breakfast. She has no new problems, concerns, issues, complaints. No pain while lying in bed, pain controlled with pain medications while walking with therapy. Objective Data Objective Data Vital Signs: Vital Signs Temp Pulse Resp BP Pulse Ox O2 Del Method 97.8 F 84 16 132/65 H 95 Room Air 01/26/25 06:00 01/26/25 06:00 01/26/25 06:00 01/26/25 06:00 01/26/25 06:00 01/26/25 07:27 Oxygen Delivery Method Room Air Weight: 55.7 kg Body Mass Index (BMI) 20.5 Intake & Output: Intake and Output for Last 24 Hours 01/24/25 01/25/25 01/26/25 23:59 23:59 23:59 Intake Total 465 / 615 2090 / 2090 590 / 590 Output Total 1020 / 1220 1350 / 1500 350 / 350 Balance -555 / -605 740 / 590 240 / 240 Lab / Micro Data 01/25/25 07:58 01/25/25 07:58 Labs: Laboratory Results - last 24 hr 01/25/25 07:58: Hemoglobin A1c 6.5 H, Phosphorus 2.9, Total Creatine Kinase 33, Free T4 1.30 01/25/25 11:22: POC Glucose 159 H 01/25/25 16:21: POC Glucose 153 H 01/25/25 20:42: POC Glucose 151 H 01/26/25 06:37: POC Glucose 136 H Micro: Microbiology 01/25/25 10:45 Stool Stool Occult Blood (YEIMY) - Final Indicators for Scoring Admitted with or Primary Diagnosis of CVA/Stroke: No Hx of CVA/Stroke: No Physical Exam Const alert General Appearance: cooperative HEENT normocephalic Eyes PERRL and EOMs intact bilaterally Neck supple, no JVD and no carotid bruits Resp normal respiratory effort, normal air movement and clear to auscultation bilaterally Cardio regular rate and regular rhythm GI normal to inspection, nondistended, normoactive bowel sounds, non-tender and non-distended Extremity normal capillary refill General Extremity: Negative for edema Skin no rashes or lesions noted General Skin Exam: no breakdown Psych affect normal Appearance: appropriate Assessment & Plan Assessment/Plan (1) Debility: (2) Fracture of left pelvis: (3) Essential (primary) hypertension: (4) Hyperlipemia: QUALIFIERS: Hyperlipidemia type: unspecified Qualified Code(s): E 78.5 - Hyperlipidemia, unspecified (5) Hypothyroidism: QUALIFIERS: Hypothyroidism type: acquired Qualified Code(s): E 03.9 - Hypothyroidism, unspecified (6) History of breast cancer: (7) Type 2 diabetes mellitus with hyperglycemia: (8) GERD (gastroesophageal reflux disease): QUALIFIERS: Esophagitis presence: esophagitis presence not specified Qualified Code(s): K21.9 - Gastro-esophageal reflux disease without esophagitis (9) Osteoarthritis: (10) Insomnia: QUALIFIERS: Insomnia type: adjustment Qualified Code(s): F51.02 - Adjustment insomnia PLAN: Plan 79 year old female with below past medical history hospitalized for left pelvic fracture, non-surgical, admitted to for 3 hours daily rehabilitation, strengthening, prior to discharge home. * Debility - PT/OT/ST. * Pain - Tylenol 1000mg q8, Oxycodone 5mg q4 prn. * Bowel - senna/colace 2 tablets bid, Metamucil 1 packet daily, Dulcolax 10mg pr daily prn, MOM 30mL po x 1 prn. * DVT prophylaxis - Lovenox 40mg sc daily. * Vitamin D deficiency - D3 25mcg daily. * Nutrition - Glucerna Shake 120mL 4x/day. * GI prophylaxis - Lactobacillus 1 capsule daily. * Hypothyroidism - Levothyroxine 100mcg daily. * Hypertension - Lisinopril 20mg daily. * Hypomagnesemia - Magnesium chloride 128mg daily. * Insomnia - Trazodone 50mg qhs, Melatonin 3mg qhs prn. * Skin irritation - Calmoseptine topical bid. * Diabetes Mellitus II - Metformin 500mg bidcm. * Thrush - Nystatin 500,000 4x/day thru 02/03/2025. * GERD - Pantoprazole 20mg daily. * Hyperlipidemia - Pravastatin 40mg qhs.
[2025-01-26] MEDS: Glucerna Shake 120 ML LIQUID PO ×4 (08:34→20:27)
[2025-01-26] MEDS: Lactobacillis Acidophilus 1 CAP PO (08:34)
[2025-01-26] MEDS: Senna/Docusate Sodium 1 Tablet 2 TABLET PO (08:34)
[2025-01-26] MEDS: Psyllium 1 PACKET PO (08:34)
[2025-01-26] MEDS: Magnesium Chloride 64 MG Delay Rel.Tablet 128 MG PO (08:34)
[2025-01-26] MEDS: NYSTATIN 500,000 UNIT/5 ML UDC 500000 UNIT PO ×4 (08:34→20:28)
[2025-01-26] MEDS: Cholecalciferol (VIT D3) 25 MCG TABLET (1,000 UNITS) PO (08:34)
[2025-01-26] MEDS: 0.9% Saline Lock 10 ML Syringe IV (13:34)
[2025-01-26 17:39] VITALS: BP 124/77; PULSE 97; RESP 16; TEMP 36.8; O2SAT 96
[2025-01-27 06:00] VITALS: BP 142/65; PULSE 98; RESP 16; TEMP 36.6; O2SAT 95
--- NOTE | 2025-01-27 08:06 | CASEMGMT ---
Social Work IDT met with patient at bedside and dtr participated via conference call for Team meeting. Discussed patient's progress in PT/OT/ST/MD/PUBLICATIONS MANAGER. Educated to Medicare benefit. SW will update pt/dtr once MC days are given with LOS. Pt's goal is to return home with dtr who works remotely. SW educated to HHC/OP/DME needs to be coordinated as needed at DC. Will ReTeam weekly. SW will continue to follow for DC planning. Antionette Moar DECAL TRANSFERRER WEIGHT LOSS SALES CONSULTANT
[2025-01-27] MEDS: Magnesium Chloride 64 MG Delay Rel.Tablet 128 MG PO (08:59)
[2025-01-27] MEDS: Cholecalciferol (VIT D3) 25 MCG TABLET (1,000 UNITS) PO (08:59)
[2025-01-27] MEDS: NYSTATIN 500,000 UNIT/5 ML UDC 500000 UNIT PO ×4 (08:59→21:25)
[2025-01-27] MEDS: Lactobacillis Acidophilus 1 CAP PO (08:59)
[2025-01-27] MEDS: Glucerna Shake 120 ML LIQUID PO ×4 (09:00→21:29)
[2025-01-27] MEDS: 0.9% Saline Lock 10 ML Syringe IV ×2 (09:02→21:26)
[2025-01-27 18:00] VITALS: BP 102/48; PULSE 79; RESP 16; TEMP 36.6; O2SAT 99
[2025-01-27 21:00] VITALS: BP 120/62; PULSE 71; O2SAT 96
[2025-01-27] MEDS: Senna/Docusate Sodium 1 Tablet 2 TABLET PO (21:26)
[2025-01-28 06:00] VITALS: BP 106/67; PULSE 79; RESP 17; TEMP 36.5; O2SAT 96
[2025-01-28] MEDS: NYSTATIN 500,000 UNIT/5 ML UDC 500000 UNIT PO ×4 (07:47→21:33)
[2025-01-28] MEDS: Cholecalciferol (VIT D3) 25 MCG TABLET (1,000 UNITS) PO (07:48)
[2025-01-28] MEDS: Senna/Docusate Sodium 1 Tablet 2 TABLET PO ×2 (07:48→21:33)
[2025-01-28] MEDS: Psyllium 1 PACKET PO (07:48)
[2025-01-28] MEDS: Lactobacillis Acidophilus 1 CAP PO (07:48)
[2025-01-28] MEDS: Magnesium Chloride 64 MG Delay Rel.Tablet 128 MG PO (07:48)
[2025-01-28] MEDS: Glucerna Shake 120 ML LIQUID PO ×4 (07:49→21:32)
--- NOTE | 2025-01-28 08:27 | PN.REHAB_ITS ---
Subjective Subjective Patient seen, examined. She was able to do stairs yesterday, and exercise bicycle for 5 minutes. Pain controlled, she has no new complaints. Objective Data Objective Data Vital Signs: Vital Signs Temp Pulse Resp BP Pulse Ox O2 Del Method 97.7 F L 79 17 106/67 96 Room Air 01/28/25 06:00 01/28/25 06:00 01/28/25 06:00 01/28/25 06:00 01/28/25 06:00 01/28/25 06:00 Oxygen Delivery Method Room Air Weight: 55.7 kg Body Mass Index (BMI) 20.5 Intake & Output: Intake and Output for Last 24 Hours 01/26/25 01/27/25 01/28/25 23:59 23:59 23:59 Intake Total 1130 / 1130 660 / 660 250 / 250 Output Total 750 / 1050 950 / 950 Balance 380 / 80 -290 / -290 250 / 250 Lab / Micro Data 01/25/25 07:58 01/25/25 07:58 Labs: Laboratory Results - last 24 hr 01/27/25 11:20: POC Glucose 196 H 01/27/25 16:22: POC Glucose 165 H Micro: Microbiology 01/25/25 10:45 Stool Stool Occult Blood (YEIMY) - Final Indicators for Scoring Admitted with or Primary Diagnosis of CVA/Stroke: No Hx of CVA/Stroke: No Physical Exam Const alert General Appearance: cooperative HEENT normocephalic Eyes PERRL and EOMs intact bilaterally Neck supple, no JVD and no carotid bruits Resp normal respiratory effort, normal air movement and clear to auscultation bilaterally Cardio regular rate and regular rhythm GI normal to inspection, nondistended, normoactive bowel sounds, non-tender and non-distended Extremity normal capillary refill General Extremity: Negative for edema Skin no rashes or lesions noted General Skin Exam: no breakdown Psych affect normal Appearance: appropriate Assessment & Plan Assessment/Plan (1) Debility: (2) Fracture of left pelvis: (3) Essential (primary) hypertension: (4) Hyperlipemia: QUALIFIERS: Hyperlipidemia type: unspecified Qualified Code(s): E 78.5 - Hyperlipidemia, unspecified (5) Hypothyroidism: QUALIFIERS: Hypothyroidism type: acquired Qualified Code(s): E 03.9 - Hypothyroidism, unspecified (6) History of breast cancer: (7) Type 2 diabetes mellitus with hyperglycemia: (8) GERD (gastroesophageal reflux disease): QUALIFIERS: Esophagitis presence: esophagitis presence not specified Qualified Code(s): K21.9 - Gastro-esophageal reflux disease without esophagitis (9) Osteoarthritis: (10) Insomnia: QUALIFIERS: Insomnia type: adjustment Qualified Code(s): F51.02 - Adjustment insomnia PLAN: Plan 79 year old female with below past medical history hospitalized for left pelvic fracture, non-surgical, admitted to for 3 hours daily rehabilitation, strengthening, prior to discharge home. * Debility - PT/OT/ST. * Pain - Tylenol 1000mg q8, Oxycodone 5mg q4 prn. * Bowel - senna/colace 2 tablets bid, Metamucil 1 packet daily, Dulcolax 10mg pr daily prn, MOM 30mL po x 1 prn. * DVT prophylaxis - Lovenox 40mg sc daily. * Vitamin D deficiency - D3 25mcg daily. * Nutrition - Glucerna Shake 120mL 4x/day. * GI prophylaxis - Lactobacillus 1 capsule daily. * Hypothyroidism - Levothyroxine 100mcg daily. * Hypertension - Lisinopril 20mg daily. * Hypomagnesemia - Magnesium chloride 128mg daily. * Insomnia - Trazodone 50mg qhs, Melatonin 3mg qhs prn. * Skin irritation - Calmoseptine topical bid. * Diabetes Mellitus II - Metformin 500mg bidcm. * Thrush - Nystatin 500,000 4x/day thru 02/03/2025. * GERD - Pantoprazole 20mg daily. * Hyperlipidemia - Pravastatin 40mg qhs.
[2025-01-28 17:36] VITALS: BP 118/59; PULSE 79; RESP 16; TEMP 36.6; O2SAT 97
[2025-01-29 05:51] VITALS: BP 130/62; PULSE 83; RESP 18; TEMP 36.6; O2SAT 97
[2025-01-29 06:00] VITALS: BP 114/57; PULSE 73; RESP 17; TEMP 36.6; O2SAT 95
[2025-01-29] MEDS: Magnesium Chloride 64 MG Delay Rel.Tablet 128 MG PO (08:09)
[2025-01-29] MEDS: Lactobacillis Acidophilus 1 CAP PO (08:09)
[2025-01-29] MEDS: Psyllium 1 PACKET PO (08:10)
[2025-01-29 08:11] VITALS: BP 103/65; PULSE 86
[2025-01-29] MEDS: Glucerna Shake 120 ML LIQUID PO ×4 (10:59→20:15)
[2025-01-29] MEDS: Senna/Docusate Sodium 1 Tablet 2 TABLET PO ×2 (10:59→20:15)
[2025-01-29] MEDS: Cholecalciferol (VIT D3) 25 MCG TABLET (1,000 UNITS) PO (10:59)
[2025-01-29] MEDS: NYSTATIN 500,000 UNIT/5 ML UDC 500000 UNIT PO ×4 (10:59→20:15)
[2025-01-29] MEDS: 0.9% Saline Lock 10 ML Syringe IV ×2 (13:18→20:15)
[2025-01-29 18:00] VITALS: BP 101/63; PULSE 86; RESP 16; TEMP 36.7; O2SAT 98
[2025-01-30 05:56] VITALS: BP 112/57; PULSE 75; RESP 16; TEMP 37.1; O2SAT 95
[2025-01-30 07:30] VITALS: BP 99/58
[2025-01-30] MEDS: Lactobacillis Acidophilus 1 CAP PO (07:56)
[2025-01-30] MEDS: Psyllium 1 PACKET PO (07:56)
[2025-01-30] MEDS: Senna/Docusate Sodium 1 Tablet 2 TABLET PO (07:56)
[2025-01-30] MEDS: Magnesium Chloride 64 MG Delay Rel.Tablet 128 MG PO (07:56)
[2025-01-30] MEDS: Cholecalciferol (VIT D3) 25 MCG TABLET (1,000 UNITS) PO (07:59)
[2025-01-30] MEDS: NYSTATIN 500,000 UNIT/5 ML UDC 500000 UNIT PO ×4 (09:27→21:06)
[2025-01-30 09:30] VITALS: BP 104/58
[2025-01-30] MEDS: Glucerna Shake 120 ML LIQUID PO ×3 (09:32→16:56)
[2025-01-30 17:10] VITALS: BP 111/58; PULSE 85; RESP 16; TEMP 36.3; O2SAT 96
[2025-01-31 06:00] VITALS: BP 115/57; PULSE 78; RESP 16; TEMP 36.9; O2SAT 95
[2025-01-31] MEDS: Cholecalciferol (VIT D3) 25 MCG TABLET (1,000 UNITS) PO (07:17)
[2025-01-31] MEDS: Lactobacillis Acidophilus 1 CAP PO (07:18)
[2025-01-31] MEDS: Magnesium Chloride 64 MG Delay Rel.Tablet 128 MG PO (07:18)
[2025-01-31] MEDS: Psyllium 1 PACKET PO (07:19)
[2025-01-31 07:29] VITALS: BP 119/54; PULSE 70
--- NOTE | 2025-01-31 07:51 | PN.REHAB_ITS ---
Subjective Subjective Patient seen, examined. Had good BM yesterday, sitting in chair, having breakfast, no new complaints. Objective Data Objective Data Vital Signs: Vital Signs Temp Pulse Resp BP Pulse Ox O2 Del Method 98.5 F 70 16 119/54 L 95 Room Air 01/31/25 06:00 01/31/25 07:29 01/31/25 06:00 01/31/25 07:29 01/31/25 06:00 01/31/25 06:00 Oxygen Delivery Method Room Air Weight: 55.7 kg Body Mass Index (BMI) 20.5 Intake & Output: Intake and Output for Last 24 Hours 01/29/25 01/30/25 01/31/25 23:59 23:59 23:59 Intake Total 1260 / 1260 1100 / 1100 500 / 500 Output Total 1150 / 1150 1325 / 1575 650 / 650 Balance 110 / 110 -225 / -475 -150 / -150 Lab / Micro Data 01/25/25 07:58 01/25/25 07:58 Micro: Microbiology 01/25/25 10:45 Stool Stool Occult Blood (YEIMY) - Final Indicators for Scoring Admitted with or Primary Diagnosis of CVA/Stroke: No Hx of CVA/Stroke: No Physical Exam Const alert General Appearance: cooperative HEENT normocephalic Eyes PERRL and EOMs intact bilaterally Neck supple, no JVD and no carotid bruits Resp normal respiratory effort, normal air movement and clear to auscultation bilaterally Cardio regular rate and regular rhythm GI normal to inspection, nondistended, normoactive bowel sounds, non-tender and non-distended Extremity normal capillary refill General Extremity: Negative for edema Skin no rashes or lesions noted General Skin Exam: no breakdown Psych affect normal Appearance: appropriate Assessment & Plan Assessment/Plan (1) Debility: (2) Fracture of left pelvis: (3) Essential (primary) hypertension: (4) Hyperlipemia: QUALIFIERS: Hyperlipidemia type: unspecified Qualified Code(s): E 78.5 - Hyperlipidemia, unspecified (5) Hypothyroidism: QUALIFIERS: Hypothyroidism type: acquired Qualified Code(s): E 03.9 - Hypothyroidism, unspecified (6) History of breast cancer: (7) Type 2 diabetes mellitus with hyperglycemia: (8) GERD (gastroesophageal reflux disease): QUALIFIERS: Esophagitis presence: esophagitis presence not specified Qualified Code(s): K21.9 - Gastro-esophageal reflux disease without esophagitis (9) Osteoarthritis: (10) Insomnia: QUALIFIERS: Insomnia type: adjustment Qualified Code(s): F51.02 - Adjustment insomnia PLAN: Plan 79 year old female with below past medical history hospitalized for left pelvic fracture, non-surgical, admitted to for 3 hours daily rehabilitation, strengthening, prior to discharge home. * Debility - PT/OT/ST. * Pain - Tylenol 1000mg q8, Oxycodone 5mg q4 prn. * Bowel - senna/colace 2 tablets bid, Metamucil 1 packet daily, Dulcolax 10mg pr daily prn, MOM 30mL po x 1 prn. * DVT prophylaxis - Lovenox 40mg sc daily. * Vitamin D deficiency - D3 25mcg daily. * Nutrition - Glucerna Shake 120mL 4x/day. * GI prophylaxis - Lactobacillus 1 capsule daily. * Hypothyroidism - Levothyroxine 100mcg daily. * Hypertension - Lisinopril 20mg daily. * Hypomagnesemia - Magnesium chloride 128mg daily. * Insomnia - Trazodone 50mg qhs, Melatonin 3mg qhs prn. * Skin irritation - Calmoseptine topical bid. * Diabetes Mellitus II - Metformin 500mg bidcm. * Thrush - Nystatin 500,000 4x/day thru 02/03/2025. * GERD - Pantoprazole 20mg daily. * Hyperlipidemia - Pravastatin 40mg qhs.
[2025-01-31] MEDS: NYSTATIN 500,000 UNIT/5 ML UDC 500000 UNIT PO ×4 (09:00→21:37)
[2025-01-31] MEDS: Glucerna Shake 120 ML LIQUID PO ×3 (09:00→17:27)
[2025-01-31 17:39] VITALS: BP 117/61; PULSE 89; RESP 16; TEMP 36.6; O2SAT 97
[2025-02-01 05:29] VITALS: BP 133/58; PULSE 83; RESP 16; TEMP 36.8; O2SAT 97
[2025-02-01] MEDS: Psyllium 1 PACKET PO (07:48)
[2025-02-01] MEDS: Senna/Docusate Sodium 1 Tablet 2 TABLET PO ×2 (07:48→21:36)
[2025-02-01] MEDS: Cholecalciferol (VIT D3) 25 MCG TABLET (1,000 UNITS) PO (07:48)
[2025-02-01] MEDS: Lactobacillis Acidophilus 1 CAP PO (07:48)
[2025-02-01] MEDS: Magnesium Chloride 64 MG Delay Rel.Tablet 128 MG PO (07:48)
[2025-02-01] MEDS: NYSTATIN 500,000 UNIT/5 ML UDC 500000 UNIT PO ×3 (07:48→21:36)
[2025-02-01] MEDS: Glucerna Shake 120 ML LIQUID PO ×2 (07:51→13:30)
--- NOTE | 2025-02-01 08:11 | PN.REHAB_ITS ---
Subjective Subjective Patient seen, examined. No acute events overnight, she is pleasant, sitting in chair. No new complaints. Objective Data Objective Data Vital Signs: Vital Signs Temp Pulse Resp BP Pulse Ox O2 Del Method 98.2 F 83 16 133/58 H 97 Room Air 02/01/25 05:29 02/01/25 05:29 02/01/25 05:29 02/01/25 05:29 02/01/25 05:29 02/01/25 05:29 Oxygen Delivery Method Room Air Weight: 55.7 kg Body Mass Index (BMI) 20.5 Intake & Output: Intake and Output for Last 24 Hours 01/30/25 01/31/25 02/01/25 23:59 23:59 23:59 Intake Total 1100 / 1100 1650 / 1650 150 / 150 Output Total 1325 / 1575 1550 / 1550 275 / 275 Balance -225 / -475 100 / 100 -125 / -125 Lab / Micro Data 01/25/25 07:58 01/25/25 07:58 Micro: Microbiology 01/25/25 10:45 Stool Stool Occult Blood (YEIMY) - Final Indicators for Scoring Admitted with or Primary Diagnosis of CVA/Stroke: No Hx of CVA/Stroke: No Physical Exam Const alert General Appearance: cooperative HEENT normocephalic Eyes PERRL and EOMs intact bilaterally Neck supple, no JVD and no carotid bruits Resp normal respiratory effort, normal air movement and clear to auscultation bilaterally Cardio regular rate and regular rhythm GI normal to inspection, nondistended, normoactive bowel sounds, non-tender and non-distended Extremity normal capillary refill General Extremity: Negative for edema Skin no rashes or lesions noted General Skin Exam: no breakdown Psych affect normal Appearance: appropriate Assessment & Plan Assessment/Plan (1) Debility: (2) Fracture of left pelvis: (3) Essential (primary) hypertension: (4) Hyperlipemia: QUALIFIERS: Hyperlipidemia type: unspecified Qualified Code(s): E 78.5 - Hyperlipidemia, unspecified (5) Hypothyroidism: QUALIFIERS: Hypothyroidism type: acquired Qualified Code(s): E 03.9 - Hypothyroidism, unspecified (6) History of breast cancer: (7) Type 2 diabetes mellitus with hyperglycemia: (8) GERD (gastroesophageal reflux disease): QUALIFIERS: Esophagitis presence: esophagitis presence not specified Qualified Code(s): K21.9 - Gastro-esophageal reflux disease without esophagitis (9) Osteoarthritis: (10) Insomnia: QUALIFIERS: Insomnia type: adjustment Qualified Code(s): F51.02 - Adjustment insomnia PLAN: Plan 79 year old female with below past medical history hospitalized for left pelvic fracture, non-surgical, admitted to for 3 hours daily rehabilitation, strengthening, prior to discharge home. * Debility - PT/OT/ST. * Pain - Tylenol 1000mg q8, Oxycodone 5mg q4 prn. * Bowel - senna/colace 2 tablets bid, Metamucil 1 packet daily, Dulcolax 10mg pr daily prn, MOM 30mL po x 1 prn. * DVT prophylaxis - Lovenox 40mg sc daily. * Vitamin D deficiency - D3 25mcg daily. * Nutrition - Glucerna Shake 120mL 4x/day. * GI prophylaxis - Lactobacillus 1 capsule daily. * Hypothyroidism - Levothyroxine 100mcg daily. * Hypertension - Lisinopril 20mg daily. * Hypomagnesemia - Magnesium chloride 128mg daily. * Insomnia - Trazodone 50mg qhs, Melatonin 3mg qhs prn. * Skin irritation - Calmoseptine topical bid. * Diabetes Mellitus II - Metformin 500mg bidcm. * Thrush - Nystatin 500,000 4x/day thru 02/03/2025. * GERD - Pantoprazole 20mg daily. * Hyperlipidemia - Pravastatin 40mg qhs.
[2025-02-01 17:28] VITALS: BP 97/53; PULSE 80; RESP 16; TEMP 36.4; O2SAT 97
[2025-02-02 06:00] VITALS: BP 109/53; PULSE 9; RESP 16; TEMP 36.7; O2SAT 96; BMI 20.2
[2025-02-02] MEDS: NYSTATIN 500,000 UNIT/5 ML UDC 500000 UNIT PO ×4 (07:53→21:45)
[2025-02-02] MEDS: Magnesium Chloride 64 MG Delay Rel.Tablet 128 MG PO (07:54)
[2025-02-02] MEDS: Lactobacillis Acidophilus 1 CAP PO (07:54)
[2025-02-02] MEDS: Cholecalciferol (VIT D3) 25 MCG TABLET (1,000 UNITS) PO (07:54)
[2025-02-02] MEDS: Senna/Docusate Sodium 1 Tablet 2 TABLET PO (07:54)
[2025-02-02] MEDS: Psyllium 1 PACKET PO (07:54)
--- NOTE | 2025-02-02 08:26 | PN.REHAB_ITS ---
Subjective Subjective Patient seen, examined. No acute events overnight, she is eating breakfast in chair. No new complaints, she appears well. Objective Data Objective Data Vital Signs: Vital Signs Temp Pulse Resp BP Pulse Ox O2 Del Method 98.1 F 9 L 16 109/53 L 96 Room Air 02/02/25 06:00 02/02/25 06:00 02/02/25 06:00 02/02/25 06:00 02/02/25 06:00 02/02/25 06:00 Oxygen Delivery Method Room Air Weight: 55 kg Body Mass Index (BMI) 20.2 Intake & Output: Intake and Output for Last 24 Hours 01/31/25 02/01/25 02/02/25 23:59 23:59 23:59 Intake Total 1650 / 1650 1720 / 1720 300 / 300 Output Total 1550 / 1550 1225 / 1225 280 / 280 Balance 100 / 100 495 / 495 Lab / Micro Data 01/25/25 07:58 01/25/25 07:58 Micro: Microbiology 01/25/25 10:45 Stool Stool Occult Blood (YEIMY) - Final Indicators for Scoring Admitted with or Primary Diagnosis of CVA/Stroke: No Hx of CVA/Stroke: No Physical Exam Const alert General Appearance: cooperative HEENT normocephalic Eyes PERRL and EOMs intact bilaterally Neck supple, no JVD and no carotid bruits Resp normal respiratory effort, normal air movement and clear to auscultation bilaterally Cardio regular rate and regular rhythm GI normal to inspection, nondistended, normoactive bowel sounds, non-tender and non-distended Extremity normal capillary refill General Extremity: Negative for edema Skin no rashes or lesions noted General Skin Exam: no breakdown Psych affect normal Appearance: appropriate Assessment & Plan Assessment/Plan (1) Debility: (2) Fracture of left pelvis: (3) Essential (primary) hypertension: (4) Hyperlipemia: QUALIFIERS: Hyperlipidemia type: unspecified Qualified Code(s): E 78.5 - Hyperlipidemia, unspecified (5) Hypothyroidism: QUALIFIERS: Hypothyroidism type: acquired Qualified Code(s): E 03.9 - Hypothyroidism, unspecified (6) History of breast cancer: (7) Type 2 diabetes mellitus with hyperglycemia: (8) GERD (gastroesophageal reflux disease): QUALIFIERS: Esophagitis presence: esophagitis presence not specified Qualified Code(s): K21.9 - Gastro-esophageal reflux disease without esophagitis (9) Osteoarthritis: (10) Insomnia: QUALIFIERS: Insomnia type: adjustment Qualified Code(s): F51.02 - Adjustment insomnia PLAN: Plan 79 year old female with below past medical history hospitalized for left pelvic fracture, non-surgical, admitted to for 3 hours daily rehabilitation, strengthening, prior to discharge home. * Debility - PT/OT/ST. * Pain - Tylenol 1000mg q8, Oxycodone 5mg q4 prn. * Bowel - senna/colace 2 tablets bid, Metamucil 1 packet daily, Dulcolax 10mg pr daily prn, MOM 30mL po x 1 prn. * DVT prophylaxis - Lovenox 40mg sc daily. * Vitamin D deficiency - D3 25mcg daily. * Nutrition - Glucerna Shake 120mL 4x/day. * GI prophylaxis - Lactobacillus 1 capsule daily. * Hypothyroidism - Levothyroxine 100mcg daily. * Hypertension - Lisinopril 20mg daily. * Hypomagnesemia - Magnesium chloride 128mg daily. * Insomnia - Trazodone 50mg qhs, Melatonin 3mg qhs prn. * Skin irritation - Calmoseptine topical bid. * Diabetes Mellitus II - Metformin 500mg bidcm. * Thrush - Nystatin 500,000 4x/day thru 02/03/2025. * GERD - Pantoprazole 20mg daily. * Hyperlipidemia - Pravastatin 40mg qhs.
[2025-02-02] MEDS: Glucerna Shake 120 ML LIQUID PO ×3 (14:14→21:45)
[2025-02-02 17:52] VITALS: BP 118/61; PULSE 89; RESP 16; TEMP 36.2; O2SAT 97
[2025-02-03 06:00] VITALS: BP 123/67; PULSE 83; RESP 16; TEMP 36.5; O2SAT 97
--- NOTE | 2025-02-03 08:45 | CASEMGMT ---
Social Work IDT met with patient at bedside, then dtr participated via conference call for Team meeting. Discussed patient's progress in PT/OT/ST/SN/[employer]/MD. Educated to Medicare DC date for 02/07, which is a Friday. SW offered to DC Friday or Friday d/t no therapy on Friday or day of DC. Dtr requests DC 02/06, as she works full-time. ANITA confirmed DC plans as skilled HHC and no DME needs. ANITA provided list of skilled HHC agencies within geographical area, [place] with insurance, that include quality and resource data via [employer] guide via provided email address. Dtr will select preference and notify this worker. Dtr will transport at DC. Plan: DC home with dtr 02/06, skilled HHC PT/OT/SN Antionette ROBERTSW
[2025-02-03 08:50] VITALS: BP 137/69; PULSE 105
[2025-02-03] MEDS: NYSTATIN 500,000 UNIT/5 ML UDC 500000 UNIT PO ×3 (08:52→17:35)
[2025-02-03] MEDS: Psyllium 1 PACKET PO (08:52)
[2025-02-03] MEDS: Cholecalciferol (VIT D3) 25 MCG TABLET (1,000 UNITS) PO (08:52)
[2025-02-03] MEDS: Lactobacillis Acidophilus 1 CAP PO (08:52)
[2025-02-03] MEDS: Glucerna Shake 120 ML LIQUID PO ×3 (08:55→17:37)
[2025-02-03] MEDS: Magnesium Chloride 64 MG Delay Rel.Tablet 128 MG PO (08:57)
--- NOTE | 2025-02-03 09:42 | CASEMGMT ---
Social Work SW emailed a list of?HH providers including quality and resource use data and consistent with the patient's preferred geographic region, medical needs, and insurance network was created in [facility] Guide to the daughter. GRACE Churchill
--- NOTE | 2025-02-03 11:38 | CASEMGMT ---
Addendum entered by Antionette Mora 02/03/25 15:07: The referral was made for PT/OT, but after further review, OT is not needed. Pt will have [facility] for PT only. Original Note: Social Work The daughter chose [facility]. A referral was made to [facility] and the patient was accepted. SOC is Friday. GRACE Mcrae
[2025-02-03 18:00] VITALS: BP 92/44; PULSE 82; RESP 16; TEMP 36.6; O2SAT 94
[2025-02-03] MEDS: Senna/Docusate Sodium 1 Tablet 2 TABLET PO (21:30)
[2025-02-04 06:00] VITALS: BP 119/60; PULSE 75; RESP 16; TEMP 36.9; O2SAT 98
[2025-02-04] MEDS: Senna/Docusate Sodium 1 Tablet 2 TABLET PO ×2 (08:32→20:54)
[2025-02-04] MEDS: Psyllium 1 PACKET PO (08:33)
[2025-02-04] MEDS: Lactobacillis Acidophilus 1 CAP PO (08:33)
[2025-02-04] MEDS: Cholecalciferol (VIT D3) 25 MCG TABLET (1,000 UNITS) PO (08:33)
[2025-02-04] MEDS: Magnesium Chloride 64 MG Delay Rel.Tablet 128 MG PO (08:34)
[2025-02-04] MEDS: Glucerna Shake 120 ML LIQUID PO ×3 (08:38→17:59)
--- NOTE | 2025-02-04 09:06 | NURSING ---
This RN is aware of Vital Signs that were taken this morning around 6am. Will monitor.
--- NOTE | 2025-02-04 10:25 | DS.PCM_ITS ---
Providers Date of Admission: 01/24/25 Date of Discharge: 02/06/25 Primary Care Physician: Dr. Joann Maya MD Reason For Visit: L PUBIC FRACTURE Diagnosis Discharge Diagnosis (1) Debility: Status: Acute Code(s): R53.81 - Other malaise (2) Fracture of left pelvis: Status: Acute Code(s): S32.9XXA - Fracture of unspecified parts of lumbosacral spine and pelvis, initial encounter for closed fracture Qualifiers: Pelvic bone location: pubis Encounter type: subsequent encounter (3) Essential (primary) hypertension: Status: Acute Code(s): I10 - Essential (primary) hypertension (4) Hyperlipemia: Status: Acute Code(s): E78.5 - Hyperlipidemia, unspecified Qualifiers: Hyperlipidemia type: unspecified Qualified Code(s): E78.5 - Hyperlipidemia, unspecified (5) Hypothyroidism: Status: Acute Code(s): E03.9 - Hypothyroidism, unspecified Qualifiers: Hypothyroidism type: acquired Qualified Code(s): E03.9 - Hypothyroidism, unspecified (6) History of breast cancer: Status: Acute Code(s): Z85.3 - Personal history of malignant neoplasm of breast (7) Type 2 diabetes mellitus with hyperglycemia: Status: Acute Code(s): E11.65 - Type 2 diabetes mellitus with hyperglycemia Qualifiers: Diabetes mellitus assisted insulin use: without cattle driver use Q ualified Code(s): E11.65 - Type 2 diabetes mellitus with hyperglycemia (8) GERD (gastroesophageal reflux disease): Status: Acute Code(s): K21.9 - Gastro-esophageal reflux disease without esophagitis Qualifiers: Esophagitis presence: esophagitis presence not specified Qualified Code(s): K21.9 - Gastro-esophageal reflux disease without esophagitis (9) Osteoarthritis: Status: Acute Code(s): M19.90 - Unspecified osteoarthritis, unspecified site Qualifiers: Osteoarthritis location: multiple joints (10) Insomnia: Status: Acute Code(s): G47.00 - Insomnia, unspecified Qualifiers: Insomnia type: adjustment Qualified Code(s): F51.02 - Adjustment insomnia Medications at Discharge Home Medications Lactobacillus acidophilus and rhamnosus 15 billion cell capsule (Florajen Women) 1 cap PO DAILY probiotic 01/21/25 levothyroxine 100 mcg tablet (Euthyrox) 100 mcg PO DAILY thyroid 01/21/25 lisinopril 20 mg tablet 20 mg PO DAILY bp 01/21/25 metformin 500 mg tablet 500 mg PO BID dm 01/21/25 omeprazole 20 mg capsule,delayed release 20 mg PO DAILY acid reflux 01/21/25 oxybutynin chloride 5 mg tablet 10 mg PO DAILY bladder 01/21/25 phenazopyridine 95 mg tablet (Azo Urinary Pain Relief) 95 mg PO DAILY urinary 01/21/25 pravastatin 40 mg tablet 40 mg PO DAILY cholesterol 01/21/25 psyllium husk 3.4 gram/5.4 gram oral powder (Metamucil) 2 tsp PO DAILY fiber 01/21/25 melatonin 3 mg tablet 3 mg PO QHS PRN PRN Insomnia #0 tabs 01/24/25 menthol 0.44 %-zinc oxide 20.6 % topical ointment (Calmoseptine) 1 applic topical TID buttocks 01/24/25 nutrition tx glu intol,lac-free,soy-fiber 0.06 gram-1.2 kcal/mL liquid (Glucerna 1.2 Prem) 120 ml PO 4X/DAY supp #0 mL 01/24/25 nystatin 100,000 unit/mL oral suspension 500,000 unit (5 mL) PO 4X/DAY thrush #0 mL 01/24/25 sennosides 8.6 mg-docusate sodium 50 mg tablet (Stimulant Laxative Plus) 2 tab PO BID stool softener #0 tabs 01/24/25 acetaminophen 325 mg tablet 1,000 mg (3.0769 x 325 mg) PO Q8 pain 30 days #277 tabs 02/04/25 cholecalciferol (vitamin D3) 25 mcg (1,000 unit) tablet 25 mcg PO DAILY 30 days #30 tabs 02/04/25 magnesium chloride 64 mg (magnesium chloride) tablet,delayed release (Mag 64) 128 mg (2 x 64 mg) PO DAILY 30 days #60 tabs 02/04/25 oxycodone 5 mg tablet 5 mg PO Q6H PRN PRN Pain Score 4-10 7 days #28 tabs 02/04/25 trazodone 50 mg tablet 50 mg PO 2100 7 days #7 tabs 02/04/25 Hospital Course Operations None Procedures None Summary of Care Provided Minutes Spent on Discharge: 90 Hospital Course: SUE WALTER, is a 79 YO F with a PMH of hypothyroidism, breast cancer, hypertension, hyperlipidemia, diabetes mellitus type 2, GERD and osteoarthritis who presented to the ED at [facility] on 01/21/25 complaining of left hip pain and left wrist pain. She had a ground-level fall leaving [employer] when had a trip and fall. She did not strike her head and she had no loss of consciousness. Plain film of the left hip and pelvis showed diffuse osteopenia with no evidence of acute fracture. There was hardware present in both femurs due to prior ORIF. Left wrist x-ray showed diffuse osteopenia without a fracture or suspicious osseous lesion. CT scan of the left hip/femur showed an acute nondisplaced fracture of the left superior and inferior pubic rami with surrounding soft tissue edema. There was reduced bone density. She was admitted to the hospitalist service. She was seen in consultation by the dietitian who felt she had severe protein/calorie malnutrition. Supplements were started. She was seen by PT/OT and they felt she was able to do 3 hours of therapy daily. She was transferred to the acute inpatient rehab unit at [facility] on 01/24/2025 for 3 hours of therapy daily to restore function/independence at or near her level prior to the most recent fall. Sue has had 4 falls in the past year. She states that she just loses her balance. Sometimes she has dizziness but, when she sits down it goes away. During her stay in inpatient rehab she worked well with therapies and is utilizing a walker. She will continue to work with PT with [facility] at home. Pain is currently controlled with scheduled Tylenol every 8 hours and Oxycodone 5mg every 6 hours for breakthrough pain. She is sent home with a 7 day supply. She did experience some insomnia during admission as was given Trazodone for sleep. SHe was also given a 7 day supply to assist with sleep at home. Follow up with PCP at discharge. Physical Exam Const alert General Appearance: cooperative HEENT normocephalic Eyes PERRL and EOMs intact bilaterally Neck supple, no JVD and no carotid bruits Resp normal respiratory effort, normal air movement and clear to auscultation bilaterally Cardio regular rate and regular rhythm GI normal to inspection, nondistended, normoactive bowel sounds, non-tender and non-distended no CVA tenderness Extremity normal capillary refill General Extremity: Negative for edema Skin no rashes or lesions noted General Skin Exam: no breakdown Neuro oriented x3 Psych affect normal Appearance: appropriate Medical Records Data Attestation: I reviewed the patient's medical records Weight / BMI Weight Weight: 121 lb 4.068 oz Body Mass Index (BMI) 20.2 ABG / Lab / Microbiology Data 01/25/25 07:58 01/25/25 07:58 Microbiology: Microbiology 01/25/25 10:45 Stool Stool Occult Blood (YEIMY) - Final D/C Instructions Discharge Activity: Use Walker Weight Bearing Status: Weight bearing as tolerated Call your doctor if you observe: Coldness, Increased Pain, Numbness or Tingling, Inability to urinate, Inability to have a bowel movement, Shortness of breath, Dizziness, Fainting spells, Swelling in the ankles, Calf discomfort and Uncontrolled pain DC O2, CPAP, BIPAP Needs Home O2 Discharge instructions: No DC home with Oxygen: No Meaningful Use Info Meaningful Use Meaningful Use Diagnoses (Choose all that apply): None applicable Discharge Plan Admission Admit Date/Time: 01/24/25 13:20 Primary Reason for Your Visit: debility following a fall with pelvic fracture Attending Provider: Rosalia Banda Primary Care Provider: Joann Maya Discharge Orders/Prescriptions Prescriptions: New cholecalciferol (vitamin D3) 25 mcg (1,000 unit) Tablet 25 mcg PO DAILY 30 Days Qty: 30 0RF magnesium chloride [Mag 64] 64 mg Tablet,Delayed Release (Dr/Ec) 128 mg PO DAILY 30 Days Qty: 60 0RF trazodone 50 mg Tablet 50 mg PO 2100 7 Days Qty: 7 0RF Continued oxybutynin chloride 5 mg tablet 10 mg PO DAILY pravastatin 40 mg tablet 40 mg PO DAILY metformin 500 mg tablet 500 mg PO BID lisinopril 20 mg tablet 20 mg PO DAILY levothyroxine [Euthyrox] 100 mcg tablet 100 mcg PO DAILY omeprazole 20 mg capsule,delayed release(DR/EC) 20 mg PO DAILY phenazopyridine [Azo Urinary Pain Relief] 95 mg tablet 95 mg PO DAILY Metamucil 3.4 gram/5.4 gram powder 2 tsp PO DAILY Florajen Women 15 billion cell capsule 1 cap PO DAILY nystatin 100,000 unit/mL Suspension 500,000 unit PO 4X/DAY Qty: 0 0RF sennosides-docusate sodium [Stimulant Laxative Plus] 8.6-50 mg Tablet 2 tab PO BID Qty: 0 0RF melatonin 3 mg Tablet 3 mg PO QHS PRN PRN (Reason: Insomnia) Qty: 0 0RF Glucerna 1.2 Prem 0.06-1.2 gram-kcal/mL Liquid 120 ml PO 4X/DAY Qty: 0 0RF menthol-zinc oxide [Calmoseptine] 0.44-20.6 % Ointment 1 applic topical TID Protocol: *Topical Application Instructions APPLICATION INSTRUCTIONS: apply to affected region acetaminophen 325 mg Tablet 1,000 mg PO Q8 30 Days Qty: 277 0RF Changed oxycodone 5 mg Tablet 5 mg PO Q6H PRN PRN (Reason: Pain Score 4-10) 7 Days Qty: 28 0RF Rx Instructions: utilize for breakthrough pain of 6-10 Discontinued enoxaparin 40 mg/0.4 mL Syringe 40 mg subcut DAILY@0600 Referrals / Follow Up: Joann Maya MD [Primary Care Provider, Family Practice] - 02/11/25 1:30 pm Disposition Disposition (needs filled in before D/C Order can be placed): Home Health Service Charges/Coding Visit Charges Inpatient E&M: 62572 Disch Hosp >30min
--- NOTE | 2025-02-04 11:29 | CASEMGMT ---
Social Work SW called the daughter Lizzy and informed her that [facility] accepted the patient. Lizzy reported [facility] has already contacted her and SOC is Friday. SW completed the BIMS score 14/15 and PHQ2 score-0 with the patient. Patient signed her IMM. ANITA updated the treatment plan. GRACE Mcrae
[2025-02-04 16:58] VITALS: BP 96/52; PULSE 89; RESP 16; TEMP 37.1; O2SAT 99
[2025-02-05 05:44] VITALS: BP 138/67; PULSE 80; RESP 17; TEMP 36.8; O2SAT 98
[2025-02-05] MEDS: Cholecalciferol (VIT D3) 25 MCG TABLET (1,000 UNITS) PO (08:14)
[2025-02-05] MEDS: Lactobacillis Acidophilus 1 CAP PO (08:14)
[2025-02-05] MEDS: Psyllium 1 PACKET PO (08:14)
[2025-02-05] MEDS: Magnesium Chloride 64 MG Delay Rel.Tablet 128 MG PO (08:14)
[2025-02-05] MEDS: Senna/Docusate Sodium 1 Tablet 2 TABLET PO ×2 (08:14→20:47)
[2025-02-05] MEDS: Glucerna Shake 120 ML LIQUID PO ×2 (13:39→17:13)
[2025-02-05 17:38] VITALS: BP 115/49; PULSE 81; RESP 16; TEMP 37; O2SAT 96
[2025-02-06 05:45] VITALS: BP 106/63; PULSE 79; RESP 17; TEMP 36.6; O2SAT 95
[2025-02-06] MEDS: Psyllium 1 PACKET PO (07:47)
[2025-02-06] MEDS: Cholecalciferol (VIT D3) 25 MCG TABLET (1,000 UNITS) PO (07:47)
[2025-02-06] MEDS: Glucerna Shake 120 ML LIQUID PO (07:47)
[2025-02-06] MEDS: Senna/Docusate Sodium 1 Tablet 2 TABLET PO (07:47)
[2025-02-06] MEDS: Magnesium Chloride 64 MG Delay Rel.Tablet 128 MG PO (07:47)
[2025-02-06] MEDS: Lactobacillis Acidophilus 1 CAP PO (07:47)
--- NOTE | 2025-02-06 12:37 | NURSING ---
DC instructions provided and patient and daughter verbalized understanding.
== END 2025-02-06 12:39 | disposition home health service (06) | DRG 559 ==
PROVIDERS: Admitting Provider Internal Medicine; PCP Family Medicine; Visit Provider Internal Medicine
DX: M84.65 Pathological fracture in other disease, pelvis and femur (principal); E43 Unspecified severe protein-calorie malnutrition; D69.6 Thrombocytopenia, unspecified; E11.22 Type 2 diabetes mellitus with diabetic chronic kidney disease; E03.9 Hypothyroidism, unspecified; D64.9 Anemia, unspecified; I12.9 Hypertensive chronic kidney disease with stage 1 through stage 4 chronic kidney disease, or unspecified chronic kidney disease; E05.80 Other thyrotoxicosis without thyrotoxic crisis or storm; E11.65 Type 2 diabetes mellitus with hyperglycemia; E55.9 Vitamin D deficiency, unspecified; N18.2 Chronic kidney disease, stage 2 (mild); E78.5 Hyperlipidemia, unspecified; K21.9 Gastro-esophageal reflux disease without esophagitis; M15.9 Polyosteoarthritis, unspecified; W01.0XXD Fall on same level from slipping, tripping and stumbling without subsequent striking against object, subsequent encounter; G47.00 Insomnia, unspecified; F51.02 Adjustment insomnia; Z68.20 Body mass index [BMI] 20.0-20.9, adult; Z79.899 Other long term (current) drug therapy; Z79.890 Hormone replacement therapy; Z79.84 Long term (current) use of oral hypoglycemic drugs; S63.502D Unspecified sprain of left wrist, subsequent encounter
CPT/HCPCS: 74018; 80053; 82274; 82550; 82962; 83036; 83735; 84100; 84439; 84443; 85027; 92507; 92523; 94668; 97110; 97116; 97129; 97130; 97162; 97167; 97530; 97535; 97802; 97803; A4216